=== PATIENT | female | born 1975 | race Caucasian/White ===

== ENCOUNTER 2022-05-30 15:45 | Outpatient (RCR) | payer OTHER, SELFPAY ==
[2022-05-15 09:01] VITALS: BMI 44.2
== END 2022-05-30 23:59 ==
LOC: CR 15:45
DX: Z95.5 Presence of coronary angioplasty implant and graft (principal)
CPT/HCPCS: 93798

== ENCOUNTER 2022-06-29 15:45 | Outpatient (RCR) | payer OTHER, SELFPAY ==
[2022-05-15 09:01] VITALS: BMI 44.2
--- NOTE | 2022-06-13 09:10 | PCM.CR.ITP ---
Diagnosis Exercise - 30-day Assessment - Visit Date of Eval: 06/13/22 Session #:: 8 - Physician Prescribed Exercise Modalities: Treadmill, Rower, NuStep Frequency: 3x/week for 12 weeks [36 sessions] Intensity: 60-80% of age predicted maximum heart rate reserve Current METSs:: 4.5 Target Heart Rate:: 113-147 Current RPE:: 12-14 Maximum Excercise HR:: 118 Resting Blood Pressure: 140/80 Maximum Exercise Blood Pressure: 140/80 EKG Type: NSR to ST with rare PVC - Outcomes & Goals Goals:: Verbalizes understanding of THR, RPE & goal METS by session 6, Documents in home exercise log/reports 30 min aerobic 5 day/wk by DC, Demonstrates accurate pulse taking by DC, Other additional outcome/goals: see below - Intervention & Plan Exercise Program Goals: Instruct on personal THR & RPE, Instruct on MET level & personal MET goal, Show patient to take own pulse /validate performance until accurate, Instruct on home exercise, Other additional plan/int - 30-day Reassessments 30 day Reassessments:: Progressing - THR explained - Physical Activity Home Exercise Physical Activity - Home Exercise: Safe Exercise, Warm-up, Self-monitoring, Cool-Down, Home Exercise > 30 min Daily, Sitting Time <3 hours/daily - Outcomes & Goals Outcomes/Goals: Demonstrates correct Warm-up/exercise Cool-Down (S3) if = 2.5 METs, Verbalizes symptoms of exercise intolerance by Session 3 (S3), Demonstrate safe equipment use (S3) & follows exercise prescrition (6), Other: See below - Intervention & Plan Plan/Intervention: Instruct warm-up & cool-down if exercising at > 2 METs, Instruct on symptoms of exercise intolerance & actions to take, Instruct & monitor on saf, Assess intial functional capacity & safety risk, Other See below - 30-day Reassessments 30 day Reassessments:: Progressing - warm up encouraged Nutrition - Initial Assessment Nutrition - 30-Day Assessment - Program Goals Nutrition Program Goals: LDL <100 optimal. 100 - 129 Near optimal. 130 - 159 Borderline High. 160 - 189 High. Total Cholesterol <200 desirable. 200 - 239 Borderline High. >/= 240 High. HDL < 40 Low >/=60 High. Triglycerides <150 desirable. <199 optimal. VlDL 5 - 40. HgbA1C <7%. BMI <25 Patient has diagnosis of Hyperlipidemia (ICD E78)?: Yes - Visit Date of Assessment:: 06/13/22 Session #:: 8 - Cholesterol/Lipids (Other Core Measures) Determine presence & major risk factors that modify LDL goal: Hypertension or hypertensive medication, Low HDL cholesterol <40 mg/dL*, Family history of premature CHD in Male < 55 years: female <65 yearsFa, Age men > 45 years; women >/= 55 years Outcomes/Goals: Pt IDs own risk factors & lifestyle modifications by Session 10, Verbalizes symptoms of angina & response by session 3., Pt independently manages, Other Additional Outcomes/Goals: Intervention/Plan: Advocate for lipid panel cholesterol medication if applicable, Instruct on personal lipid levels & lipid goals/NCEP guidelines, Instruct on cholesterol, Other additional plan/int Referral to dietitian:: Yes - medical nutrition therapy 30-day Reassessments:: Progressing - risk factors explained - Diabetes (Other Core Measures) Diabetes Type: Diagnosis Type II ICD-10 E11 Fasting blood glucose:: 198 Insulin dependent injection/pump?: Yes Non-Insulin Dependent?: Yes Do you monitor your blood sugar at home?: Yes Referral to Diabetic Clinic:: Yes Outcomes/Goals:: Able to state symptoms of, Able to state, Able to state, Other additional Intervention/Plan:: Instruct on, Refer to, Instruct on, Other 30-day Reassessments:: Progressing - referral to dietitian - Weight Mgt (Other Care) Height: 5 ft 4 in Weight:: 115.212 kg BMI: 43.6 Diagnosis Overweight/Obesity BMI> 30% ICD-10 E66: Yes Diagnosis High BMI/Morbid Obesity BMI> 35% ICD-10 Z68: Yes Outcomes/Goals: Pt sets, maintains & shows weight loss goal & trend during rehab, Other additional outcomes/goals Intervention/Plan: Instruct on ideal BMI & set weight loss goal w/patient, Assist pt to ID & incorporate diet changes for weight loss by S9, Refer to Structured Weight Loss program as appropriate, Encourage goal of using 250-300dcal per session for weight loss, Other additional plan/interventions 30 day Reassessments:: Progressing - referral to dietitian - Healthy Eating Habits Will attend diet classes:: Yes Outcomes/Goals:: Consume diet rich in vegs,fruits,whole grain/high fiber,fish,lean meat, Limit sat/trans fats,cholesterol & added salts & sugars, Other additional outcome/goals: Intervention/Plan:: Assess current eating habits, Other Additional plan/interventions 30-day Reassessments:: Progressing - referral to dietitian - Education Gave educational materials for:: Signs & symptoms of hypoglycemia, Relate diabetes to coronary artery disease, Healthy eating Nutrition - 60-Day Assessment Nutrition - 90-Day Assessment Nutrition - Final Assessment Core - Initial Assessment Core - 30-Day Assessment - Visit Date of Eval: 06/13/22 Session #:: 8 - Medication Compliance Preventative Medication(s):: Aspirin, Clopidogrel/P2Y12 inhibit, Statin/lipid, Beta tu H/O mental health issues: depression, anxiety, or addiction?: No Doesn?t believe in the benefits of treatment?: No Believes medications are unnecessary or harmful?: No Has a concern about medication side effects?: No Expresses concern over the cost of medications?: No Outcomes/Goals: Verbalizes medications,desired effect & common side effects @ DC, Pt self-reports following medication regimen, Keeps card in wallet w/medications listed by DC, Other additional outcome/goals: Interventions/plans: Instruct on medication effects & side effects, Review medication list w/patient every two weeks, Instruct importance of taking meds as ordered & assist problem solving, Other additional 30-day Reassessments:: Progressing - encouraged to take meds - Tobacco Use Tobacco Use: Non-smoker Do you use smokeless tobacco?: No 30-day Reassessments:: Met - nonsmoker - Hypertension Hypertension Diagnosis:: Hypertension ICD-10 I10 Resting Blood Pressure:: 140/80 [place] [employer] Hypertension Guidelines: [place] [employer] Hypertension Guidelines. Normal BP Less than 120/80. Elevated BP 120/80. Hypertension Stage 1: BP 130-139/80-89. Hypertesnion Stage 2: BP 140 or higher/90 or higher. Hypertension Crisis: BP higher than 180/120 Peak Exercise Blood Pressure:: 140/80 Outcomes/Goals: Able to verbalize/achieve optimal blood pressure <130/80, Incorporates diet changes & exercise for blood pressure control by DC, Other additional outcomes/goals Interventions/plan: Instruct on optimal blood pressure, hypertension & medications, Instruct on effects of sodium, alcohol, stress, exercise &hypertension, Other additional plan/interventions 30 day Reassessments:: Progressing - encouraged tot terri meds - Tobacco Cessation Referral Smoking Cessation Referral:: No Individual Education/Counseling:: No Education Schedule Given:: Yes Core - 60-Day Assessment Core - 90 Day Assessment Core - Final Assessment Psychosocial - Initial Assess Psychosocial - 30-Day Assess - VIsit Date of Eval: 06/13/22 Session #:: 8 History of previous Mental disease:: No - 30-day Reassessments: 30 day Reassessments:: Met Psychosocial - 60-Day Assess Psychosocial - 90-Day Assess Psychosocial - Final Assessmen Patient Health Questionnaire 30-Day Re-eval Assessment 1. Little interest or pleasure in doing things: Not at all 2. Feeling down, depressed, or hopeless: Not at all 3. Trouble falling or staying asleep, or sleeping too much: Several days 4. Feeling tired or having little energy: Several days 5. Poor appetite or overeating: Several days 6. Feeling bad about yourself -- or that you are a failure or have let yourself or your family down: Not at all 7. Trouble concentrating on things, such as reading the newspaper or watching television: Not at all 8. Moving or speaking so slowly that other people could have noticed. Or the opposite - being so fidgety or restless that you have been moving around a lot more than usual: Not at all 9. Thoughts that you would be better off , or of hurting yourself in some way: Not at all How difficult have these problems made it for you to do your work, take care of things at home, or get along with other people?: Not difficult at all Total Score: 3 Self-Efficacy 30-Day Re-eval Assessment We would like to know how confident you are in doing certain activities. Please select your confidence level for:: Select your confidence level for the following using the scale 1-10 where 1 is not at all confident and 10 is totally confident. Your score is the average of all 6 responses. Fatigue: How confident are you that you can keep the fatigue caused by your disease from interfering with the things you want to do? Select Number: 7 Physical Discomfort or Pain: How confident are you that you can keep the physical discomfort or pain of your disease from interfering with the things you want to do? Select Number: 7 Emotional Distress: How confident are you that you can keep the emotional distress caused by your disease from interfering with the things you want to do? Select Number: 9 Other Symptoms or Health Problems: How confident are you that you can keep other symptoms or health problems from interfering with the things you want to do? Select Number: 7 Different Tasks and Activities: How confident are you that you can do the different tasks and activities needed to manage your health condition so as to reduce your need to see a doctor? Select Number: 7 Medication: How confident are you that you can do things other than just taking medication to reduce how much your illness affects your everyday life? Select Number: 8 Total Score:: 7 Nutrition Survey
[2022-06-13 09:21] VITALS: BP 140/80; BMI 43.6
== END 2022-06-30 23:59 ==
LOC: CR 15:45
DX: Z95.5 Presence of coronary angioplasty implant and graft (principal)
CPT/HCPCS: 93798

== ENCOUNTER 2022-07-30 15:45 | Outpatient (RCR) | payer OTHER, SELFPAY ==
[2022-06-13 09:21] VITALS: BMI 43.6
[2022-07-01 00:33] VITALS: BP 140/80
== END 2022-07-31 23:59 ==
LOC: CR 15:45
PROVIDERS: PCP Family Medicine
DX: Z95.5 Presence of coronary angioplasty implant and graft (principal)
CPT/HCPCS: 93798

== ENCOUNTER 2022-08-27 15:45 | Outpatient (RCR) | payer OTHER, SELFPAY ==
[2022-06-13 09:21] VITALS: BMI 43.6
[2022-08-01 00:34] VITALS: BP 140/80
== END 2022-08-28 23:59 ==
LOC: CR 15:45
PROVIDERS: PCP Family Medicine
DX: Z95.5 Presence of coronary angioplasty implant and graft (principal)
CPT/HCPCS: 93798

== ENCOUNTER 2022-08-29 10:43 | Outpatient (RCR) | payer OTHER, SELFPAY ==
[2022-06-13 09:21] VITALS: BMI 43.6
[2022-08-29 00:23] VITALS: BP 140/80
== END 2022-09-28 23:59 ==
LOC: CR 10:43
PROVIDERS: PCP Family Medicine
DX: Z95.5 Presence of coronary angioplasty implant and graft (principal)
CPT/HCPCS: 93798

== ENCOUNTER → 2023-01-11 | Outpatient (CLI) | payer OTHER, SELFPAY ==
[2022-06-13 09:21] VITALS: BMI 43.6
[2023-01-16 12:09] LABS: HPV APTIMA, High Risk Negative (Negative)
== END | disposition home or self-care (01) ==
LOC: LABSPEC 10:36
PROVIDERS: PCP Family Medicine; Referring Provider Advanced Practice Midwife; Visit Provider Advanced Practice Midwife
DX: Z12.4 Encounter for screening for malignant neoplasm of cervix (principal)
CPT/HCPCS: 87624; 88175; G0145

== ENCOUNTER → 2023-03-05 | Outpatient (CLI) | payer OTHER, SELFPAY ==
[2022-06-13 09:21] VITALS: BMI 43.6
--- NOTE | 2023-03-05 08:21 | BI_ITS ---
MAMMOGRAPHY - BILATERAL SCREENING REASON FOR EXAM: Female, 47 years old. Routine annual screening examination. PERTINENT HISTORY: Mother with breast cancer. Aunt with breast cancer. History of prior left breast biopsy. TECHNIQUE: Digital bilateral breast dominique (3D mammographic acquisition) in the CC and MLO projections. 2-D mediolateral oblique (MLO) and craniocaudad (CC) views of both breasts were obtained. CAD: Full Field Digital Mammography with Computer Added Detection was performed. COMPARISON: Comparison is made with prior outside mammogram dated March 02, 2022. FINDINGS: Breast Composition: The breasts are heterogeneously dense, which may obscure small masses. There are no dominant masses or suspicious calcifications. A tissue clip marker is seen in the upper central portion of the left breast. No other significant abnormalities are identified. There has been no significant change since the prior study. BI/SCRN MAMM (CAD)W/DOMINIQUE BILAT IMPRESSION: Stable bilateral screening mammogram. Yearly follow-up mammogram recommended. (A) ASSESSMENT CATEGORY: BIRADS Category 2: Benign. A letter regarding these results will be sent to the patient by the facility within 30 days. Approximately 10% of breast cancers are not detected by mammography. A normal mammogram should not delay biopsy of a clinically suspicious abnormality. [id number] Electronically Signed: Wilder Stewart MD at 14:16 EDT ,
== END | disposition home or self-care (01) ==
PROVIDERS: PCP Family Medicine; Referring Provider Advanced Practice Midwife; Visit Provider Advanced Practice Midwife
DX: Z12.31 Encounter for screening mammogram for malignant neoplasm of breast (principal)
CPT/HCPCS: 77063; 77067

== ENCOUNTER → 2023-06-17 | Outpatient (CLI) | payer OTHER, SELFPAY ==
[2022-06-13 09:21] VITALS: BMI 43.6
--- NOTE | 2023-06-17 08:15 | CDU_ITS ---
Reason For Study: Dizziness Rt. Velocities/BP Lt. Velocities/BP Prox CCA 99/17 cm/sec. Prox CCA 99/25 cm/sec. Mid CCA 118/29 cm/sec. Mid CCA 113/28 cm/sec. Dist CCA 111/27 cm/sec. Dist CCA 111/34 cm/sec. Prox ICA 98/30 cm/sec. Prox ICA 114/36 cm/sec. Mid ICA 107/29 cm/sec. Mid ICA 98/38 cm/sec. Dist ICA 116/45 cm/sec. Dist ICA 87/31 cm/sec. Rt. ICA/CCA = 1.0. Lt. ICA/CCA = 1.0. Prox ECA 108/7 cm/sec. Prox ECA 98/22 cm/sec. Rt. Vert. 48/19 cm/sec. Lt. Vert. 50/13 cm/sec. Right Extracranial There is intimal thickening but no significant atherosclerotic plaque noted in the right common carotid artery. There is intimal thickening but no significant atherosclerotic plaque noted in the right internal carotid artery. There is no significant atherosclerotic plaque noted in the right external carotid artery. Antegrade flow is noted in the right vertebral artery. There is heterogeneous, irregular atherosclerotic plaque noted in the right bulb. Left Extracranial There is intimal thickening but no significant atherosclerotic plaque noted in the left common carotid artery. There is heterogeneous, smooth atherosclerotic plaque noted in the left internal carotid artery. There is no significant atherosclerotic plaque noted in the left external carotid artery. Antegrade flow is noted in the left vertebral artery. There is heterogeneous, irregular atherosclerotic plaque noted in the left bulb. Procedure Carotid Duplex [id number]. This is a Carotid Duplex examination using B-mode, color flow and specral Doppler. Exam performed in department. VL/Carotid Duplex Ultrasound Interpretation Summary Normal right extracranial internal carotid. Mild (<50%) stenosis left extracranial internal carotid. Patent and antegrade vertebrals bilaterally Ordering Physician: Pedro Luis Malhotra Referring Physician: Rhett Brito Performed By: Hazel Malhotra, THALIA, RVT
== END | disposition home or self-care (01) ==
LOC: CVS 08:15
PROVIDERS: PCP Family Medicine; Referring Provider Nurse Practitioner Family; Visit Provider Nurse Practitioner Family
DX: R42 Dizziness and giddiness (principal); I65.22 Occlusion and stenosis of left carotid artery; E78.2 Mixed hyperlipidemia; I10 Essential (primary) hypertension; Z95.5 Presence of coronary angioplasty implant and graft
CPT/HCPCS: 93880

== ENCOUNTER 2023-08-05 08:18 | Day surgery (SDC) | payer OTHER, SELFPAY ==
[2022-06-13 09:21] VITALS: BMI 43.6
[2023-08-05 08:42] VITALS: BP 116/69; PULSE 84; RESP 16; TEMP 36.8; O2SAT 100; BMI 38.9
--- OUTSIDE RECORDS SUMMARY | 2023-08-05 08:55 | XMS RPT_ITS | CCD ---
Author Name Unknown Address [address] [place] [address] Organization [facility] Care Team Providers Care Director Facilities Maintenance Name Role Phone Rhett Brito Unavailable Unavailable RHETT BRITO Unavailable Unavailable RHETT BRITO Unavailable Unavailable RHETT BRITO Unavailable Unavailable BIRHETT GUIDRY Unavailable Unavailable Compa, Suzi F Unavailable Unavailable Compa, Suzi F Unavailable Unavailable Compa, Suzi F Unavailable Unavailable Compa, Suzi F Unavailable Unavailable Compa, Suzi F Unavailable Unavailable Compa, Suzi F Unavailable Unavailable Compa, Suzi F Unavailable Unavailable Compa, Suzi F Unavailable Unavailable Rhett Brito Unavailable Unavailable Rhett Brito Primary Care Provider UnavailRHETT Fernandes Attending Unavailable RHETT BRITO Referring Unavailable RHETT BRITO Attending Unavailable REHTT BRITO Referring Unavailable Rhett Brito Primary Care Provider [phone] Rhett Brito Primary Care Provider Rhett Birto Primary Care Provider Rhett Brito MD Primary Care Provider [phone] RHETT BRITO Primary Care Unavailable COMPA, SUZI F. S. Attending Unavailabl e COMPA, SUZI F. S. Attending Unavailabl e COMPA, SUZI F. S. Referring UnavailRHETT Fernandes Primary Care Unavailable Rhett Brito MD Primary Care Provider LIVIA MONSON Attending Unavailable RHETT BRITO Primary Care Unavailable Rhett Brito MD Primary Care Provider Rhett Brito MD Primary Care Provider Rhett Brito MD Primary Care Provider SELF, SELF Referring Unavailable RHETT BRITO Attending Unavailable RHETT BRITO Primary Care Unavailable SELF, SELF Referring Unavailable RHETT BRITO Attending Unavailable RHETT BRITO Primary Care Unavailable RHETT BRITO Attending Unavailable JOHNNA, RHETT Joyce Primary Care Unavailable SELF, SELF Referring Unavailable JOHNNA, RHETT Joyce Attending Unavailable BICHAO, RHETT Joyce Primary Care Unavailable SELF, SELF Referring Unavailable RHETT BRITO Attending Unavailable BICHAO, RHETT Joyce Referring Unavailable BICHAO, RHETT Joyce Primary Care Unavailable BICHAO, RHETT Joyce Attending Unavailable BICHAO, RHETT Joyce Primary Care Unavailable SELF, SELF Referring Unavailable SELF, SELF Referring Unavailable BICHAO, RHETT Joyce Primary Care Unavailable CATHLEEN VALDES Attending Unavailable JOHNNA, RHETT Joyce Primary Care Unavailable RHETT BRITO Attending Unavailable JOHNNA, REHTT Joyce Referring Unavailable JOHNNA, RHETT Joyce Primary Care Unavailable JOHNNA, RHETT Joyce Primary Care Unavailable SELF, SELF Referring Unavailable JOHNNA, RHETT Joyce Primary Care Unavailable JOHNNA, RHETT Joyce Attending Unavailable Allergies Allergy Classification Reported Allergen(s) Allergy Type Date of Onset Reaction(s) Facility Opioid Agonists (5 sources) [facility] Drug Allergy 9 Nausea and Vomiting [facility] (11 sources) OTHER; Translations: [OTHER] Propensity to adverse reactions 6 Other (See Comments) [employer] Work Phone: (20 sources) traMADol Drug Allergy 9 Nausea and Vomiting [facility] Medications Current Medications Medication Drug Class(es) Dates Sig (Normalized) Sig (Original) acetaminophen 325 mg / oxyCODONE hydrochloride 5 mg oral tablet (11 sources) Opioid Agonist Start: 04-30-2019 End: 06-16-2019 take 1-2 tablets by mouth every four to six hours as needed for pain oxyCODONE-acetami nophen 5-325 MG Tab per tablet Indications: S/P carpal tunnel release , S/P cubital tunnel release 1-2 tabs PO every 4-6 hrs as needed for pain 40 tablet 0 06/11/2019 Active Completed/Discontinued Medications Medication Drug Class(es) Dates Sig (Normalized) Sig (Original) acetaminophen 325 mg oral tablet (5 sources) Start: 04-27-2022 End: 04-28-2022 take 325-650 mg by mouth every six hours as needed acetaminophen (TYLENOL) tablet 325-650 mg Problems Active Problems Problem Classification Problem Date Documented Date Episodic/Chronic Cardiac dysrhythmias (3 sources) Bradycardia; Translations: [Bradycardia] Onset: 09-24-2020 09-24-2020 Chronic Cardiac dysrhythmias (20 sources) Bradycardia; Translations: [Bradycardia, unspecified] Onset: 09-24-2020 09-24-2020 Episodic Contraceptive and procreative management (20 sources) Intrauterine contraceptive device in situ; Translations: [Contraceptive, surveillance, intrauterine device] Onset: 04-17-2017 08-16-2017 Coronary atherosclerosis and other heart disease (20 sources) Coronary atherosclerosis; Translations: [Atherosclerotic heart disease of jackson coronary artery without angina pectoris] Onset: 03-08-2021 Chronic Diabetes mellitus with complications (15 sources) Type 2 diabetes mellitus; Translations: [Type 2 diabetes mellitus with diabetic neuropathy, unspecified] Onset: 02-16-2021 02-16-2021 Chronic Diabetes mellitus without complication (20 sources) Diabetes mellitus; Translations: [Type 2 diabetes mellitus without complication] Onset: 04-30-2018 04-30-2018 Chronic Disorders of lipid metabolism (20 sources) Hypercholesterolemia; Translations: [Pure hypercholesterolemia, unspecified] Onset: 02-16-2021 02-16-2021 Chronic Esophageal disorders (2 sources) Gastroesophageal reflux disease without esophagitis; Translations: [Gastro-esophageal reflux disease without esophagitis] Chronic Essential hypertension (20 sources) Essential hypertension; Translations: [Essential (primary) hypertension] Onset: 10-17-2021 Chronic Fluid and electrolyte disorders (1 source) Mild dehydration; Translations: [Dehydration, mild] Episodic Headache; including migraine (20 sources) Chronic tension-type headache, intractable; Translations: [Intractable chronic tension headache] Onset: 05-20-2017 05-20-2017 Chronic Headache; including migraine (10 sources) Cervicogenic headache; Translations: [Cervicogenic headache] Episodic Headache; including migraine (20 sources) Headache; including migraine; Translations: [Intractable chronic tension headache] Onset: 05-20-2017 05-20-2017 Immunizations and screening for infectious disease (1 source) Needs influenza immunization; Translations: [Encounter for immunization] 04-18-2023 Episodic Nonspecific chest pain (4 sources) Chest pain; Translations: [Chest pain, unspecified] Episodic Other and unspecified benign neoplasm (1 source) Dermatofibroma; Translations: [Dermatofibroma] Episodic Other connective tissue disease (1 source) Calcaneal spur; Translations: [Calcaneal spur, unspecified laterality] Episodic Other connective tissue disease (2 sources) Plantar fasciitis; Translations: [Plantar fasciitis] Episodic Other connective tissue disease (1 source) Pain in limb; Translations: [Pain in unspecified limb] Episodic Other connective tissue disease (5 sources) Inflammation of rotator cuff tendon; Translations: [Other shoulder lesions, unspecified shoulder] Episodic Other endocrine disorders (20 sources) Hyperprolactinemia; Translations: [Hyperprolactinemia] Onset: 04-17-2017 04-17-2017 Chronic Other endocrine disorders (1 source) Increased androgen level; Translations: [Androgen excess] 04-18-2023 Chronic Other female genital disorders (20 sources) Dysfunctional uterine bleeding; Translations: [Irregular periods] Onset: 04-17-2017 04-17-2017 Chronic Other female genital disorders (20 sources) Abnormal uterine bleeding; Translations: [Other specified abnormal uterine and vaginal bleeding] Onset: 04-17-2017 08-16-2017 Chronic Other injuries and conditions due to external causes (1 source) Compression injury of nerve; Translations: [Other injury of unspecified body region, initial encounter] Episodic Other nervous system disorders (3 sources) Carpal tunnel syndrome; Translations: [Carpal tunnel syndrome, unspecified laterality] Chronic Other nervous system disorders (3 sources) Cubital tunnel syndrome; Translations: [Cubital tunnel syndrome, bilateral] Chronic Other nervous system disorders (2 sources) Bilateral carpal tunnel syndrome; Translations: [Carpal tunnel syndrome, bilateral upper limbs] Chronic Other nervous system disorders (5 sources) Bilateral carpal tunnel syndrome; Translations: [Bilateral carpal tunnel syndrome] Other nervous system disorders (1 source) Carpal tunnel syndrome of left wrist; Translations: [Carpal tunnel syndrome, left] Other nutritional; endocrine; and metabolic disorders (20 sources) Morbid obesity; Translations: [Morbid (severe) obesity due to excess calories] Onset: 07-22-2018 07-22-2018 Chronic Other nutritional; endocrine; and metabolic disorders (7 sources) Other obesity due to excess calories; Translations: [Childhood obesity] Onset: 02-20-2023 02-20-2023 Chronic Other nutritional; endocrine; and metabolic disorders (12 sources) Body mass index 40+ - severely obese; Translations: [Morbid (severe) obesity due to excess calories] Onset: 07-22-2018 02-17-2021 Chronic Other skin disorders (1 source) Alopecia; Translations: [Nonscarring hair loss, unspecified] Episodic Other skin disorders (1 source) Loss of hair; Translations: [Nonscarring hair loss, unspecified] 04-18-2023 Episodic Other upper respiratory disease (6 sources) Allergic rhinitis; Translations: [Allergic rhinitis, unspecified] Chronic Other upper respiratory disease (1 source) Bronchospasm; Translations: [Bronchospasm] Episodic Residual codes; unclassified (5 sources) History of decompression of ulnar nerve; Translations: [S/P cubital tunnel release] Episodic Residual codes; unclassified (4 sources) History of decompression of median nerve; Translations: [S/P carpal tunnel release] Episodic Septicemia (except in labor) (3 sources) Sepsis without acute organ dysfunction; Translations: [Sepsis without acute organ dysfunction] Onset: 09-22-2020 09-22-2020 Spondylosis; intervertebral disc disorders; other back problems (10 sources) Neck pain; Translations: [Cervicalgia] Episodic Unclassified (20 sources) Patient encounter status; Translations: [Visit for insertion of intrauterine device] Onset: 04-17-2017 04-17-2017 Unclassified (20 sources) Tendonitis, Achilles, right; Translations: [Tendonitis, Achilles, right] Onset: 05-07-2018 05-07-2018 Unclassified (1 source) Cancer cervix screening status; Translations: [Cervical cancer screening] Unclassified (1 source) Abnormal findings on diagnostic imaging of other specified body structures; Translations: [Abnormal chest CT] Varicose veins of lower extremity (20 sources) Venous varices; Translations: [Asymptomatic varicose veins of unspecified lower extremity] Onset: 09-06-2015 09-06-2015 Episodic Viral infection (1 source) Disease caused by 2019-nCoV; Translations: [COVID-19] Episodic Past or Other Problems Problem Classification Problem Date Documented Da te Episodic/Chronic Abdominal pain (20 sources) Pain in female pelvis; Translations: [Pelvic and perineal pain] Onset: 7 04-17-2017 Episodic Contraceptive and procreative management (20 sources) Contraception ; Translations: [IUD contraception] Onset: 7 04-17-2017 Episodic Coronary atherosclerosis and other heart disease (3 sources) History of cardiac catheterization; Translations: [Presence of coronary angioplasty implant and graft] Onset: 1 Episodic Other connective tissue disease (20 sources) Achilles tendinitis, right leg; Translations: [Right achilles tendonitis] Onset: 8 05-07-2018 Episodic Other connective tissue disease (1 source) Pain in left arm; Translations: [Pain in left arm] Episodic Other lower respiratory disease (15 sources) Dyspnea on exertion; Translations: [Dyspnea, unspecified] Onset: 1 02-16-2021 Episodic Other screening for suspected conditions (not mental disorders or infectious disease) (20 sources) Mammography abnormal; Translations: [Patient encounter status] Onset: 1 Episodic Otitis media and related conditions (3 sources) Acute otitis media; Translations: [Otitis media, unspecified, unspecified ear] Onset: 3 02-20-2023 Episodic Phlebitis; thrombophlebitis and thromboembolism (20 sources) Phlebitis of superficial veins of lower extremity; Translations: [Phlebitis and thrombophlebitis of superficial vessels of unspecified lower extremity] Onset: 6 09-06-2015 Episodic Pneumonia (except that caused by tuberculosis or sexually transmitted disease) (20 sources) Bronchopneumonia; Translations: [Infective pneumonia] Onset: 1 09-21-2020 Episodic Residual codes; unclassified (15 sources) Family history of coronary arteriosclerosis; Translations: [Family history of ischemic heart disease and other diseases of the circulatory system] Onset: 1 02-16-2021 Episodic Septicemia (except in labor) (20 sources) Sepsis without acute organ dysfunction; Translations: [Sepsis, unspecified organism] Onset: 1 09-22-2020 Episodic Results Test Name Value Interpretation Reference Range Facil ity Vital Signs Date Time Vital Sign Value Performing Clinician Christine quintanilla 04-18-2023 08:21-0400 Body height 162.6 cm Rhett Brito MD Work Phone: [facility] 04-18-2023 08:21-0400 Body mass index (BMI) [Ratio] 42.5 kg/m2 Rhett Brito MD Work Phone: [facility] 04-18-2023 08:21-0400 Body weight 112.31 kg Rhett Brito MD Work Phone: [facility] 04-18-2023 08:21-0400 Diastolic blood pressure 71 mm[Hg] Rhett Brito MD Work Phone: [facility] 04-18-2023 08:21-0400 Heart rate 78 /min Rhett Brito MD Work Phone: [facility] 04-18-2023 08:21-0400 SaO2% (BldA) [Mass fraction] 100 % Rhett Brito MD Work Phone: [facility] 04-18-2023 08:21-0400 Systolic blood pressure 110 mm[Hg] Rhett Brito MD Work Phone: [facility] 10-17-2022 13:57-0400 Body height 162.6 cm Rhett Brito MD Work Phone: [facility] 10-17-2022 13:57-0400 Body mass index (BMI) [Ratio] 44.53 kg/m2 Rhett Brito MD Work Phone: [facility] 10-17-2022 13:57-0400 Body temperature 98.01 [degF] Rhett Brito MD Work Phone: [facility] 10-17-2022 13:57-0400 Body weight 117.66 kg Rhett Brito MD Work Phone: [facility] 10-17-2022 13:57-0400 Diastolic blood pressure 74 mm[Hg] Rhett Brito MD Work Phone: [facility] 10-17-2022 13:57-0400 Heart rate 68 /min Rhett Brito MD Work Phone: [facility] 10-17-2022 13:57-0400 Respiratory rate 18 /min Rhett Brito MD Work Phone: [facility] 10-17-2022 13:57-0400 SaO2% (BldA) [Mass fraction] 99 % Rhett Brito MD Work Phone: [facility] 10-17-2022 13:57-0400 Systolic blood pressure 122 mm[Hg] Rhett Brito MD Work Phone: [facility] 04-28-2022 08:25-0400 Body temperature 97.9 [degF] Madhu Kramer MD Work Phone: [facility] 04-28-2022 08:25-0400 Diastolic blood pressure 75 mm[Hg] Madhu Kramer MD Work Phone: [facility] 04-28-2022 08:25-0400 Heart rate 81 /min Madhu Kramer MD Work Phone: [facility] 04-28-2022 08:25-0400 SaO2% (BldA) [Mass fraction] 97 % Madhu Kramer MD Work Phone: [facility] 04-28-2022 08:25-0400 Systolic blood pressure 126 mm[Hg] Madhu Kramer MD Work Phone: [facility] 04-28-2022 08:18-0400 Respiratory rate 16 /min Madhu Kramer MD Work Phone: [facility] 04-28-2022 04:00-0400 Body mass index (BMI) [Ratio] 46.17 kg/m2 Madhu Kramer MD Work Phone: [facility] 04-28-2022 04:00-0400 Body weight 122 kg Madhu Kramer MD Work Phone: [facility] 04-17-2022 13:18-0400 Body mass index (BMI) [Ratio] 44.46 kg/m2 Rhett Brito MD Work Phone: [facility] 04-17-2022 13:18-0400 Body weight 117.48 kg Rhett Brito MD Work Phone: [facility] 04-17-2022 13:18-0400 Diastolic blood pressure 84 mm[Hg] Rhett Brito MD Work Phone: [facility] 04-17-2022 13:18-0400 Heart rate 71 /min Rhett Brito MD Work Phone: [facility] 04-17-2022 13:18-0400 Respiratory rate 16 /min Rhett Brito MD Work Phone: [facility] 04-17-2022 13:18-0400 SaO2% (BldA) [Mass fraction] 97 % Rhett Brito MD Work Phone: [facility] 04-17-2022 13:18-0400 Systolic blood pressure 138 mm[Hg] Rhett Brito MD Work Phone: [facility] 11-20-2021 08:31-0400 Body height 162.6 cm Roxie Lazo MD Work Phone: [facility] 11-20-2021 08:31-0400 Body mass index (BMI) [Ratio] 43.94 kg/m2 Roxie Lazo MD Work Phone: [facility] 11-20-2021 08:31-0400 Body weight 116.12 kg Roxie Lazo MD Work Phone: [facility] 11-20-2021 08:31-0400 Diastolic blood pressure 82 mm[Hg] Roxie Lazo MD Work Phone: [facility] 11-20-2021 08:31-0400 Heart rate 68 /min Roxie Lazo MD Work Phone: [facility] 11-20-2021 08:31-0400 Systolic blood pressure 122 mm[Hg] Roxie Lazo MD Work Phone: [facility] 10-26-2021 08:19-0400 Body mass index (BMI) [Ratio] 43.74 kg/m2 Rhett Brito MD Work Phone: [facility] 10-26-2021 08:19-0400 Body weight 115.58 kg Rhett Brito MD Work Phone: [facility] 10-26-2021 08:19-0400 Diastolic blood pressure 81 mm[Hg] Rhett Brito MD Work Phone: [facility] 10-26-2021 08:19-0400 Heart rate 70 /min Rhett Brito MD Work Phone: 7(866)024-436312 [place] [address] 10-26-2021 08:19-0400 Respiratory rate 16 /min Rhett Brito MD Work Phone: 8(213)676-617012 [place] [address] 10-26-2021 08:19-0400 Systolic blood pressure 139 mm[Hg] Rhett Brito MD Work Phone: 6(152)964-837119 [place] [address] 02-23-2021 11:15-0400 Body mass index (BMI) [Ratio] 44.73 kg/m2 Rhett Brito MD Work Phone: 9(559)391-953319 [place] [address] 02-23-2021 11:15-0400 Body weight 118.21 kg Rhett Brito MD Work Phone: 7(631)483-956219 [place] [address] 02-23-2021 11:15-0400 Diastolic blood pressure 81 mm[Hg] Rhett Brito MD Work Phone: 5(298)896-598419 [place] [address] 02-23-2021 11:15-0400 Heart rate 84 /min Rhett Brito MD Work Phone: 6(449)754-542519 [place] [address] 02-23-2021 11:15-0400 Respiratory rate 16 /min Rhett Brito MD Work Phone: 0(913)689-781012 [place] [address] 02-23-2021 11:15-0400 SaO2% (BldA) [Mass fraction] 98 % Rhett Brito MD Work Phone: 8(496)777-086512 [place] [address] 02-23-2021 11:15-0400 Systolic blood pressure 132 mm[Hg] Rhett Brito MD Work Phone: 9(879)494-230712 [place] [address] 02-18-2021 11:20-0400 Body temperature 98.01 [degF] Madhu Kramer MD Work Phone: [employer] [facility] 02-18-2021 11:20-0400 Diastolic blood pressure 94 mm[Hg] Madhu Kramer MD Work Phone: [employer] [facility] 02-18-2021 11:20-0400 Heart rate 86 /min Madhu Kramer MD Work Phone: [employer] [facility] 02-18-2021 11:20-0400 Respiratory rate 16 /min Madhu Kramer MD Work Phone: [employer] [facility] 02-18-2021 11:20-0400 SaO2% (BldA) [Mass fraction] 98 % Madhu Kramer MD Work Phone: [employer] 02-18-2021 11:20-0400 Systolic blood pressure 154 mm[Hg] Madhu Kramer MD Work Phone: [employer] [facility] 02-17-2021 10:25-0400 Body height 162.6 cm Madhu Kramer MD Work Phone: [employer] [facility] 02-17-2021 10:25-0400 Body mass index (BMI) [Ratio] 46.28 kg/m2 Madhu Kramer MD Work Phone: [employer] [facility] 02-17-2021 10:25-0400 Body weight 122.3 kg Madhu Kramer MD Work Phone: [employer] [facility] 02-14-2021 08:48-0400 Body mass index (BMI) [Ratio] 45.32 kg/m2 [facility] 02-14-2021 08:48-0400 Body weight 119.75 kg Rhett Brito MD Work Phone: [employer] [facility] 02-14-2021 08:48-0400 Diastolic blood pressure 78 mm[Hg] Rhett Brito MD Work Phone: [facility] 02-14-2021 08:48-0400 Heart rate 66 /min Rhett Brito MD Work Phone: [facility] 02-14-2021 08:48-0400 SaO2% (BldA) [Mass fraction] 96 % Rhett Brito MD Work Phone: [facility] 02-14-2021 08:48-0400 Systolic blood pressure 139 mm[Hg] Rhett Brito MD Work Phone: [facility] 12-05-2020 18:53-0400 Body height 162.6 cm Dario Fischer [employer]IL [employer]ER Work Phone: [facility] 12-05-2020 18:53-0400 Body mass index (BMI) [Ratio] 44.05 kg/m2 Dario Fischer [employer]IL DIST[employer] EXAM[employer]ER Work Phone: [facility] 12-05-2020 18:53-0400 Body temperature 98.91 [degF] Dario Fischer [employer]IL DIST[employer]ION [employer]ME EXAMINER Work Phone: [facility] 12-05-2020 18:53-0400 Body weight 116.39 kg Dario Fischer MAIL DIST[employer]ME EXAMINER Work Phone: [facility] 12-05-2020 18:53-0400 Diastolic blood pressure 99 mm[Hg] Dario Fischer MAIL DIST[employer]BUTION [employer]HEME EXAMINER Work Phone: [facility] 12-05-2020 18:53-0400 Heart rate 84 /min Dario Fischer MAIL DIST[employer]ION [employer]ME EXAMINER Work Phone: [facility] 12-05-2020 18:53-0400 Respiratory rate 16 /min Dario Fischer [employer]IL [employer] EXAM[employer]ER Work Phone: [facility] 12-05-2020 18:53-0400 SaO2% (BldA) [Mass fraction] 98 % Dario Fischer [employer]IL DIST[employer]ME EXAMINER Work Phone: [facility] 12-05-2020 18:53-0400 Systolic blood pressure 153 mm[Hg] Dario Amado [employer]IL DIST[employer]ME EXAMINER Work Phone: [facility] 10-28-2020 08:25-0400 Body mass index (BMI) [Ratio] 44.23 kg/m2 Hazel Brown APRN-MAIL DISTRI[employer]ION [employer]ME EXAMINER Work Phone: [facility] 10-28-2020 08:25-0400 Body weight 116.94 kg Hazel TELLES Work Phone: [facility] 10-28-2020 08:25-0400 Diastolic blood pressure 86 mm[Hg] Hazel TELLES Work Phone: [facility] 10-28-2020 08:25-0400 Heart rate 88 /min Hazel TELLES Work Phone: [facility] 10-28-2020 08:25-0400 Respiratory rate 16 /min Hazel TELLES Work Phone: [facility] 10-28-2020 08:25-0400 SaO2% (BldA) [Mass fraction] 98 % Hazel TELLES Work Phone: [facility] 10-28-2020 08:25-0400 Systolic blood pressure 132 mm[Hg] Hazel TELLES Work Phone: [facility] 09-30-2020 11:21-0400 BMI (Body Mass Index) 42.27 kg/m2 [facility] 09-30-2020 11:21-0400 Body weight 111.77 kg [facility] 09-30-2020 11:21-0400 BP Diastolic 81 mm[Hg] [facility] 09-30-2020 11:21-0400 BP Systolic 120 mm[Hg] [facility] 09-30-2020 11:21-0400 Pulse (Heart Rate) 95 /min [facility] 09-30-2020 11:21-0400 Pulse Oximetry 93 % [facility] 09-30-2020 11:21-0400 Respiratory Rate 16 /min [facility] 09-25-2020 12:09-0400 Body Temperature 97.9 [degF] [facility] 09-25-2020 12:09-0400 BP Diastolic 84 mm[Hg] [facility] 09-25-2020 12:09-0400 BP Systolic 166 mm[Hg] [facility] 09-25-2020 12:09-0400 Pulse (Heart Rate) 76 /min [facility] 09-25-2020 12:09-0400 Pulse Oximetry 94 % [facility] 09-25-2020 12:09-0400 Respiratory Rate 14 /min [facility] 09-25-2020 04:45-0400 BMI (Body Mass Index) 43.61 kg/m2 [facility] 09-25-2020 04:45-0400 Body weight 115.3 kg [facility] 09-22-2020 05:03-0400 Height 162.6 cm [facility] 09-17-2020 22:09-0400 Body Temperature 100.2 [degF] [facility] 09-17-2020 22:09-0400 BP Diastolic 69 mm[Hg] [facility] 09-17-2020 22:09-0400 BP Systolic 137 mm[Hg] [facility] 09-17-2020 22:09-0400 Pulse (Heart Rate) 112 /min [facility] 09-17-2020 22:09-0400 Pulse Oximetry 97 % [facility] 09-17-2020 22:09-0400 Respiratory Rate 16 /min [facility] 09-17-2020 20:53-0400 BMI (Body Mass Index) 41.2 kg/m2 [facility] [facility]2020 20:53-0400 Body weight 108.86 kg [facility] 09-17-2020 20:53-0400 Height 162.6 cm [facility] 07-06-2020 08:13-0500 BMI (Body Mass Index) 45.53 kg/m2 [facility] 07-06-2020 08:13-0500 Body weight 116.57 kg [facility] 07-06-2020 08:13-0500 BP Diastolic 83 mm[Hg] [facility] 07-06-2020 08:13-0500 BP Systolic 142 mm[Hg] [facility] 07-06-2020 08:13-0500 Pulse (Heart Rate) 68 /min [facility] 07-06-2020 08:13-0500 Pulse Oximetry 91 % [facility] 07-06-2020 08:13-0500 Respiratory Rate 16 /min [facility] 04-21-2020 08:07-0400 BMI (Body Mass Index) 43.05 kg/m2 [facility] 04-21-2020 08:07-0400 Body weight 110.22 kg [facility] 04-21-2020 08:07-0400 BP Diastolic 87 mm[Hg] [facility] 04-21-2020 08:07-0400 BP Systolic 144 mm[Hg] [facility] 04-21-2020 08:07-0400 Height 160 cm [facility] 04-21-2020 08:07-0400 Pulse (Heart Rate) 70 /min [facility] 04-21-2020 08:07-0400 Respiratory Rate 18 /min [facility] 12-14-2019 14:47-0400 BMI (Body Mass Index) 42.51 kg/m2 [facility] 12-14-2019 14:47-0400 Body weight 108.86 kg [facility] 12-14-2019 14:47-0400 BP Diastolic 84 mm[Hg] [facility] 12-14-2019 14:47-0400 BP Systolic 131 mm[Hg] [facility] 12-14-2019 14:47-0400 Height 160 cm [facility] 12-14-2019 14:47-0400 Pulse (Heart Rate) 69 /min [facility] 08-26-2019 07:59-0500 BMI (Body Mass Index) 41.71 kg/m2 [facility] 08-26-2019 07:59-0500 Body weight 110.22 kg [facility] 08-26-2019 07:59-0500 BP Diastolic 84 mm[Hg] [facility] 08-26-2019 07:59-0500 BP Systolic 138 mm[Hg] [facility] 08-26-2019 07:59-0500 Height 162.6 cm [facility] 08-26-2019 07:59-0500 Pulse (Heart Rate) 88 /min [facility] 08-26-2019 07:59-0500 Respiratory Rate 16 /min [facility] 07-27-2019 14:54-0500 BMI (Body Mass Index) 41.6 kg/m2 [facility] 07-27-2019 14:54-0500 Body Temperature 97.7 [degF] [facility] 07-27-2019 14:54-0500 Body weight 109.94 kg [facility] 07-27-2019 14:54-0500 Height 162.6 cm [facility] 06-29-2019 10:42-0500 BMI (Body Mass Index) 40.34 kg/m2 [facility] 06-29-2019 10:42-0500 Body Temperature 97.7 [degF] [facility] 06-29-2019 10:42-0500 Body weight 106.59 kg [facility] 06-29-2019 10:42-0500 Height 162.6 cm [facility] 06-11-2019 10:10-0500 BP Diastolic 75 mm[Hg] [facility] 06-11-2019 10:10-0500 BP Systolic 123 mm[Hg] [facility] 06-11-2019 10:10-0500 Pulse (Heart Rate) 75 /min [facility] 06-11-2019 10:10-0500 Pulse Oximetry 98 % [facility] 06-11-2019 10:10-0500 Respiratory Rate 17 /min [facility] 06-11-2019 09:25-0500 Body Temperature 98.2 [degF] [facility] 06-11-2019 06:40-0500 BMI (Body Mass Index) 40.34 kg/m2 [facility] 06-11-2019 06:40-0500 Body weight 106.[address] [facility] 06-11-2019 06:40-[address] [facility] 05-13-2019 13:49-0500 BMI (Body Mass Index) 39.48 kg/m2 [facility] 05-13-2019 13:49-0500 Body Temperature 98.01 [degF] Sukh [facility] 05-13-2019 13:49-0500 Body weight 104.33 kg Sukh [facility] 05-13-2019 13:49-[address] [facility] 05-04-2019 08:26-0500 BP Diastolic 93 mm[Hg] [facility] 05-04-2019 08:26-0500 BP Systolic 160 mm[Hg] [facility] 05-04-2019 08:26-0500 Pulse (Heart Rate) 61 /min [facility] 04-30-2019 10:35-0400 BP Diastolic 73 mm[Hg] [facility] 04-30-2019 10:35-0400 BP Systolic 135 mm[Hg] [facility] 04-30-2019 10:35-0400 Pulse (Heart Rate) 72 /min [facility] 04-30-2019 10:35-0400 Pulse Oximetry 98 % [facility] 04-30-2019 10:35-0400 Respiratory Rate 16 /min [facility] 04-30-2019 09:28-0400 Body Temperature 97.9 [degF] [facility] 04-30-2019 06:32-0400 BMI (Body Mass Index) 39.48 kg/m2 [facility] 04-30-2019 06:32-0400 Body weight 104.[address] [facility] 04-30-2019 06:32-[address] [facility] 04-17-2019 14:25-0400 BMI (Body Mass Index) 39.48 kg/m2 [facility] 04-17-2019 14:25-0400 Body Temperature 97.5 [degF] [facility] 04-17-2019 14:25-0400 Body weight 104.33 kg [facility] 04-17-2019 14:25-0400 BP Diastolic 75 mm[Hg] [facility] 04-17-2019 14:25-0400 BP Systolic 137 mm[Hg] [facility] 04-17-2019 14:25-0400 Height 162.6 cm [facility] 04-17-2019 14:25-0400 Pulse (Heart Rate) 72 /min [facility] Encounters Encounter Date Encounter Type Care Provider Facility Start: 10-18-2023 ambulatory RHETT BRITO [facility] Start: 04-18-2023 ambulatory SELF SELF [facility] Start: 04-18-2023 End: 04-18-2023 Office outpatient visit 40 minutes Rhett Brito MD Work Phone: [facility] Procedures Date Procedure Procedure Detail Performing Clinician Start: 11-29-2022 Arthrocentesis aspir&/inj major jt/bursa w/o us Rhett Brito MD Work Phone: Start: 11-02-2022 Arthrocentesis aspir&/inj major jt/bursa w/o us Rhett Brito MD Work Phone: Start: 05-22-2022 Cv strs tst xers&/or rx cont ecg trcg only Madhu Kramer MD Work Phone: Start: 04-28-2022 Gluc bld gluc mntr dev cleared fda spec home use Madhu Kramer MD Work Phone: Start: 04-28-2022 Basic metabolic panel calcium total Madhu Kramer MD Work Phone: Start: 04-28-2022 Lipid panel Madhu Kramer MD Work Phone: Start: 04-27-2022 Gluc bld gluc mntr dev cleared fda spec home use Madhu Kramer MD Work Phone: Start: 04-27-2022 Gluc bld gluc mntr dev cleared fda spec home use Madhu Kramer MD Work Phone: Start: 04-27-2022 Cultyp nuc acid amp prb cult/isolate ea orgnism Madhu Kramer MD Work Phone: Start: 04-27-2022 Ecg routine ecg w/least 12 lds trcg only w/o i&r Madhu Kramer MD Work Phone: Start: 04-27-2022 Cardiac catheterization Madhu Kramer MD Work Phone: Start: 04-27-2022 L hrt cath w/njx l ventriculography img s&i Madhu Kramer MD Work Phone: Start: 04-27-2022 Prq trluml coronary stent w/angio one art/brnch Madhu Kramer MD Work Phone: Start: 04-27-2022 Us vasc access sits vsl patency ndl entry Madhu Kramer MD Work Phone: Start: 04-27-2022 Basic metabolic panel calcium total Madhu Kramer MD Work Phone: Start: 04-27-2022 Ecg routine ecg w/least 12 lds trcg only w/o i&r Madhu Kramer MD Work Phone: Start: 04-23-2022 Myocardial spect multiple studies Rhett Brito MD Work Phone: Start: 03-02-2022 Screening mammography bi 2-view breast inc cad Roxie Lazo MD Work Phone: Start: 02-18-2021 Complete blood count with white cell differential, automated Xavier Villa [employer]AM[employer]ER Work Phone: Start: 02-18-2021 Comprehensive metabolic panel Xavier Villa [employer]ME EXAMINER Work Phone: Start: 02-18-2021 Lipid panel Madhu Kramer MD Work Phone: Start: 02-17-2021 History of placement of stent in anterior descending branch of left coronary artery Status post insertion of drug-eluting stent into left anterior descending (LAD) artery Rhett Brito MD Work Phone: Start: 02-17-2021 Ecg routine ecg w/least 12 lds trcg only w/o i&r Madhu Kramer MD Work Phone: Start: 02-17-2021 Cardiac catheterization Nikko plunkett DO Work Phone: Start: 02-17-2021 L hrt cath w/njx l ventriculography img s&i Nikko Sweeney DO Work Phone: Start: 02-17-2021 Prq trluml coronary stent w/angio one art/brnch Nikko Sweeney DO Work Phone: Start: 02-17-2021 Us vasc access sits vsl patency ndl entry Nikko Sweeney DO Work Phone: Start: 02-17-2021 Ecg routine ecg w/least 12 lds trcg only w/o i&r Madhu Kramer MD Work Phone: Start: 02-17-2021 Basic metabolic panel calcium total Madhu Kramer MD Work Phone: Start: 02-16-2021 Myocardial spect multiple studies Rhett Brito MD Work Phone: Start: 01-04-2021 Screening mammography bi 2-view breast inc cad Suzi Chatman MD Work Phone: Start: 10-28-2020 Ct thorax w/o contrast material Abigail Anguiano CNP Work Phone: Start: 09-25-2020 Gluc bld gluc mntr dev cleared fda spec home use Madhu Gray Work Phone: Start: 09-25-2020 Drug screen quantitative vancomycin Madhu Gray Work Phone: Start: 09-25-2020 Gluc bld gluc mntr dev cleared fda spec home use Madhu Gray Work Phone: Start: 09-25-2020 Assay of magnesium Pricilla K Sgambellone Work Phone: Start: 03-28-2021 Complete blood count with white cell differential, automated Pricilla K Sgambellone Work Phone: Start: 09-25-2020 Renal function panel Pricilla K Sgambellone Work Phone: Start: 09-24-2020 Assay of troponin quantitative Abigail Julian Silvio Work Phone: Start: 09-24-2020 Gluc bld gluc mntr dev cleared fda spec home use Madhu Gray Work Phone: Start: 09-24-2020 Gluc bld gluc mntr dev cleared fda spec home use Madhu Gray Work Phone: Start: 09-24-2020 Assay of troponin quantitative Abigail Julian Silvio Work Phone: Start: 09-24-2020 Gluc bld gluc mntr dev cleared fda spec home use Madhu Gray Work Phone: Start: 09-24-2020 Drug screen quantitative vancomycin Abigail Julian Silvio Work Phone: Start: 09-24-2020 Gluc bld gluc mntr dev cleared fda spec home use Madhu Gray Work Phone: Start: 09-24-2020 Assay of magnesium Pricilla K Sgambellone Work Phone: Start: 09-24-2020 Complete blood count with white cell differential, automated Pricilla K Sgambellone Work Phone: Start: 09-24-2020 Renal function panel Pricilla K Sgambellone Work Phone: Start: 09-24-2020 Rheumatoid factor quantitative Madhu Gray Work Phone: Start: 09-24-2020 Sedimentation rate rbc automated Madhu Gray Work Phone: Start: 09-23-2020 Gluc bld gluc mntr dev cleared fda spec home use Madhu Gray Work Phone: Start: 09-23-2020 Gluc bld gluc mntr dev cleared fda spec home use Madhu Gray Work Phone: Start: 09-23-2020 Drug screen quantitative vancomycin Madhu Gray Work Phone: Start: 09-23-2020 End: 09-23-2020 Gluc bld gluc mntr dev cleared fda spec home use Madhu Turner Fanijavier Work Phone: Start: 09-23-2020 Assay of magnesium Pricilla K Sgambellone Work Phone: Start: 09-23-2020 Complete blood count with white cell differential, automated Pricilla K Sgambellone Work Phone: Start: 09-23-2020 Natriuretic peptide Abigail Anguiano Work Phone: Start: 09-23-2020 Prothrombin time Abigail Anguiano Work Phone: Start: 09-23-2020 Renal function panel Pricilla K Sgambellone Work Phone: Start: 09-22-2020 Gluc bld gluc mntr dev cleared fda spec home use Madhu Turner Fanilonamagalis Work Phone: Start: 09-22-2020 Gluc bld gluc mntr dev cleared fda spec home use Madhu Turner Fanilonamagalis Work Phone: Start: 09-22-2020 Drug screen quantitative vancomycin Pricilla K Sgambellone Work Phone: Start: 09-22-2020 Gluc bld gluc mntr dev cleared fda spec home use Madhu Gray Work Phone: Start: 09-22-2020 CT of chest Abigail Anguiano Work Phone: Start: 09-22-2020 Gluc bld gluc mntr dev cleared fda spec home use Madhu Gray Work Phone: Start: 09-22-2020 Gluc bld gluc mntr dev cleared fda spec home use Madhu Turner Fanijavier Work Phone: Start: 09-22-2020 Assay of magnesium Pricilla K Sgambellone Work Phone: Start: 09-22-2020 Complete blood count with white cell differential, automated Pricilla Hugo Sgambellone Work Phone: Start: 09-22-2020 Prothrombin time Pricilla Hugo Sgambellone Work Phone: Start: 09-22-2020 Renal function panel Pricilla Hugo Sgambellone Work Phone: Start: 09-22-2020 Plain chest X-ray Pricilla Hugo Sgambellone Work Phone: Start: 09-22-2020 Assay of lactate Pricilla Hugo Sgambellone Work Phone: Start: 09-21-2020 Iaad ia mult step method nos each organism Pricilla Hugo Sgambellone Work Phone: Start: 09-21-2020 Legionella pneumophila 1 Ag [Presence] in Urine by Immunoassay Pricilla Hugo Cosbymbellone Work Phone: Start: 09-21-2020 Assay of thyroid stimulating hormone tsh Pricilla Hugo Sgambellone Work Phone: Start: 09-21-2020 Assay of lactate Román Catracho [place] Work Phone: Start: 09-21-2020 Cultyp nuc acid amp prb cult/isolate ea orgbert Swansonmagalis Work Phone: Start: 09-21-2020 Hemoglobin glycosylated a1c Pricilla Hugo Cosbymb ellone Work Phone: Start: 09-21-2020 Rheumatoid factor quantitative Pricilla K Sgambellone Work Phone: Start: 09-21-2020 Sedimentation rate rbc automated Pricilla K Sgambellone Work Phone: Start: 09-21-2020 NOVEL CORONAVIRUS LAB 1 - NASOPHARYNGEAL Román June Work Phone: Start: 09-21-2020 Plain chest X-ray Román Monteiroton Work Phone: Start: 09-21-2020 Assay of lactate Román June Work Phone: Start: 09-21-2020 Assay of troponin quantitative Román June Work Phone: Start: 09-21-2020 Complete blood count with white cell differential, automated Román June Work Phone: Start: 09-21-2020 End: 09-21-2020 Culture bacterial blood aerobic w/id isolates Román June Work Phone: Start: 09-21-2020 Electrolyte panel Román June Work Phone: Start: 09-21-2020 Hepatic function panel Román June Work Phone: Start: 09-21-2020 Rheumatoid factor quantitative Román June Work Phone: Start: 09-21-2020 Sedimentation rate rbc automated Román June Work Phone: Start: 09-21-2020 Standard ECG Román June Work Phone: Start: 09-17-2020 Diagnostic radiography of chest, combined PA and lateral Audra Tony Work Phone: Start: 09-17-2020 End: 09-17-2020 Culture bacterial blood aerobic w/id isolates Audra Tony Work Phone: Start: 09-17-2020 Quantitative PCR analysis Audra bynum Work Phone: Start: 09-17-2020 Complete blood count with white cell differential, automated Audra Wenceslao Tony Work Phone: Start: 09-17-2020 Creatinine blood Audra Wenceslao Tony Work Phone: Start: 04-30-2019 Standard ECG Sukhkendra Pradhan Work Phone: Start: 04-30-2019 Choriogonadotropin ( test) [Presence] in Urine Sukh Iesha JohnsLorne Work Phone: Start: 03-05-2019 EMG AND NERVE CONDUCTION (SCANNED) Demarco Lopez Work Phone: Start: 03-05-2019 Electromyography Demarco Lopez Work Phone: Start: 03-05-2019 Motor nerve conduction studies Demarco Lopez Work Phone: Start: 03-05-2019 Needle emg ea extremity w/paraspinl area limited Demarco Lopez Work Phone: Start: 01-13-2019 MG Breast Views Rhett Brito Work Phone: Start: 01-13-2019 MG Breast - right diagnostic External Tr anscribed Start: 01-13-2019 Mammography Suzi Chatman Start: 01-02-2019 MG Breast - bilateral screening Suzi Chatman Work Phone: Start: 01-02-2019 MG Breast Views Historical Provider Start: 01-02-2019 OUTSIDE RADIOLOGY Historical Provider Start: 01-02-2019 Mammography Rhett Brito Start: 10-30-2018 Microscopic observation [Identifier] in Cervix by Cyto stain Suzi Chatman Start: 10-17-2018 Lipid 1996 panel - Serum or Plasma Beatriz Church Start: 08-13-2018 Intra-articular injection Rhett Brito Work Phone: Start: 07-12-2018 End: 07-12-2018 X-ray of right foot Rhett Brito Work Phone: Start: 04-12-2018 Lipid 1996 panel - Serum or Plasma Rhett Brito Start: 12-19-2017 Mammography Suzi Compa Plan of Treatment Date Care Activity Detail Author Start: 04-06-2024 Lipid panel LIPIDS [facility] Start: 04-06-2024 Potassium [Moles/volume] in Serum or Plasma POTASSIUM [facility] Start: 03-02-2024 Screening for malign ant neoplasm of breast MAMMOGRAM SCREENING DISCUSSION [facility] Start: 10-31-2023 Screening for malign ant neoplasm of cervix Pap Smear [facility] Start: 10-18-2023 End: 04-18-2024 Basic metabolic 2000 panel - Serum or Plasma BASIC METABOLIC PANEL Lab Routine Type 2 diabetes mellitus without complication, without long-term current use of insulin Expected: 10/18/2023 (Approximate), Expires: 04/18/2024 [facility] Immunizations Immunization Date Immunization Notes Care Provider Yulissa wang 04-18-2023 influenza, injectabl e, quadrivalent, preservative free Rhett Brito MD Work Phone: [facility] 06-21-2021 COVID-19 vaccine, mR STEWART, Modernedinson, booster 0.25 ML Rhett Brito MD Work Phone: [facility] 05-18-2021 influenza, injectabl e, quadrivalent, preservative free Rhett Brito MD Work Phone: [facility] 05-18-2021 influenza virus vaccine, unspecified formulation Roxie Lazo MD Work Phone: [facility] 12-09-2020 COVID-19 vaccine, NA, Moderna 0.5 ML Rhett Brito MD Work Phone: [facility] 11-13-2020 COVID-19 vaccine, NA, Moderna 0.5 ML Rhett Brito MD Work Phone: [facility] 04-21-2020 influenza, injectabl e, quadrivalent, preservative free Rhett Brito [facility] 04-21-2020 influenza virus vaccine, unspecified formulation Suzi Chatman MD Work Phone: [facility] 03-19-2017 influenza virus vaccine, whole virus Rhett Brito [facility] 03-19-2017 influenza virus vaccine, unspecified formulation Rhett Brito [facility] Work Phone: Payers Date Payer Category Payer Unknown [facility] [id number] 2019-Present [id number] 2019 Unknown [id number] 2019 [facility] x[facility]x 2019-Present xxxxxxxxxx [id number] 2019 Unknown [employer] PPO ACCESS/TPA xxxxxxxxxxxx 2019-Present xxxxxxxxxxxx [id number] 2019 Unknown [employer] NETWORK ACCESS [id number] 2019-Present [id number] .[id number] 2019 Unknown [id number] .[id number] 2019 Unknown [id number] 2019 Unknown [id number] .[id number] 2018 Unknown xxxxxxxxx [id number] .[id number] 1976 Unknown [id number] [id number] 1976 Unknown [id number] [id number] 1976 Unknown [id number] [id number] 1976 Unknown [id number] 2.16.840.1.226268.3.579.2.983 1976 Unknown [id number] 2.16.840.1.594077.3.579.2.983 1976 Unknown [id number] 2.16.840.1.810662.3.579.2.983 1976 Unknown [id number] 2.16.840.1.319094.3.579.2.983 1976 Unknown [id number] 2.16.840.1.993574.3.579.2.983 1976 Unknown [id number] [id number] 1976 Unknown [id number] 2.16.840.1.538607.3.579.2.983 1976 Unknown [id number] [id number] 1976 Unknown [id number] [id number] 1976 Unknown [id number] 1976 Unknown [id number] Social History Date Type Detail Facility Start: 09-20-2015 End: 04-23-2022 Tobacco smoking status [facility] Never smoker [facility] Start: 1975 Sex Assigned At Not on file [employer] Work Phone: Start: 10-23-2017 Alcohol Comment rarely [facility] Start: 01-26-2019 End: 04-18-2023 Alcohol intake Yes [facility] [employer] Start: 05-04-2019 End: 04-18-2023 Alcohol intake Current drinker of alcohol (finding) [facility] Start: 12-14-2019 End: 04-23-2022 Tobacco use and exposure Never used [facility] Start: 04-16-2022 End: 04-26-2022 Exposure to SARS-CoV-2 (event) Not sure [facility] [employer] Start: 10-23-2017 Alcohol Comment Rarely [facility] Start: 04-26-2022 Alcohol Comment Rarely (1x/year) [facility] Start: 02-20-2023 End: 04-18-2023 History of Social function [facility] Gender identity Identifies as fe male gender (finding) [facility] Medical Equipment Procedure Code Equipment Code Equipment Origin al Text Equipment Identifier Dates [employer] [place] Start: 06-18-2017 [employer] [place] Start: 06-18-2017 [employer] [place] Start: 06-18-2017 daily [id number] Start: 10-23-2017 daily [id number] Start: 10-23-2017 [employer] [place] Start: 06-18-2017 [employer] [place] Start: 06-18-2017 [employer] [place] Start: 06-18-2017 [employer] [place] Start: 06-18-2017 [employer] [place] Start: 06-18-2017 [facility] [place] Start: 06-18-2017 [facility] [place] Start: 06-18-2017 [facility] [place] Start: 06-18-2017 [facility] [place] Start: 06-18-2017 [facility] [place] Start: 06-18-2017 [facility] [place] Start: 06-18-2017 [employer] [place] Start: 06-18-2017 [facility] [place] Start: 06-18-2017 [facility] [place] Start: 06-18-2017 [facility] [place] Start: 06-18-2017 [facility] [place] Start: 06-18-2017 [facility] [place] Start: 06-18-2017 [facility] [place] Start: 06-18-2017 [facility] [place] Start: 06-18-2017 [facility] [place] Start: 06-18-2017 [facility] [place] Start: 06-18-2017 [facility] [place] Start: 06-18-2017 [facility] [place] Start: 06-18-2017 [facility] [place] Start: 06-18-2017 [facility] [place] Start: 06-18-2017 [facility] [place] Start: 06-18-2017 [facility] [place] Start: 06-18-2017 [facility] [place] Start: 06-18-2017 [facility] [place] Start: 06-18-2017 [facility] [place] Start: 06-18-2017 [facility] [place] Start: 06-18-2017 [facility] [place] Start: 06-18-2017 [facility] [place] Start: 06-18-2017 [facility] [place] Start: 06-18-2017 [facility] [place] Start: 06-18-2017 [facility] [place] Start: 06-18-2017 [facility] [place] Start: 06-18-2017 [facility] [place] Start: 06-18-2017 [facility] [place] Start: 06-18-2017 [facility] [place] Start: 06-18-2017 [facility] [place] Start: 06-18-2017 [facility] [place] Start: 06-18-2017 [facility] [place] Start: 06-18-2017 [facility] [place] Start: 06-18-2017 [facility] [place] Start: 06-18-2017 [facility] [place] Start: 06-18-2017 [facility] [place] Start: 06-18-2017 [facility] [place] Start: 06-18-2017 [facility] [place] Start: 06-18-2017 [facility] [place] Start: 06-18-2017 [facility] [place] Start: 06-18-2017 [facility] [place] Start: 06-18-2017 [facility] [place] Start: 06-18-2017 [facility] [place] Start: 06-18-2017 [facility] [place] Start: 06-18-2017 [facility] [place] Start: 06-18-2017 [facility] [place] Start: 06-18-2017 [facility] [place] [id number] Start: 06-18-2017 [facility] [place] [id number] Start: 06-18-2017 [facility] [place] [id number] Start: 06-18-2017 [facility] [place] Start: 06-18-2017 [facility] [place] Start: 06-18-2017 [facility] [place] Start: 06-18-2017 [facility] [place] Start: 06-18-2017 [facility] [place] Start: 06-18-2017 [facility] [place] Start: 06-18-2017 [facility] [place] Start: 06-18-2017 [facility] [place] Start: 06-18-2017 [facility] [place] Start: 06-18-2017 [facility] [place] Start: 06-18-2017 [facility] [place] Start: 06-18-2017 [facility] [place] Start: 06-18-2017 Lj Stent 3.0 X 30 - [id number] ()[id number] FDA Start: 02-17-2021 Angio-Seal 6f Vi p - [id number] FDA Start: 02-17-2021 Use to inj Victo za subcutaneous daily [id number] Start: 02-22-2021 Use to inj Victo za subcutaneous daily [id number] Start: 04-27-2021 End: 10-26-2021 Angio-Seal 6f Vi p - [id number] FDA Start: 04-27-2022 Clinical Notes 10-28-2020 to 04-18-2023 Lisette Taylor - 04/18/2023 8:00 AM Fran Brito MD - 04/18/2023 8:00 AM Leoncio Watson - 02/20/2023 11:30 AM Fran Brito MD - 02/20/2023 11:30 AM Myriam Colindres - 11/29/2022 8:20 AM EDT Note Date & Type Note Facility 04-18-2023 History of Presen t illness Narrative CHOLESTEROL- Pt presents in office for cholesterol evaluation. Compliance with medications is good. Side effects: No myalgias noted. Lab Results Component Value Date CHOLESTEROL 138 04/06/2023 CHOLESTEROL 109 10/13/2022 CHOLESTEROL 86 (L) 04/28/2022 TRIG 113 04/06/2023 TRIG 80 10/13/2022 TRIG 103 04/28/2022 HDL 36 04/06/2023 HDL 40 10/13/2022 HDL 30 (L) 04/28/2022 LDLCALC 79 04/06/2023 LDLCALC 53 10/13/2022 LDLCALC 35 04/28/2022 CAD F/U Sharon Bass is a 48 y.o. female who presents in follow up for high coronary artery disease. she is feeling well. There are no complaints relative to her heart disease. Patient is compliant with medications. she denies any side effects from medications. she denies chest pain, SOB, SANDHU, palpitations, orthopnea, PND, edema, headache, focal neurologic complaints, claudication. GERD- Sharon presents to the office today for follow-up of GERD. Pt denies dysphagia. Pt current medication is omeprazole with good effectiveness. Pt would like to discuss. She feels the mounjaro is causing more GERD TYPE 2 DM - Pt present to the office for evaluation of type 2 diabetes. Pt is overall doing well, with glucoses for the most part averaging 100's-120's. Pt checks blood sugars few times a week and PRN. No wide fluctuations in glucoses. Tolerating meds well. Denies change in vision, neuropathy, urinary frequency or frequent infections. Pt states they do not check their feet for sores and/or ulcers. Pt is not currently seeing podiatry. Pt last diabetic eye exam end of 2021. Lab Results Component Value Date HGBA1C 5.9 04/06/2023 BP Readings from Last 3 Encounters: 10/17/22 122/74 05/21/22 130/90 05/02/22 124/82 Wt Readings from Last 3 Encounters: 10/17/22 117.7 kg (259 lb 6.4 oz) 09/03/22 114.8 kg (253 lb) 11/21/22 114.3 kg (252 lb) HYPERTENSION- She presents for follow-up of hypertension. Pt specifically denies chest pain, palpitations, peripheral edema and shortness of breath. Current medication regimen is as listed in this record. Blood pressure readings: Pt states they take BP when remembers, averaging 120s/80s HEADACHE/MIGRAINE F/U Sharon Bass is a 48 y.o. she who presents in follow up for migraine headaches. Medication is working well. No side effects. Nochange in character of headaches. she denies worst headache of my life, loss of consciousness, seizure, focal neurologic complaint, aphasia. No hatband or daily headache. No stabbing eye pain. No eye injection, tearing, or redness. SHOULDER PAIN- Sharon Bass presents with a complaint of RIGHT shoulder pain. Pain is significantly worse with overhead activity and/or with laying on the affected side. Arm weakness. Denies neck pain. Injury: possible injury from repetative exercises in cardiac rehab in 2020 Repetitive activities or new activities: no PT preformed- yes - PT, When October 2021, How Long 1 mo Other treatment tried and effectiveness- Tylenol-ineffective, cannot take NSAIDS d/t stents Appointment on 04/06/2023 Component Date Value Ref Range Status FERRITIN 04/06/2023 75 6.24 - 137 NG/ML Final Comment: PREMENOPAUSAL FEMALES 6.9-282.5 POSTMENOPAUSAL FEMALES 14.0-233.1 TSH, Reflex FT4 04/06/2023 2.040 0.465 - 4.680 uIU/ML Final HEMOGLOBIN A1C 04/06/2023 5.9 0 - 6 % Final Comment: NORMAL <5.7% PREDIABETES 5.7-6.4% DIABETES 6.5% OR HIGHER Estimated Average Glucose 04/06/2023 123 mg/dL Final CHOLESTEROL 04/06/2023 138 107 - 217 MG/DL Final TRIGLYCERIDE 04/06/2023 113 0 - 150 MG/DL Final HDL CHOLESTEROL 04/06/2023 36 33 - 75 MG/DL Final LDL CHOLESTEROL, CALCULATED 04/06/2023 79 <100 MG/DL Final VLDL Cholesterol, Calculated 04/06/2023 23 5 - 25 MG/DL Final TCHOL/HDL RATIO, MANUAL ENTER 04/06/2023 3.83 RATIO Final Comment: RISK TOTAL/HDL RATIO MEN WOMEN 1/2 AVERAGE 3.43 3.27 AVERAGE 4.97 4.44 2X AVERAGE 9.55 7.05 3X AVERAGE 23.99 11.04 Albumin 04/06/2023 4.3 3.5 - 5.0 G/DL Final BILIRUBIN, TOTAL 04/06/2023 0.5 0.2 - 1.3 MG/DL Final ALKALINE PHOSPHATASE 04/06/2023 62 38 - 126 IU/L Final AST 04/06/2023 26 14 - 36 IU/L Final BILIRUBIN, DIRECT 04/06/2023 0.2 0.0 - 0.4 MG/DL Final PROTEIN, TOTAL 04/06/2023 7.3 6.3 - 8.2 GM/DL Final ALT 04/06/2023 26 <35 IU/L Final Glucose 04/06/2023 129 (H) 70 - 100 MG/DL Final Comment: NORMAL <100 mg/dL PREDIABETES 101-126 mg/dL DIABETES 126 mg/dL or higher BUN 04/06/2023 13 7 - 20 MG/DL Final CREATININE SERUM 04/06/2023 0.63 (L) 0.70 - 1.20 MG/DL Final SODIUM 04/06/2023 139 137 - 145 MMOL/L Final POTASSIUM 04/06/2023 3.9 3.5 - 5.1 MMOL/L Final CHLORIDE 04/06/2023 105 98 - 107 MMOL/L Final Please note: Triglyceride levels of 600mg/dL or higher may positively bias chloride results by approximately 2.1 mmol CARBON DIOXIDE (CO2) 04/06/2023 21 (L) 22 - 30 MMOL/L Final ANION GAP 04/06/2023 13 MMOL/L Final CALCIUM 04/06/2023 9.2 8.4 - 10.2 MG/DL Final ESTIMATED GFR, NON AMER 04/06/2023 108 ml/min/1.73sq.m Final ESTIMATED GFR, 04/06/2023 130 ml/min/1.73sq.m Final GFR COMMENT 04/06/2023 Average GFR for 40-49 years old = 99. Final Comment: Chronic Kidney disease, GFR = <60. Kidney failure, GFR = <15. The GFR estimate is not adjusted for extreme body surface area or acute process, nor has it been validated for women or ethnic groups other than and . CHOLESTEROL- Pt presents in office for cholesterol evaluation. Compliance with medications is good. Side effects: No myalgias noted. Lab Results Component Value Date CHOLESTEROL 138 04/06/2023 CHOLESTEROL 109 10/13/2022 CHOLESTEROL 86 (L) 04/28/2022 TRIG 113 04/06/2023 TRIG 80 10/13/2022 TRIG 103 04/28/2022 HDL 36 04/06/2023 HDL 40 10/13/2022 HDL 30 (L) 04/28/2022 LDLCALC 79 04/06/2023 LDLCALC 53 10/13/2022 LDLCALC 35 04/28/2022 Allergies controlled. CAD F/U Sharon Bass is a 48 y.o. female who presents in follow up for high coronary artery disease. she is feeling well. There are no complaints relative to her heart disease. Patient is compliant with medications. she denies any side effects from medications. she denies chest pain, SOB, SANDHU, palpitations, orthopnea, PND, edema, headache, focal neurologic complaints, claudication. GERD- Sharon presents to the office today for follow-up of GERD. Pt denies dysphagia. Pt current medication is omeprazole with good effectiveness. Pt would like to discuss. She feels the mounjaro is causing more GERD TYPE 2 DM - Pt present to the office for evaluation of type 2 diabetes. Pt is overall doing well, with glucoses for the most part averaging 100's-120's. Pt checks blood sugars few times a week and PRN. No wide fluctuations in glucoses. Tolerating meds well. Denies change in vision, neuropathy, urinary frequency or frequent infections. Pt states they do not check their feet for sores and/or ulcers. Pt is not currently seeing podiatry. Pt last diabetic eye exam end of 2021. Lab Results Component Value Date HGBA1C 5.9 04/06/2023 BP Readings from Last 3 Encounters: 04/18/23 110/71 10/17/22 122/74 05/21/22 130/90 Wt Readings from Last 3 Encounters: 04/18/23 112.3 kg (247 lb 9.6 oz) 10/17/22 117.7 kg (259 lb 6.4 oz) 09/03/22 114.8 kg (253 lb) HYPERTENSION- She presents for follow-up of hypertension. Pt specifically denies chest pain, palpitations, peripheral edema and shortness of breath. Current medication regimen is as listed in this record. Blood pressure readings: Pt states they take BP when remembers, averaging 120s/80s HEADACHE/MIGRAINE F/U Sharon Bass is a 48 y.o. she who presents in follow up for migraine headaches. Medication is working well. No side effects. Nochange in character of headaches. she denies worst headache of my life, loss of consciousness, seizure, focal neurologic complaint, aphasia. No hatband or daily headache. No stabbing eye pain. No eye injection, tearing, or redness. SHOULDER PAIN- Sahron Bass presents with a complaint of RIGHT shoulder pain. Pain is significantly worse with overhead activity and/or with laying on the affected side. Arm weakness. Denies neck pain. Injury: possible injury from repetative exercises in cardiac rehab in 2020 Repetitive activities or new activities: no PT preformed- yes - PT, When October 2021, How Long 1 mo Other treatment tried and effectiveness- Tylenol-ineffective, cannot take NSAIDS d/t stents Appointment on 04/06/2023 Component Date Value Ref Range Status FERRITIN 04/06/2023 75 6.24 - 137 NG/ML Final Comment: PREMENOPAUSAL FEMALES 6.9-282.5 POSTMENOPAUSAL FEMALES 14.0-233.1 TSH, Reflex FT4 04/06/2023 2.040 0.465 - 4.680 uIU/ML Final HEMOGLOBIN A1C 04/06/2023 5.9 0 - 6 % Final Comment: NORMAL <5.7% PREDIABETES 5.7-6.4% DIABETES 6.5% OR HIGHER Estimated Average Glucose 04/06/2023 123 mg/dL Final CHOLESTEROL 04/06/2023 138 107 - 217 MG/DL Final TRIGLYCERIDE 04/06/2023 113 0 - 150 MG/DL Final HDL CHOLESTEROL 04/06/2023 36 33 - 75 MG/DL Final LDL CHOLESTEROL, CALCULATED 04/06/2023 79 <100 MG/DL Final VLDL Cholesterol, Calculated 04/06/2023 23 5 - 25 MG/DL Final TCHOL/HDL RATIO, MANUAL ENTER 04/06/2023 3.83 RATIO Final Comment: RISK TOTAL/HDL RATIO MEN WOMEN 1/2 AVERAGE 3.43 3.27 AVERAGE 4.97 4.44 2X AVERAGE 9.55 7.05 3X AVERAGE 23.99 11.04 Albumin 04/06/2023 4.3 3.5 - 5.0 G/DL Final BILIRUBIN, TOTAL 04/06/2023 0.5 0.2 - 1.3 MG/DL Final ALKALINE PHOSPHATASE 04/06/2023 62 38 - 126 IU/L Final AST 04/06/2023 26 14 - 36 IU/L Final BILIRUBIN, DIRECT 04/06/2023 0.2 0.0 - 0.4 MG/DL Final PROTEIN, TOTAL 04/06/2023 7.3 6.3 - 8.2 GM/DL Final ALT 04/06/2023 26 <35 IU/L Final Glucose 04/06/2023 129 (H) 70 - 100 MG/DL Final Comment: NORMAL <100 mg/dL PREDIABETES 101-126 mg/dL DIABETES 126 mg/dL or higher BUN 04/06/2023 13 7 - 20 MG/DL Final CREATININE SERUM 04/06/2023 0.63 (L) 0.70 - 1.20 MG/DL Final SODIUM 04/06/2023 139 137 - 145 MMOL/L Final POTASSIUM 04/06/2023 3.9 3.5 - 5.1 MMOL/L Final CHLORIDE 04/06/2023 105 98 - 107 MMOL/L Final Please note: Triglyceride levels of 600mg/dL or higher may positively bias chloride results by approximately 2.1 mmol CARBON DIOXIDE (CO2) 04/06/2023 21 (L) 22 - 30 MMOL/L Final ANION GAP 04/06/2023 13 MMOL/L Final CALCIUM 04/06/2023 9.2 8.4 - 10.2 MG/DL Final ESTIMATED GFR, NON AMER 04/06/2023 108 ml/min/1.73sq.m Final ESTIMATED GFR, 04/06/2023 130 ml/min/1.73sq.m Final GFR COMMENT 04/06/2023 Average GFR for 40-49 years old = 99. Final Comment: Chronic Kidney disease, GFR = <60. Kidney failure, GFR = <15. The GFR estimate is not adjusted for extreme body surface area or acute process, nor has it been validated for women or ethnic groups other than and . General: No fever, chills, weight loss. HEENT: No sinus pain, ear pain, sore throat. Neck: No LAD. Lungs: No cough, sputum, pleuritic pain, hemoptysis, SOB. CV: No chest pain, palpitation, orthopnea, PND, edema. GI: No abd pain, nausea, vomiting, diarrhea, constipation, melena, hematochezia. : No dysuria, frequency, hematuria. Skin: No rash or lesion. Neuro: No mental status changes, headache, focal neurologic complaints. Objective: Blood pressure 110/71, pulse 78, height 1.626 m (5' 4 ), weight 112.3 kg (247 lb 9.6 oz), SpO2 100 %, not currently . Results for orders placed or performed in visit on 04/06/23 FERRITIN Result Value Ref Range FERRITIN 75 6.24 - 137 NG/ML TSH W/FT4 REFLEX Result Value Ref Range TSH, Reflex FT4 2.040 0.465 - 4.680 uIU/ML HEMOGLOBIN A1C Result Value Ref Range HEMOGLOBIN A1C 5.9 0 - 6 % Estimated Average Glucose 123 mg/dL LIPID PANEL W CALCULATED LDL Result Value Ref Range CHOLESTEROL 138 107 - 217 MG/DL TRIGLYCERIDE 113 0 - 150 MG/DL HDL CHOLESTEROL 36 33 - 75 MG/DL LDL CHOLESTEROL, CALCULATED 79 <100 MG/DL VLDL Cholesterol, Calculated 23 5 - 25 MG/DL TCHOL/HDL RATIO, MANUAL ENTER 3.83 RATIO HEPATIC FUNCTION PANEL Result Value Ref Range Albumin 4.3 3.5 - 5.0 G/DL BILIRUBIN, TOTAL 0.5 0.2 - 1.3 MG/DL ALKALINE PHOSPHATASE 62 38 - 126 IU/L AST 26 14 - 36 IU/L BILIRUBIN, DIRECT 0.2 0.0 - 0.4 MG/DL PROTEIN, TOTAL 7.3 6.3 - 8.2 GM/DL ALT 26 <35 IU/L BASIC METABOLIC PANEL Result Value Ref Range Glucose 129 (H) 70 - 100 MG/DL BUN 13 7 - 20 MG/DL CREATININE SERUM 0.63 (L) 0.70 - 1.20 MG/DL SODIUM 139 137 - 145 MMOL/L POTASSIUM 3.9 3.5 - 5.1 MMOL/L CHLORIDE 105 98 - 107 MMOL/L CARBON DIOXIDE (CO2) 21 (L) 22 - 30 MMOL/L ANION GAP 13 MMOL/L CALCIUM 9.2 8.4 - 10.2 MG/DL ESTIMATED GFR, NON AMER 108 ml/min/1.73sq.m ESTIMATED GFR, 130 ml/min/1.73sq.m GFR COMMENT Average GFR for 40-49 years old = 99. HEENT: NC/AT, PERRLA, EOMI, fundi benign, external ears normal, OP normal. Neck: No LAD/thyromegaly. No JVD/bruit. Lungs: Clear to auscultation bilaterally. No wheezes, rales, ronchi. Heart: RRR. No S3/S4. Abdomen: Soft, NT/ND, normal bowel sounds, no HSM, no bruits. Extremities: No clubbing, cyanosis, edema. Normal pulses. Neurologic: CN II-XII intact. Strength/DTR's/sensation symmetric. Cerebellar function normal. Skin: No rash or suspicious lesions. Musculoskeletal: No edema, redness, warmth, deformities. Psychiatric: Alert and oriented. Affect and mood normal. Assessment and Plan: 1. Bradycardia - Atorvastatin 20 MG tablet; Take 1 tablet by mouth at bedtime. Dispense: 90 tablet; Refill: 1 - Metoprolol succinate (Toprol XL) 100 MG tablet XL; Take 1 tablet by mouth at bedtime. HS Dispense: 90 tablet; Refill: 1 2. 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 - Atorvastatin 20 MG tablet; Take 1 tablet by mouth at bedtime. Dispense: 90 tablet; Refill: 1 - Metoprolol succinate (Toprol XL) 100 MG tablet XL; Take 1 tablet by mouth at bedtime. HS Dispense: 90 tablet; Refill: 1 - Clopidogrel 75 MG tablet; Take 1 tablet by mouth daily. Dispense: 90 tablet; Refill: 1 - Lisinopril 10 MG tablet; Take 1 tablet by mouth daily. Dispense: 90 tablet; Refill: 1 - HEPATIC FUNCTION PANEL; Future - LIPID PANEL W CALCULATED LDL; Future 3. Allergic rhinitis, unspecified seasonality, unspecified trigger - Montelukast 10 MG tablet; Take 1 tablet by mouth daily. Dispense: 90 tablet; Refill: 1 4. Chronic tension-type headache, intractable - Cyclobenzaprine 10 MG tablet; Take 1 tablet by mouth 2 times daily. Dispense: 180 tablet; Refill: 1 - Gabapentin (Neurontin) 300 MG capsule; Take 1 cap PO each morning and 2 caps PO QHS Dispense: 270 capsule; Refill: 1 5. Cervicogenic headache - Cyclobenzaprine 10 MG tablet; Take 1 tablet by mouth 2 times daily. Dispense: 180 tablet; Refill: 1 - Gabapentin (Neurontin) 300 MG capsule; Take 1 cap PO each morning and 2 caps PO QHS Dispense: 270 capsule; Refill: 1 6. Cervicalgia - Cyclobenzaprine 10 MG tablet; Take 1 tablet by mouth 2 times daily. Dispense: 180 tablet; Refill: 1 - Gabapentin (Neurontin) 300 MG capsule; Take 1 cap PO each morning and 2 caps PO QHS Dispense: 270 capsule; Refill: 1 7. Gastroesophageal reflux disease without esophagitis - omeprazole [address] capsule; Take 1 capsule by mouth daily. Dispense: 90 capsule; Refill: 1 8. Type 2 diabetes mellitus without complication, without long-term current use of insulin - gliMEPIride 4 MG tablet; Take 0.5 tablets by mouth 2 times daily. Dispense: 180 tablet; Refill: 1 - BASIC METABOLIC PANEL; Future - HEMOGLOBIN A1C; Future 9. Flu vaccine need - FLU VACCINE SINGLE DOSE QUADRIVALENT 10. Hair loss Suspect testosterone excess. Tara. - Spironolactone (Aldactone) 25 MG tablet; Take 1 tablet by mouth daily. Dispense: 30 tablet; Refill: 0 - TSH W/FT4 REFLEX; Future - T4; Future - T3 FREE; Future - Spironolactone (Aldactone) 25 MG tablet; Take 1 tablet by mouth daily. Dispense: 90 tablet; Refill: 1 11. Coronary artery disease involving jackson coronary artery of jackson heart without angina pectoris 12. Essential hypertension, benign Amb BP's. 13. Hypercholesterolemia Diet: - Decrease saturated fats (red meat and solid shortening) - Increase unsaturated fat (olive/canola oil, fish, nuts) - Decreased starch and sugar - Increase fiber - Increase garlic - Can take additional Niacin (500-1000 mg, cautioned about flushing) 14. Androgen excess See above hair loss. Rhett Brito MD 04/18/2023 documented in this encounter [facility] 02-20-2023 History of Presen t illness Narrative EAR PROBLEM- Sharon Bass is a 47 y.o. female who comes in with ear problem to left ear (s).This started approximately 1 day. Symptoms are described as pain from jaw line to ear. Ear Drainage: no Nasal Congestion: no Fever: no Cough: no Sore Throat: no Headache: yes Sinus Pain: no Other- none EAR PROBLEM- Sharon Bass is a 47 y.o. female who comes in with ear problem to left ear (s).This started approximately 1 day. Symptoms are described as pain from jaw line to ear. Ear Drainage: no Nasal Congestion: no Fever: no Cough: no Sore Throat: no Headache: yes Sinus Pain: no Other- none No drainage. Hearing normally. Also needs RF next dose Mounjaro. No lows. General: No fever, chills, weight loss. HEENT: No sinus pain, ear pain, sore throat. Neck: No LAD. Lungs: No cough, sputum, pleuritic pain, hemoptysis, SOB. CV: No chest pain, palpitation, orthopnea, PND, edema. GI: No abd pain, nausea, vomiting, diarrhea, constipation, melena, hematochezia. : No dysuria, frequency, hematuria. Skin: No rash or lesion. Neuro: No mental status changes, headache, focal neurologic complaints. Objective: not currently . Results for orders placed or performed in visit on 10/13/22 HEMOGLOBIN A1C Result Value Ref Range HEMOGLOBIN A1C 7.7 (H) <6 % Estimated Average Glucose 174 mg/dL LIPID PANEL W CALCULATED LDL Result Value Ref Range CHOLESTEROL 109 100 - 199 MG/DL TRIGLYCERIDE 80 <150 MG/DL HDL CHOLESTEROL 40 40 - 60 MG/DL LDL CHOLESTEROL, CALCULATED 53 0 - 100 MG/DL VLDL Cholesterol, Calculated 16 5.0 - 25.0 MG/DL TCHOL/HDL RATIO, MANUAL ENTER 2.73 RATIO HEPATIC FUNCTION PANEL Result Value Ref Range Albumin 4.3 3.5 - 5.0 G/DL BILIRUBIN, TOTAL 0.6 0.2 - 1.2 MG/DL ALKALINE PHOSPHATASE 76 38 - 126 IU/L AST 24 15 - 41 IU/L BILIRUBIN, DIRECT 0.1 0.0 - 0.2 MG/DL PROTEIN, TOTAL 7.5 6.3 - 8.2 GM/DL ALT 29 14 - 54 IU/L BASIC METABOLIC PANEL Result Value Ref Range Glucose 176 (H) 70 - 100 MG/DL BUN 18 7 - 20 MG/DL CREATININE SERUM 0.81 0.52 - 1.04 MG/DL SODIUM 137 136 - 145 MMOL/L POTASSIUM 4.2 3.5 - 5.1 MMOL/L CHLORIDE 105 98 - 107 MMOL/L CARBON DIOXIDE (CO2) 25 22 - 30 MMOL/L ANION GAP 7 (L) 8 - 16 MMOL/L CALCIUM 9.5 8.4 - 10.2 MG/DL ESTIMATED GFR, NON AMER 81 ml/min/1.73sq.m ESTIMATED GFR, 98 ml/min/1.73sq.m GFR COMMENT Average GFR for 40-49 years old = 99. HEENT: NC/AT, PERRLA, EOMI, fundi benign, external ears normal, OP normal. Cloudy fluid behind left ear. Neck: No LAD/thyromegaly. No JVD/bruit. Lungs: Clear to auscultation bilaterally. No wheezes, rales, ronchi. Heart: RRR. No S3/S4. Abdomen: Soft, NT/ND, normal bowel sounds, no HSM, no bruits. Extremities: No clubbing, cyanosis, edema. Normal pulses. Neurologic: CN II-XII intact. Strength/DTR's/sensation symmetric. Cerebellar function normal. Skin: No rash or suspicious lesions. Musculoskeletal: No edema, redness, warmth, deformities. Psychiatric: Alert and oriented. Affect and mood normal. Assessment and Plan: 1. Acute otitis media, unspecified otitis media type Can take OTC cold medication as needed. Can use acetaminophen or an NSAID for pain or fever. Drink plenty of fluids. Keep your environment humidified. Elevate your head while sleeping. Follow up for persistent or recurrent fever, worsening symptoms, or symptoms 10-14 days. - Cefdinir (OMNICEF) 300 MG capsule; Take 1 capsule by mouth every 12 hours for 10 days. Dispense: 20 capsule; Refill: 0 2. Type 2 diabetes mellitus without complication, without long-term current use of insulin Call readings after two weeks. - Tirzepatide (Mounjaro) 15 MG/0.5ML Solution Pen-injector; Inject 15 mg under the skin once a week. Dispense: 2 mL; Refill: 5 3. Obesity due to excess calories without serious comorbidity, unspecified classification - Tirzepatide (Mounjaro) 15 MG/0.5ML Solution Pen-injector; Inject 15 mg under the skin once a week. Dispense: 2 mL; Refill: 5 Rhett Brito MD 02/20/2023 documented in this encounter [facility] 11-29-2022 History of Presen t illness Narrative SHOULDER INJECTION- Sharon Preston Shelia presents for right shoulder injection. Denies recent fever or change in condition. Associated Order(s): LARGE JOINT/BURSA INJECTION AND/OR ASPIRATION: R glenohumeral Post-Procedure Diagnose(s): Rotator cuff tendinitis, unspecified laterality SHOULDER INJECTION- Sharon Bass presents for right shoulder injection. Denies recent fever or change in condition. 50% better. General: No fever, chills, weight loss. HEENT: No sinus pain, ear pain, sore throat. Neck: No LAD. Lungs: No cough, sputum, pleuritic pain, hemoptysis, SOB. CV: No chest pain, palpitation, orthopnea, PND, edema. GI: No abd pain, nausea, vomiting, diarrhea, constipation, melena, hematochezia. : No dysuria, frequency, hematuria. Skin: No rash or lesion. Neuro: No mental status changes, headache, focal neurologic complaints. Objective: not currently . Results for orders placed or performed in visit on 10/13/22 HEMOGLOBIN A1C Result Value Ref Range HEMOGLOBIN A1C 7.7 (H) <6 % Estimated Average Glucose 174 mg/dL LIPID PANEL W CALCULATED LDL Result Value Ref Range CHOLESTEROL 109 100 - 199 MG/DL TRIGLYCERIDE 80 <150 MG/DL HDL CHOLESTEROL 40 40 - 60 MG/DL LDL CHOLESTEROL, CALCULATED 53 0 - 100 MG/DL VLDL Cholesterol, Calculated 16 5.0 - 25.0 MG/DL TCHOL/HDL RATIO, MANUAL ENTER 2.73 RATIO HEPATIC FUNCTION PANEL Result Value Ref Range Albumin 4.3 3.5 - 5.0 G/DL BILIRUBIN, TOTAL 0.6 0.2 - 1.2 MG/DL ALKALINE PHOSPHATASE 76 38 - 126 IU/L AST 24 15 - 41 IU/L BILIRUBIN, DIRECT 0.1 0.0 - 0.2 MG/DL PROTEIN, TOTAL 7.5 6.3 - 8.2 GM/DL ALT 29 14 - 54 IU/L BASIC METABOLIC PANEL Result Value Ref Range Glucose 176 (H) 70 - 100 MG/DL BUN 18 7 - 20 MG/DL CREATININE SERUM 0.81 0.52 - 1.04 MG/DL SODIUM 137 136 - 145 MMOL/L POTASSIUM 4.2 3.5 - 5.1 MMOL/L CHLORIDE 105 98 - 107 MMOL/L CARBON DIOXIDE (CO2) 25 22 - 30 MMOL/L ANION GAP 7 (L) 8 - 16 MMOL/L CALCIUM 9.5 8.4 - 10.2 MG/DL ESTIMATED GFR, NON AMER 81 ml/min/1.73sq.m ESTIMATED GFR, 98 ml/min/1.73sq.m GFR COMMENT Average GFR for 40-49 years old = 99. HEENT: NC/AT, PERRLA, EOMI, fundi benign, external ears normal, OP normal. Neck: No LAD/thyromegaly. No JVD/bruit. Lungs: Clear to auscultation bilaterally. No wheezes, rales, ronchi. Heart: RRR. No S3/S4. Abdomen: Soft, NT/ND, normal bowel sounds, no HSM, no bruits. Extremities: No clubbing, cyanosis, edema. Normal pulses. Neurologic: CN II-XII intact. Strength/DTR's/sensation symmetric. Cerebellar function normal. Skin: No rash or suspicious lesions. Musculoskeletal: No edema, redness, warmth, deformities. Psychiatric: Alert and oriented. Affect and mood normal. Assessment and Plan: 1. Rotator cuff tendinitis, unspecified laterality LARGE JOINT/BURSA INJECTION AND/OR ASPIRATION: R glenohumeral Date/Time: 11/29/2022 8:20 AM Performed by: Rhett Brito MD Authorized by: Rhett Brito MD Supporting Documentation Indications: pain Procedure Details: Location: shoulder - R glenohumeral Needle size: 27 G Approach: posterior Medication Verification: I have personally verified and performed the final check of the medication(s) used in this procedure prior to administration. The following items were included during the verification process for medication(s) administered: drug name, strength, volume, expiration, physical integrity and appearance of the medication(s). Medications administered: 80 mg methylPREDNISolone acetate 80 MG/ML; 1 mL bupivacaine (PF) 0.5 %; 1 mL lidocaine 10 mg/mL Patient tolerance: patient tolerated the procedure well with no immediate complications Consent: Consent was obtained prior to the procedure after discussion of the risks, benefits and alternatives, and expected outcomes were discussed with the patient. The possibilities of reaction to medication, bleeding, infection, the need for additional procedures, failure to diagnosis a condition, and creating a complication requiring operation were discussed with the patient. The patient concurred with the proposed plan, giving consent. Preparation: Patient was prepped in the usual sterile fashion. The patient was prepped with Betadine and alcohol. Rhett Brito MD 11/29/2022 documented in this encounter [facility] 11-02-2022 History of Presen t illness Narrative Associated Order(s): LARGE JOINT/BURSA INJECTION AND/OR ASPIRATION: R glenohumeral Post-Procedure Diagnose(s): Rotator cuff tendinitis, unspecified laterality SHOULDER INJECTION- Sharon M Shelia presents for right shoulder injection. Denies recent fever or change in condition. General: No fever, chills, weight loss. HEENT: No sinus pain, ear pain, sore throat. Neck: No LAD. Lungs: No cough, sputum, pleuritic pain, hemoptysis, SOB. CV: No chest pain, palpitation, orthopnea, PND, edema. GI: No abd pain, nausea, vomiting, diarrhea, constipation, melena, hematochezia. : No dysuria, frequency, hematuria. Skin: No rash or lesion. Neuro: No mental status changes, headache, focal neurologic complaints. Objective: not currently . Affected shoulder reveals decreased ROM with flexion and internal rotation. Normal cuff strength with resisted, thumbs down abduction. Crossover test no pain. Apprehension negative. Neck normal ROM all modalities. No midline tenderness. Paraspinal muscles non-tender. Strength/DTR's/sensation symmetric bilaterally. HEENT: NC/AT external ears, canals, and TM's normal. OP mucous membranes moist, no erythema and edema, no exudate or petechiae. No LAD. Lungs: clear bilaterally without wheeze or crackles. CV: RRR. No S3/S4. Abdomen: soft, NT/ND normal BS, no HSM. Back: no CVA tenderness. Skin: no rash or lesion. Assessment and Plan: 1. Rotator cuff tendinitis, unspecified laterality LARGE JOINT/BURSA INJECTION AND/OR ASPIRATION: R glenohumeral Date/Time: 11/02/2022 8:20 AM Performed by: Rhett Brito MD Authorized by: Rhett Brito MD Supporting Documentation Indications: pain Procedure Details: Location: shoulder - R glenohumeral Needle size: 27 G Approach: posterior Medication Verification: I have personally verified and performed the final check of the medication(s) used in this procedure prior to administration. The following items were included during the verification process for medication(s) administered: drug name, strength, volume, expiration, physical integrity and appearance of the medication(s). Medications administered: 80 mg methylPREDNISolone acetate 80 MG/ML; 1 mL bupivacaine (PF) 0.5 %; 1 mL lidocaine 10 mg/mL Patient tolerance: patient tolerated the procedure well with no immediate complications Consent: Consent was obtained prior to the procedure after discussion of the risks, benefits and alternatives, and expected outcomes were discussed with the patient. The possibilities of reaction to medication, bleeding, infection, the need for additional procedures, failure to diagnosis a condition, and creating a complication requiring operation were discussed with the patient. The patient concurred with the proposed plan, giving consent. Preparation: Patient was prepped in the usual sterile fashion. The patient was prepped with Betadine and alcohol. Rhett Brito MD 11/02/2022 documented in this encounter [facility] 10-17-2022 History of Presen t illness Narrative CHOLESTEROL- Pt presents in office for cholesterol evaluation. Compliance with medications is good. Side effects: No myalgias noted. Lab Results Component Value Date CHOLESTEROL 109 10/13/2022 CHOLESTEROL 86 (L) 04/28/2022 CHOLESTEROL 149 04/14/2022 TRIG 80 10/13/2022 TRIG 103 04/28/2022 TRIG 117 04/14/2022 HDL 40 10/13/2022 HDL 30 (L) 04/28/2022 HDL 38 (L) 04/14/2022 LDLCALC 53 10/13/2022 LDLCALC 35 04/28/2022 LDLCALC 88 04/14/2022 CAD F/U Sharon Bass is a 47 y.o. female who presents in follow up for high coronary artery disease. she is feeling well. There are no complaints relative to her heart disease. Patient is compliant with medications. she denies any side effects from medications. she denies chest pain, SOB, SANDHU, palpitations, orthopnea, PND, edema, headache, focal neurologic complaints, claudication. GERD- Sharon presents to the office today for follow-up of GERD. Pt denies dysphagia. Pt current medication is omeprazole with good effectiveness. Patient currently taking 2 of the 20 mg tabs of omeprazole OTC, pt states this would be cheaper with script through insurance-pt would like [facility] to send RX TYPE 2 DM - Pt present to the office for evaluation of type 2 diabetes. Pt is overall doing well, with glucoses for the most part averaging 150-180 Pt checks blood sugars a couple times weekly. No wide fluctuations in glucoses. Tolerating meds well. Denies change in vision, neuropathy, urinary frequency or frequent infections. Pt states they do check their feet for sores and/or ulcers. Pt is not currently seeing podiatry. Pt last diabetic eye exam 08/2021 Patient has been at 5mg dose of Mounjaro for 2 weeks, sugars are averaging between 150-180 HYPERTENSION- She presents for follow-up of hypertension. Pt specifically denies chest pain, palpitations, peripheral edema and shortness of breath. Current medication regimen is as listed in this record. Blood pressure readings: Pt states they take BP occasionally, averaging 120s/80s Patient no longer seeing Dr. Kramer, would like Dr. Brito to refill BP/cardiac meds to get her through until she sees new physical ther in November (Dr. Doll) HEADACHE/MIGRAINE F/U Sharon Bass is a 47 y.o. she who presents in follow up for migraine headaches. Medication is working well. No side effects. Nochange in character of headaches. she denies worst headache of my life, loss of consciousness, seizure, focal neurologic complaint, aphasia. No hatband or daily headache. No stabbing eye pain. No eye injection, tearing, or redness. SHOULDER PAIN- Sharon Bass presents with a complaint of RIGHT shoulder pain. Pain is significantly worse with overhead activity and/or with laying on the affected side. Arm weakness. Denies neck pain. Injury: possible injury from repetative exercises in cardiac rehab in 2020 Repetitive activities or new activities: no PT preformed- yes - PT, When October 2021, How Long 1 mo Other treatment tried and effectiveness- Tylenol-ineffective, cannot take NSAIDS d/t stents Appointment on 10/13/2022 Component Date Value Ref Range Status HEMOGLOBIN A1C 10/13/2022 7.7 (H) <6 % Final Comment: NORMAL <5.7% PREDIABETES 5.7-6.4% DIABETES 6.5% OR HIGHER Estimated Average Glucose 10/13/2022 174 mg/dL Final CHOLESTEROL 10/13/2022 109 100 - 199 MG/DL Final TRIGLYCERIDE 10/13/2022 80 <150 MG/DL Final HDL CHOLESTEROL 10/13/2022 40 40 - 60 MG/DL Final LDL CHOLESTEROL, CALCULATED 10/13/2022 53 0 - 100 MG/DL Final VLDL Cholesterol, Calculated 10/13/2022 16 5.0 - 25.0 MG/DL Final TCHOL/HDL RATIO, MANUAL ENTER 10/13/2022 2.73 RATIO Final Comment: RISK TOTAL/HDL RATIO MEN WOMEN 1/2 AVERAGE 3.43 3.27 AVERAGE 4.97 4.44 2X AVERAGE 9.55 7.05 3X AVERAGE 23.99 11.04 Albumin 10/13/2022 4.3 3.5 - 5.0 G/DL Final BILIRUBIN, TOTAL 10/13/2022 0.6 0.2 - 1.2 MG/DL Final ALKALINE PHOSPHATASE 10/13/2022 76 38 - 126 IU/L Final AST 10/13/2022 24 15 - 41 IU/L Final BILIRUBIN, DIRECT 10/13/2022 0.1 0.0 - 0.2 MG/DL Final PROTEIN, TOTAL 10/13/2022 7.5 6.3 - 8.2 GM/DL Final ALT 10/13/2022 29 14 - 54 IU/L Final Glucose 10/13/2022 176 (H) 70 - 100 MG/DL Final Comment: NORMAL <100 mg/dL PREDIABETES 101-126 mg/dL DIABETES 126 mg/dL or higher BUN 10/13/2022 18 7 - 20 MG/DL Final CREATININE SERUM 10/13/2022 0.81 0.52 - 1.04 MG/DL Final SODIUM 10/13/2022 137 136 - 145 MMOL/L Final POTASSIUM 10/13/2022 4.2 3.5 - 5.1 MMOL/L Final CHLORIDE 10/13/2022 105 98 - 107 MMOL/L Final CARBON DIOXIDE (CO2) 10/13/2022 25 22 - 30 MMOL/L Final ANION GAP 10/13/2022 7 (L) 8 - 16 MMOL/L Final CALCIUM 10/13/2022 9.5 8.4 - 10.2 MG/DL Final ESTIMATED GFR, NON AMER 10/13/2022 81 ml/min/1.73sq.m Final ESTIMATED GFR, 10/13/2022 98 ml/min/1.73sq.m Final GFR COMMENT 10/13/2022 Average GFR for 40-49 years old = 99. Final Comment: Chronic Kidney disease, GFR = <60. Kidney failure, GFR = <15. The GFR estimate is not adjusted for extreme body surface area or acute process, nor has it been validated for women or ethnic groups other than and . CHOLESTEROL- Pt presents in office for cholesterol evaluation. Compliance with medications is good. Side effects: No myalgias noted. Lab Results Component Value Date CHOLESTEROL 109 10/13/2022 CHOLESTEROL 86 (L) 04/28/2022 CHOLESTEROL 149 04/14/2022 TRIG 80 10/13/2022 TRIG 103 04/28/2022 TRIG 117 04/14/2022 HDL 40 10/13/2022 HDL 30 (L) 04/28/2022 HDL 38 (L) 04/14/2022 LDLCALC 53 10/13/2022 LDLCALC 35 04/28/2022 LDLCALC 88 04/14/2022 CAD F/U Sharon Bass is a 47 y.o. female who presents in follow up for high coronary artery disease. she is feeling well. There are no complaints relative to her heart disease. Patient is compliant with medications. she denies any side effects from medications. she denies chest pain, SOB, SANDHU, palpitations, orthopnea, PND, edema, headache, focal neurologic complaints, claudication. GERD- Sharon presents to the office today for follow-up of GERD. Pt denies dysphagia. Pt current medication is omeprazole with good effectiveness. Patient currently taking 2 of the 20 mg tabs of omeprazole OTC, pt states this would be cheaper with script through insurance-pt would like [facility] to send RX TYPE 2 DM - Pt present to the office for evaluation of type 2 diabetes. Pt is overall doing well, with glucoses for the most part averaging 150-180 Pt checks blood sugars a couple times weekly. No wide fluctuations in glucoses. Tolerating meds well. Denies change in vision, neuropathy, urinary frequency or frequent infections. Pt states they do check their feet for sores and/or ulcers. Pt is not currently seeing podiatry. Pt last diabetic eye exam 08/2021 Patient has been at 5mg dose of Mounjaro for 2 weeks, sugars are averaging between 150-180 HYPERTENSION- She presents for follow-up of hypertension. Pt specifically denies chest pain, palpitations, peripheral edema and shortness of breath. Current medication regimen is as listed in this record. Blood pressure readings: Pt states they take BP occasionally, averaging 120s/80s Patient no longer seeing Dr. Kramer, would like Dr. Brito to refill BP/cardiac meds to get her through until she sees new physical ther in November (Dr. Doll) HEADACHE/MIGRAINE F/U Sharon Bass is a 47 y.o. she who presents in follow up for migraine headaches. Medication is working well. No side effects. Nochange in character of headaches. she denies worst headache of my life, loss of consciousness, seizure, focal neurologic complaint, aphasia. No hatband or daily headache. No stabbing eye pain. No eye injection, tearing, or redness. SHOULDER PAIN- Sharon Bass presents with a complaint of RIGHT shoulder pain. Pain is significantly worse with overhead activity and/or with laying on the affected side. Arm weakness. Denies neck pain. Injury: possible injury from repetative exercises in cardiac rehab in 2020 Repetitive activities or new activities: no PT preformed- yes - PT, When October 2021, How Long 1 mo Other treatment tried and effectiveness- Tylenol-ineffective, cannot take NSAIDS d/t stents Allergies well controlled. Appointment on 10/13/2022 Component Date Value Ref Range Status HEMOGLOBIN A1C 10/13/2022 7.7 (H) <6 % Final Comment: NORMAL <5.7% PREDIABETES 5.7-6.4% DIABETES 6.5% OR HIGHER Estimated Average Glucose 10/13/2022 174 mg/dL Final CHOLESTEROL 10/13/2022 109 100 - 199 MG/DL Final TRIGLYCERIDE 10/13/2022 80 <150 MG/DL Final HDL CHOLESTEROL 10/13/2022 40 40 - 60 MG/DL Final LDL CHOLESTEROL, CALCULATED 10/13/2022 53 0 - 100 MG/DL Final VLDL Cholesterol, Calculated 10/13/2022 16 5.0 - 25.0 MG/DL Final TCHOL/HDL RATIO, MANUAL ENTER 10/13/2022 2.73 RATIO Final Comment: RISK TOTAL/HDL RATIO MEN WOMEN 1/2 AVERAGE 3.43 3.27 AVERAGE 4.97 4.44 2X AVERAGE 9.55 7.05 3X AVERAGE 23.99 11.04 Albumin 10/13/2022 4.3 3.5 - 5.0 G/DL Final BILIRUBIN, TOTAL 10/13/2022 0.6 0.2 - 1.2 MG/DL Final ALKALINE PHOSPHATASE 10/13/2022 76 38 - 126 IU/L Final AST 10/13/2022 24 15 - 41 IU/L Final BILIRUBIN, DIRECT 10/13/2022 0.1 0.0 - 0.2 MG/DL Final PROTEIN, TOTAL 10/13/2022 7.5 6.3 - 8.2 GM/DL Final ALT 10/13/2022 29 14 - 54 IU/L Final Glucose 10/13/2022 176 (H) 70 - 100 MG/DL Final Comment: NORMAL <100 mg/dL PREDIABETES 101-126 mg/dL DIABETES 126 mg/dL or higher BUN 10/13/2022 18 7 - 20 MG/DL Final CREATININE SERUM 10/13/2022 0.81 0.52 - 1.04 MG/DL Final SODIUM 10/13/2022 137 136 - 145 MMOL/L Final POTASSIUM 10/13/2022 4.2 3.5 - 5.1 MMOL/L Final CHLORIDE 10/13/2022 105 98 - 107 MMOL/L Final CARBON DIOXIDE (CO2) 10/13/2022 25 22 - 30 MMOL/L Final ANION GAP 10/13/2022 7 (L) 8 - 16 MMOL/L Final CALCIUM 10/13/2022 9.5 8.4 - 10.2 MG/DL Final ESTIMATED GFR, NON AMER 10/13/2022 81 ml/min/1.73sq.m Final ESTIMATED GFR, 10/13/2022 98 ml/min/1.73sq.m Final GFR COMMENT 10/13/2022 Average GFR for 40-49 years old = 99. Final Comment: Chronic Kidney disease, GFR = <60. Kidney failure, GFR = <15. The GFR estimate is not adjusted for extreme body surface area or acute process, nor has it been validated for women or ethnic groups other than and . General: No fever, chills, weight loss. HEENT: No sinus pain, ear pain, sore throat. Neck: No LAD. Lungs: No cough, sputum, pleuritic pain, hemoptysis, SOB. CV: No chest pain, palpitation, orthopnea, PND, edema. GI: No abd pain, nausea, vomiting, diarrhea, constipation, melena, hematochezia. : No dysuria, frequency, hematuria. Skin: No rash or lesion. Neuro: No mental status changes, headache, focal neurologic complaints. Objective: Blood pressure 122/74, pulse 68, temperature 98 F (36.7 C), temperature source Oral, resp. rate 18, height 1.626 m (5' 4 ), weight 117.7 kg (259 lb 6.4 oz), SpO2 99 %, not currently . Results for orders placed or performed in visit on 10/13/22 HEMOGLOBIN A1C Result Value Ref Range HEMOGLOBIN A1C 7.7 (H) <6 % Estimated Average Glucose 174 mg/dL LIPID PANEL W CALCULATED LDL Result Value Ref Range CHOLESTEROL 109 100 - 199 MG/DL TRIGLYCERIDE 80 <150 MG/DL HDL CHOLESTEROL 40 40 - 60 MG/DL LDL CHOLESTEROL, CALCULATED 53 0 - 100 MG/DL VLDL Cholesterol, Calculated 16 5.0 - 25.0 MG/DL TCHOL/HDL RATIO, MANUAL ENTER 2.73 RATIO HEPATIC FUNCTION PANEL Result Value Ref Range Albumin 4.3 3.5 - 5.0 G/DL BILIRUBIN, TOTAL 0.6 0.2 - 1.2 MG/DL ALKALINE PHOSPHATASE 76 38 - 126 IU/L AST 24 15 - 41 IU/L BILIRUBIN, DIRECT 0.1 0.0 - 0.2 MG/DL PROTEIN, TOTAL 7.5 6.3 - 8.2 GM/DL ALT 29 14 - 54 IU/L BASIC METABOLIC PANEL Result Value Ref Range Glucose 176 (H) 70 - 100 MG/DL BUN 18 7 - 20 MG/DL CREATININE SERUM 0.81 0.52 - 1.04 MG/DL SODIUM 137 136 - 145 MMOL/L POTASSIUM 4.2 3.5 - 5.1 MMOL/L CHLORIDE 105 98 - 107 MMOL/L CARBON DIOXIDE (CO2) 25 22 - 30 MMOL/L ANION GAP 7 (L) 8 - 16 MMOL/L CALCIUM 9.5 8.4 - 10.2 MG/DL ESTIMATED GFR, NON AMER 81 ml/min/1.73sq.m ESTIMATED GFR, 98 ml/min/1.73sq.m GFR COMMENT Average GFR for 40-49 years old = 99. HEENT: NC/AT, PERRLA, EOMI, fundi benign, external ears normal, OP normal. Neck: No LAD/thyromegaly. No JVD/bruit. Lungs: Clear to auscultation bilaterally. No wheezes, rales, ronchi. Heart: RRR. No S3/S4. Abdomen: Soft, NT/ND, normal bowel sounds, no HSM, no bruits. Extremities: No clubbing, cyanosis, edema. Normal pulses. Neurologic: CN II-XII intact. Strength/DTR's/sensation symmetric. Cerebellar function normal. Skin: No rash or suspicious lesions. Musculoskeletal: No edema, redness, warmth, deformities. Psychiatric: Alert and oriented. Affect and mood normal. Assessment and Plan: 1. Bradycardia - Atorvastatin 20 MG tablet; Take 1 tablet by mouth at bedtime. Dispense: 90 tablet; Refill: 1 - Metoprolol succinate (Toprol XL) 100 MG tablet XL; Take 1 tablet by mouth at bedtime. HS Dispense: 90 tablet; Refill: 0 2. 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 - Atorvastatin 20 MG tablet; Take 1 tablet by mouth at bedtime. Dispense: 90 tablet; Refill: 1 - Metoprolol succinate (Toprol XL) 100 MG tablet XL; Take 1 tablet by mouth at bedtime. HS Dispense: 90 tablet; Refill: 0 - Lisinopril 10 MG tablet; Take 1 tablet by mouth daily. Dispense: 90 tablet; Refill: 1 - Clopidogrel 75 MG tablet; Take 1 tablet by mouth daily. Dispense: 90 tablet; Refill: 1 - HEPATIC FUNCTION PANEL; Future - LIPID PANEL W CALCULATED LDL; Future 3. Abnormal stress test - Atorvastatin 20 MG tablet; Take 1 tablet by mouth at bedtime. Dispense: 90 tablet; Refill: 1 - Metoprolol succinate (Toprol XL) 100 MG tablet XL; Take 1 tablet by mouth at bedtime. HS Dispense: 90 tablet; Refill: 0 4. Allergic rhinitis, unspecified seasonality, unspecified trigger - Montelukast 10 MG tablet; Take 1 tablet by mouth daily. Dispense: 90 tablet; Refill: 1 5. Chronic tension-type headache, intractable - Cyclobenzaprine 10 MG tablet; Take 1 tablet by mouth 2 times daily. Dispense: 180 tablet; Refill: 1 - Gabapentin (Neurontin) 300 MG capsule; Take 1 cap PO each morning and 2 caps PO QHS Dispense: 270 capsule; Refill: 1 6. Cervicogenic headache - Cyclobenzaprine 10 MG tablet; Take 1 tablet by mouth 2 times daily. Dispense: 180 tablet; Refill: 1 - Gabapentin (Neurontin) 300 MG capsule; Take 1 cap PO each morning and 2 caps PO QHS Dispense: 270 capsule; Refill: 1 7. Cervicalgia - Cyclobenzaprine 10 MG tablet; Take 1 tablet by mouth 2 times daily. Dispense: 180 tablet; Refill: 1 - Gabapentin (Neurontin) 300 MG capsule; Take 1 cap PO each morning and 2 caps PO QHS Dispense: 270 capsule; Refill: 1 8. Type 2 diabetes mellitus without complication, without long-term current use of insulin - gliMEPIride 4 MG tablet; Take 1 tablet by mouth 2 times daily. Dispense: 180 tablet; Refill: 1 - pioglitazone (Actos) 45 MG tablet; Take 1 tablet by mouth daily. Dispense: 90 tablet; Refill: 1 - BASIC METABOLIC PANEL; Future - HEMOGLOBIN A1C; Future 9. Rotator cuff tendinitis, unspecified laterality Inject. 10. Coronary artery disease involving jackson coronary artery of jackson heart without angina pectoris 11. Gastroesophageal reflux disease without esophagitis - omeprazole [address] capsule; Take 1 capsule by mouth daily. Dispense: 90 capsule; Refill: 1 12. Hypercholesterolemia 13. Essential hypertension, benign Rhett Brito MD 10/17/2022 documented in this encounter [facility] 04-28-2022 Note Formatting of this n ote might be different from the original. Problem: Patient Care Overview Goal: Plan of Care Review Outcome: Adequate for Discharge Goal: Individualization & Mutuality Outcome: Adequate for Discharge Goal: Discharge Needs Assessment Outcome: Adequate for Discharge Goal: Interdisciplinary Rounds/Family Conf Outcome: Adequate for Discharge Problem: Skin Integrity Impairment, Risk/Actual (Adult) Goal: Identify Related Risk Factors and Signs and Symptoms Description: Related risk factors and signs and symptoms are identified upon initiation of Human Response Clinical Practice Guideline (CPG) Outcome: Adequate for Discharge Goal: Skin Integrity/Wound Healing Description: Patient will demonstrate the desired outcomes by discharge/transition of care. Outcome: Adequate for Discharge [facility] 04-28-2022 Miscellaneous Notes Problem: Patient Care Overview Goal: Plan of Care Review Outcome: Adequate for Discharge Goal: Individualization & Mutuality Outcome: Adequate for Discharge Goal: Discharge Needs Assessment Outcome: Adequate for Discharge Goal: Interdisciplinary Rounds/Family Conf Outcome: Adequate for Discharge Problem: Skin Integrity Impairment, Risk/Actual (Adult) Goal: Identify Related Risk Factors and Signs and Symptoms Description: Related risk factors and signs and symptoms are identified upon initiation of Human Response Clinical Practice Guideline (CPG) Outcome: Adequate for Discharge Goal: Skin Integrity/Wound Healing Description: Patient will demonstrate the desired outcomes by discharge/transition of care. Outcome: Adequate for Discharge Went over AVS with pt and answered all questions. Pt states understanding. IV removed without problems. R groin and R wrist site dressings still intact with no drainage or abnormalities. Pt states she has got all her belongings and ambulates off unit with her . No change in pt condition since the last nursing assessment unless noted in the flowsheets. Patient denies needs. Call light and bedside table within reach. No change in patient condition since the last nursing assessment, unless noted in the attached flowsheet. Patient appears asleep at this time and appears to be comfortable with no apparent needs. Call light and bedside table within reach of patient. Patient was transported from Cardiac Mine Engineering Supervisor back to Med Surg Room #8714 by this RN and MONISHA Alcocer. Patient was attached to [facility], room air, 99%. Patient's VSS and was stable overall. Insertion sites with TR band and AngioSeal closer device, obtained Hemostasis at 1408 hrs and was free of Active Bleeding, Hematoma or Ecchymosis. Transparent Dressings and 2x2 gauze were CD&I. Patient had no c/o chest pain, or SOB. Pt did c/o back pain from lying in bed. Pt was transported in Med Surg Bed. Complete report was given to MONISHA jason, after pateint was reconnected to Publicity Expert Patient remains on room air at 98%. Patient's wrist and groin dressings and access sites were assessed by both MONISHA Alcocer and underwriting analyst, Casie, together and confirmed this site was intact and free of Active Bleeding, Hematoma, and/or Ecchymosis. Patient stable, A&Ox4. Informed Med/Surg Staff of Procedure Findings, Interventions, and Post Procedure Care. Advised Staff to Refer to Physician's Orders or Contact Physician, for further orders needed for patient care. Patient's continued care taken over by Chon Jaosn Surg, RN. Pt to room 3754. Report received from Obed BEARDEN. Vitals obtained. Pt awake and oriented. Dressings are dry and intact. Tele applied. Family at bedside. Sat pt up in bed. Will monitor for 30 minutes before getting up. Bed in low position, belongings in reach. Denies any further needs Cardiology in room for EKG Stent Card and AngioSeal card given to per MONISHA Alcocer Dr Kramer in room speaking with patient and family. Dr Kramer in with patient and family Sister, Joanie, at bedside. Spouse remains at bedside. Patient ready for procedure, labs pending. Spouse at bedside. Patient denies needs at this time. Patient arrived to Cath/Vascular Lab to [place] #3, with - ([place]). Escorted by MONISHA Kumari. Patient was ambulatory and has no complaints of pain, chest pain, or SOB. Will assess and monitor this patient very closely. Pre Cath phone call complete. 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 Patient is scheduled for a LHC with Dr Kramer in [place] Arrive: 9 am (8AM if getting labs in morning) Doc: 10 am Patient states she did receive instructions from the office on procedure. Patient denies needs or questions at this time. Spoke with Soledad from [facility]. Scheduled patient for a LHC with Dr. Kramer for this 04/26/22 at 1000 with patient arrival at 0900. documented in this encounter [facility] 04-28-2022 Note Formatting of this n ote might be different from the original. Went over AVS with pt and answered all questions. Pt states understanding. IV removed without problems. R groin and R wrist site dressings still intact with no drainage or abnormalities. Pt states she has got all her belongings and ambulates off unit with her . [facility] 04-28-2022 Hospital course Narrative Images from the original note were not included. Discharge Summary Name: Sharon Bella Age: 47 y.o. Birthday: 1975 Admit Date: 04/27/2022 10:45 AM Discharge Date: 04/28/2022 Discharge Time: 1200 Discharge Unit: MS Admission Information Admitting Physician: Madhu Kramer MD Discharge Information Discharge Physician: Madhu Kramer Problem List Active Hospital Problems Diagnosis Coronary artery disease Resolved Hospital Problems No resolved problems to display. Brief Summary of Hospital Course for Discharge Summary: Pt admitted after elective PCI to mid LAD for focal severe in stent restenosis treated with 2nd stent: Xience Skypoint 3.0x12mm. Brief Summary of Consults for Discharge Summary: none Brief Summary of Procedures and Imaging for Discharge Summary: see above Summary of last selected lab results and date obtained: Lab Results Component Value Date WBC 7.8 04/28/2022 HGB 12.9 04/28/2022 HCT 37.5 04/28/2022 PLATELET 242 04/28/2022 MCV 88.4 04/28/2022 Lab Results Component Value Date SODIUM 134 (L) 04/28/2022 POTASSIUM 3.8 04/28/2022 CHLORIDE 102 04/28/2022 CO2 24 04/28/2022 BUN 12 04/28/2022 CREATSERUM 0.53 04/28/2022 GLUCOSE 198 (H) 04/28/2022 Lab Results Component Value Date ALT 35 04/14/2022 AST 27 04/14/2022 GGT 10 01/10/2004 ALKPHOS 81 04/14/2022 BILITOTAL 0.8 04/14/2022 BILIDIRECT 0.2 04/14/2022 Brief Summary of Labs for Discharge Summary: Discharge Orders AMB REFERRAL TO CARDIAC REHAB Current Outpatient Meds: Medication List for when you go home CHANGE how you take these medications aspirin 81 MG CHEW chewable tablet Chew 2 tablets daily every morning. What changed: How often you have reported taking this medication has changed * clopidogrel 75 MG TABS Take 1 tablet by mouth daily. Commonly known as: PLAVIX What changed: You were already taking a medication with the same name, and this prescription was added. Make sure you understand how and when to take each. * metoprolol succinate 100 MG tablet XL Take 1 tablet by mouth at bedtime. Commonly known as: TOPROL-XL What changed: You were already taking a medication with the same name, and this prescription was added. Make sure you understand how and when to take each. * metoprolol succinate 50 MG tablet XL Take 1 tablet by mouth daily. Commonly known as: TOPROL-XL What changed: You were already taking a medication with the same name, and this prescription was added. Make sure you understand how and when to take each. * The same medication is listed twice. Please discuss with your provider. CONTINUE taking these medications atorvastatin 20 MG TABS Take 1 tablet by mouth at bedtime. Commonly known as: LIPITOR For diagnoses: 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, Bradycardia, Abnormal stress test cyclobenzaprine 10 MG TABS Take 1 tablet by mouth 2 times daily. Commonly known as: FLEXERIL For diagnoses: Chronic tension-type headache, intractable, Cervicogenic headache, Cervicalgia gabapentin 300 MG CAPS Take 1 cap PO each morning and 2 caps PO QHS Commonly known as: Neurontin For diagnoses: Chronic tension-type headache, intractable, Cervicogenic headache, Cervicalgia gliMEPIride 4 MG TABS Take 1 tablet by mouth 2 times daily. Commonly known as: AMARYL For diagnoses: Type 2 diabetes mellitus without complication, without long-term current use of insulin GLUCOSE MONITOR LANCETS PRESCRIPTION daily For diagnoses: Type 2 diabetes mellitus without complication, without long-term current use of insulin GLUCOSE MONITOR PRESCRIPTION daily For diagnoses: Type 2 diabetes mellitus without complication, without long-term current use of insulin GLUCOSE TEST STRIPS PRESCRIPTION daily For diagnoses: Type 2 diabetes mellitus without complication, without long-term current use of insulin lisinopril 10 MG TABS Take 1 tablet by mouth daily. Commonly known as: PRINIVIL For diagnoses: 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 Magnesium 500 MG TABS Take 500 mg by mouth at bedtime. Mirena (52 MG) 20 MCG/DAY 1 Device by Intrauterine route Once. use as directed Generic drug: Levonorgestrel montelukast 10 MG TABS Take 1 tablet by mouth daily. Commonly known as: SINGULAIR For diagnoses: Allergic rhinitis, unspecified seasonality, unspecified trigger omeprazole [address] capsule Take 20 mg by mouth at bedtime. Commonly known as: PRILOSEC Ozempic (0.25 or 0.5 MG/DOSE) 2 MG/1.5ML SOPN Inject 0.5 mg under the skin once a week. For diagnoses: Type 2 diabetes mellitus without complication, without long-term current use of insulin Generic drug: Semaglutide(0.25 or 0.5MG/DOS) pioglitazone 45 MG TABS Take 1 tablet by mouth daily. Commonly known as: Actos For diagnoses: Type 2 diabetes mellitus without complication, without long-term current use of insulin PROBIOTIC-10 PO Take by mouth daily every morning. Vit E-Vit C-Beta Carotene [phone] TABS Take 250 mg by mouth daily. Vitamin D-3 25 MCG (1000 UT) CAPS Take 5,000 Units by mouth daily. ZYRTEC PO Take 1 tablet by mouth at bedtime. Follow-up: No follow-up provider specified. Upcoming Appointments (up to five)-Some appointments for Medical Center outpatient clinics or diagnostic testing locations are not displayed below Provider Department Dept Phone 05/02/2022 2:15 PM Madhu Kramer [facility] Cardiology [phone] 10/17/2022 1:[address] [facility] Medicine [phone] documented in this encounter [facility] 04-28-2022 Note Formatting of this n ote might be different from the original. No change in pt condition since the last nursing assessment unless noted in the flowsheets. Patient denies needs. Call light and bedside table within reach. [facility] 04-28-2022 Note Formatting of this n ote might be different from the original. No change in patient condition since the last nursing assessment, unless noted in the attached flowsheet. Patient appears asleep at this time and appears to be comfortable with no apparent needs. Call light and bedside table within reach of patient. T [facility] 04-27-2022 Note Formatting of this n ote might be different from the original. Patient was transported from Cardiac Mine Engineering Supervisor back to Med Surg Room #0034 by this RN and MONISHA Alcocer. Patient was attached to [employer], room air, 99%. Patient's VSS and was stable overall. Insertion sites with TR band and AngioSeal closer device, obtained Hemostasis at 1408 hrs and was free of Active Bleeding, Hematoma or Ecchymosis. Transparent Dressings and 2x2 gauze were CD&I. Patient had no c/o chest pain, or SOB. Pt did c/o back pain from lying in bed. Pt was transported in Med Surg Bed. Complete report was given to MONISHA jason, after pateint was reconnected to Publicity Expert Patient remains on room air at 98%. Patient's wrist and groin dressings and access sites were assessed by both MONISHA Alcocer and underwriting analyst, Casie, together and confirmed this site was intact and free of Active Bleeding, Hematoma, and/or Ecchymosis. Patient stable, A&Ox4. Informed Med/Surg Staff of Procedure Findings, Interventions, and Post Procedure Care. Advised Staff to Refer to Physician's Orders or Contact Physician, for further orders needed for patient care. Patient's continued care taken over by Chon Jason RN. [facility] [employer] 04-27-2022 Note Formatting of this n ote might be different from the original. Pt to room 3754. Report received from Magda and Carlyn BEARDEN. Vitals obtained. Pt awake and oriented. Dressings are dry and intact. Tele applied. Family at bedside. Sat pt up in bed. Will monitor for 30 minutes before getting up. Bed in low position, belongings in reach. Denies any further needs [facility] [employer] 04-27-2022 Note Appropriate Use Crit eria scoring is not applicable for this procedure. False negative pharm nuclear stress test with persistent typical low level angina. 2. Focal severe 80-85% stenosis in the distal segment of previously place KARIME from Sep 2020. This lesion was reduced to 0% with PTCA and repeat KARIME Xience Skypoint 3.0 x12 mm post-dilated with 3.25mm NC balloon 3. Otherwise minimal non-obstructive CAD and NL LVEF 4. 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 PLAN Observation admit with DC in AM Cont DAPT half-way Continue regular exercise. Coronary Findings Diagnostic Dominance: Right Left Main: The vessel is moderate in size and is angiographically normal. Left Anterior Descending: Mid LAD lesion is 85% stenosed. The lesion is type B1 and focal. The lesion was previously treated using a drug-eluting stent. Previous treatment took place 1-2 years ago. No thrombosis in the previous stent. The lesion has in-stent. Thestenosis was measured by a visual reading. The strut appears well apposed. Left Circumflex: The vessel is moderate in size. The vessel exhibits minimal luminal irregularities. Consists of one moderate size OM. The ongoing circumflex is very small. Right Coronary Artery: The vessel exhibits minimal luminal irregularities. Moderate size dominant vessel that yields small PDA and PLB Intervention Mid LAD lesion: PCI: Lesion length: 6 mm. The pre-interventional distal flow is normal (JOSE M 3). - A 6FR JL 3.5 GUIDE CATHETER 100CM interventional guide catheter was used to successfully engage the vessel. was used to cross the lesion Angioplasty - 6FRJL 3.5 GUIDE CATHETER 100CM. Stent placement drug-eluting. Post-Stent Angioplasty - EUPHORA NC BALLOON 3.25 X 15. - The post-interventional distal flow is normal (JOSE M 3). - The intervention was successful. No complicationsoccurred at this lesion. There is a 0% residual stenosis post intervention. Left Ventricle The left ventricular size is normal. The left ventricular systolic function is normal. LV systolic pressure is normal. LV end diastolic pressure is elevated/hypertensive. The ejection fraction is 55-60%. There are no wall motion abnormalities in the left ventricle. LVEDP =20 Study Details Progressive angina PCI Risk Factors PCI Status: Urgent Heart Failure: No Cardiovascular instability: Persistent ischemic symptoms [facility] 04-27-2022 Hospital Discharg e instructions Magda Morgan RN - 04/27/2022 3:19 PM EDT The following attachments cannot be sent through Care Everywhere.CARE AFTER CARDIAC CATHETERIZATION: WRIST INSTRUCTIONS ([facility] ONLY)LEFT HEART CATHETERIZATION - GROIN ACCESS INSTRUCTIONS ([facility] ONLY)documented in this encounter [facility] 04-27-2022 Note Formatting of this n ote might be different from the original. Cardiology in room for EKG [facility] 04-27-2022 Note Formatting of this n ote might be different from the original. Stent Card and AngioSeal card given to per MONISHA Alcocer [facility] 04-27-2022 Note Formatting of this n ote might be different from the original. Dr Kramer in room speaking with patient and family. [facility] 04-27-2022 History and physical note I have seen, examined and reviewed all pertinent data and clinical information. I reviewed the H&P done on 04/23/22 and there are no additional changes. Risks/benefits have been discussed and reviewed. Appropriate consents have been signed and patient voiced understanding of risks/benefits and all details of the procedure. Madhu Kramer MD [facility] 04-27-2022 History and physical note I have seen, examined and reviewed all pertinent data and clinical information. I reviewed the H&P done on 04/23/22 and there are no additional changes. Risks/benefits have been discussed and reviewed. Appropriate consents have been signed and patient voiced understanding of risks/benefits and all details of the procedure. Madhu Kramer MD documented in this encounter [facility] 04-27-2022 Note Formatting of this n ote might be different from the original. Dr Kramer in with patient and family [facility] 04-27-2022 Note Formatting of this n ote might be different from the original. Sister, Joanie, at bedside. Spouse remains at bedside. [facility] 04-27-2022 Note Formatting of this n ote might be different from the original. Patient ready for procedure, labs pending. Spouse at bedside. Patient denies needs at this time. T [facility] 04-27-2022 Note Formatting of this n ote might be different from the original. Patient arrived to Cath/Vascular Lab to [place] #3, with - ([place]). Escorted by MONISHA Kumari. Patient was ambulatory and has no complaints of pain, chest pain, or SOB. Will assess and monitor this patient very closely. T [facility] 04-26-2022 Note Formatting of this n ote might be different from the original. Pre Cath phone call complete. 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 Patient is scheduled for a LHC with Dr Kramer in [place] Arrive: 9 am (8AM if getting labs in morning) Doc: 10 am Patient states she did receive instructions from the office on procedure. Patient denies needs or questions at this time. T [facility] 04-24-2022 Note Formatting of this n ote might be different from the original. Spoke with Soledad from [facility] [employer]. Scheduled patient for a LHC with Dr. Kramer for this 04/26/22 at 1000 with patient arrival at 0900. [facility] 04-17-2022 History of Presen t illness Narrative CHOLESTEROL- Pt presents in office for cholesterol evaluation. Compliance with medications is good. Side effects: No myalgias noted. Lab Results Component Value Date CHOLESTEROL 149 04/14/2022 CHOLESTEROL 123 10/07/2021 CHOLESTEROL 67 (L) 04/15/2021 TRIG 117 04/14/2022 TRIG 75 10/07/2021 TRIG 104 04/15/2021 HDL 38 (L) 04/14/2022 HDL 37 (L) 10/07/2021 HDL 33 (L) 04/15/2021 LDLCALC 88 04/14/2022 LDLCALC 71 10/07/2021 LDLCALC 13 04/15/2021 CAD F/U Sharon Bella is a 47 y.o. female who presents in follow up for high coronary artery disease. she is feeling well. There are no complaints relative to her heart disease. Patient is compliant with medications. she denies any side effects from medications. she denies chest pain, SOB, SANDHU, palpitations, orthopnea, PND, edema, headache, focal neurologic complaints, claudication. TYPE 2 DM - Pt present to the office for evaluation of type 2 diabetes. Pt is overall doing well, with glucoses for the most part averaging 100-200's Pt checks blood sugars a couple times weekly. No wide fluctuations in glucoses. Tolerating meds well. Denies change in vision, neuropathy, urinary frequency or frequent infections. Pt states they do check their feet for sores and/or ulcers. Pt is not currently seeing podiatry. Pt last diabetic eye exam 08/2021 HYPERTENSION- She presents for follow-up of hypertension. Pt specifically denies chest pain, palpitations, peripheral edema and shortness of breath. Current medication regimen is as listed in this record. Pt c/o one episode of left arm pain Blood pressure readings: Pt states they take BP never. HEADACHE/MIGRAINE F/U Sharon Bella is a 47 y.o. she who presents in follow up for migraine headaches. Medication is working well. No side effects. Nochange in character of headaches. she denies worst headache of my life, loss of consciousness, seizure, focal neurologic complaint, aphasia. No hatband or daily headache. No stabbing eye pain. No eye injection, tearing, or redness. SHOULDER PAIN- Sharon Bella presents with a complaint of b/l shoulder pain. Pain is worse with overhead activity and/or with laying on the affected side. Denies weakness. Denies neck pain. Injury: N/a Repetitive activities or new activities: yes, cardio rehab PT preformed- yes , When October 2021, How Long 5 sessions Other treatment tried and effectiveness- n/a Appointment on 04/14/2022 Component Date Value Ref Range Status HEMOGLOBIN A1C 04/14/2022 9.3 (H) <6 % Final Comment: NORMAL <5.7% PREDIABETES 5.7-6.4% DIABETES 6.5% OR HIGHER Estimated Average Glucose 04/14/2022 220 mg/dL Final CHOLESTEROL 04/14/2022 149 100 - 199 MG/DL Final TRIGLYCERIDE 04/14/2022 117 <150 MG/DL Final HDL CHOLESTEROL 04/14/2022 38 (L) 40 - 60 MG/DL Final LDL CHOLESTEROL, CALCULATED 04/14/2022 88 0 - 100 MG/DL Final VLDL Cholesterol, Calculated 04/14/2022 23 5.0 - 25.0 MG/DL Final TCHOL/HDL RATIO, MANUAL ENTER 04/14/2022 3.92 RATIO Final Comment: RISK TOTAL/HDL RATIO MEN WOMEN 1/2 AVERAGE 3.43 3.27 AVERAGE 4.97 4.44 2X AVERAGE 9.55 7.05 3X AVERAGE 23.99 11.04 Albumin 04/14/2022 4.6 3.5 - 5.0 G/DL Final BILIRUBIN, TOTAL 04/14/2022 0.8 0.2 - 1.2 MG/DL Final ALKALINE PHOSPHATASE 04/14/2022 81 38 - 126 IU/L Final AST 04/14/2022 27 15 - 41 IU/L Final BILIRUBIN, DIRECT 04/14/2022 0.2 0.0 - 0.2 MG/DL Final PROTEIN, TOTAL 04/14/2022 7.8 6.3 - 8.2 GM/DL Final ALT 04/14/2022 35 14 - 54 IU/L Final GLUCOSE 04/14/2022 212 (H) 70 - 100 MG/DL Final Comment: NORMAL <100 mg/dL PREDIABETES 101-126 mg/dL DIABETES 126 mg/dL or higher BUN 04/14/2022 14 7 - 20 MG/DL Final CREATININE SERUM 04/14/2022 0.65 0.52 - 1.04 MG/DL Final SODIUM 04/14/2022 132 (L) 136 - 145 MMOL/L Final POTASSIUM 04/14/2022 4.2 3.5 - 5.1 MMOL/L Final CHLORIDE 04/14/2022 99 98 - 107 MMOL/L Final CARBON DIOXIDE (CO2) 04/14/2022 22 22 - 30 MMOL/L Final ANION GAP 04/14/2022 11 8 - 16 MMOL/L Final CALCIUM 04/14/2022 9.8 8.4 - 10.2 MG/DL Final ESTIMATED GFR, NON AMER 04/14/2022 104 ml/min/1.73sq.m Final ESTIMATED GFR, 04/14/2022 126 ml/min/1.73sq.m Final GFR COMMENT 04/14/2022 Average GFR for 40-49 years old = 99. Final Comment: Chronic Kidney disease, GFR = <60. Kidney failure, GFR = <15. The GFR estimate is not adjusted for extreme body surface area or acute process, nor has it been validated for women or ethnic groups other than and . CHOLESTEROL- Pt presents in office for cholesterol evaluation. Compliance with medications is good. Side effects: No myalgias noted. Lab Results Component Value Date CHOLESTEROL 149 04/14/2022 CHOLESTEROL 123 10/07/2021 CHOLESTEROL 67 (L) 04/15/2021 TRIG 117 04/14/2022 TRIG 75 10/07/2021 TRIG 104 04/15/2021 HDL 38 (L) 04/14/2022 HDL 37 (L) 10/07/2021 HDL 33 (L) 04/15/2021 LDLCALC 88 04/14/2022 LDLCALC 71 10/07/2021 LDLCALC 13 04/15/2021 CAD F/U Sharon Bella is a 47 y.o. female who presents in follow up for coronary artery disease. she is feeling well. Patient is compliant with medications. she denies any side effects from medications. she denies SOB, SANDHU, palpitations, orthopnea, PND, edema, headache, focal neurologic complaints, claudication. Pain in left arm with an exercise similar to previous episode prior to angioplasty. None since, but has not exerted herself either. TYPE 2 DM - Pt present to the office for evaluation of type 2 diabetes. Pt is overall doing well, with glucoses for the most part averaging 100-200's Pt checks blood sugars a couple times weekly. No wide fluctuations in glucoses. Tolerating meds well. Denies change in vision, neuropathy, urinary frequency or frequent infections. Pt states they do check their feet for sores and/or ulcers. Pt is not currently seeing podiatry. Pt last diabetic eye exam 08/2021. No lows. HYPERTENSION- She presents for follow-up of hypertension. Pt specifically denies palpitations, peripheral edema and shortness of breath. Current medication regimen is as listed in this record. Pt c/o one episode of left arm pain - see above. Blood pressure readings: Pt states they take BP never. HEADACHE/MIGRAINE F/U Sharon Bella is a 47 y.o. she who presents in follow up for migraine headaches. Medication is working well. No side effects. Nochange in character of headaches. she denies worst headache of my life, loss of consciousness, seizure, focal neurologic complaint, aphasia. No hatband or daily headache. No stabbing eye pain. No eye injection, tearing, or redness. SHOULDER PAIN- Sharon Bella presents with a complaint of b/l shoulder pain. Pain is worse with overhead activity and/or with laying on the affected side. Denies weakness. Denies neck pain. Injury: N/a Repetitive activities or new activities: yes, cardio rehab PT preformed- yes , When October 2021, How Long 5 sessions Other treatment tried and effectiveness- n/a Allergies controlled. Appointment on 04/14/2022 Component Date Value Ref Range Status HEMOGLOBIN A1C 04/14/2022 9.3 (H) <6 % Final Comment: NORMAL <5.7% PREDIABETES 5.7-6.4% DIABETES 6.5% OR HIGHER Estimated Average Glucose 04/14/2022 220 mg/dL Final CHOLESTEROL 04/14/2022 149 100 - 199 MG/DL Final TRIGLYCERIDE 04/14/2022 117 <150 MG/DL Final HDL CHOLESTEROL 04/14/2022 38 (L) 40 - 60 MG/DL Final LDL CHOLESTEROL, CALCULATED 04/14/2022 88 0 - 100 MG/DL Final VLDL Cholesterol, Calculated 04/14/2022 23 5.0 - 25.0 MG/DL Final TCHOL/HDL RATIO, MANUAL ENTER 04/14/2022 3.92 RATIO Final Comment: RISK TOTAL/HDL RATIO MEN WOMEN 1/2 AVERAGE 3.43 3.27 AVERAGE 4.97 4.44 2X AVERAGE 9.55 7.05 3X AVERAGE 23.99 11.04 Albumin 04/14/2022 4.6 3.5 - 5.0 G/DL Final BILIRUBIN, TOTAL 04/14/2022 0.8 0.2 - 1.2 MG/DL Final ALKALINE PHOSPHATASE 04/14/2022 81 38 - 126 IU/L Final AST 04/14/2022 27 15 - 41 IU/L Final BILIRUBIN, DIRECT 04/14/2022 0.2 0.0 - 0.2 MG/DL Final PROTEIN, TOTAL 04/14/2022 7.8 6.3 - 8.2 GM/DL Final ALT 04/14/2022 35 14 - 54 IU/L Final GLUCOSE 04/14/2022 212 (H) 70 - 100 MG/DL Final Comment: NORMAL <100 mg/dL PREDIABETES 101-126 mg/dL DIABETES 126 mg/dL or higher BUN 04/14/2022 14 7 - 20 MG/DL Final CREATININE SERUM 04/14/2022 0.65 0.52 - 1.04 MG/DL Final SODIUM 04/14/2022 132 (L) 136 - 145 MMOL/L Final POTASSIUM 04/14/2022 4.2 3.5 - 5.1 MMOL/L Final CHLORIDE 04/14/2022 99 98 - 107 MMOL/L Final CARBON DIOXIDE (CO2) 04/14/2022 22 22 - 30 MMOL/L Final ANION GAP 04/14/2022 11 8 - 16 MMOL/L Final CALCIUM 04/14/2022 9.8 8.4 - 10.2 MG/DL Final ESTIMATED GFR, NON AMER 04/14/2022 104 ml/min/1.73sq.m Final ESTIMATED GFR, 04/14/2022 126 ml/min/1.73sq.m Final GFR COMMENT 04/14/2022 Average GFR for 40-49 years old = 99. Final Comment: Chronic Kidney disease, GFR = <60. Kidney failure, GFR = <15. The GFR estimate is not adjusted for extreme body surface area or acute process, nor has it been validated for women or ethnic groups other than and . General: No fever, chills, weight loss. HEENT: No sinus pain, ear pain, sore throat. Neck: No LAD. Lungs: No cough, sputum, pleuritic pain, hemoptysis, SOB. CV: No chest pain, palpitation, orthopnea, PND, edema. GI: No abd pain, nausea, vomiting, diarrhea, constipation, melena, hematochezia. : No dysuria, frequency, hematuria. Skin: No rash or lesion. Neuro: No mental status changes, headache, focal neurologic complaints. Objective: Blood pressure 138/84, pulse 71, resp. rate 16, weight 117.5 kg (259 lb), SpO2 97 %, not currently . Results for orders placed or performed in visit on 04/14/22 HEMOGLOBIN A1C Result Value Ref Range HEMOGLOBIN A1C 9.3 (H) <6 % Estimated Average Glucose 220 mg/dL LIPID PANEL W CALCULATED LDL Result Value Ref Range CHOLESTEROL 149 100 - 199 MG/DL TRIGLYCERIDE 117 <150 MG/DL HDL CHOLESTEROL 38 (L) 40 - 60 MG/DL LDL CHOLESTEROL, CALCULATED 88 0 - 100 MG/DL VLDL Cholesterol, Calculated 23 5.0 - 25.0 MG/DL TCHOL/HDL RATIO, MANUAL ENTER 3.92 RATIO HEPATIC FUNCTION PANEL Result Value Ref Range Albumin 4.6 3.5 - 5.0 G/DL BILIRUBIN, TOTAL 0.8 0.2 - 1.2 MG/DL ALKALINE PHOSPHATASE 81 38 - 126 IU/L AST 27 15 - 41 IU/L BILIRUBIN, DIRECT 0.2 0.0 - 0.2 MG/DL PROTEIN, TOTAL 7.8 6.3 - 8.2 GM/DL ALT 35 14 - 54 IU/L BASIC METABOLIC PANEL Result Value Ref Range GLUCOSE 212 (H) 70 - 100 MG/DL BUN 14 7 - 20 MG/DL CREATININE SERUM 0.65 0.52 - 1.04 MG/DL SODIUM 132 (L) 136 - 145 MMOL/L POTASSIUM 4.2 3.5 - 5.1 MMOL/L CHLORIDE 99 98 - 107 MMOL/L CARBON DIOXIDE (CO2) 22 22 - 30 MMOL/L ANION GAP 11 8 - 16 MMOL/L CALCIUM 9.8 8.4 - 10.2 MG/DL ESTIMATED GFR, NON AMER 104 ml/min/1.73sq.m ESTIMATED GFR, 126 ml/min/1.73sq.m GFR COMMENT Average GFR for 40-49 years old = 99. HEENT: NC/AT, PERRLA, EOMI, fundi benign, external ears normal, OP normal. Neck: No LAD/thyromegaly. No JVD/bruit. Lungs: Clear to auscultation bilaterally. No wheezes, rales, ronchi. Heart: RRR. No S3/S4. Abdomen: Soft, NT/ND, normal bowel sounds, no HSM, no bruits. Extremities: No clubbing, cyanosis, edema. Normal pulses. Neurologic: CN II-XII intact. Strength/DTR's/sensation symmetric. Cerebellar function normal. Skin: No rash or suspicious lesions. Musculoskeletal: No edema, redness, warmth, deformities. Psychiatric: Alert and oriented. Affect and mood normal. Assessment and Plan: 1. Allergic rhinitis, unspecified seasonality, unspecified trigger - montelukast 10 MG tablet; Take 1 tablet by mouth daily. Dispense: 90 tablet; Refill: 1 2. Chronic tension-type headache, intractable - cyclobenzaprine 10 MG tablet; Take 1 tablet by mouth 2 times daily. Dispense: 180 tablet; Refill: 1 - gabapentin (Neurontin) 300 MG capsule; Take 1 cap PO each morning and 2 caps PO QHS Dispense: 270 capsule; Refill: 1 3. Cervicogenic headache - cyclobenzaprine 10 MG tablet; Take 1 tablet by mouth 2 times daily. Dispense: 180 tablet; Refill: 1 - gabapentin (Neurontin) 300 MG capsule; Take 1 cap PO each morning and 2 caps PO QHS Dispense: 270 capsule; Refill: 1 4. Cervicalgia - cyclobenzaprine 10 MG tablet; Take 1 tablet by mouth 2 times daily. Dispense: 180 tablet; Refill: 1 - gabapentin (Neurontin) 300 MG capsule; Take 1 cap PO each morning and 2 caps PO QHS Dispense: 270 capsule; Refill: 1 5. Type 2 diabetes mellitus without complication, without long-term current use of insulin Call readings in a month and will titrate up if still high. Discussed lowering carbohydrate intake, mixing glycemic indices, and increasing activity. - gliMEPIride 4 MG tablet; Take 1 tablet by mouth 2 times daily. Dispense: 180 tablet; Refill: 1 - pioglitazone (Actos) 45 MG tablet; Take 1 tablet by mouth daily. Dispense: 90 tablet; Refill: 1 - Semaglutide,0.25 or 0.5MG/DOS, (Ozempic, 0.25 or 0.5 MG/DOSE,) 2 MG/1.5ML Solution Pen-injector; Inject 0.5 mg under the skin once a week. Dispense: 6 mL; Refill: 0 - BASIC METABOLIC PANEL; Future - HEMOGLOBIN A1C; Future 6. Coronary artery disease involving jackson coronary artery of jackson heart without angina pectoris Stress test with exertional symptoms. - HEPATIC FUNCTION PANEL; Future - LIPID PANEL W CALCULATED LDL; Future 7. Mixed hyperlipidemia Diet: - Decrease saturated fats (red meat and solid shortening) - Increase unsaturated fat (olive/canola oil, fish, nuts) - Decreased starch and sugar - Increase fiber - Increase garlic - Can take additional Niacin (500-1000 mg, cautioned about flushing) - HEPATIC FUNCTION PANEL; Future - LIPID PANEL W CALCULATED LDL; Future 8. Chest pain, unspecified type - NUC MYOCARD PERF STRESS MIBI EXERCISE; Future 9. Rotator cuff tendinitis, unspecified laterality Will evaluate after the first of the year at patient request. Maintain ROM passively. Rhett Brito MD 04/17/2022 documented in this encounter [facility] 03-02-2022 Note PROCEDURE: MAMMO SCR EENING WITH DOMINIQUE BILATERAL 03/02/2022 10:08 AM EDT CLINICAL HISTORY: screening mammogram COMPARISON: 01/04/2021, 01/04/2020, 01/02/2019 TECHNIQUE: Routine MLO and CC views of the bilateral breasts were obtained. CAD was utilized. Tomography was performed. FINDINGS: Breast density: Heterogeneously dense. There are no suspicious masses, architectural distortion, or suspicious microcalcifications. Biopsy marker is again noted in the superior left breast. RADIOLOGY 11-20-2021 History of Presen t illness Narrative HPI Sharon Bella is a 46 y.o. female who presents today for had concerns including Annual Exam (Patient her for annual without pap. Last pap 11/17/20. Patient has IUD that was placed 12/12/20.) Does not do self breast exams No urinary symptoms nor pelvic pain reported at this time. No other concerns reported. LMP: Patient's last menstrual period was 10/21/2021 (exact date). No results found for: PAPSMEAR OB HISTORY: OB History Para Term AB Living 1 1 0 1 1 SAB IAB Ectopic Molar Multiple Live Births 1 # Outcome Date GA Lbr Raz/2nd Weight Sex Delivery Anes PTL Lv 1 2003 29w0d M Vag-Spont TOM HISTORY/ALLERGIES Allergies Allergen Reactions Tramadol Nausea and Vomiting Past Medical History: Diagnosis Date Atherosclerotic heart disease jackson coronary artery w/angina pectoris 03/08/2021 Cardiac angina Diabetes mellitus Essential hypertension, benign Exercise tolerance finding METS > 4 stairs daily GERD (gastroesophageal reflux disease) History of corticosteroid therapy < 2yrs Hyperlipidemia Migraine Pain Rt elbow, headaches, cervical spine issues Varicose vein of leg Past Surgical History: Procedure Laterality Date CORONARY STENT PLACEMENT N/A 02/17/2021 Laterality: N/A; Surgeon: Madhu Kramer MD; Location: [facility] CORONARY ANGIOPLASTY N/A 02/17/2021 Laterality: N/A; Surgeon: Madhu Kramer MD; Location: [facility] DECOMPRESSION TRANSPOSITION MEDIAN NERVE Left 06/11/2019 Laterality: Left; Surgeon: Sukh Pradhan MD; Location: [facility] DECOMPRESSION TRANSPOSITION ULNAR NERVE ELBOW Left 06/11/2019 Laterality: Left; Surgeon: Sukh Pradhan MD; Location: [facility] DECOMPRESSION TRANSPOSITION MEDIAN NERVE Right 04/30/2019 Laterality: Right; Surgeon: Sukh Pradhan MD; Location: [facility] DECOMPRESSION TRANSPOSITION ULNAR NERVE ELBOW Right 04/30/2019 Laterality: Right; Surgeon: Sukh Pradhan MD; Location: [facility] RELEASE TENDON ELBOW OPEN W/ TENDON REPAIR OR REATTACHMENT Right 06/18/2017 Laterality: Right; Surgeon: Sukh Pradhan MD; Location: [facility] ELBOW SURGERY Left 11/01/2016 Lt lateral epicondyle debrideent & repair Dr Sukh Pradhan @ [facility] Bilateral 2002 lasik TONSILLECTOMY 1985 Social History Tobacco Use Smoking status: Never Smoker Smokeless tobacco: Never Used Vaping Use Vaping Use: Never used Substance Use Topics Alcohol use: Yes Comment: Rarely Drug use: No Family History Problem Relation Age of Onset Other - Specify Mother Headaches Diabetes Mother Breast Cancer Mother Arthritis - Rheumatoid Mother Allergy - Severe Mother Hypertension Mother Prostate Cancer Father Arthritis - Rheumatoid Father Myocardial Infarction Father Colon Cancer Father Lung Cancer Father Heart Disease - Other Father Hypertension Father Thyroid Disease Father Current Outpatient Medications: atorvastatin 20 MG tablet, Take 1 tablet by mouth at bedtime., Disp: 30 tablet, Rfl: 11 celecoxib 200 MG capsule, Take 1 capsule by mouth 2 times daily., Disp: 60 capsule, Rfl: 0 Cetirizine HCl (ZYRTEC PO), Take 1 tablet by mouth at bedtime. , Disp: , Rfl: Cholecalciferol (Vitamin D-3) 25 MCG (1000 UT) capsule, Take 5,000 Units by mouth daily. , Disp: , Rfl: clopidogrel 75 MG tablet, Take 1 tablet by mouth daily., Disp: 30 tablet, Rfl: 11 cyclobenzaprine 10 MG tablet, Take 1 tablet by mouth 2 times daily., Disp: 180 tablet, Rfl: 1 gabapentin (Neurontin) 300 MG capsule, Take 1 cap PO each morning and 2 caps PO QHS, Disp: 270 capsule, Rfl: 1 gliMEPIride 4 MG tablet, Take 1 tablet by mouth 2 times daily., Disp: 180 tablet, Rfl: 1 GLUCOSE MONITOR LANCETS PRESCRIPTION, daily, Disp: 100 Each, Rfl: 3 GLUCOSE MONITOR PRESCRIPTION, daily, Disp: 1 Device, Rfl: 0 GLUCOSE TEST STRIPS PRESCRIPTION, daily, Disp: 100 strip, Rfl: 3 Levonorgestrel (Mirena, 52 MG,) 20 MCG/DAY, 1 Device by Intrauterine route Once. use as directed, Disp: , Rfl: lisinopril 20 MG tablet, Take 0.5 tablets by mouth daily. With dinner, Disp: 90 tablet, Rfl: 3 Magnesium 500 MG Tab, Take 500 mg by mouth at bedtime. , Disp: , Rfl: metoprolol succinate (Toprol XL) 100 MG tablet XL, Take 1 tablet by mouth at bedtime. HS, Disp: 30 tablet, Rfl: 11 montelukast 10 MG tablet, Take 1 tablet by mouth daily., Disp: 90 tablet, Rfl: 1 Multiple Vitamin (VIT E-VIT C-BETA CAROTENE) [phone] Tab, Take 250 mg by mouth daily., Disp: , Rfl: omeprazole [address], Take 20 mg by mouth at bedtime., Disp: , Rfl: pioglitazone (Actos) 45 MG tablet, Take 1 tablet by mouth daily., Disp: 90 tablet, Rfl: 1 Probiotic Product (PROBIOTIC-10 PO), Take by mouth daily every morning. , Disp: , Rfl: aspirin 81 MG Chew Tab chewable tablet, Chew 2 tablets daily., Disp: 60 tablet, Rfl: 0 ROS Review of Systems Constitutional: Negative. HENT: Negative. Eyes: Negative. Respiratory: Negative. Cardiovascular: Negative. Gastrointestinal: Negative. Genitourinary: Negative. Musculoskeletal: Negative. Skin: Negative. Neurological: Negative. Psychiatric/Behavioral: Negative. All other systems reviewed and are negative. EXAM BP 122/82 Pulse 68 Ht 5' 4 (1.626 m) Wt 256 lb (116.1 kg) BMI 43.94 kg/m Smoking Status Never Smoker Physical Exam Vitals and nursing note reviewed. Exam conducted with a recorder gravity prospecting present. Constitutional: General: She is not in acute distress. Appearance: Normal appearance. She is obese. She is not ill-appearing. HENT: Head: Normocephalic and atraumatic. Cardiovascular: Rate and Rhythm: Normal rate and regular rhythm. Heart sounds: Normal heart sounds. Pulmonary: Effort: Pulmonary effort is normal. Breath sounds: Normal breath sounds. Chest: Chest wall: No mass. Breasts: Breasts are symmetrical. Right: Normal. No axillary adenopathy. Left: Normal. No axillary adenopathy. Abdominal: General: There is no distension. Palpations: Abdomen is soft. There is no mass. Tenderness: There is no abdominal tenderness. Genitourinary: General: Normal vulva. Exam position: Lithotomy position. Labia: Right: No rash, tenderness, lesion or injury. Left: No rash, tenderness, lesion or injury. Vagina: Normal. No vaginal discharge. Cervix: Normal. Uterus: Normal. Comments: IUD noted to be in place No other abnormalities noted Musculoskeletal: General: Normal range of motion. Cervical back: Normal range of motion. Lymphadenopathy: Upper Body: Right upper body: No axillary adenopathy. Left upper body: No axillary adenopathy. Skin: General: Skin is warm and dry. Neurological: General: No focal deficit present. Mental Status: She is alert and oriented to person, place, and time. Psychiatric: Mood and Affect: Mood normal. Behavior: Behavior normal. Diagnosis/Plan: Sharon was seen today for annual exam. 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 Encounter for screening mammogram for breast cancer - MAMMO SCREENING WITH DOMINIQUE BILATERAL; Future CBE done today Did teaching on self breast awareness Encouraged monthly self breast exams and annual mammograms starting at age 40 Cervical cancer screening Comments: 11/17/2020: Last pap smear was NIL with HRHPV Next pap smear will be due 11/18/2023 Encounter for routine checking of intrauterine contraceptive device (IUD) I shared my exam findings with patient IUD (intrauterine device) in place Comments: IUD inserted in 12/12/2020 Answered all of patient's questions and she verbalized understanding Shared decision making; patient in agreement Roxie Lazo MD 11/20/2021 documented in this encounter [facility] 10-26-2021 History of Presen t illness Narrative CHOLESTEROL- Pt presents in office for cholesterol evaluation. Compliance with medications is good. Side effects: No myalgias noted. Lab Results Component Value Date CHOLESTEROL 123 10/07/2021 CHOLESTEROL 67 (L) 04/15/2021 CHOLESTEROL 208 (H) 02/18/2021 TRIG 75 10/07/2021 TRIG 104 04/15/2021 TRIG 293 (H) 02/18/2021 HDL 37 (L) 10/07/2021 HDL 33 (L) 04/15/2021 HDL 30 (L) 02/18/2021 LDLCALC 71 10/07/2021 LDLCALC 13 04/15/2021 LDLCALC 119 (H) 02/18/2021 CAD F/U Sharon Bella is a 46 y.o. female who presents in follow up for high coronary artery disease. she is feeling well. There are no complaints relative to her heart disease. Patient is compliant with medications. she denies any side effects from medications. she denies chest pain, SOB, SANDHU, palpitations, orthopnea, PND, edema, headache, focal neurologic complaints, claudication. TYPE 2 DM - Pt present to the office for evaluation of type 2 diabetes. Pt is overall doing well, with glucoses for the most part averaging 180-200's. Pt checks blood sugars a couple times weekly. No wide fluctuations in glucoses. Tolerating meds well. Denies change in vision, neuropathy, urinary frequency or frequent infections. Pt states they do check their feet for sores and/or ulcers. Pt is not currently seeing podiatry. Pt last diabetic eye exam 08/2021 HYPERTENSION- She presents for follow-up of hypertension. Pt specifically denies chest pain, palpitations, peripheral edema and shortness of breath. Current medication regimen is as listed in this record. Blood pressure readings: Pt states they take BP never. HEADACHE/MIGRAINE F/U Sharon Bella is a 46 y.o. she who presents in follow up for migraine headaches. Medication is working well. No side effects. Nochange in character of headaches. she denies worst headache of my life, loss of consciousness, seizure, focal neurologic complaint, aphasia. No hatband or daily headache. No stabbing eye pain. No eye injection, tearing, or redness. Appointment on 10/07/2021 Component Date Value Ref Range Status HEMOGLOBIN A1C 10/07/2021 9.4 (A) <6 % Final Comment: NORMAL <5.7% PREDIABETES 5.7-6.4% DIABETES 6.5% OR HIGHER Estimated Average Glucose 10/07/2021 223 mg/dL Final CHOLESTEROL 10/07/2021 123 100 - 199 MG/DL Final TRIGLYCERIDE 10/07/2021 75 <150 MG/DL Final HDL CHOLESTEROL 10/07/2021 37 (A) 40 - 60 MG/DL Final LDL CHOLESTEROL, CALCULATED 10/07/2021 71 0 - 100 MG/DL Final VLDL 10/07/2021 15 5.0 - 25.0 MG/DL Final TCHOL/HDL RATIO, MANUAL ENTER 10/07/2021 3.32 RATIO Final Comment: RISK TOTAL/HDL RATIO MEN WOMEN 1/2 AVERAGE 3.43 3.27 AVERAGE 4.97 4.44 2X AVERAGE 9.55 7.05 3X AVERAGE 23.99 11.04 ALBUMIN 10/07/2021 4.5 3.5 - 5.0 G/DL Final BILIRUBIN, TOTAL 10/07/2021 0.9 0.2 - 1.2 MG/DL Final ALKALINE PHOSPHATASE 10/07/2021 70 38 - 126 IU/L Final AST 10/07/2021 19 15 - 41 IU/L Final BILIRUBIN, DIRECT 10/07/2021 0.1 0.0 - 0.2 MG/DL Final PROTEIN, TOTAL 10/07/2021 7.4 6.3 - 8.2 GM/DL Final ALT 10/07/2021 24 14 - 54 IU/L Final GLUCOSE 10/07/2021 199 (A) 70 - 100 MG/DL Final Comment: NORMAL <100 mg/dL PREDIABETES 101-126 mg/dL DIABETES 126 mg/dL or higher BUN 10/07/2021 18 7 - 20 MG/DL Final CREATININE SERUM 10/07/2021 0.64 0.52 - 1.04 MG/DL Final SODIUM 10/07/2021 135 (A) 136 - 145 MMOL/L Final POTASSIUM 10/07/2021 4.3 3.5 - 5.1 MMOL/L Final CHLORIDE 10/07/2021 101 98 - 107 MMOL/L Final CARBON DIOXIDE (CO2) 10/07/2021 24 22 - 30 MMOL/L Final ANION GAP 10/07/2021 10 8 - 16 MMOL/L Final CALCIUM 10/07/2021 9.5 8.4 - 10.2 MG/DL Final ESTIMATED GFR, NON AMER 10/07/2021 107 ml/min/1.73sq.m Final ESTIMATED GFR, 10/07/2021 129 ml/min/1.73sq.m Final GFR COMMENT 10/07/2021 Average GFR for 40-49 years old = 99. Final Comment: Chronic Kidney disease, GFR = <60. Kidney failure, GFR = <15. The GFR estimate is not adjusted for extreme body surface area or acute process, nor has it been validated for women or ethnic groups other than and . CHOLESTEROL- Pt presents in office for cholesterol evaluation. Compliance with medications is good. Side effects: No myalgias noted. Lab Results Component Value Date CHOLESTEROL 123 10/07/2021 CHOLESTEROL 67 (L) 04/15/2021 CHOLESTEROL 208 (H) 02/18/2021 TRIG 75 10/07/2021 TRIG 104 04/15/2021 TRIG 293 (H) 02/18/2021 HDL 37 (L) 10/07/2021 HDL 33 (L) 04/15/2021 HDL 30 (L) 02/18/2021 LDLCALC 71 10/07/2021 LDLCALC 13 04/15/2021 LDLCALC 119 (H) 02/18/2021 CAD F/U Sharon Bella is a 46 y.o. female who presents in follow up for high coronary artery disease. she is feeling well. There are no complaints relative to her heart disease. Patient is compliant with medications. she denies any side effects from medications. she denies chest pain, SOB, SANDHU, palpitations, orthopnea, PND, edema, headache, focal neurologic complaints, claudication. TYPE 2 DM - Pt present to the office for evaluation of type 2 diabetes. Pt is overall doing well, with glucoses for the most part averaging 180-200's. Pt checks blood sugars a couple times weekly. No wide fluctuations in glucoses. Tolerating meds well. Denies change in vision, neuropathy, urinary frequency or frequent infections. Pt states they do check their feet for sores and/or ulcers. Pt is not currently seeing podiatry. Pt last diabetic eye exam 08/2021 HYPERTENSION- She presents for follow-up of hypertension. Pt specifically denies chest pain, palpitations, peripheral edema and shortness of breath. Current medication regimen is as listed in this record. Blood pressure readings: Pt states they take BP never. HEADACHE/MIGRAINE F/U Sharon Bella is a 46 y.o. she who presents in follow up for migraine headaches. Medication is working well. No side effects. Nochange in character of headaches. she denies worst headache of my life, loss of consciousness, seizure, focal neurologic complaint, aphasia. No hatband or daily headache. No stabbing eye pain. No eye injection, tearing, or redness. Appointment on 10/07/2021 Component Date Value Ref Range Status HEMOGLOBIN A1C 10/07/2021 9.4 (A) <6 % Final Comment: NORMAL <5.7% PREDIABETES 5.7-6.4% DIABETES 6.5% OR HIGHER Estimated Average Glucose 10/07/2021 223 mg/dL Final CHOLESTEROL 10/07/2021 123 100 - 199 MG/DL Final TRIGLYCERIDE 10/07/2021 75 <150 MG/DL Final HDL CHOLESTEROL 10/07/2021 37 (A) 40 - 60 MG/DL Final LDL CHOLESTEROL, CALCULATED 10/07/2021 71 0 - 100 MG/DL Final VLDL 10/07/2021 15 5.0 - 25.0 MG/DL Final TCHOL/HDL RATIO, MANUAL ENTER 10/07/2021 3.32 RATIO Final Comment: RISK TOTAL/HDL RATIO MEN WOMEN 1/2 AVERAGE 3.43 3.27 AVERAGE 4.97 4.44 2X AVERAGE 9.55 7.05 3X AVERAGE 23.99 11.04 ALBUMIN 10/07/2021 4.5 3.5 - 5.0 G/DL Final BILIRUBIN, TOTAL 10/07/2021 0.9 0.2 - 1.2 MG/DL Final ALKALINE PHOSPHATASE 10/07/2021 70 38 - 126 IU/L Final AST 10/07/2021 19 15 - 41 IU/L Final BILIRUBIN, DIRECT 10/07/2021 0.1 0.0 - 0.2 MG/DL Final PROTEIN, TOTAL 10/07/2021 7.4 6.3 - 8.2 GM/DL Final ALT 10/07/2021 24 14 - 54 IU/L Final GLUCOSE 10/07/2021 199 (A) 70 - 100 MG/DL Final Comment: NORMAL <100 mg/dL PREDIABETES 101-126 mg/dL DIABETES 126 mg/dL or higher BUN 10/07/2021 18 7 - 20 MG/DL Final CREATININE SERUM 10/07/2021 0.64 0.52 - 1.04 MG/DL Final SODIUM 10/07/2021 135 (A) 136 - 145 MMOL/L Final POTASSIUM 10/07/2021 4.3 3.5 - 5.1 MMOL/L Final CHLORIDE 10/07/2021 101 98 - 107 MMOL/L Final CARBON DIOXIDE (CO2) 10/07/2021 24 22 - 30 MMOL/L Final ANION GAP 10/07/2021 10 8 - 16 MMOL/L Final CALCIUM 10/07/2021 9.5 8.4 - 10.2 MG/DL Final ESTIMATED GFR, NON AMER 10/07/2021 107 ml/min/1.73sq.m Final ESTIMATED GFR, 10/07/2021 129 ml/min/1.73sq.m Final GFR COMMENT 10/07/2021 Average GFR for 40-49 years old = 99. Final Comment: Chronic Kidney disease, GFR = <60. Kidney failure, GFR = <15. The GFR estimate is not adjusted for extreme body surface area or acute process, nor has it been validated for women or ethnic groups other than and . Subjective: Sharon Bella presents with a complaint of shoulder pain. Pain is worse with overhead activity and when laying on the affected side. No dysesthesias. No weakness. No neck pain. No trouble with bowel or bladder control. Injury: no Repetitive activities or new activities: yes she denies fever, chills, cold symptoms, headache, sore throat, cough, sputum, chest pain, palpitations, nausea, vomiting, diarrhea, dysuria, frequency, hematuria. Objective: Blood pressure 139/81, pulse 70, resp. rate 16, weight 115.6 kg (254 lb 12.8 oz), not currently . Results for orders placed or performed in visit on 10/07/21 HEMOGLOBIN A1C Result Value Ref Range HEMOGLOBIN A1C 9.4 (H) <6 % Estimated Average Glucose 223 mg/dL LIPID PANEL W CALCULATED LDL Result Value Ref Range CHOLESTEROL 123 100 - 199 MG/DL TRIGLYCERIDE 75 <150 MG/DL HDL CHOLESTEROL 37 (L) 40 - 60 MG/DL LDL CHOLESTEROL, CALCULATED 71 0 - 100 MG/DL VLDL 15 5.0 - 25.0 MG/DL TCHOL/HDL RATIO, MANUAL ENTER 3.32 RATIO HEPATIC FUNCTION PANEL Result Value Ref Range ALBUMIN 4.5 3.5 - 5.0 G/DL BILIRUBIN, TOTAL 0.9 0.2 - 1.2 MG/DL ALKALINE PHOSPHATASE 70 38 - 126 IU/L AST 19 15 - 41 IU/L BILIRUBIN, DIRECT 0.1 0.0 - 0.2 MG/DL PROTEIN, TOTAL 7.4 6.3 - 8.2 GM/DL ALT 24 14 - 54 IU/L BASIC METABOLIC PANEL Result Value Ref Range GLUCOSE 199 (H) 70 - 100 MG/DL BUN 18 7 - 20 MG/DL CREATININE SERUM 0.64 0.52 - 1.04 MG/DL SODIUM 135 (L) 136 - 145 MMOL/L POTASSIUM 4.3 3.5 - 5.1 MMOL/L CHLORIDE 101 98 - 107 MMOL/L CARBON DIOXIDE (CO2) 24 22 - 30 MMOL/L ANION GAP 10 8 - 16 MMOL/L CALCIUM 9.5 8.4 - 10.2 MG/DL ESTIMATED GFR, NON AMER 107 ml/min/1.73sq.m ESTIMATED GFR, 129 ml/min/1.73sq.m GFR COMMENT Average GFR for 40-49 years old = 99. HEENT: NC/AT, PERRLA, EOMI, fundi benign, external ears normal, OP normal. Neck: No LAD/thyromegaly. No JVD/bruit. Lungs: Clear to auscultation bilaterally. No wheezes, rales, ronchi. Heart: RRR. No S3/S4. Abdomen: Soft, NT/ND, normal bowel sounds, no HSM, no bruits. Extremities: No clubbing, cyanosis, edema. Normal pulses. Neurologic: CN II-XII intact. Strength/DTR's/sensation symmetric. Cerebellar function normal. Skin: No rash or suspicious lesions. Musculoskeletal: No edema, redness, warmth, deformities. Pain with flexion. Normal cuff strength. Psychiatric: Alert and oriented. Affect and mood normal. Assessment and Plan: 1. Allergic rhinitis, unspecified seasonality, unspecified trigger - montelukast 10 MG tablet; Take 1 tablet by mouth daily. Dispense: 90 tablet; Refill: 1 2. Chronic tension-type headache, intractable - cyclobenzaprine 10 MG tablet; Take 1 tablet by mouth 2 times daily. Dispense: 180 tablet; Refill: 1 - gabapentin (Neurontin) 300 MG capsule; Take 1 cap PO each morning and 2 caps PO QHS Dispense: 270 capsule; Refill: 1 3. Cervicogenic headache - cyclobenzaprine 10 MG tablet; Take 1 tablet by mouth 2 times daily. Dispense: 180 tablet; Refill: 1 - gabapentin (Neurontin) 300 MG capsule; Take 1 cap PO each morning and 2 caps PO QHS Dispense: 270 capsule; Refill: 1 4. Cervicalgia - cyclobenzaprine 10 MG tablet; Take 1 tablet by mouth 2 times daily. Dispense: 180 tablet; Refill: 1 - gabapentin (Neurontin) 300 MG capsule; Take 1 cap PO each morning and 2 caps PO QHS Dispense: 270 capsule; Refill: 1 5. Bilateral carpal tunnel syndrome - cyclobenzaprine 10 MG tablet; Take 1 tablet by mouth 2 times daily. Dispense: 180 tablet; Refill: 1 - gabapentin (Neurontin) 300 MG capsule; Take 1 cap PO each morning and 2 caps PO QHS Dispense: 270 capsule; Refill: 1 6. Type 2 diabetes mellitus without complication, without long-term current use of insulin Discussed lowering carbohydrate intake, mixing glycemic indices, and increasing activity. If not better then add Rx. Wygovy not covered. - gliMEPIride 4 MG tablet; Take 1 tablet by mouth 2 times daily. Dispense: 180 tablet; Refill: 1 - BASIC METABOLIC PANEL; Future - HEMOGLOBIN A1C; Future 7. Mixed hyperlipidemia - HEPATIC FUNCTION PANEL; Future - LIPID PANEL W CALCULATED LDL; Future 8. Coronary artery disease involving jackson coronary artery of jackson heart without angina pectoris - HEPATIC FUNCTION PANEL; Future - LIPID PANEL W CALCULATED LDL; Future 9. Rotator cuff tendinitis, unspecified laterality Ice. If not better then inject. - celecoxib 200 MG capsule; Take 1 capsule by mouth 2 times daily. Dispense: 60 capsule; Refill: 0 - AMB REFERRAL TO PHYSICAL THERAPY Rhett Brito MD 10/26/2021 documented in this encounter [facility] 02-23-2021 History of Presen t illness Narrative Date of Admission: 02/17/2021 Date of Discharge: 02/18/2021 Hospital: [facility] Primary DX: Status post insertion of drug-eluting stent into left anterior descending (LAD) artery How have you been feeling since you got home: Much better Do you have new medications? yes Are you taking all your medications? yes How are you: Eating:good Sleeping: good Getting Around: good Going to the Bathroom: good Other: Do you have visiting nurse/home health? no Did you have surgery? stent If so, How is your wound: normal no signs of infection If you have Congestive Heart Failure are you weighing yourself? no Weight: n/a Any other issues or concerns? none Pt to f/u with Dr Kramer 03/07/2021. Increasing activity and no recurrent symptoms. Minimal bruising at cath site. No side effects with new Rx. Cardiac rehab scheduled after cardiac follow up. No fever, chills, cough, sputum, SANDHU, orthopnea, PND, nausea, vtg. Bowels normal. No urinary symptoms. Baseline venous stasis edema. General: No fever, chills, weight loss. HEENT: No sinus pain, ear pain, sore throat. Neck: No LAD. Lungs: No cough, sputum, pleuritic pain, hemoptysis, SOB. CV: No chest pain, palpitation, orthopnea, PND, edema. GI: No abd pain, nausea, vomiting, diarrhea, constipation, melena, hematochezia. : No dysuria, frequency, hematuria. Skin: No rash or lesion. Neuro: No mental status changes, headache, focal neurologic complaints. Objective: Blood pressure 132/81, pulse 84, resp. rate 16, weight 118.2 kg (260 lb 9.6 oz), SpO2 98 %, not currently . Results for orders placed or performed during the hospital encounter of 02/17/21 CBC, EDIF, PLATELET Result Value Ref Range WBC (WHITE BLOOD COUNT) 6.1 3.6 - 11.0 10*3/uL RBC 4.54 4.0 - 5.4 10*6/uL HEMOGLOBIN (HGB) 13.3 12.0 - 16.0 G/DL HEMATOCRIT (HCT) 39.3 36.0 - 48.0 % MEAN CELL VOLUME 86.5 80.0 - 100.0 FL Mean Cell HGB 29.3 26.0 - 35.0 PG MEAN CELL HGB CONCENTRATION 33.9 27.0 - 37.0 G/DL RBC DISTRIBUTION 14.6 (H) 11.5 - 14.5 % PLATELET COUNT 264 130 - 400 10*3/uL MEAN PLATELET VOLUME 8.2 7.4 - 11.0 FL DIFFERENTIAL TYPE AUTO DIFF % NEUTROPHILS 63.4 37.0 - 75.0 % LYMPHOCYTE 27.6 20.0 - 55.0 % MONOCYTE % 6.5 0.0 - 10.0 % EOSINOPHIL % 1.8 0.0 - 11.0 % BASOPHIL % 0.7 0.0 - 2.0 % Absolute Neutrophil Count 3.9 1 - 6 10*3/uL LYMPHOCYTES, ABSOLUTE 1.70 1.2 - 3.4 10*3/uL MONOCYTES, ABSOLUTE 0.4 0.0 - 0.7 10*3/uL ABSOLUTE EOSINOPHIL COUNT 0.10 0 - 0 10*3/uL ABSOLUTE BASOPHIL COUNT 0.0 0 - 0 10*3/uL BASIC METABOLIC PANEL Result Value Ref Range GLUCOSE 213 (H) 70 - 100 MG/DL BUN 16 7.0 - 20.0 MG/DL CREATININE SERUM 0.60 0.5 - 1.0 MG/DL SODIUM 134 (L) 136 - 145 MMOL/L POTASSIUM 4.4 3.5 - 5.1 MMOL/L CHLORIDE 100 98 - 107 MMOL/L CARBON DIOXIDE (CO2) 27 22 - 30 MMOL/L ANION GAP 7 (L) 8 - 16 MMOL/L CALCIUM 9.6 8.4 - 10.2 MG/DL ESTIMATED GFR, NON AMER >60 ml/min/1.73sq.m ESTIMATED GFR, >60 ml/min/1.73sq.m GFR COMMENT Average GFR for 40-49 years old = 99. LIPID PANEL W CALCULATED LDL Result Value Ref Range CHOLESTEROL 208 (H) 100 - 199 MG/DL TRIGLYCERIDE 293 (H) <150 MG/DL HDL CHOLESTEROL 30 (L) 40 - 60 MG/DL LDL CHOLESTEROL, CALCULATED 119 (H) 0 - 100 MG/DL VLDL 59 (H) 5.0 - 25.0 MG/DL TCHOL/HDL RATIO, MANUAL ENTER 6.93 RATIO COMPREHENSIVE METABOLIC PANEL Result Value Ref Range GLUCOSE 146 (H) 70 - 100 MG/DL BUN 13 7.0 - 20.0 MG/DL CREATININE SERUM 0.54 0.5 - 1.0 MG/DL SODIUM 135 (L) 136 - 145 MMOL/L POTASSIUM 4.0 3.5 - 5.1 MMOL/L CHLORIDE 106 98 - 107 MMOL/L CALCIUM 8.8 8.4 - 10.2 MG/DL PROTEIN, TOTAL 6.2 (L) 6.3 - 8.2 GM/DL ALBUMIN 3.4 (L) 3.5 - 5.0 G/dl BILIRUBIN, TOTAL 0.4 0.2 - 1.2 MG/DL AST 25 15 - 41 IU/L ALKALINE PHOSPHATASE 58 38 - 126 IU/L CARBON DIOXIDE (CO2) 26 22 - 30 MMOL/L A/G Ratio 1.2 (L) 1.3 - 2.2 RATIO ALT 27 14 - 54 IU/L ESTIMATED GFR, NON AMER >60 ml/min/1.73sq.m ESTIMATED GFR, >60 ml/min/1.73sq.m GFR COMMENT Average GFR for 40-49 years old = 99. CBC, EDIF, PLATELET Result Value Ref Range WBC (WHITE BLOOD COUNT) 5.2 3.6 - 11.0 10*3/uL RBC 4.11 4.0 - 5.4 10*6/uL HEMOGLOBIN (HGB) 12.2 12.0 - 16.0 G/DL HEMATOCRIT (HCT) 35.6 (L) 36.0 - 48.0 % MEAN CELL VOLUME 86.8 80.0 - 100.0 FL Mean Cell HGB 29.7 26.0 - 35.0 PG MEAN CELL HGB CONCENTRATION 34.3 27.0 - 37.0 G/DL RBC DISTRIBUTION 14.7 (H) 11.5 - 14.5 % PLATELET COUNT 228 130 - 400 10*3/uL MEAN PLATELET VOLUME 8.7 7.4 - 11.0 FL DIFFERENTIAL TYPE AUTO DIFF % NEUTROPHILS 62.9 37.0 - 75.0 % LYMPHOCYTE 27.0 20.0 - 55.0 % MONOCYTE % 7.2 0.0 - 10.0 % EOSINOPHIL % 2.2 0.0 - 11.0 % BASOPHIL % 0.7 0.0 - 2.0 % Absolute Neutrophil Count 3.3 1 - 6 10*3/uL LYMPHOCYTES, ABSOLUTE 1.40 1.2 - 3.4 10*3/uL MONOCYTES, ABSOLUTE 0.4 0.0 - 0.7 10*3/uL ABSOLUTE EOSINOPHIL COUNT 0.10 0 - 0 10*3/uL ABSOLUTE BASOPHIL COUNT 0.0 0 - 0 10*3/uL MAGNESIUM Result Value Ref Range MAGNESIUM 1.8 1.6 - 2.3 MG/DL HEMOGLOBIN A1C Result Value Ref Range HEMOGLOBIN A1C 10.3 (H) <6 % Estimated Average Glucose 249 mg/dL TSH W/FT4 REFLEX Result Value Ref Range TSH, Reflex FT4 2.363 0.45 - 5.33 uIU/ML INVASIVE CARDIOVASCULAR PROCEDURE Result Value Ref Range BSA 2.22 m2 HEENT: NC/AT, PERRLA, EOMI, fundi benign, external ears normal, OP normal. Neck: No LAD/thyromegaly. No JVD/bruit. Lungs: Clear to auscultation bilaterally. No wheezes, rales, ronchi. Heart: RRR. No S3/S4. Abdomen: Soft, NT/ND, normal bowel sounds, no HSM, no bruits. Extremities: No clubbing, cyanosis. Trace edema. Normal pulses. Neurologic: CN II-XII intact. Strength/DTR's/sensation symmetric. Cerebellar function normal. Skin: No rash or suspicious lesions. Musculoskeletal: No edema, redness, warmth, deformities. Psychiatric: Alert and oriented. Affect and mood normal. Assessment and Plan: 1. Coronary artery disease involving jackson coronary artery of jackson heart without angina pectoris - BASIC METABOLIC PANEL; Future - HEPATIC FUNCTION PANEL; Future - LIPID PANEL W CALCULATED LDL; Future 2. Type 2 diabetes mellitus without complication, without long-term current use of insulin - BASIC METABOLIC PANEL; Future - HEPATIC FUNCTION PANEL; Future - LIPID PANEL W CALCULATED LDL; Future 3. Mixed hyperlipidemia - BASIC METABOLIC PANEL; Future - HEPATIC FUNCTION PANEL; Future - LIPID PANEL W CALCULATED LDL; Future Discussed all meds and rationale behind. Labs in 5-6 weeks. Rhett Brito MD 02/23/2021 Date of Admission: 02/17/2021 Date of Discharge: 02/18/2021 Hospital: Primary DX: Status post insertion of drug-eluting stent into left anterior descending (LAD) artery How have you been feeling since you got home: Much better Do you have new medications? yes Are you taking all your medications? yes How are you: Eating:good Sleeping: good Getting Around: good Going to the Bathroom: good Other: Do you have visiting nurse/home health? no Did you have surgery? stent If so, How is your wound: normal no signs of infection If you have Congestive Heart Failure are you weighing yourself? no Weight: n/a Any other issues or concerns? none Pt to f/u with Dr Kramer 03/07/2021. documented in this encounter [facility] 02-18-2021 Miscellaneous Notes Discharge instructions explained to patient and , pt denies questions, verbalizes understanding. Vitals obtained, stable. Pt wheeled off floor in wheelchair by writer technical publications at this time. Assessment completed. No changes from previous assessments. Pt safety maintained. Will continue to monitor. Problem: Patient Care Overview Goal: Plan of Care Review Outcome: Ongoing Goal: Individualization & Mutuality Outcome: Ongoing Goal: Discharge Needs Assessment Outcome: Ongoing Goal: Interdisciplinary Rounds/Family Conf Outcome: Ongoing Problem: Skin Integrity Impairment, Risk/Actual (Adult) Goal: Identify Related Risk Factors and Signs and Symptoms Description: Related risk factors and signs and symptoms are identified upon initiation of Human Response Clinical Practice Guideline (CPG) Outcome: Ongoing Goal: Skin Integrity/Wound Healing Description: Patient will demonstrate the desired outcomes by discharge/transition of care. Outcome: Ongoing Problem: Cardiac: ACS (Acute Coronary Syndrome) (Adult) Goal: Signs and Symptoms of Listed Potential Problems Will be Absent, Minimized or Managed (Cardiac: ACS) Description: Signs and symptoms of listed potential problems will be absent, minimized or managed by discharge/transition of care (reference Cardiac: ACS (Acute Coronary Syndrome) (Adult) CPG). Outcome: Ongoing Problem: Pain, Acute (Adult) Goal: Identify Related Risk Factors and Signs and Symptoms Description: Related risk factors and signs and symptoms are identified upon initiation of Human Response Clinical Practice Guideline (CPG) Outcome: Ongoing Goal: Acceptable Pain Control/Comfort Level Description: Patient will demonstrate the desired outcomes by discharge/transition of care. Outcome: Ongoing Problem: Infection, Risk/Actual (Adult) Goal: Identify Related Risk Factors and Signs and Symptoms Description: Related risk factors and signs and symptoms are identified upon initiation of Human Response Clinical Practice Guideline (CPG) Outcome: Ongoing Goal: Infection Prevention/Resolution Description: Patient will demonstrate the desired outcomes by discharge/transition of care. Outcome: Ongoing Assessment completed. Pt complains of pain in jaw up to ear from dental work recently done. Ambulated to BR without difficulty. Denies other needs at this time. Pt safety maintained. Will continue to monitor. Assessment completed. Pt resting in bed. Snack provided. Pt denies other needs at this time. Pt safety maintained. Will continue to monitor. Pt did well sitting at side of bed, denies dizziness or other symptoms. Walked to restroom with steady gait. ummary: Cardiac Rehab Consult Cardiac Rehab consult completed. Spoke with pt and spouse about cardiac rehab referral. Questions answered and paperwork provided. Will follow up with pt after discharge. Patient was transported from Cardiac Mine Engineering Supervisor to ICU Room #85 by this RN and Carlee Gibson RN. Patient was attached to [employer] and was on room air. Patient's VSS and was stable overall. R groin Insertion site with angioseal closure device, obtained Hemostasis at 1249 hrs and was free of Active Bleeding, Hematoma or Ecchymosis. Transparent Dressing and 2x2 gauze was CD&I. Patient had no c/o chest pain, or SOB. Pt was transported in ICU Bed. Complete report was given to MONISHA Bashir and MONISHA Mckinney, after patient was reconnected to ICU Monitor. Patient remains on room air at 95%. Patient's R groin dressing and access site were assessed by both this RN and CONSTRUCTION EQUIPMENT OVERHAULER, Krysten, together and confirmed this site was intact and free of Active Bleeding, Hematoma, and/or Ecchymosis. This RN also assessed and confirmed R groin site was intact and free of Active Bleeding, Hematoma, and/or Ecchymosis with CONSTRUCTION EQUIPMENT OVERHAULERFaye. This RN assessed, with both MONISHA Bashir and MONISHA Mckinney, the attempted R radial access location, and confirmed no complications with this site. Confirmed pt is not having numbness or tingling in R hand and capillary refill was <3 seconds. Patient stable, A&Ox4, and pleasent. Vitals after arriving to ICU room 85 are (97.5 oral temp., heart rate 63, BP 131/76, respiratory rate 16, and SpO2 95% on room air). Patient is complaining of a headache 7/10 and lower middle back pain at 5/10, ICU staff is aware. Pt states she is not having pain at the R groin access site unless the area is touched. Dr. Kramer at bedside upon my exit, sat patients head of bed up to 20-30 degrees ICU staff aware of this and post-op orders. Informed ICU Staff of Procedure Findings, Interventions, and Post Procedure Care. Advised Staff to Refer to Physician's Orders or Contact Physician, for further orders needed for patient care. Patient's continued care taken over by DANNI Mckinney RN. Patient walked in with registration and boyfriend by her side without obvious difficulty. She is alert and oriented without complaint. documented in this encounter [facility] 02-18-2021 History of Presen t illness Narrative Chief Complaint S/p LAD PCI Assessment & Plan 1. LAD PCI: CP, s/p MPI - +-eval Dr. Kramer-s/p PCI LAD. Doing well overnight, R radial pulse 2+, R groin C/D/I. -DC Asa, plavix Procedures Left Heart Catheterization LEFT VENTRICULOGRAPHY Coronary Angiogram BALLOON ANGIOPLASTY-CORONARY ULTRASOUND GUIDED ACCESS STENT-CORONARY Indications Abnormal nuclear stress test [R94.39 (ICD-10-CM)] Conclusion 1. Lifestyle limiting angina and high risk nuclear stress test 2. Severe mid LAD 95% stenosis reduced to 0% with [place]ach KARIME 3.0x30 mm post-dilated to 3.5 proximal half of stent. 3. Low normal LVEF with mild anterior hypokinesis. Plan 1. ASA 162 mg x 30 days then 81 mg indef 2. Plavix 75 mg daily minimum of one year 3. Statin with goal LDL <70. 4. Home in AM HPI Sharon Bella is a 45 y.o. female seen by [facility] today for s/p PCI.. No events, asxm, cath site look good, labs reviewed. Patient Active Problem List Diagnosis Varicose veins Chronic tension-type headache, intractable Contraceptive surveillance Contraceptive, surveillance, intrauterine device Dysfunctional uterine bleeding Hyperprolactinemia Pelvic pain in female Phlebitis of leg, superficial Visit for insertion of intrauterine device Type 2 diabetes mellitus, without long-term current use of insulin Tendonitis, Achilles, right body mass index of 40.0-49.9 Pneumonia Sepsis without acute organ dysfunction Bradycardia Abnormal nuclear stress test Dyspnea on exertion Poorly controlled type 2 diabetes mellitus with neuropathy Family history of coronary artery disease Hypercholesterolemia Abnormal stress test Status post insertion of drug-eluting stent into left anterior descending (LAD) artery Past Medical History: Diagnosis Date Cardiac angina Diabetes mellitus Essential hypertension, benign Exercise tolerance finding METS > 4 stairs daily GERD (gastroesophageal reflux disease) History of corticosteroid therapy < 2yrs Hyperlipidemia Migraine Pain Rt elbow, headaches, cervical spine issues Varicose vein of leg Past Surgical History: Procedure Laterality Date DECOMPRESSION TRANSPOSITION MEDIAN NERVE Left 06/11/2019 Laterality: Left; Surgeon: Sukh Pradhan MD; Location: [facility] DECOMPRESSION TRANSPOSITION ULNAR NERVE ELBOW Left 06/11/2019 Laterality: Left; Surgeon: Sukh Pradhan MD; Location: [facility] DECOMPRESSION TRANSPOSITION MEDIAN NERVE Right 04/30/2019 Laterality: Right; Surgeon: Sukh Pradhan MD; Location: [facility] DECOMPRESSION TRANSPOSITION ULNAR NERVE ELBOW Right 04/30/2019 Laterality: Right; Surgeon: Sukh Pradhan MD; Location: [facility] RELEASE TENDON ELBOW OPEN W/ TENDON REPAIR OR REATTACHMENT Right 06/18/2017 Laterality: Right; Surgeon: Sukh Pradhan MD; Location: [facility] ELBOW SURGERY Left 11/01/2016 Lt lateral epicondyle debrideent & repair Dr Sukh Pradhan @ [facility] Bilateral 2002 lasik TONSILLECTOMY 1986 Medications Prior to Admission Medication Sig Dispense Refill Last Dose atenolol (Tenormin) 50 MG tablet Take 1 tablet by mouth 2 times daily. 180 tablet 0 02/17/2021 Cetirizine HCl (ZYRTEC PO) Take 1 tablet by mouth at bedtime. 02/16/2021 Cholecalciferol (Vitamin D-3) 25 MCG (1000 UT) capsule Take 1,000 Units by mouth daily. 02/16/2021 cyclobenzaprine 10 MG tablet Take 1 tablet by mouth 2 times daily. 60 tablet 0 02/16/2021 gabapentin (Neurontin) 300 MG capsule Take 1 cap PO each morning and 2 caps PO QHS 90 capsule 0 02/17/2021 gliMEPIride 4 MG tablet Take 1 tablet by mouth 2 times daily. 180 tablet 1 02/16/2021 GLUCOSE MONITOR LANCETS PRESCRIPTION daily 100 Each 3 02/16/2021 GLUCOSE MONITOR PRESCRIPTION daily 1 Device 0 02/16/2021 GLUCOSE TEST STRIPS PRESCRIPTION daily 100 strip 3 02/16/2021 Magnesium 500 MG Tab Take 500 mg by mouth at bedtime. 02/16/2021 Multiple Vitamin (VIT E-VIT C-BETA CAROTENE) [phone] Tab Take 250 mg by mouth daily. 02/16/[address] Take 20 mg by mouth at bedtime. 02/16/2021 Probiotic Product (PROBIOTIC-10 PO) Take by mouth daily every morning. 02/16/2021 rosuvastatin 10 MG tablet Take 1 tablet by mouth daily. 30 tablet 11 02/17/2021 amLODIPine 2.5 MG tablet Take 1 tablet by mouth daily. 30 tablet 11 Unknown aspirin 325 MG tablet Take 1 tablet by mouth daily. Unknown Liraglutide (Victoza) 18 MG/3ML Solution Pen-injector injection Inject 1.8 mg under the skin daily. 15 mL 1 meloxicam 15 MG tablet Take 1 tablet by mouth daily. (Patient not taking: Reported on 02/16/2021) 30 tablet 0 montelukast 10 MG tablet Take 1 tablet by mouth daily. 90 tablet 1 pioglitazone (Actos) 45 MG tablet Take 1 tablet by mouth daily. (Patient not taking: Reported on 02/16/2021) 90 tablet 1 Current Facility-Administered Medications Medication Dose Route Frequency Provider Last Rate Last Admin acetaminophen (TYLENOL) tablet 500-1,000 mg 500-1,000 mg Oral Q6H PRN Xavier Villa APRN-MAIL DISTRIBUTION SCHEME EXAMINER 1,000 mg at 02/18/21 0854 aspirin chewable tablet 162 mg 162 mg Oral Daily Madhu Kramer MD 162 mg at 02/18/21 0855 atorvastatin (LIPITOR) tablet 40 mg 40 mg Oral QHS Madhu Kramer MD 40 mg at 02/17/212102 carveDILOL (COREG) tablet 6.25 mg 6.25 mg Oral Q12H Madhu Kramer MD 6.25 mg at 02/18/21 0855 clopidogrel (PLAVIX) tablet 75 mg 75 mg Oral Daily Madhu Kramer MD 75 mg at 02/18/21 0855 cyclobenzaprine (FLEXERIL) tablet 10 mg 10 mg Oral TID PRN Xavier Villa APRN-YUMIKO 10 mg at 02/17/212106 enOXAParin (LOVENOX) injection 40 mg 40 mg Subcutaneous Daily Xavier Villa APRN-MAIL DISTRIBUTION SCHEME EXAMINER 40 mg at 02/18/21 08 gabapentin (NEURONTIN) capsule 600 mg 600 mg Oral QHS Xavier Villa APRN-MAIL DISTRIBUTION SCHEME EXAMINER 600 mg at 02/17/212102 gliMEPIride (AMARYL) tablet 4 mg 4 mg Oral BID Xavier Villa APRN-MAIL DISTRIBUTION SCHEME EXAMINER 4 mg at 02/18/21 0854 hydroCODone-acetaminophen (NORCO) 5-325 MG per tablet 1 tablet 1 tablet Oral Q6H PRN Xavier Villa APRN-MAIL DISTRIBUTION SCHEME EXAMINER 1 tablet at 02/17/21 1554 ipratropium-albuterol (DUONEB) 0.5-2.5 (3) MG/3ML nebulizer solution 3 mL 3 mL Nebulization Q4H PRN Xavier Villa APRN-YUMIKO labetalol (NORMODYNE) injection 20 mg 20 mg Intravenous Q4H PRN Xavier Villa APRN-YUMIKO lactulose (CHRONULAC) oral solution 20 g 20 g Oral Q4H PRN ELFEGO Starks lisinopril (PRINIVIL) tablet 10 mg 10 mg Oral Daily Madhu Kramer MD 10 mg at 02/18/21 0855 magnesium sulfate 2 g/50 mL in sterile water premix IVPB 2 g 50 mL (total volume) 2 g Intravenous Daily Xavier Villa APRN-MAIL DISTRIBUTION SCHEME EXAMINER 2 g at 02/18/21 0854 montelukast (SINGULAIR) tablet 10 mg 10 mg Oral Daily Xavier Villa APRN-MAIL DISTRIBUTION SCHEME EXAMINER 10 mg at 02/18/21 0855 ondansetron 4mg/2ml (ZOFRAN) injection 4 mg 4 mg Intravenous Q4H PRN ELFEGO Starks pantoprazole (PROTONIX) tablet DR 40 mg 40 mg Oral Daily Xavier Villa APRN-MAIL DISTRIBUTION SCHEME EXAMINER 40 mg at 02/18/21 0854 pioglitazone (ACTOS) tablet 45 mg 45 mg Oral Daily Xavier Villa APRN-MAIL DISTRIBUTION SCHEME EXAMINER 45 mg at 02/17/21 1734 potassium chloride (K-DUR) tablet ER 40 mEq 40 mEq Oral Daily ELFEGO Starks Or potassium chloride 40 mEq in 0.9% sodium chloride 500 ml IVPB 40 mEq Intravenous Daily ELFEGO Starks potassium phosphates 30 mmol in sodium chloride 0.9%, with overfill 535 mL (total volume) IVPB 30 mmol Intravenous PRN ELFEGO Starks Scheduled medications aspirin 162 mg Oral Daily atorvastatin 40 mg Oral QHS carveDILOL 6.25 mg Oral Q12H clopidogrel 75 mg Oral Daily enoxaparin 40 mg Subcutaneous Daily gabapentin 600 mg Oral QHS gliMEPIride 4 mg Oral BID lisinopril 10 mg Oral Daily magnesium sulfate IVPB 2 g Intravenous Daily montelukast 10 mg Oral Daily pantoprazole 40 mg Oral Daily pioglitazone 45 mg Oral Daily potassium chloride 40 mEq Oral Daily Or potassium chloride 40 mEq Intravenous Daily Continuous Infusions PRN Medications acetaminophen, cyclobenzaprine, hydroCODone-acetaminophen, ipratropium-albuterol, labetalol, lactulose, ondansetron 4mg/2ml, potassium phosphate IVPB Allergies Allergen Reactions Tramadol Nausea and Vomiting Social History Socioeconomic History Marital status: Single Spouse name: Not on file Number of children: Not on file Years of education: Not on file Highest education level: Not on file Occupational History Not on file Tobacco Use Smoking status: Never Smoker Smokeless tobacco: Never Used Vaping Use Vaping Use: Never used Substance and Sexual Activity Alcohol use: Yes Comment: Rarely Drug use: No Sexual activity: Yes Partners: Male control/protection: I.U.D. Comment: IUD Other Topics Concern Occupational Exposure No Hobby Hazards No Service Not Asked Blood Transfusions Not Asked Caffeine Concern Not Asked Sleep Concern Not Asked Stress Concern Not Asked Weight Concern Not Asked Special Diet Not Asked Back Care Not Asked Exercise Not Asked Bike Helmet Not Asked Seat Belt Not Asked Domestic Violence No Social History Narrative Not on file Social Determinants of Health Financial Resource Strain: Difficulty of Paying Living Expenses: Food Insecurity: Worried About Running Out of Food in the Last Year: Ran Out of Food in the Last Year: Transportation Needs: Lack of Transportation (Medical): Lack of Transportation (Non-Medical): Physical Activity: Days of Exercise per Week: Minutes of Exercise per Session: Stress: Feeling of Stress : Social Connections: Frequency of Communication with Friends and Family: Frequency of Social Gatherings with Friends and Family: Attends Christian Services: Active Member of Clubs or Organizations: Attends Club or Organization Meetings: Marital Status: Intimate Partner Violence: Fear of Current or Ex-Partner: Emotionally Abused: Physically Abused: Sexually Abused: Family History Problem Relation Age of Onset Other - Specify Mother Headaches Diabetes Mother Breast Cancer Mother Arthritis - Rheumatoid Mother Allergy - Severe Mother Hypertension Mother Prostate Cancer Father Arthritis - Rheumatoid Father Myocardial Infarction Father Colon Cancer Father Lung Cancer Father Heart Disease - Other Father Hypertension Father Thyroid Disease Father Review of System Constitutional: Negative malaise/fatigue, significant weight loss Hematologic: Negative for anemia, hypercoagulable states, transfusion dependency Endocrine: Negative polyuria, thyroid goiter, flushing Skin: Negative rash, lesions, ulcerations HEENT: Negative diplopia, visual file defect, vertigo Cardiovascular: see HPI and negative for chest wall trauma Respiratory: see HPI, negative for chest wall deformity, hemopysis, prior tracheotomy Gastrointestinal: Negative for abdominal pain, GI bleed, bowel obstruction Genitourinary: Negative for nephrolithiasis , dysuria, hematuria Neurological: Negative for marquis syncope, frequent falls, new CVA symptoms, Psychiatric: Negative anxiety, depression, psychiatric disorder Musculoskeletal: Negative for joint pain, joint deformity, swelling Blood pressure 139/85, pulse 76, temperature 97.2 F (36.2 C), temperature source Temporal, resp. rate 16, height 1.626 m (5' 4 ), weight 122.3 kg (269 lb 10 oz), SpO2 98 %, not currently . Body mass index is 46.28 kg/m . Physical Exam General appearance - alert, well developed, well nourished,45 y.o.female with appropriate affect HEENT PERRLA, EOMI, no xanthelasma or icterus Neck - , No JVD or bruits. Carotid upstrokes brisk. No adenopathy or thyromegaly. Lungs - clear to auscultation, no wheezes, rales or rhonchi Heart - regular rate and regular rhythm, normal S1 and S2 , no significant murmurs, click rub or lift , Abdomen - soft, nontender, no organomegaly Extremities -no edema, clubbing or cyanosis. pulses 2+ bilaterally Neurologic cranial nerves II through XII intact Skin - normal coloration and turgor, no laxity Psych- appropriate mood, Musculoskeletal - no joint deformity, tendon xanthoma Lab Results: Lab Results Component Value Date SODIUM 135 (L) 02/18/2021 SODIUM 134 (L) 02/17/2021 SODIUM 135 (L) 10/28/2020 POTASSIUM 4.0 02/18/2021 POTASSIUM 4.4 02/17/2021 POTASSIUM 4.2 10/28/2020 MAGNESIUM 1.8 02/18/2021 MAGNESIUM 2.3 09/25/2020 MAGNESIUM 2.2 09/24/2020 CALCIUM 8.8 02/18/2021 CALCIUM 9.6 02/17/2021 CALCIUM 9.2 10/28/2020 CHLORIDE 106 02/18/2021 CHLORIDE 100 02/17/2021 CHLORIDE 100 10/28/2020 TP 6.2 (L) 02/18/2021 TP 7.0 10/28/2020 TP 7.5 09/21/2020 BUN 13 02/18/2021 BUN 16 02/17/2021 BUN 17 10/28/2020 CREATSERUM 0.54 02/18/2021 CREATSERUM 0.60 02/17/2021 CREATSERUM 0.70 10/28/2020 ALBUMIN 3.4 (L) 02/18/2021 ALBUMIN 3.7 10/28/2020 ALBUMIN 2.9 (L) 09/25/2020 BILITOTAL 0.4 02/18/2021 BILITOTAL 0.7 10/28/2020 BILITOTAL 0.4 09/21/2020 AST 25 02/18/2021 AST 26 10/28/2020 AST 56 (H) 09/21/2020 ALKPHOS 58 02/18/2021 ALKPHOS 67 10/28/2020 ALKPHOS 86 09/21/2020 CO2 26 02/18/2021 CO2 27 02/17/2021 CO2 24 10/28/2020 AGRATIO 1.2 (L) 02/18/2021 ALT 27 02/18/2021 ALT 32 10/28/2020 ALT 85 (H) 09/21/2020 GFR >60 02/18/2021 GFR >60 02/17/2021 GFR >60 10/28/2020 GFRAA >60 02/18/2021 GFRAA >60 02/17/2021 GFRAA >60 10/28/2020 GFRCOMMENT Average GFR for 40-49 years old = 99. 02/18/2021 GFRCOMMENT Average GFR for 40-49 years old = 99. 02/17/2021 GFRCOMMENT Average GFR for 40-49 years old = 99. 10/28/2020 GLUCOSE 146 (H) 02/18/2021 GLUCOSE 213 (H) 02/17/2021 GLUCOSE 193 (H) 10/28/2020 TROPHIGHSENS 3 09/24/2020 TROPHIGHSENS 4 09/24/2020 TROPHIGHSENS 8 09/21/2020 Lab Results Component Value Date CHOLESTEROL 208 (H) 02/18/2021 CHOLESTEROL 218 (H) 10/28/2020 TRIG 293 (H) 02/18/2021 TRIG 93 10/28/2020 HDL 30 (L) 02/18/2021 HDL 45 10/28/2020 LDLCALC 119 (H) 02/18/2021 LDLCALC 154 (H) 10/28/2020 TCHHDLMANENT 6.93 02/18/2021 TCHHDLMANENT 4.84 10/28/2020 Lab Results Component Value Date PT 16.9 (H) 09/23/2020 PT 16.7 (H) 09/22/2020 INR 1.40 (H) 09/23/2020 INR 1.37 (H) 09/22/2020 PTT Quantity not sufficient 01/09/2004 PTT 24 01/07/2004 WBC 5.2 02/18/2021 WBC 6.1 02/17/2021 RBC 4.11 02/18/2021 RBC 4.54 02/17/2021 HGB 12.2 02/18/2021 HGB 13.3 02/17/2021 HCT 35.6 (L) 02/18/2021 HCT 39.3 02/17/2021 MCV 86.8 02/18/2021 MCV 86.5 02/17/2021 MEANCELHGB 29.7 02/18/2021 MEANCELHGB 29.3 02/17/2021 MEANCELHGCON 34.3 02/18/2021 MEANCELHGCON 33.9 02/17/2021 RBCDISTRIBU 14.7 (H) 02/18/2021 RBCDISTRIBU 14.6 (H) 02/17/2021 PLATELET 228 02/18/2021 PLATELET 264 02/17/2021 MPV 8.7 02/18/2021 MPV 8.2 02/17/2021 NEUTROPHILS 62.9 02/18/2021 NEUTROPHILS 63.4 02/17/2021 LYMPHOCYTES 27.0 02/18/2021 LYMPHOCYTES 27.6 02/17/2021 MONOCYTE 7.2 02/18/2021 MONOCYTE 6.5 02/17/2021 EOSINOPHILS 2.2 02/18/2021 EOSINOPHILS 0.10 02/18/2021 BASOPHILS 0.7 02/18/2021 BASOPHILS 0.0 02/18/2021 RBCCOMMENTS NORMAL 09/25/2020 RBCCOMMENTS NORMAL 09/24/2020 DIFFTYPE AUTO DIFF 02/18/2021 DIFFTYPE AUTO DIFF 02/17/2021 PLTCMT ADEQUATE 09/25/2020 PLTCMT ADEQUATE 09/24/2020 HGBA1C 10.3 (H) 02/18/2021 HGBA1C 10.0 (H) 10/28/2020 ESTAVGGLUCOS 249 02/18/2021 ESTAVGGLUCOS 240 10/28/2020 ICD-10-CM 1. Status post insertion of drug-eluting stent into left anterior descending (LAD) artery Z95.5 2. Abnormal nuclear stress test R94.39 3. Abnormal nuclear stress test R94.39 4. Type 2 diabetes mellitus without complication, without long-term current use of insulin E11.9 The electronic medical record including active problem list, labs, provider notes, past medical history as well as the patient's medications, allergies, pertinent social and family history were reviewed and updated where appropriate with the patient. Vital signs were reviewed and noted as well as physical exam performed and documented as above. All pertinent questions and answers related to the chief complaint and cardiovascular problem list were addressed. Dario Banegas MD 02/18/2021 10:45 AM documented in this encounter [facility] 02-17-2021 Consult note Associated Order(s): IP CONSULT TO GENERAL MEDICINE Consult 02/17/2021 10:03 AM Chief Complaint: Reason for Consult: dm 2, htn, sp LHC with stenting. History of Present Illness: Patient is a 45 y.o. female presents to the hospital for evaluation of failed outpt stress test. Patient presented for cardiac cath. Patient was found to have an LAD of 95% stenosis. She received one drug-eluting stent. Medications adjusted per cardiology. Patient is also diabetic, uncontrolled. Patient has hypertension, hyperlipidemia. Medications reviewed. She'll be monitored overnight. The patient denies headaches, blurred vision, lightheadedness, fever, chills, chest pain, shortness of breath, abdominal pain, back pain, nausea, vomiting, diarrhea/constipation, dysuria, unusual arthralgias, myalgias, skin rashes or lesions. Objective: Patient Active Problem List Diagnosis Date Noted Abnormal stress test 02/17/2021 Status post insertion of drug-eluting stent into left anterior descending (LAD) artery 02/17/2021 Abnormal nuclear stress test 02/16/2021 Added automatically from request for surgery [id number] Dyspnea on exertion 02/16/2021 Poorly controlled type 2 diabetes mellitus with neuropathy 02/16/2021 Family history of coronary artery disease 02/16/2021 Hypercholesterolemia 02/16/2021 Bradycardia 09/24/2020 Sepsis without acute organ dysfunction 09/22/2020 Pneumonia 09/21/2020 body mass index of 40.0-49.9 07/22/2018 Tendonitis, Achilles, right 05/07/2018 Type 2 diabetes mellitus, without long-term current use of insulin 04/30/2018 Chronic tension-type headache, intractable 05/20/2017 Contraceptive surveillance 04/17/2017 Contraceptive, surveillance, intrauterine device 04/17/2017 Dysfunctional uterine bleeding 04/17/2017 Hyperprolactinemia 04/17/2017 Pelvic pain in female 04/17/2017 Visit for insertion of intrauterine device 04/17/2017 Varicose veins Phlebitis of leg, superficial 09/06/2015 Past Medical History: Diagnosis Date Cardiac angina Diabetes mellitus Essential hypertension, benign Exercise tolerance finding METS > 4 stairs daily GERD (gastroesophageal reflux disease) History of corticosteroid therapy < 2yrs Hyperlipidemia Migraine Pain Rt elbow, headaches, cervical spine issues Varicose vein of leg Past Surgical History: Procedure Laterality Date DECOMPRESSION TRANSPOSITION MEDIAN NERVE Left 06/11/2019 Laterality: Left; Surgeon: Sukh Pradhan MD; Location: [facility] DECOMPRESSION TRANSPOSITION ULNAR NERVE ELBOW Left 06/11/2019 Laterality: Left; Surgeon: Sukh Pradhan MD; Location: [facility] DECOMPRESSION TRANSPOSITION MEDIAN NERVE Right 04/30/2019 Laterality: Right; Surgeon: Sukh Pradhan MD; Location: [facility] DECOMPRESSION TRANSPOSITION ULNAR NERVE ELBOW Right 04/30/2019 Laterality: Right; Surgeon: Sukh Pradhan MD; Location: [facility] RELEASE TENDON ELBOW OPEN W/ TENDON REPAIR OR REATTACHMENT Right 06/18/2017 Laterality: Right; Surgeon: Sukh Pradhan MD; Location: [facility] ELBOW SURGERY Left 11/01/2016 Lt lateral epicondyle debrideent & repair Dr Sukh Pradhan @ [facility]ERY Bilateral 2002 lasik TONSILLECTOMY 1985 Social History Tobacco Use Smoking status: Never Smoker Smokeless tobacco: Never Used Substance Use Topics Alcohol use: Yes Comment: Rarely Family History Problem Relation Age of Onset Other - Specify Mother Headaches Diabetes Mother Breast Cancer Mother Arthritis - Rheumatoid Mother Allergy - Severe Mother Hypertension Mother Prostate Cancer Father Arthritis - Rheumatoid Father Myocardial Infarction Father Colon Cancer Father Lung Cancer Father Heart Disease - Other Father Hypertension Father Thyroid Disease Father Medications Prior to Admission Medication Sig Dispense Refill Last Dose atenolol (Tenormin) 50 MG tablet Take 1 tablet by mouth 2 times daily. 180 tablet 0 02/17/2021 Cetirizine HCl (ZYRTEC PO) Take 1 tablet by mouth at bedtime. 02/16/2021 Cholecalciferol (Vitamin D-3) 25 MCG (1000 UT) capsule Take 1,000 Units by mouth daily. 02/16/2021 cyclobenzaprine 10 MG tablet Take 1 tablet by mouth 2 times daily. 60 tablet 0 02/16/2021 gabapentin (Neurontin) 300 MG capsule Take 1 cap PO each morning and 2 caps PO QHS 90 capsule 0 02/17/2021 gliMEPIride 4 MG tablet Take 1 tablet by mouth 2 times daily. 180 tablet 1 02/16/2021 GLUCOSE MONITOR LANCETS PRESCRIPTION daily 100 Each 3 02/16/2021 GLUCOSE MONITOR PRESCRIPTION daily 1 Device 0 02/16/2021 GLUCOSE TEST STRIPS PRESCRIPTION daily 100 strip 3 02/16/2021 Magnesium 500 MG Tab Take 500 mg by mouth at bedtime. 02/16/2021 Multiple Vitamin (VIT E-VIT C-BETA CAROTENE) [phone] Tab Take 250 mg by mouth daily. 02/16/[address] omep[address] Take 20 mg by mouth at bedtime. 02/16/2021 Probiotic Product (PROBIOTIC-10 PO) Take by mouth daily every morning. 02/16/2021 rosuvastatin 10 MG tablet Take 1 tablet by mouth daily. 30 tablet 11 02/17/2021 amLODIPine 2.5 MG tablet Take 1 tablet by mouth daily. 30 tablet 11 Unknown aspirin 325 MG tablet Take 1 tablet by mouth daily. Unknown Liraglutide (Victoza) 18 MG/3ML Solution Pen-injector injection Inject 1.8 mg under the skin daily. 15 mL 1 meloxicam 15 MG tablet Take 1 tablet by mouth daily. (Patient not taking: Reported on 02/16/2021) 30 tablet 0 montelukast 10 MG tablet Take 1 tablet by mouth daily. 90 tablet 1 pioglitazone (Actos) 45 MG tablet Take 1 tablet by mouth daily. (Patient not taking: Reported on 02/16/2021) 90 tablet 1 Allergies Allergen Reactions Tramadol Nausea and Vomiting Review of Systems: Ten systems reviewed and found to be negative unless otherwise stated in the history and present illness. PHYSICAL EXAM: Patient Vitals for the past 8 hrs: BP Temp Temp src Pulse Resp SpO2 Height Weight 02/17/21 1500 149/62 72 14 99 % 02/17/21 1445 161/85 72 13 100 % 02/17/21 1430 152/90 65 20 97 % 02/17/21 1415 (!) 146/97 64 15 96 % 02/17/21 1400 142/89 68 23 96 % 02/17/21 1345 135/80 67 21 95 % 02/17/21 1315 131/76 63 20 97 % 02/17/21 1025 (!) 169/95 97.6 F (36.4 C) Temporal 76 20 97 % 1.626 m (5' 4 ) 122.3 kg (269 lb 10 oz) General: Patient resting comfortably. Awake. No acute distress. HEENT: Normalcephalic, atraumatic. Pupils equal, round, reactive, to light and accomodation B/L. Bilateral nares patent without obvious drainage. Oral mucosa moist, pink, intact without ulcers or lesions. Neck: No JVD, no thyromegaly, no anterior or posterior lymphadenopathy. Cardiovascular: Regular rate and rhythm, without murmurs, rubs, or gallops. Respiratory: Bilateral Upper and Lower Lobes anterior and posteriorly without wheezes, rales, or rhonchi Abdomen: Soft, rounded, non-tender. Bowel sounds present x4 quadrants. No rebound. No organomegaly or masses noted upon deep palpation. Extremities: No edema, clubbing or cyanosis, pulses palpable 2+ distally. Skin: Warm, Dry, Intact. No obvious rashes or lesions noted. Neuro: Patient awake, alert, orientedx3. Cranial nerves 2-12 grossly intact upon seated examination. No focal deficit noted. Diagnostics: CBC Lab Results Component Value Date/Time WBC 6.1 02/17/2021 10:23 AM WBC 7.8 09/25/2020 04:36 AM WBC 9.0 09/24/2020 04:07 AM HGB 13.3 02/17/2021 10:23 AM HGB 10.4 (L) 09/25/2020 04:36 AM HGB 10.5 (L) 09/24/2020 04:07 AM HCT 39.3 02/17/2021 10:23 AM HCT 31.4 (L) 09/25/2020 04:36 AM HCT 31.5 (L) 09/24/2020 04:07 AM PLATELET 264 02/17/2021 10:23 AM PLATELET 265 09/25/2020 04:36 AM PLATELET 252 09/24/2020 04:07 AM Chemistry Lab Results Component Value Date/Time GLUCOSE 213 (H) 02/17/2021 10:23 AM GLUCOSE 193 (H) 10/28/2020 08:08 AM GLUCOSE 355 (H) 09/25/2020 12:14 PM GLUCOSE 318 (H) 09/25/2020 07:17 AM GLUCOSE 370 (H) 09/25/2020 04:36 AM GLUCOSE 390 (H) 09/24/2020 08:46 PM BUN 16 02/17/2021 10:23 AM BUN 17 10/28/2020 08:08 AM BUN 23 (H) 09/25/2020 04:36 AM CREATSERUM 0.60 02/17/2021 10:23 AM CREATSERUM 0.70 10/28/2020 08:08 AM CREATSERUM 0.54 09/25/2020 04:36 AM SODIUM 134 (L) 02/17/2021 10:23 AM SODIUM 135 (L) 10/28/2020 08:08 AM SODIUM 133 (L) 09/25/2020 04:36 AM POTASSIUM 4.4 02/17/2021 10:23 AM POTASSIUM 4.2 10/28/2020 08:08 AM POTASSIUM 4.1 09/25/2020 04:36 AM CHLORIDE 100 02/17/2021 10:23 AM CHLORIDE 100 10/28/2020 08:08 AM CHLORIDE 99 09/25/2020 04:36 AM CO2 27 02/17/2021 10:23 AM CO2 24 10/28/2020 08:08 AM CO2 25 09/25/2020 04:36 AM ALBUMIN 3.7 10/28/2020 08:08 AM ALBUMIN 2.9 (L) 09/25/2020 04:36 AM ALBUMIN 2.9 (L) 09/24/2020 04:07 AM CALCIUM 9.6 02/17/2021 10:23 AM CALCIUM 9.2 10/28/2020 08:08 AM CALCIUM 8.8 09/25/2020 04:36 AM PHOSPHORUS 3.3 09/25/2020 04:36 AM PHOSPHORUS 2.9 09/24/2020 04:07 AM PHOSPHORUS 3.3 09/23/2020 05:31 AM PHOSPHORUS 3.8 01/08/2004 10:35 PM MAGNESIUM 2.3 09/25/2020 04:36 AM MAGNESIUM 2.2 09/24/2020 04:07 AM MAGNESIUM 2.1 09/23/2020 05:31 AM COAG Lab Results Component Value Date/Time PT 16.9 (H) 09/23/2020 05:31 AM PT 16.7 (H) 09/22/2020 05:29 AM PT Quantity not sufficient 01/09/2004 11:51 AM INR 1.40 (H) 09/23/2020 05:31 AM INR 1.37 (H) 09/22/2020 05:29 AM INR Quantity not sufficient 01/09/2004 11:51 AM PTT Quantity not sufficient 01/09/2004 11:51 AM PTT 24 01/07/2004 09:40 PM PTT Specimen not received in laboratory. 01/07/2004 08:00 PM ABG Lab Results Component Value Date/Time HCO3 24.0 01/09/2004 08:08 PM HCO3 26.0 01/09/2004 08:08 PM PCO2 38.0 01/09/2004 08:08 PM PCO2 48.0 01/09/2004 08:08 PM PO2 27.00 01/09/2004 08:08 PM PO2 23.00 01/09/2004 08:08 PM Other notable labs: Impression and Plan: Principal Problem: Type 2 diabetes mellitus, without long-term current use of insulin: Ha1c. Sliding scale insulin with accu-checks AC&HS, Resume home medications at discharge, Diabetic diet Status post insertion of drug-eluting stent into left anterior descending (LAD) artery: per dr kramer. D/w cardiology. Continue dapt. Coreg, noe, statin. Active Problems: body mass index of 40.0-49.9: Diet and lifestyle modification recommended. Pt stated was tested for CATHIE. And negative. Abnormal nuclear stress test: fu cardiology Hypercholesterolemia: check lipids. Statin Code Status Full Code Devante Villa CNP completing consultation in collaboration with attending. Please note Portions of this note utilized [employer] dictation software, please excuse any typographical or grammatical errors Associated attestation - Madhu Gray DO - 02/17/2021 5:39 PM EDT Patient seen and examined independently. Meds, labs, and radiographs reviewed. Lungs diminished and heart tones regular on exam. Cardio input reviewed - LAD stenting. Consulted for uncontrolled DM and HTN. Meds adjusted. I agree with assessments and plan of care. Total 45 min of patient care time.documented in this encounter [facility] 02-17-2021 History and physical note I have seen, examined and reviewed all pertinent data and clinical information. I reviewed the H&P done on 02/16/21 and there are no additional changes. Risks/benefits have been discussed and reviewed. Appropriate consents have been signed and patient voiced understanding of risks/benefits and all details of the procedure. Madhu Kramer MD documented in this encounter [facility] 02-17-2021 Hospital Discharg e instructions Hazel Souza RN - 02/17/2021 8:52 AM EDT Nerissa Casas RN - 02/18/2021 10:13 AM EDT Resume pre-hospital activity as tolerated. Monitor right wrist for signs/symptoms of bleeding or infection which include bruising, swelling, and redness. Nerissa Casas RN - 02/18/2021 10:13 AM EDT Resume pre-hospital diet as tolerated. The following attachments cannot be sent through Care Everywhere.Cardiac Cath Care after - Leg Site ([facility]) ([place])Cardiac Cath Care After - Wrist Site ([facility]) ([place])documented in this encounter [facility] 02-14-2021 History of Presen t illness Narrative ARM PAIN- Onset- November 29 Location - left Edema: no Associated sx - numbness and tingling Recent injury - No Discoloration of skin (blue or red) - No Treatments tried and response - Nothing has been effective. Additional comments - Pt has svp weakness when pain is present. Pain is left arm and occ into chest. Worse with exertion and associated with SOB. Also positional. Pain into entire arm. See previous visits and treatment. No formal PT. Has gotten nausea on 1-2 occasions and diaphoretic once. Subjective: Sharon Bella is a 45 y.o. female who presents in follow up for type 2 diabetes. she is feeling well with no complaints relative to her diabetes. Blood sugars have been running high. Patient has been compliant with medications. she denies medication side effects. she denies chest pain, SOB, SANDHU, palpitations, orthopnea, PND, edema, headache, focal neurologic complaints, claudication, dysesthesias, polyuria, polydipsia. Normal urine output. No vision changes. Last eye exam UTD. General: No fever, chills, weight loss. HEENT: No sinus pain, ear pain, sore throat. Neck: No LAD. Lungs: No cough, sputum, pleuritic pain, hemoptysis. CV: No palpitation, orthopnea, PND. Intermittent edema. GI: No abd pain, vomiting, diarrhea, constipation, melena, hematochezia. : No dysuria, frequency, hematuria. Skin: No rash or lesion. Neuro: No mental status changes, headache, focal neurologic complaints. Objective: Blood pressure 139/78, pulse 66, weight 119.7 kg (264 lb), SpO2 96 %, not currently . Results for orders placed or performed in visit on 10/28/20 HEMOGLOBIN A1C Result Value Ref Range HEMOGLOBIN A1C 10.0 (H) <6 % Estimated Average Glucose 240 mg/dL LIPID PANEL W CALCULATED LDL Result Value Ref Range CHOLESTEROL 218 (H) 100 - 199 MG/DL TRIGLYCERIDE 93 <150 MG/DL HDL CHOLESTEROL 45 40 - 60 MG/DL LDL CHOLESTEROL, CALCULATED 154 (H) 0 - 100 MG/DL VLDL 19 5.0 - 25.0 MG/DL TCHOL/HDL RATIO, MANUAL ENTER 4.84 RATIO HEPATIC FUNCTION PANEL Result Value Ref Range ALBUMIN 3.7 2.9 - 5.3 G/DL BILIRUBIN, TOTAL 0.7 0.2 - 1.2 MG/DL ALKALINE PHOSPHATASE 67 38 - 126 IU/L AST 26 15 - 41 IU/L BILIRUBIN, DIRECT 0.1 0.0 - 0.2 MG/DL PROTEIN, TOTAL 7.0 6.3 - 8.2 GM/DL ALT 32 14 - 54 IU/L BASIC METABOLIC PANEL Result Value Ref Range GLUCOSE 193 (H) 70 - 100 MG/DL BUN 17 7.0 - 20.0 MG/DL CREATININE SERUM 0.70 0.5 - 1.0 MG/DL SODIUM 135 (L) 136 - 145 MMOL/L POTASSIUM 4.2 3.5 - 5.1 MMOL/L CHLORIDE 100 98 - 107 MMOL/L CARBON DIOXIDE (CO2) 24 22 - 30 MMOL/L ANION GAP 11 8 - 16 MMOL/L CALCIUM 9.2 8.4 - 10.2 MG/DL ESTIMATED GFR, NON AMER >60 ml/min/1.73sq.m ESTIMATED GFR, >60 ml/min/1.73sq.m GFR COMMENT Average GFR for 40-49 years old = 99. TSH W/FT4 REFLEX Result Value Ref Range TSH, Reflex FT4 2.183 0.45 - 5.33 uIU/ML HEENT: NC/AT, PERRLA, EOMI, fundi benign, external ears normal, OP normal. Neck: No LAD/thyromegaly. No JVD/bruit. Lungs: Clear to auscultation bilaterally. No wheezes, rales, ronchi. Heart: RRR. No S3/S4. Abdomen: Soft, NT/ND, normal bowel sounds, no HSM, no bruits. Extremities: No clubbing, cyanosis, edema. Normal pulses. Neurologic: CN II-XII intact. Strength/DTR's/sensation symmetric. Cerebellar function normal. Skin: No rash or suspicious lesions. Musculoskeletal: No edema, redness, warmth, deformities. Psychiatric: Alert and oriented. Affect and mood normal. Assessment and Plan: 1. Chest pain, unspecified type Still suspect cervical radiculopathy and will likely need PT, but need to r/o CAD with other symptoms and risks. - NUC MYOCARD PERF STRESS MIBI EXERCISE; Future 2. Pain of left upper extremity See above. Also will arrange for US to eval subclavian artery. 3. Type 2 diabetes mellitus without complication, without long-term current use of insulin Titrate up to dose. Also Victoza to help with weight loss. - Liraglutide (Victoza) 18 MG/3ML Solution Pen-injector injection; Inject 1.8 mg under the skin daily. Dispense: 15 mL; Refill: 1 Rhett Brito MD 02/15/2021 ARM PAIN- Onset- November 29 Location - left Edema: no Associated sx - numbness and tingling Recent injury - No Discoloration of skin (blue or red) - No Treatments tried and response - Nothing has been effective. Additional comments - Pt has svp weakness when pain is present. documented in this encounter [facility] 12-26-2020 History of Presen t illness Narrative Sharon Bella is a 45 y.o. female who presents with Chief Complaint Patient presents with Arm Pain . Nurse's note ARM PAIN- Onset- 11/29/2020 Location - left arm Edema: no Associated sx - numbness and tingling from shoulder to fingers and then turns into burning pain Recent injury - No Discoloration of skin (blue or red) - No Treatments tried and response - Stretching, Compression of nerve dx 12/05/2020 at walk in and given naproxen, arm pain worse and went back to walk in 12/12/2020 and given methylPREDNIsolone 4 MG pack. Helped at the end of pack then reflared at dance class Additional comments - This occurred after she did detailed power washing to her house. Physician note Paresthesias - numbness/tingling/burning pain from left top of shoulder down to fingertips (middle and ring finger). Going on intermittently for past 1 month. Initially triggered by powerwashing house. Seen at walk in clinic twice. Tried naproxen (no improvement) and 7 day medrol dose pack. States that did help, had few days without any flare ups then went to exercise dance class and symptoms returned with pain so bad it caused nausea but did not throw up. States has never had anything quite like this before. Does report past history of carpal and cubital tunnel syndrome but had surgeries in past for that. PT initially asking for imaging/testing to see what is going on, she is concerned problem is coming from her neck. States has started doing neck stretches at home which has helped somewhat. No other concerns. Outpatient Encounter Medications as of 12/26/2020 Medication Sig Dispense Refill atenolol (Tenormin) 50 MG tablet Take 1 tablet by mouth 2 times daily. 180 tablet 0 Cetirizine HCl (ZYRTEC PO) Take 1 tablet by mouth at bedtime. cyclobenzaprine 10 MG tablet Take 1 tablet by mouth 2 times daily. 60 tablet 5 gabapentin (Neurontin) 300 MG capsule Take 1 cap PO each morning and 2 caps PO QHS 270 capsule 0 gliMEPIride 4 MG tablet Take 1 tablet by mouth 2 times daily. 180 tablet 1 GLUCOSE MONITOR LANCETS PRESCRIPTION daily 100 Each 3 GLUCOSE MONITOR PRESCRIPTION daily 1 Device 0 GLUCOSE TEST STRIPS PRESCRIPTION daily 100 strip 3 Magnesium 500 MG Tab Take 500 mg by mouth at bedtime. meloxicam 15 MG tablet Take 1 tablet by mouth daily. 30 tablet 0 methylPREDNIsolone 4 MG Tab Therapy Pack tablet Take 1 tablet by mouth daily. follow package directions 1 Each 0 montelukast 10 MG tablet Take 1 tablet by mouth daily. 90 tablet 1 Multiple Vitamin (VIT E-VIT C-BETA CAROTENE) [phone] Tab Take 250 mg by mouth daily. omeprazole [address] Take 20 mg by mouth at bedtime. pioglitazone (Actos) 45 MG tablet Take 1 tablet by mouth daily. 90 tablet 1 Probiotic Product (PROBIOTIC-10 PO) Take by mouth daily every morning. [DISCONTINUED] naproxen (Naprosyn) 500 MG tablet Take 1 tablet by mouth 2 times daily with meals for 14 days. 28 tablet 0 No facility-administered encounter medications on file as of 12/26/2020. Allergies Allergen Reactions Tramadol Nausea and Vomiting Past Medical History: Diagnosis Date Diabetes mellitus Essential hypertension, benign Exercise tolerance finding METS > 4 stairs daily GERD (gastroesophageal reflux disease) History of corticosteroid therapy < 2yrs Migraine Pain Rt elbow, headaches, cervical spine issues Varicose vein of leg Past Surgical History: Procedure Laterality Date DECOMPRESSION TRANSPOSITION MEDIAN NERVE Left 06/11/2019 Laterality: Left; Surgeon: Sukh Pradhan MD; Location: [facility] DECOMPRESSION TRANSPOSITION ULNAR NERVE ELBOW Left 06/11/2019 Laterality: Left; Surgeon: Sukh Pradhan MD; Location: [facility] DECOMPRESSION TRANSPOSITION MEDIAN NERVE Right 04/30/2019 Laterality: Right; Surgeon: Sukh Pradhan MD; Location: [facility] DECOMPRESSION TRANSPOSITION ULNAR NERVE ELBOW Right 04/30/2019 Laterality: Right; Surgeon: Sukh Pradhan MD; Location: [facility] OR RELEASE TENDON ELBOW OPEN W/ TENDON REPAIR OR REATTACHMENT Right 06/18/2017 Laterality: Right; Surgeon: Sukh Pradhan MD; Location: [facility] ELBOW SURGERY Left 11/01/2016 Lt lateral epicondyle debrideent & repair Dr Sukh Pradhan @ [facility] Bilateral 2002 lasik TONSILLECTOMY 1985 Social History Socioeconomic History Marital status: Single Spouse name: Not on file Number of children: Not on file Years of education: Not on file Highest education level: Not on file Occupational History Not on file Tobacco Use Smoking status: Never Smoker Smokeless tobacco: Never Used Vaping Use Vaping Use: Never used Substance and Sexual Activity Alcohol use: Yes Comment: Rarely Drug use: No Sexual activity: Yes Partners: Male control/protection: I.U.D. Comment: IUD Other Topics Concern Occupational Exposure No Hobby Hazards No Service Not Asked Blood Transfusions Not Asked Caffeine Concern Not Asked Sleep Concern Not Asked Stress Concern Not Asked Weight Concern Not Asked Special Diet Not Asked Back Care Not Asked Exercise Not Asked Bike Helmet Not Asked Seat Belt Not Asked Domestic Violence No Social History Narrative Not on file Social Determinants of Health Financial Resource Strain: Difficulty of Paying Living Expenses: Food Insecurity: Worried About Running Out of Food in the Last Year: Ran Out of Food in the Last Year: Transportation Needs: Lack of Transportation (Medical): Lack of Transportation (Non-Medical): Physical Activity: Days of Exercise per Week: Minutes of Exercise per Session: Stress: Feeling of Stress : Social Connections: Frequency of Communication with Friends and Family: Frequency of Social Gatherings with Friends and Family: Attends Christian Services: Active Member of Clubs or Organizations: Attends Club or Organization Meetings: Marital Status: Intimate Partner Violence: Fear of Current or Ex-Partner: Emotionally Abused: Physically Abused: Sexually Abused: Family History Problem Relation Age of Onset Other - Specify Mother Headaches Diabetes Mother Breast Cancer Mother Arthritis - Rheumatoid Mother Allergy - Severe Mother Hypertension Mother Prostate Cancer Father Arthritis - Rheumatoid Father Myocardial Infarction Father Colon Cancer Father Lung Cancer Father Heart Disease - Other Father Hypertension Father Thyroid Disease Father Review of Systems Constitutional: Negative for chills and fever. HENT: Negative for congestion. Respiratory: Negative for cough. Cardiovascular: Negative for chest pain. Gastrointestinal: Negative for abdominal pain. Musculoskeletal: Negative for joint swelling and neck pain. Skin: Negative for rash and wound. Neurological: Positive for numbness. Negative for tremors, weakness, light-headedness and headaches. Psychiatric/Behavioral: Negative for suicidal ideas. There were no vitals filed for this visit. There is no height or weight on file to calculate BMI. Physical Exam Vitals and nursing note reviewed. Constitutional: Appearance: Normal appearance. HENT: Head: Normocephalic and atraumatic. Right Ear: External ear normal. Left Ear: External ear normal. Cardiovascular: Rate and Rhythm: Normal rate. Pulmonary: Effort: Pulmonary effort is normal. No respiratory distress. Musculoskeletal: Left shoulder: No tenderness or bony tenderness. Normal range of motion. Normal strength. Left elbow: Normal range of motion. No tenderness. Left wrist: No tenderness. Normal range of motion. Left hand: Normal strength. Normal capillary refill. Normal pulse. Cervical back: No spasms, tenderness or bony tenderness. No pain with movement. Normal range of motion. Comments: Spurling's negative Tinel's and phalens negative at wrist and tinel's negative at elbow Skin: Capillary Refill: Capillary refill takes less than 2 seconds. Neurological: Mental Status: She is alert and oriented to person, place, and time. Psychiatric: Mood and Affect: Mood normal. Behavior: Behavior normal. Assessment and Plan Sharon was seen today for arm pain. Diagnoses and all orders for this visit: Paresthesia and pain of left extremity Symptoms x 1 month. Discussed given location possible cervical radiculopathy. Discussed physical therapy and patient declined, prefers to do home exercise regimen for now. Discussed and given history of diabetes do not want to do additional steroid taper this soon. Will try Mobic. EMG/NCS ordered to try to see which level symptoms originating. - Cancel: AMB REFERRAL TO NEUROLOGY - meloxicam 15 MG tablet; Take 1 tablet by mouth daily. - EMG & NERVE CONDUCTION Juani Hoffman MD 12/26/2020 ARM PAIN- Onset- 11/29/2020 Location - left arm Edema: no Associated sx - numbness and tingling from shoulder to fingers and then turns into burning pain Recent injury - No Discoloration of skin (blue or red) - No Treatments tried and response - Stretching, Compression of nerve dx 12/05/2020 at walk in and given naproxen, arm pain worse and went back to walk in 12/12/2020 and given methylPREDNIsolone 4 MG pack. Helped at the end of pack then reflared at dance class Additional comments - This occurred after she did detailed power washing to her house. documented in this encounter [facility] 12-05-2020 History of Presen t illness Narrative HPI Sharon Bella female 1975 presents to the [facility] with Chief Complaint Patient presents with Arm Pain left arm hurts/numb Patient presents with complaints of left arm burning, numbness, and tingling that comes and goes since Saturday of last week. Patient states on Saturday and Saturday she was working on her porch holding sustained in the left hand and was frequently in awkward positions working for an extended period of time. Since that time she has had some positional left arm discomfort that also comes at rest occasionally. She states positional changes and rubbing the arm will improve her symptoms. She has been taking some [id number] Tylenol without relief of her symptoms. History Allergies Allergen Reactions Tramadol Nausea and Vomiting Current Outpatient Medications Medication Sig atenolol (Tenormin) 50 MG tablet Take 1 tablet by mouth 2 times daily. Cetirizine HCl (ZYRTEC PO) Take 1 tablet by mouth at bedtime. cyclobenzaprine 10 MG tablet Take 1 tablet by mouth 2 times daily. gabapentin (Neurontin) 300 MG capsule Take 1 cap PO each morning and 2 caps PO QHS gliMEPIride 4 MG tablet Take 1 tablet by mouth 2 times daily. GLUCOSE MONITOR LANCETS PRESCRIPTION daily GLUCOSE MONITOR PRESCRIPTION daily GLUCOSE TEST STRIPS PRESCRIPTION daily Magnesium 500 MG Tab Take 500 mg by mouth at bedtime. montelukast 10 MG tablet Take 1 tablet by mouth daily. Multiple Vitamin (VIT E-VIT C-BETA CAROTENE) [phone] Tab Take 250 mg by mouth daily. naproxen (Naprosyn) 500 MG tablet Take 1 tablet by mouth 2 times daily with meals for 14 days. omeprazole [address] Take 20 mg by mouth at bedtime. pioglitazone (Actos) 45 MG tablet Take 1 tablet by mouth daily. Probiotic Product (PROBIOTIC-10 PO) Take by mouth daily every morning. Family History Problem Relation Age of Onset Other - Specify Mother Headaches Diabetes Mother Breast Cancer Mother Arthritis - Rheumatoid Mother Allergy - Severe Mother Hypertension Mother Prostate Cancer Father Arthritis - Rheumatoid Father Myocardial Infarction Father Colon Cancer Father Lung Cancer Father Heart Disease - Other Father Hypertension Father Thyroid Disease Father Past Medical History: Diagnosis Date Diabetes mellitus Essential hypertension, benign Exercise tolerance finding METS > 4 stairs daily GERD (gastroesophageal reflux disease) History of corticosteroid therapy < 2yrs Migraine Pain Rt elbow, headaches, cervical spine issues Varicose vein of leg Past Surgical History: Procedure Laterality Date DECOMPRESSION TRANSPOSITION MEDIAN NERVE Left 06/11/2019 Laterality: Left; Surgeon: Sukh Pradhan MD; Location: [facility] DECOMPRESSION TRANSPOSITION ULNAR NERVE ELBOW Left 06/11/2019 Laterality: Left; Surgeon: Sukh Pradhan MD; Location: [facility] DECOMPRESSION TRANSPOSITION MEDIAN NERVE Right 04/30/2019 Laterality: Right; Surgeon: Sukh Pradhan MD; Location: [facility] DECOMPRESSION TRANSPOSITION ULNAR NERVE ELBOW Right 04/30/2019 Laterality: Right; Surgeon: Sukh Pradhan MD; Location: [facility] RELEASE TENDON ELBOW OPEN W/ TENDON REPAIR OR REATTACHMENT Right 06/18/2017 Laterality: Right; Surgeon: Sukh Pradhan MD; Location: [facility] ELBOW SURGERY Left 11/01/2016 Lt lateral epicondyle debrideent & repair Dr Sukh Pradhan @ [facility]GERY Bilateral 2002 lasik TONSILLECTOMY 1985 Social History Socioeconomic History Marital status: Single Spouse name: Not on file Number of children: Not on file Years of education: Not on file Highest education level: Not on file Occupational History Not on file Tobacco Use Smoking status: Never Smoker Smokeless tobacco: Never Used Vaping Use Vaping Use: Never used Substance and Sexual Activity Alcohol use: Yes Comment: Rarely Drug use: No Sexual activity: Yes Partners: Male control/protection: I.U.D. Comment: IUD Other Topics Concern Occupational Exposure No Hobby Hazards No Service Not Asked Blood Transfusions Not Asked Caffeine Concern Not Asked Sleep Concern Not Asked Stress Concern Not Asked Weight Concern Not Asked Special Diet Not Asked Back Care Not Asked Exercise Not Asked Bike Helmet Not Asked Seat Belt Not Asked Domestic Violence No Social History Narrative Not on file Social Determinants of Health Financial Resource Strain: Difficulty of Paying Living Expenses: Food Insecurity: Worried About Running Out of Food in the Last Year: Ran Out of Food in the Last Year: Transportation Needs: Lack of Transportation (Medical): Lack of Transportation (Non-Medical): Physical Activity: Days of Exercise per Week: Minutes of Exercise per Session: Stress: Feeling of Stress : Social Connections: Frequency of Communication with Friends and Family: Frequency of Social Gatherings with Friends and Family: Attends Christian Services: Active Member of Clubs or Organizations: Attends Club or Organization Meetings: Marital Status: Intimate Partner Violence: Fear of Current or Ex-Partner: Emotionally Abused: Physically Abused: Sexually Abused: ROS Review of Systems Constitutional: Negative. HENT: Negative. Eyes: Negative. Negative for discharge. Respiratory: Negative. Negative for apnea. Cardiovascular: Negative. Negative for chest pain. Gastrointestinal: Negative. Negative for abdominal distention. Musculoskeletal: Negative. Negative for gait problem. Left arm burning occasionally but not currently Skin: Negative. Negative for color change. Neurological: Negative. Negative for facial asymmetry. Psychiatric/Behavioral: Negative. Negative for agitation. All other systems reviewed and are negative. PHYSICAL EXAM Visit Vitals BP (!) 153/99 (BP Location: Right arm, BP Position: Sitting) Pulse 84 Temp 98.9 F (37.2 C) (Temporal) Resp 16 Ht 1.626 m (5' 4 ) Wt 116.4 kg (256 lb 9.6 oz) LMP 12/02/2020 SpO2 98% No BMI 44.05 kg/m Physical Exam Vitals and nursing note reviewed. Constitutional: Appearance: Normal appearance. She is not ill-appearing. HENT: Head: Normocephalic. Right Ear: External ear normal. Left Ear: External ear normal. Nose: Nose normal. Mouth/Throat: Mouth: Mucous membranes are moist. Eyes: Pupils: Pupils are equal, round, and reactive to light. Cardiovascular: Rate and Rhythm: Normal rate. Pulmonary: Effort: Pulmonary effort is normal. Abdominal: General: There is no distension. Musculoskeletal: General: No swelling, tenderness, deformity or signs of injury. Normal range of motion. Cervical back: Normal range of motion. Skin: General: Skin is warm and dry. Capillary Refill: Capillary refill takes less than 2 seconds. Neurological: General: No focal deficit present. Mental Status: She is alert. Psychiatric: Behavior: Behavior normal. RESULTS No results found for this or any previous visit (from the past 1 hour(s)). ASSESSMENT/PLAN 1. Compression of nerve Orders Placed This Encounter naproxen (Naprosyn) 500 MG tablet Medical Decision Making Course: Worsening Problem: Left arm pain Data reviewed/analyzed: None Risk: Low Problems addressed: Based on patient's history is suspect nerve entrapment due to overuse of the left arm and hand. She is scheduled for a coronavirus vaccine so I will avoid steroids at this time and she will be discharged home with Naprosyn. Patient refuses a sling stating that been able to move the arm freely does improve her symptoms. She was encouraged to perform range of motion exercises and to massage the area. Patient agrees with plan of care, questions were encouraged and answered. Patient was provided educational discharge instructions. If symptoms worsen patient was advised to follow up in our office, primary care provider or the Emergency Dept. Benefits, Risks, Contraindications, and Complications of recommended treatments were explained. The patient understands and agrees to proceed with plan. Dario Fischer CNP 12/05/2020 documented in this encounter [facility] 12-05-2020 Instructions Dario Fischer CNP - 12/05/2020 6:20 PM EDT Learning About Pinched Nerves What is it? A pinched nerve (nerve entrapment) is a problem that happens when a nerve is squeezed in a tight space in the body. Nerves can get pinched between bones, tendons, or muscles. Usually this happens because of an injury or overuse. Pinched nerves can be painful. What causes it? The cause depends on what nerve is affected. Muscles, bones, tendons, or scar tissue can squeeze nerves. So can swelling, tight shoes or equipment, or an injury. Pinched nerves are also more likely to happen with overuse, staying in one position too long, or having conditions like arthritis. What are the symptoms? The symptoms of a pinched nerve may include pain, tingling or numbness, or weakness. They may be felt in the area of the body served by the nerve. The symptoms can get worse when you move in certain ways. How is it diagnosed? Your doctor will do a physical exam. Depending on where you have symptoms, the exam will include watching how you move, checking your reflexes to see how your nerves are working, and checking for muscle weakness. Your doctor may order tests, such as: Nerve tests. These tests show how well and how fast the nerves send electrical signals to your muscles. X-rays. Imaging tests, such as an MRI or a CT scan. These tests can show what's putting pressure on a nerve. How is it treated? Treatment for a pinched nerve can include rest, stretching, and anti-inflammatory medicines. It can also include steroid shots and sometimes surgery. Other treatment may include wearing a brace, orthotics, or other types of support for the area. How can you care for yourself at home? Follow your doctor's advice for rest, level of activity, how to protect the area, and stretching. Be safe with medicines. Read and follow all instructions on the label. ? If the doctor gave you a prescription medicine for pain, take it as prescribed. ? If you are not taking a prescription pain medicine, ask your doctor if you can take an [id number] medicine. Try ice or heat to help reduce pain. Put ice, a cold pack, a heating pad set on low, or a warm cloth on the sore area for 10 to 20 minutes at a time. Put a thin cloth between the ice pack or heating pad and your skin. Don't spend too long in one position. Take short breaks to move around and change positions. Current as of: May 16, 2020 Content Version: 12.9 [employer] Care instructions adapted under license by your healthcare professional. If you have questions about a medical condition or this instruction, always ask your healthcare professional. [employer] disclaims any warranty or liability for your use of this information. documented in this encounter [facility] 10-28-2020 History of Presen t illness Narrative Patient: Sharon Belal Patient : 1975 Patient Age: 45 y.o. Today's Date: 10/28/2020 Provider: Hazel Brown APRN-YUMIKO History of Present Illness: Patient here today for evaluation of Chief Complaint Patient presents with Hypertension Diabetes Headache TYPE 2 DM - Pt present to the office for evaluation of type 2 diabetes. Pt is overall doing well, with glucoses for the most part averaging upper 100s. Pt checks blood sugars 1x or prn a day and PRN. No wide fluctuations in glucoses. Tolerating meds well. Denies change in vision, neuropathy, urinary frequency or frequent infections. Pt states they do check their feet for sores and/or ulcers. Pt is not currently seeing podiatry. Pt last diabetic eye exam n/a. Lab Results Component Value Date HGBA1C 9.1 (H) 09/21/2020 - Just had lab work done today prior to coming in. BP Readings from Last 3 Encounters: 09/30/20 120/81 09/25/20 166/84 09/17/20 137/69 Wt Readings from Last 3 Encounters: 09/30/20 111.8 kg (246 lb 6.4 oz) 09/25/20 115.3 kg (254 lb 3.1 oz) 09/17/20 108.9 kg (240 lb) HYPERTENSION- She presents for follow-up of hypertension. Pt specifically denies chest pain, dizziness and palpitations. Current medication regimen is as listed in this record. States that she was switched from Atenolol Pt needs rf on chronic MAHAJAN medication. - GABAPENTIN and Flexeril fo this She also wants a work physical to be done today and does have a form to fill out here and take with her. This is for her insurance. Recently had pneumonia and is due to have a RE- CT of chest today. She is feeling much better She states that she also has hair loss for the past two weeks and doesn't know what is causing this - Denied any thyroid problems in the past. History: Allergies Allergen Reactions Tramadol Nausea and Vomiting Past Medical History: Diagnosis Date Diabetes mellitus Essential hypertension, benign Exercise tolerance finding METS > 4 stairs daily GERD (gastroesophageal reflux disease) History of corticosteroid therapy < 2yrs Migraine Pain Rt elbow, headaches, cervical spine issues Varicose vein of leg Past Surgical History: Procedure Laterality Date DECOMPRESSION TRANSPOSITION MEDIAN NERVE Left 06/11/2019 Laterality: Left; Surgeon: Sukh Pradhan MD; Location: [facility] DECOMPRESSION TRANSPOSITION ULNAR NERVE ELBOW Left 06/11/2019 Laterality: Left; Surgeon: Sukh Pradhan MD; Location: [facility] DECOMPRESSION TRANSPOSITION MEDIAN NERVE Right 04/30/2019 Laterality: Right; Surgeon: Sukh Pradhan MD; Location: [facility] DECOMPRESSION TRANSPOSITION ULNAR NERVE ELBOW Right 04/30/2019 Laterality: Right; Surgeon: Sukh Pradhan MD; Location: [facility] OR RELEASE TENDON ELBOW OPEN W/ TENDON REPAIR OR REATTACHMENT Right 06/18/2017 Laterality: Right; Surgeon: Sukh Pradhan MD; Location: [facility] ELBOW SURGERY Left 11/01/2016 Lt lateral epicondyle debrideent & repair Dr Sukh Pradhan @ [facility]ERY Bilateral 2002 lasik TONSILLECTOMY 1985 Social History Tobacco Use Smoking status: Never Smoker Smokeless tobacco: Never Used Substance Use Topics Alcohol use: Yes Comment: Rarely Drug use: No Family History Problem Relation Age of Onset Other - Specify Mother Headaches Diabetes Mother Breast Cancer Mother Arthritis - Rheumatoid Mother Allergy - Severe Mother Hypertension Mother Prostate Cancer Father Arthritis - Rheumatoid Father Myocardial Infarction Father Colon Cancer Father Lung Cancer Father Heart Disease - Other Father Hypertension Father Thyroid Disease Father Review of Systems: Review of Systems Constitutional: Negative for chills, diaphoresis, fatigue and fever. HENT: SEE HPI Cardiovascular: Negative for chest pain, palpitations and leg swelling. Musculoskeletal: SEE HPI Physical Exam: Vitals: 10/28/20 0825 BP: 132/86 Pulse: 88 Resp: 16 SpO2: 98% Weight: 116.9 kg (257 lb 12.8 oz) Physical Exam Vitals and nursing note reviewed. HENT: Head: Normocephalic. Nose: Nose normal. Mouth/Throat: Mouth: Mucous membranes are moist. Cardiovascular: Rate and Rhythm: Normal rate and regular rhythm. Pulses: Normal pulses. Heart sounds: Normal heart sounds. Pulmonary: Effort: Pulmonary effort is normal. Breath sounds: Normal breath sounds. Musculoskeletal: General: Normal range of motion. Cervical back: Normal range of motion and neck supple. Skin: General: Skin is warm. Capillary Refill: Capillary refill takes less than 2 seconds. Neurological: General: No focal deficit present. Mental Status: She is alert. Psychiatric: Mood and Affect: Mood normal. Thought Content: Thought content normal. Current Medications: Current Outpatient Medications: Cetirizine HCl (ZYRTEC PO), Take 1 tablet by mouth at bedtime. , Disp: , Rfl: cyclobenzaprine 10 MG tablet, Take 1 tablet by mouth 2 times daily., Disp: 60 tablet, Rfl: 5 GLUCOSE MONITOR LANCETS PRESCRIPTION, daily, Disp: 100 Each, Rfl: 3 GLUCOSE MONITOR PRESCRIPTION, daily, Disp: 1 Device, Rfl: 0 GLUCOSE TEST STRIPS PRESCRIPTION, daily, Disp: 100 strip, Rfl: 3 Magnesium 500 MG Tab, Take 500 mg by mouth at bedtime. , Disp: , Rfl: Multiple Vitamin (VIT E-VIT C-BETA CAROTENE) [phone] Tab, Take 250 mg by mouth daily., Disp: , Rfl: omeprazole [address], Take 20 mg by mouth at bedtime. , Disp: , Rfl: Probiotic Product (PROBIOTIC-10 PO), Take by mouth daily every morning. , Disp: , Rfl: gabapentin (Neurontin) 300 MG capsule, Take 1 cap PO each morning and 2 caps PO QHS, Disp: 270 capsule, Rfl: 0 gliMEPIride 4 MG tablet, Take 1 tablet by mouth 2 times daily., Disp: 180 tablet, Rfl: 1 lisinopril 5 MG tablet, Take 1 tablet by mouth daily., Disp: 30 tablet, Rfl: 0 montelukast 10 MG tablet, Take 1 tablet by mouth daily., Disp: 90 tablet, Rfl: 1 pioglitazone (Actos) 45 MG tablet, Take 1 tablet by mouth daily., Disp: 90 tablet, Rfl: 1 Health Maintenance List: Health Maintenance Topic Date Due DIABETIC EYE EXAM Never done DIABETIC FOOT EXAM Never done URINE MICROALBUMIN TEST Never done HEPATITIS C VIRUS SCREENING Never done HIV SCREENING DISCUSSION Never done COVID-19 VACCINE (1) Never done TETANUS Never done TDAP (ADULT) Never done CERVICAL CANCER SCREENING DISCUSSION Never done MAMMOGRAM SCREENING DISCUSSION 01/14/2020 HBA1C TEST 04/29/2021 LIPIDS 10/28/2021 INFLUENZA VACCINE Completed Assessment & Plan: ICD-10-CM 1. Essential hypertension I10 2. COVID-19 U07.1 3. Chronic tension-type headache, intractable G44.221 gabapentin (Neurontin) 300 MG capsule cyclobenzaprine 10 MG tablet 4. Cervicogenic headache R51.9 gabapentin (Neurontin) 300 MG capsule cyclobenzaprine 10 MG tablet 5. Cervicalgia M54.2 gabapentin (Neurontin) 300 MG capsule cyclobenzaprine 10 MG tablet 6. Bilateral carpal tunnel syndrome G56.03 gabapentin (Neurontin) 300 MG capsule cyclobenzaprine 10 MG tablet 7. Type 2 diabetes mellitus without complication, without long-term current use of insulin E11.9 gliMEPIride 4 MG tablet 8. Allergic rhinitis, unspecified seasonality, unspecified trigger J30.9 montelukast 10 MG tablet 9. Alopecia L65.9 TSH W/FT4 REFLEX Patient is going for CT of chest to re-eval her ED follow up. Epic notes reviewed. Feeling better from pneumonia Physical form for work was filled out today. Added TSH to lab work for hair loss. OARRS was checked. Risks of meds were discussed. She was switched in the hospital from Atenolol to Lisinopril. BP is stable. Monitor her FSBS - She is going to lab after this visit. Work physical form was filed out on this exam and will be given back. No follow-ups on file. Patient was advised to call with any questions or concerns. If symptoms worsen patient was advised to follow up in our office or the Emergency Dept. Benefits, risks, contraindications, and complications of recommended treatments were explained the patient understands and agrees to proceed with plan. TYPE 2 DM - Pt present to the office for evaluation of type 2 diabetes. Pt is overall doing well, with glucoses for the most part averaging upper 100s. Pt checks blood sugars 1x or prn a day and PRN. No wide fluctuations in glucoses. Tolerating meds well. Denies change in vision, neuropathy, urinary frequency or frequent infections. Pt states they do check their feet for sores and/or ulcers. Pt is not currently seeing podiatry. Pt last diabetic eye exam n/a. Lab Results Component Value Date HGBA1C 9.1 (H) 09/21/2020 BP Readings from Last 3 Encounters: 09/30/20 120/81 09/25/20 166/84 09/17/20 137/69 Wt Readings from Last 3 Encounters: 09/30/20 111.8 kg (246 lb 6.4 oz) 09/25/20 115.3 kg (254 lb 3.1 oz) 09/17/20 108.9 kg (240 lb) HYPERTENSION- She presents for follow-up of hypertension. Pt specifically denies chest pain, dizziness and palpitations. Current medication regimen is as listed in this record. Pt needs rf on chronic MAHAJAN medication. documented in this encounter [facility] documented in this encounter [facility]* Diagnosis Pneumonia of left lower lobe due to infectious organism documented in this encounter [facility]* Diagnosis Compression of nerve- Primary Injury to nerves, unspecified site [facility] Diagnosis Paresthesia and pain of left extremity- Primary Pain in limb [facility] Screening mammogram for high-risk patient documented in this encounter [facility]* Diagnosis Chest pain, unspecified type- Primary Pain of left upper extremity Type 2 diabetes mellitus without complication, without long-term current use of insulin documented in this encounter [facility]* Diagnosis Chest pain, unspecified type documented in this encounter [facility]* Diagnosis Status post insertion of drug-eluting stent into left anterior descending (LAD) artery- Primary Abnormal nuclear stress test Other nonspecific abnormal cardiovascular system function study Type 2 diabetes mellitus without complication, without long-term current use of insulin Abnormal stress test Other nonspecific abnormal cardiovascular system function study Type 2 diabetes mellitus, without long-term current use of insulin Hypercholesterolemia Pure hypercholesterolemia body mass index of 40.0-49.9 Abnormal nuclear stress test Other nonspecific abnormal cardiovascular system function study documented in this encounter [facility]* Diagnosis Coronary artery disease involving jackson coronary artery of jackson heart without angina pectoris- Primary Type 2 diabetes mellitus without complication, without long-term current use of insulin Mixed hyperlipidemia documented in this encounter [facility]* Diagnosis Mixed hyperlipidemia- Primary Allergic rhinitis, unspecified seasonality, unspecified trigger Chronic tension-type headache, intractable Chronic tension type headache Cervicogenic headache Headache Cervicalgia Bilateral carpal tunnel syndrome Carpal tunnel syndrome Type 2 diabetes mellitus without complication, without long-term current use of insulin Coronary artery disease involving jackson coronary artery of jackson heart without angina pectoris Rotator cuff tendinitis, unspecified laterality documented in this [facility] [facility] Diagnosis Well woman exam with routine gynecological exam- Primary Routine gynecological examination Encounter for screening mammogram for breast cancer Cervical cancer screening Screening for malignant neoplasm of the cervix Encounter for routine checking of intrauterine contraceptive device (IUD) IUD (intrauterine device) in place Presence of intrauterine contraceptive device documented in this encounter [facility]* Diagnosis Encounter for screening mammogram for breast cancer documented in this encounter [facility]* Diagnosis Coronary artery disease involving jackson coronary artery of jackson heart without angina pectoris- Primary Allergic rhinitis, unspecified seasonality, unspecified trigger Chronic tension-type headache, intractable Chronic tension type headache Cervicogenic headache Headache Cervicalgia Type 2 diabetes mellitus without complication, without long-term current use of insulin Mixed hyperlipidemia Chest pain, unspecified type Rotator cuff tendinitis, unspecified laterality documented in this encounter [facility]* Diagnosis Chest pain, unspecified type documented in this encounter [facility]* Diagnosis Abnormal stress test Other nonspecific abnormal cardiovascular system function study Pre-operative cardiovascular examination Coronary artery disease Coronary atherosclerosis of unspecified type of vessel, jackson or graft Abnormal stress test Other nonspecific abnormal cardiovascular system function study documented in this encounter [facility]* Diagnosis Rotator cuff tendinitis, unspecified laterality- Primary Bradycardia Other specified cardiac dysrhythmias 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 Abnormal stress test Other nonspecific abnormal cardiovascular system function study Allergic rhinitis, unspecified seasonality, unspecified trigger Chronic tension-type headache, intractable Chronic tension type headache Cervicogenic headache Headache Cervicalgia Type 2 diabetes mellitus without complication, without long-term current use of insulin Coronary artery disease involving jackson coronary artery of jackson heart without angina pectoris Gastroesophageal reflux disease without esophagitis Esophageal reflux Hypercholesterolemia Pure hypercholesterolemia Essential hypertension, benign documented in this encounter [facility]* Diagnosis Rotator cuff tendinitis, unspecified laterality- Primary documented in this encounter [facility]* Diagnosis Acute otitis media, unspecified otitis media type- Primary Type 2 diabetes mellitus without complication, without long-term current use of insulin Obesity due to excess calories without serious comorbidity, unspecified classification [facility] Flu vaccine need- Primary Need for prophylactic vaccination and inoculation against influenza Bradycardia Other specified cardiac dysrhythmias 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 Allergic rhinitis, unspecified seasonality, unspecified trigger Chronic tension-type headache, intractable Chronic tension type headache Cervicogenic headache Headache Cervicalgia Gastroesophageal reflux disease without esophagitis Esophageal reflux Type 2 diabetes mellitus without complication, without long-term current use of insulin Hair loss Alopecia, unspecified Coronary artery disease involving jackson coronary artery of jackson heart without angina pectoris Essential hypertension, benign Hypercholesterolemia Pure hypercholesterolemia Androgen excess Other ovarian hyperfunction [facility] Consultation (Urgent) - New Request Specialty Diagnoses / Procedures Referred By Contac t Referred To Contact Cardiovascular Medicine Diagnoses Status post insertion of drug-eluting stent into left anterior descending (LAD) artery Xavier Villa APRN-YUMIKO [address] [place] [address] Madhu Kramer MD [address] [place] [id number] Referral ID Status Reason Start Date Expiration Date V isits Requested Visits Authorized [id number] New Request 02/18/2021 03/15/2022 1 1 Scheduling Instructions . * Consultation (Urgent) - New Request Specialty Diagnoses / Procedures Referred By Contac t Referred To Contact Family Medicine Diagnoses Type 2 diabetes mellitus without complication, without long-term current use of insulin Status post insertion of drug-eluting stent into left anterior descending (LAD) artery Xavier Villa APRN-YUMIKO [address] [place] [address] Rhett Brito MD [address] [place] [phone] Referral ID Status Reason Start Date Expiration Date V isits Requested Visits Authorized [id number] New Request 02/18/2021 03/15/2022 1 1 * Radiology (Emergency) - New Request Specialty Diagnoses / Procedures Referred By Contac t Referred To Contact Procedures ECG Madhu Kramer MD [address] [place] [phone] Referral ID Status Reason Start Date Expiration Date V isits Requested Visits Authorized [id number] New Request 02/17/2021 03/14/2022 1 1 * Consultation (Routine) - New Request Specialty Diagnoses / Procedures Referred By Contac t Referred To Contact Cardiovascular Medicine Diagnoses Abnormal nuclear stress test Madhu Kramer MD [address] [place] [phone] Referral ID Status Reason Start Date Expiration Date V isits Requested Visits Authorized [id number] New Request 02/18/2021 03/15/2022 1 1 Scheduling Instructions . * (Routine) Specialty Diagnoses / Procedures Referred By Contac t Referred To Contact Madhu Kramer MD [address] [place] [phone] Referral ID Status Reason Start Date Expiration Date Visits Re quested Visits Authorized * Radiology (Emergency) - New Request Specialty Diagnoses / Procedures Referred By Contac t Referred To Contact Procedures ECG Madhu Kramer MD [address] [place] [phone] Referral ID Status Reason Start Date Expiration Date V isits Requested Visits Authorized [id number] New Request 02/17/2021 03/14/2022 1 1 [facility] for visit Narrative* Auth/Cert Specialty Diagnoses / Procedures Referred By Contac t Referred To Contact Diagnoses Abnormal nuclear stress test Abnormal nuclear stress test [R94.39] Procedures LEFT HEART CATHETERIZATION CORONARY ANGIOGRAM Madhu Kramer MD [address] [place] [address] Referral ID Status Reason Start Date Expiration Date Visits Re quested Visits Authorized [id number] 02/16/2021 1 1 [facility]* Auth/Cert Specialty Diagnoses / Procedures Referred By Contac t Referred To Contact Diagnoses Abnormal stress test Abnormal stress test [R94.39] Procedures TN L HRT CATH W/NJX L VENTRICULOGRAPHY IMG S&I TN CATH PLACEMENT & NJX CORONARY ART ANGIO IMG S&I TN US GUIDE, VASCULAR ACCESS LEFT HEART CATHETERIZATION CORONARY ANGIOGRAM ULTRASOUND GUIDED ACCESS Madhu Kramer MD [address] [place] [address] Referral ID Status Reason Start Date Expiration Date Visits Re quested Visits Authorized [id number] 04/23/2022 1 1 [facility] Summary Purpose Family History No Family History Records FoundNo Family History Records FoundNo Family History Records FoundNo Family History Records FoundNo Family History Records FoundNo Family History Records FoundNo Family History Records FoundNo Family History Records FoundNo Family History Records FoundNo Family History Records Found Advance Directives No Advanced Directives Records FoundDocuments on File Type Date Recorded 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 Bushwalking 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 Expl anation Advance Directives and Livin g Will 01/04/2020 9:47 AM Documents on File Type Date Recorded 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 Bushwalking Guide Expl anation Advance Directives and Livin g Will 01/04/2020 9:47 AM Documents on File Type Date Recorded Patient Bushwalking Guide Expl anation Advance Directives and Livin g Will 01/02/2019 12:11 PM Documents on File Type Date Recorded Patient Bushwalking Guide Expl anation Advance Directives and Livin g Will 01/13/2019 9:02 AM Latest Code Status on File Code Status Date Activated Date Inactivated Comments Full Code 09/21/2020 8:27 PM Latest Code Status on File Code Status Date Activated Date Inactivated Comments Full Code 09/21/2020 8:27 PM Latest Code Status on File Code Status Date Activated Date Inactivated Comments Full Code 09/21/2020 8:27 PM Latest Code Status on File Code Status Date Activated Date Inactivated Comments Full Code 09/21/2020 8:27 PM Assessments Diagnosis Chronic tension-type headach e, intractable Chronic tension type headache Cervicogenic headache Headache Cervicalgia Diagnosis Tendonitis, Achilles, right - Primary Achilles bursitis or tendinitis Diagnosis Achilles tendinitis of right lower extremity Achilles bursitis or tendinitis Diagnosis Chronic tension-type headache, intractable Chronic tension type headache Cervicogenic headache Headache Cervicalgia Diagnosis Plantar fasciitis- Primary Plantar fascial fibromatosis Calcaneal spur, unspecified laterality Diagnosis Plantar fasciitis- Primary Plantar fascial fibromatosis Diagnosis Dermatofibroma- Primary Benign neoplasm of skin, site unspecified Essential hypertension Unspecified essential hypertension Type 2 diabetes mellitus without complication, without long-term current use of insulin Diagnosis Irregular menses- Primary Irregular menstrual cycle Type 2 diabetes mellitus without complication, without long-term current use of insulin Obesity due to excess calories without serious comorbidity, unspecified classification Diagnosis Essential hypertension- Primary Unspecified essential hypertension Type 2 diabetes mellitus without complication, without long-term current use of insulin Obesity due to excess calories without serious comorbidity, unspecified classification Diagnosis Carpal tunnel syndrome, unspecified laterality- Primary Diagnosis Bilateral carpal tunnel syndrome- Primary Carpal tunnel syndrome Carpal tunnel syndrome, unspecified laterality Cubital tunnel syndrome, bilateral Diagnosis Essential hypertension Unspecified essential hypertension Diagnosis Carpal tunnel syndrome, bilateral- Primary Carpal tunnel syndrome Cubital tunnel syndrome, bilateral Diagnosis S/P cubital tunnel release- Primary Other postprocedural status Pre-op testing Preoperative examination, unspecified Diagnosis Type 2 diabetes mellitus without complication, without long-term current use of insulin- Primary Essential hypertension Unspecified essential hypertension Obesity due to excess calories without serious comorbidity, unspecified classification Diagnosis S/P carpal tunnel release- Primary Other postprocedural status S/P cubital tunnel release Other postprocedural status Carpal tunnel syndrome, left Carpal tunnel syndrome Cubital tunnel syndrome on left Lesion of ulnar nerve Diagnosis S/P carpal tunnel release- Primary Other postprocedural status S/P cubital tunnel release Other postprocedural status Diagnosis S/P carpal tunnel release- Primary Other postprocedural status S/P cubital tunnel release Other postprocedural status Diagnosis Chronic tension-type headache, intractable Chronic tension type headache Cervicogenic headache Headache Bilateral carpal tunnel syndrome Carpal tunnel syndrome Cervicalgia Diagnosis Routine medical exam Routine general medical examination at a health care facility Cervical cancer screening Screening for malignant neoplasm of the cervix Breast cancer screening Breast screening, unspecified Colon cancer screening Special screening for malignant neoplasms, colon Diagnosis Visit for screening mammogram Diagnosis Essential hypertension Unspecified essential hypertension Bilateral carpal tunnel syndrome Carpal tunnel syndrome Chronic tension-type headache, intractable Chronic tension type headache Cervicogenic headache Headache Cervicalgia Type 2 diabetes mellitus without complication, without long-term current use of insulin Allergic rhinitis, unspecified seasonality, unspecified trigger Diagnosis Bronchopneumonia- Primary Bronchopneumonia, organism unspecified Obesity due to excess calories without serious comorbidity, unspecified classification Diagnosis Essential hypertension Unspecified essential hypertension Diagnosis Abnormal mammogram Abnormal mammogram, unspecified Diagnosis S/P cubital tunnel release- Primary Other postprocedural status S/P carpal tunnel release Other postprocedural status Diagnosis Pneumonia of right lower lobe due to infectious organism- Primary Bronchospasm Acute bronchospasm Dehydration, mild Dehydration Diagnosis Pneumonia- Primary Pneumonia, organism unspecified Pneumonia of left lower lobe due to infectious organism body mass index of 40.0-49.9 Diabetes (A1C > or equal to 6.5%) Sepsis without acute organ dysfunction Bradycardia Other specified cardiac dysrhythmias Diagnosis Pre-op testing- Primary Preoperative examination, unspecified Diagnosis Bronchopneumonia- Primary Bronchopneumonia, organism unspecified Abnormal chest CT Nonspecific (abnormal) findings on radiological and other examination of other intrathoracic organs Type 2 diabetes mellitus without complication, without long-term current use of insulin Essential hypertension Unspecified essential hypertension Diagnosis Bilateral carpal tunnel syndrome- Primary Carpal tunnel syndrome Chronic tension-type headache, intractable Chronic tension type headache Cervicogenic headache Headache Cervicalgia Diagnosis Carpal tunnel syndrome, unspecified laterality- Primary History of Present Illness * Leonidas Corcoran, PT - 06/04/2018 4:59 PM EST Formatting of this note may be different from the original. Daily Treatment Note Sharon Bella 1975 Physician: Rhett Brito MD 06/04/2018 Diagnosis: ICD-10-CM 1. Tendonitis, Achilles, right M76.61 Chief Complaint Patient presents with PT Treatment Difficulty Walking Muscle Weakness Ankle Pain Total Visits Attended: 2 Visit(s)/6 Subjective: Patient notes that ankle has been better, states that she has been off of it secondary to LBP and LE pain. Pain noted 0/10 upon entering. 5/10 at worst. Notes that stretches generally make her worse Objective / Comparable Sign: Good PF AROM without increased pain. Pain only present at insertion ofachilles insertion near distal calcaneous. (-) swelling or edema present. Manual Therapy/PROM a. In. b. Dorsiflexion c. Ev. d. Plantar Flexion A-D. 10 x 2 each T-band PRE (4 way) PF / IV GTB 10 x 2 Seated Calf Stretch: a. calf b. rocker stretch held Seated Soleus Stretch Calf/Toes raises 10 x 2 Mini- Squats Side Stepping Lunges: a. fwd b. lat Short Foot Exercise: a. sit b. stand SLS: a. static b. Airex Neuromuscular Re-Ed (NM) Weight Shifts Balance & Reach Step-Ups : a. fwd b. lat Step Off Balance and Reach a. fwd b. med c. post Roller calf 30 x 3 MWM/Mulligan Tape Assessment/Response: Patient maybe having more of a tendinopathy causing pain. Good tolerance to exercise to strengthen achilles tendon Plan for Next Visit: Progress tendon strengthening program, patient will call back per request Leonidas Corcoran, PT / 5:36 PM Leonidas Corcoran, PT Time in: 1700 Time out: 1735 Total Visit Time: 35 Min Total Treatment Time: 30 minutes Timed Code Treatment Minutes: 30 minutes Overall PT Visit Number: 2 Visit(s) in this encounter* Demarco Lopez MD - 07/22/2018 4:00 PM EST Formatting of this note may be different from the original. CC: Headaches History of Present Illness Ms. Bella is seen in follow-up for headaches. She was last seen in October 2017 when she was asked to consider a slight increase in Flexeril to 5 mg each morning and 10 mg each bedtime. She also takes Neurontin at 300 mg each morning and 600 mg at bedtime. She cannot tolerate higher doses due to dizziness. Patient reports that the Flexeril increase to 15 mg per day from 10 mg per day was helpful. She still has annoying headaches in the back of the head. She does not get the really bad headaches on the current regimen. She has no side effects. Previous Medication Trials 1. Lamictal 2. Zanaflex 3. Zonegran 4. Topamax 5. Lyrica 6. Gabapentin 7. Atenolol 8. Flexeril OARRS--Tylenol #3; Gabapentin Labs/Studies No new pertinent results Past Medical, Surgical, Social, Family History Updates 1. Medical--none 2. Surgical--none 3. Social--none 4. Family--none Current Outpatient Medications Medication Sig Last Dose Start Date End Date Authorizing Provider atenolol 50 MG Tab tablet 50 mg, Oral, 2 TIMES DAILY 04/30/18 Rhett Brito MD cyclobenzaprine 5 MG Tab tablet Take 1 tab PO each morning and 2 tabs PO QHS 05/28/18 07/28/18 Demarco Lopez MD gabapentin (NEURONTIN) 300 MG Cap capsule Take 1 cap PO each morning and 2 caps PO QHS 05/28/18 07/28/18 Demarco Lopez MD gliMEPIride 2 MG Tab 2 mg, Oral, 2 TIMES DAILY 06/25/18 Rhett Brito MD GLUCOSE MONITOR LANCETS PRESCRIPTION daily Taking 10/23/17 Rhett Brito MD GLUCOSE MONITOR PRESCRIPTION daily Taking 10/23/17 Rhett Brito MD GLUCOSE TEST STRIPS PRESCRIPTION daily Taking 10/23/17 Rhett Brito MD Magnesium 500 MG Tab 500 mg, Oral, DAILY AT BEDTIME Taking Historical Provider meloxicam 15 MG Tab tablet 15 mg, Oral, DAILY 04/30/18 05/30/18 Rhett Brito MD Multiple Vitamin (VIT E-VIT C-BETA CAROTENE) [phone] Tab 250 mg, Oral, DAILY Taking HistoricalProvider omeprazole [address] 20 mg, Oral, DAILY AT BEDTIME Taking Historical Provider Probiotic Product (PROBIOTIC-10 PO) Oral, DAILY AT BEDTIME Taking Historical Provider No Known Allergies Review of Systems Constitutional: Negative for chills, fatigue, fever and unexpected weight change. HENT: Negative for congestion, hearing loss, rhinorrhea, tinnitus, trouble swallowing and voice change. Eyes: Negative for photophobia and visual disturbance. Respiratory: Negative for cough, choking and shortness of breath. Cardiovascular: Negative for chest pain, palpitations and leg swelling. Gastrointestinal: Negative for abdominal pain, blood in stool, constipation, diarrhea, nausea and vomiting. Endocrine: Negative for cold intolerance and heat intolerance. Genitourinary: Negative for difficulty urinating, frequency and urgency. Musculoskeletal: Positive for neck pain. Negative for arthralgias, back pain, gait problem, myalgias and neck stiffness. Skin: Negative for color change, rash and wound. Allergic/Immunologic: Negative for food allergies and immunocompromised state. Neurological: Positive for headaches. Negative for dizziness, tremors, seizures, syncope, facial asymmetry, speech difficulty, weakness, light-headedness and numbness. Hematological: Negative for adenopathy. Does not bruise/bleed easily. Psychiatric/Behavioral: Negative for agitation, behavioral problems, confusion, decreased concentration, dysphoric mood, hallucinations, self-injury, sleep disturbance and suicidal ideas. The patientis not nervous/anxious and is not hyperactive. Vitals: Blood pressure (!) 136/92, pulse 60, resp. rate 16, height 1.638 m (5' 4.5 ), weight 107 kg(236 lb), not currently . Physical Exam Constitutional: She is oriented to person, place, and time. Vital signs are normal. HENT: Head: Normocephalic and atraumatic. Right Ear: Hearing and external ear normal. Left Ear: Hearing and external ear normal. Mouth/Throat: Oropharynx is clear and moist and mucous membranes are normal. Eyes: Conjunctivae, EOM and lids are normal. Neck: Normal range of motion. Cardiovascular: Normal rate and regular rhythm. Pulmonary/Chest: Effort normal. Abdominal: Soft. Normal appearance. There is no tenderness. Neurological: She is alert and oriented to person, place, and time. She has normal strength. Skin: Skin is warm, dry and intact. Neurologic Exam Mental Status Oriented to person, place, and time. Cranial Nerves CN III, IV, Extraocular motions are normal. Motor Exam Strength Strength 5/5 throughout. Assessment and Plan 1. Cervicogenic Headache A. Patient will increase the Flexeril by 5 mg per day. Thus, the new dosing is Flexeril 10 mg BID. Side effects were again discussed. We also discuss the future option of Baclofen. B. The Gabapentin remains the same and was refilled. C. Follow up in 6 months. Please note this visit consumed 20-25 minutes, of which half or more was dedicated to [id number] counseling of the problems/issues and coordination of all care. in this encounter* Rhett Brito MD - 08/05/2018 8:10 AM EST Formatting of this note may be different from the original. EXAM TYPE: XR FOOT RIGHT 3 VIEWS EXAM DATE AND TIME: 07/12/2018 2:26 PM EST INDICATION: 43-year-old female with pain. COMPARISON: None. TECHNIQUE: AP, lateral, and oblique views of the right foot. FINDINGS: No acute fracture. Joint alignment is anatomic. Joint spaces are preserved. Soft tissues are within normal limits. Moderate sized posterior and plantar calcaneal spur is seen. Impression IMPRESSION: No acute fracture or traumatic malalignment. Calcaneal spurs. Subjective: For follow up foot pain. Has iced, stretched, and worn the night splint. General: No fever, chills, weight loss. HEENT: No sinus pain, ear pain, sore throat. Neck: No LAD. Lungs: No cough, sputum, pleuritic pain, hemoptysis, SOB. CV: No chest pain, palpitation, orthopnea, PND, edema. GI: No abd pain, nausea, vomiting, diarrhea, constipation, melena, hematochezia. : No dysuria, frequency, hematuria. Skin: No rash or lesion. Neuro: No mental status changes, headache, focal neurologic complaints. Objective: not currently . Results for orders placed or performed in visit on 04/12/18 HEMOGLOBIN A1C Result Value Ref Range HEMOGLOBIN A1C 8.0 (H) <6 % Estimated Average Glucose 183 mg/dL BASIC METABOLIC PANEL Result Value Ref Range GLUCOSE 194 (H) 70 - 100 MG/DL BUN 16 7 - 20 MG/DL CREATININE SERUM 0.6 0.52 - 1.04 MG/DL SODIUM 137 136 - 145 MMOL/L POTASSIUM 4.3 3.5 - 5.1 MMOL/L CHLORIDE 104 98 - 107 MMOL/L CARBON DIOXIDE (CO2) 26 22 - 30 MMOL/L ANION GAP 7 (L) 8 - 16 MMOL/L CALCIUM 9.1 8.4 - 10.2 MG/DL ESTIMATED GFR, NON AMER >60 ml/min/1.73sq.m ESTIMATED GFR, >60 ml/min/1.73sq.m GFR COMMENT Average GFR for 40-49 years old = 99. LIPID PANEL W CALCULATED LDL Result Value Ref Range CHOLESTEROL 167 100 - 199 MG/DL TRIGLYCERIDE 87 <150 MG/DL HDL CHOLESTEROL 44 40 - 60 MG/DL LDL CHOLESTEROL, CALCULATED 106 (H) 0 - 100 MG/DL VLDL 17 5.0 - 25.0 MG/DL TCHOL/HDL RATIO, MANUAL ENTER 3.80 RATIO HEENT: NC/AT, PERRLA, EOMI, fundi benign, external ears normal, OP normal. Neck: No LAD/thyromegaly. No JVD/bruit. Lungs: Clear to auscultation bilaterally. No wheezes, rales, ronchi. Heart: RRR. No S3/S4. Abdomen: Soft, NT/ND, normal bowel sounds, no HSM, no bruits. Extremities: No clubbing, cyanosis, edema. Normal pulses. Neurologic: CN II-XII intact. Strength/DTR's/sensation symmetric. Cerebellar function normal. Skin: No rash or suspicious lesions. Musculoskeletal: No edema, redness, warmth, deformities. Tender at insertion of plantar fascia. Psychiatric: Alert and oriented. Affect and mood normal. Assessment and Plan: 1. Plantar fasciitis Discussed surgical referral versus injection. Opts for the later. 2. Calcaneal spur, unspecified laterality Rhett Brito MD 08/05/2018 * Paulette Blanchard MA - 08/05/2018 8:10 AM EST Formatting of this note may be different from the original. EXAM TYPE: XR FOOT RIGHT 3 VIEWS EXAM DATE AND TIME: 07/12/2018 2:26 PM EST INDICATION: 43-year-old female with pain. COMPARISON: None. TECHNIQUE: AP, lateral, and oblique views of the right foot. FINDINGS: No acute fracture. Joint alignment is anatomic. Joint spaces are preserved. Soft tissues are within normal limits. Moderate sized posterior and plantar calcaneal spur is seen. Impression IMPRESSION: No acute fracture or traumatic malalignment. Calcaneal spurs. in this encounter* Rhett Brito MD - 08/13/2018 3:00 PM EST Associated Order(s): MEDIUM JOINT INJECTION: R subtalar Post-Procedure Diagnose(s): Plantar fasciitis HEEL INJECTION- Sharon Preston Bella presents for Rt heel injection. Denies recent fever or change in condition. MEDIUM JOINT INJECTION: R subtalar Date/Time: 08/14/2018 7:56 AM Procedure Details Location: ankle - R subtalar Needle size: 27 G Approach: dorsal Medication Verification: I have personally verified and performed the final check of the medication(s) used in this procedure prior to administration. The following items were included during the verification process for medication(s) administered: drug name, strength, volume, expiration, physical integrity and appearance of the medication(s). Medications administered: 40 mg methylPREDNISolone acetate 40 MG/ML; 1 mL lidocaine 10 mg/mL; 0.2 mL bupivacaine (PF) 0.5 % Patient tolerance: patient tolerated the procedure well with no immediate complications Consent: Consent was obtained prior to the procedure after discussion of the risks, benefits and alternatives, and expected outcomes were discussed with the patient. The possibilities of reaction to medication, bleeding, infection, the need for additional procedures, failure to diagnosis a condition, and creating a complication requiring operation were discussed with the patient. The patient concurred with the proposed plan, giving consent. Preparation: Patient was prepped in the usual sterile fashion with alcohol and Betadine. * Krystal Ventura LPN - 08/13/2018 3:00 PM EST HEEL INJECTION- Sharon Bella presents for Rt heel injection. Denies recent fever or change in condition. documented in this encounter* Rhett Brito MD - 10/23/2018 8:10 AM EDT TYPE 2 DM - Pt present to the office for evaluation of type 2 diabetes. Pt is overall doing well, with glucosesfor the most part averaging 160-200. Pt checks blood sugars a couple times weekly. No wide fluctuations in glucoses. Tolerating meds well. Denies change in vision, neuropathy, urinary frequency or frequent infections. Pt states they do check their feet for sores and/or ulcers. Pt is not currently seeing podiatry. Pt last diabetic eye exam 2016. Lab Results Component Value Date HGBA1C 7.8 (H) 10/17/2018 BP Readings from Last 3 Encounters: 10/23/18 158/90 07/22/18 (!) 136/92 11/15/17 122/88 Wt Readings from Last 3 Encounters: 10/23/18 106 kg (233 lb 9.6 oz) 07/22/18 107 kg (236 lb) 04/30/18 101.4 kg (223 lb 9.6 oz) HYPERTENSION- She presents for follow-up of hypertension. Pt specifically denies chest pain, palpitations, peripheral edema and shortness of breath. Current medication regimen is as listed in this record. Blood pressure readings: Pt states they take BP never. Three skin lesions she would like looked at. General: No fever, chills, weight loss. HEENT: No sinus pain, ear pain, sore throat. Neck: No LAD. Lungs: No cough, sputum, pleuritic pain, hemoptysis, SOB. CV: No chest pain, palpitation, orthopnea, PND, edema. GI: No abd pain, nausea, vomiting, diarrhea, constipation, melena, hematochezia. : No dysuria, frequency, hematuria. Skin: No rash. Neuro: No mental status changes, headache, focal neurologic complaints. Objective: Blood pressure 158/90, pulse 78, temperature 98 F (36.7 C), temperature source Oral, resp. rate 16,weight 106 kg (233 lb 9.6 oz), SpO2 98 %, not currently . Results for orders placed or performed in visit on 10/17/18 HEMOGLOBIN A1C Result Value Ref Range HEMOGLOBIN A1C 7.8 (H) <6 % Estimated Average Glucose 177 mg/dL LIPID PANEL W CALCULATED LDL Result Value Ref Range CHOLESTEROL 182 100 - 199 MG/DL TRIGLYCERIDE 92 <150 MG/DL HDL CHOLESTEROL 48 40 - 60 MG/DL LDL CHOLESTEROL, CALCULATED 116 (H) 0 - 100 MG/DL VLDL 18 5.0 - 25.0 MG/DL TCHOL/HDL RATIO, MANUAL ENTER 3.79 RATIO HEPATIC FUNCTION PANEL Result Value Ref Range ALBUMIN 5.3 (H) 3.5 - 5.0 G/DL BILIRUBIN, TOTAL 0.6 0.2 - 1.2 MG/DL ALKALINE PHOSPHATASE 58 38 - 126 IU/L AST 24 15 - 41 IU/L BILIRUBIN, DIRECT 0.1 0.0 - 0.2 MG/DL PROTEIN, TOTAL 8.8 (H) 6.3 - 8.2 GM/DL ALT 28 14 - 54 IU/L BASIC METABOLIC PANEL Result Value Ref Range GLUCOSE 176 (H) 70 - 100 MG/DL BUN 21 (H) 7 - 20 MG/DL CREATININE SERUM 0.7 0.52 - 1.04 MG/DL SODIUM 136 136 - 145 MMOL/L POTASSIUM 4.2 3.5 - 5.1 MMOL/L CHLORIDE 102 98 - 107 MMOL/L CARBON DIOXIDE (CO2) 21 (L) 22 - 30 MMOL/L ANION GAP 13 8 - 16 MMOL/L CALCIUM 9.3 8.4 - 10.2 MG/DL ESTIMATED GFR, NON AMER >60 ml/min/1.73sq.m ESTIMATED GFR, >60 ml/min/1.73sq.m GFR COMMENT Average GFR for 40-49 years old = 99. HEENT: NC/AT, PERRLA, EOMI, fundi benign, external ears normal, OP normal. Neck: No LAD/thyromegaly. No JVD/bruit. Lungs: Clear to auscultation bilaterally. No wheezes, rales, ronchi. Heart: RRR. No S3/S4. Abdomen: Soft, NT/ND, normal bowel sounds, no HSM, no bruits. Extremities: No clubbing, cyanosis, edema. Normal pulses. Neurologic: CN II-XII intact. Strength/DTR's/sensation symmetric. Cerebellar function normal. Skin: No rash or suspicious lesions. Three small, smooth, slightly pigmented papules. Musculoskeletal: No edema, redness, warmth, deformities. Psychiatric: Alert and oriented. Affect and mood normal. Assessment and Plan: 1. Essential hypertension - atenolol 50 MG Tab tablet; Take 1 tablet by mouth 2 times daily. Dispense: 180 tablet; Refill: 1 2. Type 2 diabetes mellitus without complication, without long-term current use of insulin - Liraglutide (VICTOZA) 18 MG/3ML Solution Pen-injector injection; Inject 1.8 mg under the skin daily. With pen needles #90 Dispense: 3 Syringe; Refill: 1 3. Dermatofibroma Reassured. Victoza to try to help with weight loss. Rhett Brito MD 10/23/2018 * Krystal Ventura LPN - 10/23/2018 8:10 AM EDT TYPE 2 DM - Pt present to the office for evaluation of type 2 diabetes. Pt is overall doing well, with glucosesfor the most part averaging 160-200. Pt checks blood sugars a couple times weekly. No wide fluctuations in glucoses. Tolerating meds well. Denies change in vision, neuropathy, urinary frequency or frequent infections. Pt states they do check their feet for sores and/or ulcers. Pt is not currently seeing podiatry. Pt last diabetic eye exam 2016. Lab Results Component Value Date HGBA1C 7.8 (H) 10/17/2018 BP Readings from Last 3 Encounters: 07/22/18 (!) 136/92 11/15/17 122/88 10/23/17 139/89 Wt Readings from Last 3 Encounters: 07/22/18 107 kg (236 lb) 04/30/18 101.4 kg (223 lb 9.6 oz) 11/15/17 102.1 kg (225 lb) HYPERTENSION- She presents for follow-up of hypertension. Pt specifically denies chest pain, palpitations, peripheral edema and shortness of breath. Current medication regimen is as listed in this record. Blood pressure readings: Pt states they take BP never. documented in this encounter* Rhett Brito MD - 11/21/2018 8:00 AM EDT Pt is here today for medication refill of Adipex. WEIGHT- Pt presents to office for evaluation of weight. Wt Readings from Last 3 Encounters: 11/21/18 107.4 kg (236 lb 12.8 oz) 10/23/18 106 kg (233 lb 9.6 oz) 07/22/18 107 kg (236 lb) Body mass index is 40.65 kg/m . Onset- 10/25/18 (GAINING/LOSSING)- gained Exercise regimen: Pt goes to [facility] 3 times a week Dietary changes: pt watches some of what she eats Additional Comments: Pt said the only thing the medication has done is help her get from breakfast to lunch without being hungry. Pt still has no energy. Pt still eats as much as she did before starting medication. Pt also said since starting the pill that she has been spotting every day, bloating and a little constipated. Was not watching diet as well as she should. Still exercising. No medication side effects. Is spotting which is abnl for her. General: No fever, chills, weight loss. HEENT: No sinus pain, ear pain, sore throat. Neck: No LAD. Lungs: No cough, sputum, pleuritic pain, hemoptysis, SOB. CV: No chest pain, palpitation, orthopnea, PND, edema. GI: No abd pain, nausea, vomiting, diarrhea, constipation, melena, hematochezia. : No dysuria, frequency, hematuria. Skin: No rash or lesion. Neuro: No mental status changes, headache, focal neurologic complaints. Objective: Blood pressure (!) 143/93, pulse 73, resp. rate 16, height 1.626 m (5' 4 ), weight 107.4 kg (236 lb12.8 oz), SpO2 96 %, not currently . Results for orders placed or performed in visit on 10/17/18 HEMOGLOBIN A1C Result Value Ref Range HEMOGLOBIN A1C 7.8 (H) <6 % Estimated Average Glucose 177 mg/dL LIPID PANEL W CALCULATED LDL Result Value Ref Range CHOLESTEROL 182 100 - 199 MG/DL TRIGLYCERIDE 92 <150 MG/DL HDL CHOLESTEROL 48 40 - 60 MG/DL LDL CHOLESTEROL, CALCULATED 116 (H) 0 - 100 MG/DL VLDL 18 5.0 - 25.0 MG/DL TCHOL/HDL RATIO, MANUAL ENTER 3.79 RATIO HEPATIC FUNCTION PANEL Result Value Ref Range ALBUMIN 5.3 (H) 3.5 - 5.0 G/DL BILIRUBIN, TOTAL 0.6 0.2 - 1.2 MG/DL ALKALINE PHOSPHATASE 58 38 - 126 IU/L AST 24 15 - 41 IU/L BILIRUBIN, DIRECT 0.1 0.0 - 0.2 MG/DL PROTEIN, TOTAL 8.8 (H) 6.3 - 8.2 GM/DL ALT 28 14 - 54 IU/L BASIC METABOLIC PANEL Result Value Ref Range GLUCOSE 176 (H) 70 - 100 MG/DL BUN 21 (H) 7 - 20 MG/DL CREATININE SERUM 0.7 0.52 - 1.04 MG/DL SODIUM 136 136 - 145 MMOL/L POTASSIUM 4.2 3.5 - 5.1 MMOL/L CHLORIDE 102 98 - 107 MMOL/L CARBON DIOXIDE (CO2) 21 (L) 22 - 30 MMOL/L ANION GAP 13 8 - 16 MMOL/L CALCIUM 9.3 8.4 - 10.2 MG/DL ESTIMATED GFR, NON AMER >60 ml/min/1.73sq.m ESTIMATED GFR, >60 ml/min/1.73sq.m GFR COMMENT Average GFR for 40-49 years old = 99. HEENT: NC/AT, PERRLA, EOMI, fundi benign, external ears normal, OP normal. Neck: No LAD/thyromegaly. No JVD/bruit. Lungs: Clear to auscultation bilaterally. No wheezes, rales, ronchi. Heart: RRR. No S3/S4. Abdomen: Soft, NT/ND, normal bowel sounds, no HSM, no bruits. Extremities: No clubbing, cyanosis, edema. Normal pulses. Neurologic: CN II-XII intact. Strength/DTR's/sensation symmetric. Cerebellar function normal. Skin: No rash or suspicious lesions. Musculoskeletal: No edema, redness, warmth, deformities. Psychiatric: Alert and oriented. Affect and mood normal. Assessment and Plan: 1. Type 2 diabetes mellitus without complication, without long-term current use of insulin Discussed lowering carbohydrate intake, mixing glycemic indices, and increasing activity. - phentermine 37.5 MG Tab; Take 1 tablet by mouth every morning before breakfast. Dispense: 30 tablet; Refill: 0 2. Irregular menses - TSH W/FT4 REFLEX; Future 3. Obesity due to excess calories without serious comorbidity, unspecified classification - phentermine 37.5 MG Tab; Take 1 tablet by mouth every morning before breakfast. Dispense: 30 tablet; Refill: 0 Rhett Brito MD 11/21/2018 * Beatriz Church MA - 11/21/2018 8:00 AM EDT Pt is here today for medication refill of Adipex. WEIGHT- Pt presents to office for evaluation of weight. Wt Readings from Last 3 Encounters: 10/23/18 106 kg (233 lb 9.6 oz) 07/22/18 107 kg (236 lb) 04/30/18 101.4 kg (223 lb 9.6 oz) There is no height or weight on file to calculate BMI. Onset- 10/25/18 (GAINING/LOSSING)- gained Exercise regimen: Pt goes to [facility] 3 times a week Dietary changes: pt watches some of what she eats Additional Comments: Pt said the only thing the medication has done is help her get from breakfast to lunch without being hungry. Pt still has no energy. Pt still eats as much as she did before starting medication. Pt also said since starting the pill that she has been spotting every day, bloating and a little constipated. documented in this encounter* Rhett Brito MD - 12/18/2018 8:00 AM EDT WEIGHT CONCERNS- Pt presents to office for evaluation of weight. Wt Readings from Last 3 Encounters: 12/18/18 104.8 kg (231 lb) 11/21/18 107.4 kg (236 lb 12.8 oz) 10/23/18 106 kg (233 lb 9.6 oz) Body mass index is 39.65 kg/m . Onset- 10/25/2018 Quality (GAINING/LOSSING)- loosing Exercise regimen: doing vaishali 3 times a week Dietary changes:[employer] program/khang use: no Additional Comments: Needs refill on meds Will be due for BW before the Mar visit. General: No fever, chills, weight loss. HEENT: No sinus pain, ear pain, sore throat. Neck: No LAD. Lungs: No cough, sputum, pleuritic pain, hemoptysis, SOB. CV: No chest pain, palpitation, orthopnea, PND, edema. GI: No abd pain, nausea, vomiting, diarrhea, constipation, melena, hematochezia. : No dysuria, frequency, hematuria. Skin: No rash or lesion. Neuro: No mental status changes, headache, focal neurologic complaints. Objective: Blood pressure 143/87, pulse 70, weight 104.8 kg (231 lb), not currently . Results for orders placed or performed in visit on 11/21/18 TSH W/FT4 REFLEX Result Value Ref Range TSH, REFLEX FT4 1.802 0.45 - 5.33 uIU/ML HEENT: NC/AT, PERRLA, EOMI, fundi benign, external ears normal, OP normal. Neck: No LAD/thyromegaly. No JVD/bruit. Lungs: Clear to auscultation bilaterally. No wheezes, rales, ronchi. Heart: RRR. No S3/S4. Abdomen: Soft, NT/ND, normal bowel sounds, no HSM, no bruits. Extremities: No clubbing, cyanosis, edema. Normal pulses. Neurologic: CN II-XII intact. Strength/DTR's/sensation symmetric. Cerebellar function normal. Skin: No rash or suspicious lesions. Musculoskeletal: No edema, redness, warmth, deformities. Psychiatric: Alert and oriented. Affect and mood normal. Assessment and Plan: 1. Type 2 diabetes mellitus without complication, without long-term current use of insulin Continue improved diet and exercise when Rx complete. - phentermine 37.5 MG Tab; Take 1 tablet by mouth every morning before breakfast. Dispense: 30 tablet; Refill: 0 - HEPATIC FUNCTION PANEL; Future - LIPID PANEL W CALCULATED LDL; Future - HEMOGLOBIN A1C; Future 2. Obesity due to excess calories without serious comorbidity, unspecified classification - phentermine 37.5 MG Tab; Take 1 tablet by mouth every morning before breakfast. Dispense: 30 tablet; Refill: 0 3. Essential hypertension - BASIC METABOLIC PANEL; Future - HEPATIC FUNCTION PANEL; Future - LIPID PANEL W CALCULATED LDL; Future Rhett Brito MD 12/18/2018 * Paulette Blanchard MA - 12/18/2018 8:00 AM EDT WEIGHT CONCERNS- Pt presents to office for evaluation of weight. Wt Readings from Last 3 Encounters: 11/21/18 107.4 kg (236 lb 12.8 oz) 10/23/18 106 kg (233 lb 9.6 oz) 07/22/18 107 kg (236 lb) There is no height or weight on file to calculate BMI. Onset- 10/25/2018 Quality (GAINING/LOSSING)- loosing Exercise regimen: doing vaishali 3 times a week Dietary changes:[employer] program/khang use: no Additional Comments: Needs refill on meds documented in this encounter* Sukh Pradhan MD - 04/14/2019 8:00 AM EDT Chief Complaint Patient presents with Hand Pain Right Hand. EMG completed 03/05/2019. The hand has been bothering her for about 17 years, states 3 months ago she was moving and her carpal tunnel flared up and has not relaxed since. States she has pain, numbness and tingling in her hand. HPI: Right hand pain. EMG completed on 03.05.19. The hand has been bothering her for about 17yrs, states3 months ago she was moving and her carpal tunnel flared up and has not relaxed since states she has pain numbness and tingling in her hand. Past Medical History: Diagnosis Date Essential hypertension, benign Exercise tolerance finding METS > 4 stairs daily GERD (gastroesophageal reflux disease) History of corticosteroid therapy < 2yrs Migraine Pain Rt elbow, headaches, cervical spine issues Varicose vein of leg Past Surgical History: Procedure Laterality Date RELEASE TENDON ELBOW OPEN W/ TENDON REPAIR OR REATTACHMENT Right 06/18/2017 Laterality: Right; Surgeon: Sukh Pradhan MD; Location: [facility] OR ELBOW SURGERY Left 11/01/2016 Lt lateral epicondyle debrideent & repair Dr Sukh Pradhan @ [facility] Bilateral 2002 lasik TONSILLECTOMY 1985 Social History Socioeconomic History Marital status: Single Spouse name: Not on file Number of children: Not on file Years of education: Not on file Highest education level: Not on file Occupational History Not on file Social Needs Financial resource strain: Not on file Food insecurity: Worry: Not on file Inability: Not on file Transportation needs: Medical: Not on file Non-medical: Not on file Tobacco Use Smoking status: Never Smoker Smokeless tobacco: Never Used Substance and Sexual Activity Alcohol use: Yes Comment: rarely Drug use: No Sexual activity: Yes control/protection: IUD Lifestyle Physical activity: Days per week: Not on file Minutes per session: Not on file Stress: Not on file Relationships Social connections: Talks on phone: Not on file Gets together: Not on file Attends caodaism service: Not on file Active member of club or organization: Not on file Attends meetings of clubs or organizations: Not on file Relationship status: Not on file Intimate partner violence: Fear of current or ex partner: Not on file Emotionally abused: Not on file Physically abused: Not on file Forced sexual activity: Not on file Other Topics Concern Not on file Social History Narrative Not on file Family History Problem Relation Age of Onset Other - Specify Mother Headaches Diabetes Mother Breast Cancer Mother Arthritis - Rheumatoid Mother Allergy - Severe Mother Hypertension Mother Prostate Cancer Father Arthritis - Rheumatoid Father Myocardial Infarction Father Colon Cancer Father Lung Cancer Father Heart Disease - Other Father Hypertension Father Thyroid Disease Father Allergies Allergen Reactions Tramadol Nausea and Vomiting ROS: Review of Systems System Neg/Pos Details Constitutional Negative Chills and fever. Respiratory Negative Chest pain and dyspnea. Cardio Negative Chest pain. Negative Nocturia. Integumentary Negative Skin lesion. MS Negative Except as noted in HPI and chief complaint. Vitals: 04/14/19 0806 Temp: 97.7 degrees F (36.5 degrees C) Weight: 109.4 kg (241 lb 2 oz) Height: 1.638 m (5' 4.5 ) Physical Exam: Exam Findings Details Constitutional Normal No acute distress. Well developed. Head/Face Comments normal cephallic/ Atraumatic, negative spurling's maneuver Head/Face Normal Facial features - Normal. Skull - Normal. Hair and scalp - Normal. Respiratory Normal Cough - Absent. Effort - Normal. Skin * Detailed inspection - Visual lesions: none. Skin Comments other than as noted otherwise below in extremity exam Skin Normal Palpation/texture - Normal. Nails - Normal. Hair - Normal. Psychiatric Normal Orientation - Oriented to time, place, person & situation. Upper extremity exam: bilateral No obvious deformity. Non tender with palpation. No atrophy. Decreased sensation in the median nerve distribution. Carpal tunnel compression: Positive Phalen's: Positive Carpal tunnel tinel's: Positive Distally neurovascularly intact. bilateral upper extremity evaluation: No obvious deformity. Cubital tunnel tinel's: Positive Cubital tunnel compression: Positive Distally neurovascular intact. Uninvolved side: No obvious deformity. Cubital tunnel negative. Distally neurovascularly intact. Assessment: 1. Carpal tunnel syndrome, bilateral 2. Cubital tunnel syndrome, bilateral Plan: At this time, upon review of the EMG, the patient does show signs of carpal and cubital tunnel on B/L hands. She shows this on exam as well. Her Right>Left. As she has failed conservative treatment we are offering her Right carpal tunnel release and cubital tunnel release, and other interventions as needed. 6wks later she will also have this performed on the Left side carpal and cubital tunnelrelease. We will clear her for surgery as she is a young and healthy individual. We will see her the day of surgery. Call with any questions or concerns in the meantime. Consent: Both Surgical and Non-surgical methods of treatment were discussed with the patient and they have elected to proceed with surgery. The risks and benefits were thoroughly explained including but not limited to: infection, bleeding, neurovascular damage, blood clots which may lead to pulmonary embolism, the need for further surgery stroke, and . It was also explained that the goal of surgery are to correct structural abnormalities that may be resulting in his pain but may not get rid of all the pain they are experiencing. The patient voiced full understanding and wish to proceed with surgery. They will be scheduled in the near future. Right carpal tunnel release and cubital tunnel release and other interventions as needed. (4wks later) Left carpal tunnel release and cubital tunnel release and other interventions as needed. KWESI Mcqueen was acting as a scribe today for this note. I have performed all essential components of the history, and physical exam. I have confirmed the diagnosis and developed a plan of care atthis visit. I have reviewed the note following the visit and have add edits as appropriate to my evaluation and plan of care. Sukh Pradhan MD * Demarco Mora, [facility] - 04/14/2019 8:00 AM EDT Chief Complaint Patient presents with Hand Pain Right Hand. EMG completed 03/05/2019. The hand has been bothering her for about 17 years, states 3 months ago she was moving and her carpal tunnel flared up and has not relaxed since. States she has pain, numbness and tingling in her hand. HPI: Right hand pain. EMG completed on 03.05.19. The hand has been bothering her for about 17yrs, states3 months ago she was moving and her carpal tunnel flared up and has not relaxed since states she has pain numbness and tingling in her hand. Past Medical History: Diagnosis Date Essential hypertension, benign Exercise tolerance finding METS > 4 stairs daily GERD (gastroesophageal reflux disease) History of corticosteroid therapy < 2yrs Migraine Pain Rt elbow, headaches, cervical spine issues Varicose vein of leg Past Surgical History: Procedure Laterality Date RELEASE TENDON ELBOW OPEN W/ TENDON REPAIR OR REATTACHMENT Right 06/18/2017 Laterality: Right; Surgeon: Sukh Pradhan MD; Location: [facility] OR ELBOW SURGERY Left 11/01/2016 Lt lateral epicondyle debrideent & repair Dr Sukh Pradhan @ [facility] Bilateral 2003 lasik TONSILLECTOMY 1986 Social History Socioeconomic History Marital status: Single Spouse name: Not on file Number of children: Not on file Years of education: Not on file Highest education level: Not on file Occupational History Not on file Social Needs Financial resource strain: Not on file Food insecurity: Worry: Not on file Inability: Not on file Transportation needs: Medical: Not on file Non-medical: Not on file Tobacco Use Smoking status: Never Smoker Smokeless tobacco: Never Used Substance and Sexual Activity Alcohol use: Yes Comment: rarely Drug use: No Sexual activity: Yes control/protection: IUD Lifestyle Physical activity: Days per week: Not on file Minutes per session: Not on file Stress: Not on file Relationships Social connections: Talks on phone: Not on file Gets together: Not on file Attends caodaism service: Not on file Active member of club or organization: Not on file Attends meetings of clubs or organizations: Not on file Relationship status: Not on file Intimate partner violence: Fear of current or ex partner: Not on file Emotionally abused: Not on file Physically abused: Not on file Forced sexual activity: Not on file Other Topics Concern Not on file Social History Narrative Not on file Family History Problem Relation Age of Onset Other - Specify Mother Headaches Diabetes Mother Breast Cancer Mother Arthritis - Rheumatoid Mother Allergy - Severe Mother Hypertension Mother Prostate Cancer Father Arthritis - Rheumatoid Father Myocardial Infarction Father Colon Cancer Father Lung Cancer Father Heart Disease - Other Father Hypertension Father Thyroid Disease Father Allergies Allergen Reactions Tramadol Nausea and Vomiting ROS: Review of Systems System Neg/Pos Details Constitutional Negative Chills and fever. Respiratory Negative Chest pain and dyspnea. Cardio Negative Chest pain. Negative Nocturia. Integumentary Negative Skin lesion. MS Negative Except as noted in HPI and chief complaint. Vitals: 04/14/19 0806 Temp: 97.7 degrees F (36.5 degrees C) Weight: 109.4 kg (241 lb 2 oz) Height: 1.638 m (5' 4.5 ) Physical Exam: Exam Findings Details Constitutional Normal No acute distress. Well developed. Head/Face Comments normal cephallic/ Atraumatic, negative spurling's maneuver Head/Face Normal Facial features - Normal. Skull - Normal. Hair and scalp - Normal. Respiratory Normal Cough - Absent. Effort - Normal. Skin * Detailed inspection - Visual lesions: none. Skin Comments other than as noted otherwise below in extremity exam Skin Normal Palpation/texture - Normal. Nails - Normal. Hair - Normal. Psychiatric Normal Orientation - Oriented to time, place, person & situation. Upper extremity exam: bilateral No obvious deformity. Non tender with palpation. No atrophy. Decreased sensation in the median nerve distribution. Carpal tunnel compression: Positive Phalen's: Positive Carpal tunnel tinel's: Positive Distally neurovascularly intact. bilateral upper extremity evaluation: No obvious deformity. Cubital tunnel tinel's: Positive Cubital tunnel compression: Positive Distally neurovascular intact. Uninvolved side: No obvious deformity. Cubital tunnel negative. Distally neurovascularly intact. Assessment: 1. Carpal tunnel syndrome, bilateral 2. Cubital tunnel syndrome, bilateral Plan: At this time, upon review of the EMG, the patient does show signs of carpal and cubital tunnel on B/L hands. She shows this on exam as well. Her Right>Left. As she has failed conservative treatment we are offering her Right carpal tunnel release and cubital tunnel release, and other interventions as needed. 6wks later she will also have this performed on the Left side carpal and cubital tunnelrelease. We will clear her for surgery as she is a young and healthy individual. We will see her the day of surgery. Call with any questions or concerns in the meantime. Consent: Both Surgical and Non-surgical methods of treatment were discussed with the patient and they have elected to proceed with surgery. The risks and benefits were thoroughly explained including but not limited to: infection, bleeding, neurovascular damage, blood clots which may lead to pulmonary embolism, the need for further surgery stroke, and . It was also explained that the goal of surgery are to correct structural abnormalities that may be resulting in his pain but may not get rid of all the pain they are experiencing. The patient voiced full understanding and wish to proceed with surgery. They will be scheduled in the near future. Right carpal tunnel release and cubital tunnel release and other interventions as needed. (4wks later) Left carpal tunnel release and cubital tunnel release and other interventions as needed. documented in this encounter* Rhett Brito MD - 05/04/2019 8:30 AM EST TYPE 2 DM - last lab 04/11/2019 Pt present to the office for evaluation of type 2 diabetes. Pt is overall doing well, with glucosesfor the most part averaging 160-200. Pt checks blood sugars a couple times weekly. No wide fluctuations in glucoses. Tolerating meds well. Denies change in vision, neuropathy, urinary frequency or frequent infections. Pt states they do check their feet for sores and/or ulcers. Pt is not currently seeing podiatry. Pt last diabetic eye exam 2017. HYPERTENSION- She presents for follow-up of hypertension. Pt specifically denies chest pain, palpitations, peripheral edema and shortness of breath. Current medication regimen is as listed in this record. Blood pressure readings: Pt states they take BP never. General: No fever, chills, weight loss. HEENT: No sinus pain, ear pain, sore throat. Neck: No LAD. Lungs: No cough, sputum, pleuritic pain, hemoptysis, SOB. CV: No chest pain, palpitation, orthopnea, PND, edema. GI: No abd pain, nausea, vomiting, diarrhea, constipation, melena, hematochezia. : No dysuria, frequency, hematuria. Skin: No rash or lesion. Neuro: No mental status changes, headache, focal neurologic complaints. Objective: Blood pressure (!) 160/93, pulse 61, last menstrual period 04/16/2019, not currently . Results for orders placed or performed during the hospital encounter of 04/30/19 HCG QUALITATIVE, URINE Result Value Ref Range HCG, QUALITATIVE, URINE NEGATIVE NEGATIVE HEENT: NC/AT, PERRLA, EOMI, fundi benign, external ears normal, OP normal. Neck: No LAD/thyromegaly. No JVD/bruit. Lungs: Clear to auscultation bilaterally. No wheezes, rales, ronchi. Heart: RRR. No S3/S4. Abdomen: Soft, NT/ND, normal bowel sounds, no HSM, no bruits. Extremities: No clubbing, cyanosis, edema. Normal pulses. Neurologic: CN II-XII intact. Strength/DTR's/sensation symmetric. Cerebellar function normal. Skin: No rash or suspicious lesions. Musculoskeletal: No edema, redness, warmth, deformities. Psychiatric: Alert and oriented. Affect and mood normal. Assessment and Plan: 1. Essential hypertension - atenolol 50 MG Tab tablet; Take 1 tablet by mouth 2 times daily. Dispense: 60 tablet; Refill: 5 - BASIC METABOLIC PANEL; Future - HEPATIC FUNCTION PANEL; Future - LIPID PANEL W CALCULATED LDL; Future 2. Type 2 diabetes mellitus without complication, without long-term current use of insulin Discussed lowering carbohydrate intake, mixing glycemic indices, and increasing activity. - gliMEPIride 2 MG Tab; Take 1.5 tablets by mouth 2 times daily. Dispense: 90 tablet; Refill: 5 - HEPATIC FUNCTION PANEL; Future - LIPID PANEL W CALCULATED LDL; Future - HEMOGLOBIN A1C; Future 3. Obesity due to excess calories without serious comorbidity, unspecified classification Discussed diet and exercise. Rhett Brito MD 05/04/2019 * Paulette Blanchard MA - 05/04/2019 8:30 AM EST TYPE 2 DM - last lab 04/11/2019 Pt present to the office for evaluation of type 2 diabetes. Pt is overall doing well, with glucosesfor the most part averaging 160-200. Pt checks blood sugars a couple times weekly. No wide fluctuations in glucoses. Tolerating meds well. Denies change in vision, neuropathy, urinary frequency or frequent infections. Pt states they do check their feet for sores and/or ulcers. Pt is not currently seeing podiatry. Pt last diabetic eye exam 2016. HYPERTENSION- She presents for follow-up of hypertension. Pt specifically denies chest pain, palpitations, peripheral edema and shortness of breath. Current medication regimen is as listed in this record. Blood pressure readings: Pt states they take BP never. Three skin lesions she would like looked at. documented in this encounter* Rhett Brito MD - 05/04/2019 8:30 AM EST TYPE 2 DM - last lab 04/11/2019 Pt present to the office for evaluation of type 2 diabetes. Pt is overall doing well, with glucosesfor the most part averaging 160-200. Pt checks blood sugars a couple times weekly. No wide fluctuations in glucoses. Tolerating meds well. Denies change in vision, neuropathy, urinary frequency or frequent infections. Pt states they do check their feet for sores and/or ulcers. Pt is not currently seeing podiatry. Pt last diabetic eye exam 2016. HYPERTENSION- She presents for follow-up of hypertension. Pt specifically denies chest pain, palpitations, peripheral edema and shortness of breath. Current medication regimen is as listed in this record. Blood pressure readings: Pt states they take BP never. General: No fever, chills, weight loss. HEENT: No sinus pain, ear pain, sore throat. Neck: No LAD. Lungs: No cough, sputum, pleuritic pain, hemoptysis, SOB. CV: No chest pain, palpitation, orthopnea, PND, edema. GI: No abd pain, nausea, vomiting, diarrhea, constipation, melena, hematochezia. : No dysuria, frequency, hematuria. Skin: No rash or lesion. Neuro: No mental status changes, headache, focal neurologic complaints. Objective: Blood pressure (!) 160/93, pulse 61, last menstrual period 04/16/2019, not currently . Results for orders placed or performed during the hospital encounter of 04/30/19 HCG QUALITATIVE, URINE Result Value Ref Range HCG, QUALITATIVE, URINE NEGATIVE NEGATIVE HEENT: NC/AT, PERRLA, EOMI, fundi benign, external ears normal, OP normal. Neck: No LAD/thyromegaly. No JVD/bruit. Lungs: Clear to auscultation bilaterally. No wheezes, rales, ronchi. Heart: RRR. No S3/S4. Abdomen: Soft, NT/ND, normal bowel sounds, no HSM, no bruits. Extremities: No clubbing, cyanosis, edema. Normal pulses. Neurologic: CN II-XII intact. Strength/DTR's/sensation symmetric. Cerebellar function normal. Skin: No rash or suspicious lesions. Musculoskeletal: No edema, redness, warmth, deformities. Psychiatric: Alert and oriented. Affect and mood normal. Assessment and Plan: 1. Essential hypertension - atenolol 50 MG Tab tablet; Take 1 tablet by mouth 2 times daily. Dispense: 60 tablet; Refill: 5 - BASIC METABOLIC PANEL; Future - HEPATIC FUNCTION PANEL; Future - LIPID PANEL W CALCULATED LDL; Future 2. Type 2 diabetes mellitus without complication, without long-term current use of insulin Discussed lowering carbohydrate intake, mixing glycemic indices, and increasing activity. - gliMEPIride 2 MG Tab; Take 1.5 tablets by mouth 2 times daily. Dispense: 90 tablet; Refill: 5 - HEPATIC FUNCTION PANEL; Future - LIPID PANEL W CALCULATED LDL; Future - HEMOGLOBIN A1C; Future 3. Obesity due to excess calories without serious comorbidity, unspecified classification Discussed diet and exercise. Rhett Brito MD 05/04/2019 * Paulette Blanchard MA - 05/04/2019 8:30 AM EST TYPE 2 DM - last lab 04/11/2019 Pt present to the office for evaluation of type 2 diabetes. Pt is overall doing well, with glucosesfor the most part averaging 160-200. Pt checks blood sugars a couple times weekly. No wide fluctuations in glucoses. Tolerating meds well. Denies change in vision, neuropathy, urinary frequency or frequent infections. Pt states they do check their feet for sores and/or ulcers. Pt is not currently seeing podiatry. Pt last diabetic eye exam 2016. HYPERTENSION- She presents for follow-up of hypertension. Pt specifically denies chest pain, palpitations, peripheral edema and shortness of breath. Current medication regimen is as listed in this record. Blood pressure readings: Pt states they take BP never. Three skin lesions she would like looked at. documented in this encounter* Sukh Pradhan MD - 05/13/2019 1:40 PM EST Chief Complaint Patient presents with Post Op Visit 13 days s/p right CTR with ulnar nerve release. States she has no numbness or tingling at this time. Splint and suture removed by nursing. HPI: Patient presents 13 days s/p Right CTR with Ulnar nerve release. States she has no numbness or tingling at this time. Splint and suture removed by nursing. PMH: Past Medical History: Diagnosis Date Diabetes mellitus Essential hypertension, benign Exercise tolerance finding METS > 4 stairs daily GERD (gastroesophageal reflux disease) History of corticosteroid therapy < 2yrs Migraine Pain Rt elbow, headaches, cervical spine issues Varicose vein of leg Past Surgical History: Procedure Laterality Date DECOMPRESSION TRANSPOSITION MEDIAN NERVE Right 04/30/2019 Laterality: Right; Surgeon: Sukh Pradhan MD; Location: [facility] OR DECOMPRESSION TRANSPOSITION ULNAR NERVE ELBOW Right 04/30/2019 Laterality: Right; Surgeon: Sukh Pradhan MD; Location: [facility] OR RELEASE TENDON ELBOW OPEN W/ TENDON REPAIR OR REATTACHMENT Right 06/18/2017 Laterality: Right; Surgeon: Sukh Pradhan MD; Location: [facility] ELBOW SURGERY Left 11/01/2016 Lt lateral epicondyle debrideent & repair Dr Sukh Pradhan @ [facility] Bilateral 2002 lasik TONSILLECTOMY 1985 Social History Socioeconomic History Marital status: Single Spouse name: Not on file Number of children: Not on file Years of education: Not on file Highest education level: Not on file Occupational History Not on file Social Needs Financial resource strain: Not on file Food insecurity: Worry: Not on file Inability: Not on file Transportation needs: Medical: Not on file Non-medical: Not on file Tobacco Use Smoking status: Never Smoker Smokeless tobacco: Never Used Substance and Sexual Activity Alcohol use: Yes Comment: rarely Drug use: No Sexual activity: Yes control/protection: I.U.D. Lifestyle Physical activity: Days per week: Not on file Minutes per session: Not on file Stress: Not on file Relationships Social connections: Talks on phone: Not on file Gets together: Not on file Attends caodaism service: Not on file Active member of club or organization: Not on file Attends meetings of clubs or organizations: Not on file Relationship status: Not on file Intimate partner violence: Fear of current or ex partner: Not on file Emotionally abused: Not on file Physically abused: Not on file Forced sexual activity: Not on file Other Topics Concern Not on file Social History Narrative Not on file Tramadol Family History Problem Relation Age of Onset Other - Specify Mother Headaches Diabetes Mother Breast Cancer Mother Arthritis - Rheumatoid Mother Allergy - Severe Mother Hypertension Mother Prostate Cancer Father Arthritis - Rheumatoid Father Myocardial Infarction Father Colon Cancer Father Lung Cancer Father Heart Disease - Other Father Hypertension Father Thyroid Disease Father ROS: Review of Systems System Neg/Pos Details Constitutional Negative Chills, fatigue, fever and night sweats. ENMT Negative Dysphagia, hearing loss, nasal congestion and vertigo. Eyes Negative Blurred vision and vision loss. Respiratory Negative Chest pain, cough, dyspnea, known TB exposure and wheezing. Cardio Negative Chest pain, cyanosis, heart murmur, irregular heartbeat/palpitations and syncope. GI Negative Abdominal pain, black tarry stools, constipation, diarrhea, heartburn, nausea and vomiting. Negative Dysuria, frequent urination, hematuria, nocturia and urinary incontinence. Endocrine Negative Weight gain and weight loss. Neuro Negative Difficulty walking, headache, paresthesia, poor coordination and seizures. Psych Negative Anxiety, depression and insomnia. Integumentary Negative Frequent skin infections, itching skin, rash and skin lesion. MS Negative Except as noted in HPI and chief complaint and muscle weakness. Doug/Lymph Negative Bruising and easy bleeding. Allergic/Immuno Negative Contact dermatitis, environmental allergies, food allergies, infections and seasonal allergies. Vitals: 05/13/19 1349 Temp: 98 degrees F (36.7 degrees C) Weight: 104.3 kg (230 lb) Height: 1.626 m (5' 4 ) Physical Exam: Exam Findings Details Constitutional * Level of distress - no acute distress. Nourishment - well nourished. Overall appearance - age appropriate. Head/Face Normal Facial features - Normal. Skull - Normal. Nasopharynx Comments Noraml cephalic, atraumatic Respiratory Normal Auscultation - Normal. Cough - Absent. Effort - Normal. Cardiovascular Normal Heart rate - Regular rate. Rhythm - Regular. Heart sounds - Normal S1, NormalS2. Extra sounds - None. Murmurs - None. Abdomen Normal Inspection - Normal. No abdominal tenderness. Abdomen * Auscultation - normal bowel sounds. Anterior palpation - no guarding. Skin * Inspection - General inspection: no rashes. Detailed inspection - Visual lesions: none. Rash- Description: none. Back/Spine Normal Lateral - No Kyphosis. Flexion - Normal. Extension - Normal. Back/Spine Comments negative kidney percussion Neurological Normal Level of consciousness - Normal. Orientation - Normal. Memory - Normal. Balance& gait - Normal. Hand dominance - Right-handed. Psychiatric Normal Orientation - Oriented to time, place, person & situation. Right Upper extremity: Well healing incision sites No drainage or signs of infection DNVI Upper extremity exam: Left No obvious deformity. Non tender with palpation. No atrophy. Decreased sensation in the median nerve distribution. Carpal tunnel compression: Positive Phalen's: Positive Carpal tunnel tinel's: Positive Distally neurovascularly intact. Left upper extremity evaluation: No obvious deformity. Cubital tunnel tinel's: Positive Cubital tunnel compression: Positive Distally neurovascular intact. Review of Images: See procedure note Assessment: ICD-10-CM 1. S/P carpal tunnel release Z98.890 2. S/P cubital tunnel release Z98.890 3. Carpal tunnel syndrome, left G56.02 4. Cubital tunnel syndrome on left G56.22 Plan: At this time, she has well healing surgical sites, no drainage or signs of infection on her Right hand and elbow. She has been advised she should use caution but she has minimal limitations from us at this time. She can use a normal bandage for comfort when using a mouse at work. We gave her a stress ball today to work on hand strength. We will see her at her next surgical intervention in a 4 weeks for Left Carpal Tunnel release and Cubital tunnel release and other interventions as needed. She is scheduled for surgery and has been cleared for surgery. We will see her the day of surgery. Call with any questions or concerns in the meantime. Consent: Both Surgical and Non-surgical methods of treatment were discussed with the patient and they have elected to proceed with surgery. The risks and benefits were thoroughly explained including but not limited to: infection, bleeding, neurovascular damage, blood clots which may lead to pulmonary embolism, the need for further surgery stroke, and . It was also explained that the goal of surgery are to correct structural abnormalities that may be resulting in his pain but may not get rid of all the pain they are experiencing. The patient voiced full understanding and wish to proceed with surgery. They will be scheduled in the near future. Left carpal tunnel release and cubital tunnel release, and other interventions as needed KWESI Mcqueen was acting as a scribe today for this note. I have performed all essential components of the history, and physical exam. I have confirmed the diagnosis and developed a plan of care atthis visit. I have reviewed the note following the visit and have add edits as appropriate to my evaluation and plan of care. Sukh Pradhan MD * Demarco Mora, [facility] - 05/13/2019 1:40 PM EST Chief Complaint Patient presents with Post Op Visit 13 days s/p right CTR with ulnar nerve release. States she has no numbness or tingling at this time. Splint and suture removed by nursing. HPI: Patient presents 13 days s/p Right CTR with Ulnar nerve release. States she has no numbness or tingling at this time. Splint and suture removed by nursing. PMH: Past Medical History: Diagnosis Date Diabetes mellitus Essential hypertension, benign Exercise tolerance finding METS > 4 stairs daily GERD (gastroesophageal reflux disease) History of corticosteroid therapy < 2yrs Migraine Pain Rt elbow, headaches, cervical spine issues Varicose vein of leg Past Surgical History: Procedure Laterality Date DECOMPRESSION TRANSPOSITION MEDIAN NERVE Right 04/30/2019 Laterality: Right; Surgeon: Sukh Pradhan MD; Location: [facility] OR DECOMPRESSION TRANSPOSITION ULNAR NERVE ELBOW Right 04/30/2019 Laterality: Right; Surgeon: Sukh Pradhan MD; Location: [facility] OR RELEASE TENDON ELBOW OPEN W/ TENDON REPAIR OR REATTACHMENT Right 06/18/2017 Laterality: Right; Surgeon: Sukh Pradhan MD; Location: [facility] ELBOW SURGERY Left 11/01/2016 Lt lateral epicondyle debrideent & repair Dr Sukh Pradhan @ [facility] Bilateral 2002 lasik TONSILLECTOMY 1985 Social History Socioeconomic History Marital status: Single Spouse name: Not on file Number of children: Not on file Years of education: Not on file Highest education level: Not on file Occupational History Not on file Social Needs Financial resource strain: Not on file Food insecurity: Worry: Not on file Inability: Not on file Transportation needs: Medical: Not on file Non-medical: Not on file Tobacco Use Smoking status: Never Smoker Smokeless tobacco: Never Used Substance and Sexual Activity Alcohol use: Yes Comment: rarely Drug use: No Sexual activity: Yes control/protection: I.U.D. Lifestyle Physical activity: Days per week: Not on file Minutes per session: Not on file Stress: Not on file Relationships Social connections: Talks on phone: Not on file Gets together: Not on file Attends caodaism service: Not on file Active member of club or organization: Not on file Attends meetings of clubs or organizations: Not on file Relationship status: Not on file Intimate partner violence: Fear of current or ex partner: Not on file Emotionally abused: Not on file Physically abused: Not on file Forced sexual activity: Not on file Other Topics Concern Not on file Social History Narrative Not on file Tramadol Family History Problem Relation Age of Onset Other - Specify Mother Headaches Diabetes Mother Breast Cancer Mother Arthritis - Rheumatoid Mother Allergy - Severe Mother Hypertension Mother Prostate Cancer Father Arthritis - Rheumatoid Father Myocardial Infarction Father Colon Cancer Father Lung Cancer Father Heart Disease - Other Father Hypertension Father Thyroid Disease Father ROS: Review of Systems System Neg/Pos Details Constitutional Negative Chills, fatigue, fever and night sweats. ENMT Negative Dysphagia, hearing loss, nasal congestion and vertigo. Eyes Negative Blurred vision and vision loss. Respiratory Negative Chest pain, cough, dyspnea, known TB exposure and wheezing. Cardio Negative Chest pain, cyanosis, heart murmur, irregular heartbeat/palpitations and syncope. GI Negative Abdominal pain, black tarry stools, constipation, diarrhea, heartburn, nausea and vomiting. Negative Dysuria, frequent urination, hematuria, nocturia and urinary incontinence. Endocrine Negative Weight gain and weight loss. Neuro Negative Difficulty walking, headache, paresthesia, poor coordination and seizures. Psych Negative Anxiety, depression and insomnia. Integumentary Negative Frequent skin infections, itching skin, rash and skin lesion. MS Negative Except as noted in HPI and chief complaint and muscle weakness. Doug/Lymph Negative Bruising and easy bleeding. Allergic/Immuno Negative Contact dermatitis, environmental allergies, food allergies, infections and seasonal allergies. Vitals: 05/13/19 1349 Temp: 98 degrees F (36.7 degrees C) Weight: 104.3 kg (230 lb) Height: 1.626 m (5' 4 ) Physical Exam: Exam Findings Details Constitutional * Level of distress - no acute distress. Nourishment - well nourished. Overall appearance - age appropriate. Head/Face Normal Facial features - Normal. Skull - Normal. Nasopharynx Comments Noraml cephalic, atraumatic Respiratory Normal Auscultation - Normal. Cough - Absent. Effort - Normal. Cardiovascular Normal Heart rate - Regular rate. Rhythm - Regular. Heart sounds - Normal S1, NormalS2. Extra sounds - None. Murmurs - None. Abdomen Normal Inspection - Normal. No abdominal tenderness. Abdomen * Auscultation - normal bowel sounds. Anterior palpation - no guarding. Skin * Inspection - General inspection: no rashes. Detailed inspection - Visual lesions: none. Rash- Description: none. Back/Spine Normal Lateral - No Kyphosis. Flexion - Normal. Extension - Normal. Back/Spine Comments negative kidney percussion Neurological Normal Level of consciousness - Normal. Orientation - Normal. Memory - Normal. Balance& gait - Normal. Hand dominance - Right-handed. Psychiatric Normal Orientation - Oriented to time, place, person & situation. Right Upper extremity: Well healing incision sites No drainage or signs of infection DNVI Upper extremity exam: Left No obvious deformity. Non tender with palpation. No atrophy. Decreased sensation in the median nerve distribution. Carpal tunnel compression: Positive Phalen's: Positive Carpal tunnel tinel's: Positive Distally neurovascularly intact. Left upper extremity evaluation: No obvious deformity. Cubital tunnel tinel's: Positive Cubital tunnel compression: Positive Distally neurovascular intact. Review of Images: See procedure note Assessment: ICD-10-CM 1. S/P carpal tunnel release Z98.890 2. S/P cubital tunnel release Z98.890 3. Carpal tunnel syndrome, left G56.02 4. Cubital tunnel syndrome on left G56.22 Plan: At this time, she has well healing surgical sites, no drainage or signs of infection on her Right hand and elbow. She has been advised she should use caution but she has minimal limitations from us at this time. She can use a normal bandage for comfort when using a mouse at work. We gave her a stress ball today to work on hand strength. We will see her at her next surgical intervention in a 4 weeks for Left Carpal Tunnel release and Cubital tunnel release and other interventions as needed. She is scheduled for surgery and has been cleared for surgery. We will see her the day of surgery. Call with any questions or concerns in the meantime. Consent: Both Surgical and Non-surgical methods of treatment were discussed with the patient and they have elected to proceed with surgery. The risks and benefits were thoroughly explained including but not limited to: infection, bleeding, neurovascular damage, blood clots which may lead to pulmonary embolism, the need for further surgery stroke, and . It was also explained that the goal of surgery are to correct structural abnormalities that may be resulting in his pain but may not get rid of all the pain they are experiencing. The patient voiced full understanding and wish to proceed with surgery. They will be scheduled in the near future. Left carpal tunnel release and cubital tunnel release, and other interventions as needed documented in this encounter* Jewels Kang, [employer]PER[employer]ENDENT[employer]BUTION [employer]HEME EXAMINER - 07/27/2019 3:00 PM EST Chief Complaint Patient presents with Post Op Visit 6 weeks s/p left CTR and unlnar nerve of left elbow. States the burning and tingling is gone but she continue to have a little muscle pain and numbness in the elbow. Post Op Visit 12 weeks s/p right CTR with ulnar nerve release. States she does have pain in the hand, states the tingling and numbness is gone, continues to have pain in the muscles and the elbow is numb at times. HPI: She presents 6 weeks status post left cubital tunnel release and carpal tunnel release. She states that she has numbness in the elbow along the incision but is slowly improving. She states that she no longer has any numbness and tingling in the hands. She states that she does have rough spots alongthe cubital tunnel incision. Denies any other issues or concerns. As for the right side, she presents 12 weeks status post right cubital tunnel release and carpal tunnel release. She denies any numbness or tingling in the hands. She states that she has pain along the muscle the thumb. She states that she has numbness along the elbow but that is slowly improving. Denies any other issues or concerns. She is happy with her progress overall. PMH: Past medical history, family history, social history, allergies and medications have been reviewed and are documented in the electronic record. ROS: Review of Systems System Neg/Pos Details Constitutional Negative Chills, fatigue, fever and night sweats. ENMT Negative Dysphagia, hearing loss, nasal congestion and vertigo. Eyes Negative Blurred vision and vision loss. Respiratory Negative Chest pain, cough, dyspnea, known TB exposure and wheezing. Cardio Negative Chest pain, cyanosis, heart murmur, irregular heartbeat/palpitations and syncope. GI Negative Abdominal pain, black tarry stools, constipation, diarrhea, heartburn, nausea and vomiting. Negative Dysuria, frequent urination, hematuria, nocturia and urinary incontinence. Endocrine Negative Weight gain and weight loss. Neuro Negative Difficulty walking, headache, paresthesia, poor coordination and seizures. Psych Negative Anxiety, depression and insomnia. Integumentary Negative Frequent skin infections, itching skin, rash and skin lesion. MS Negative Except as noted in HPI and chief complaint and muscle weakness. Doug/Lymph Negative Bruising and easy bleeding. Allergic/Immuno Negative Contact dermatitis, environmental allergies, food allergies, infections and seasonal allergies. Vitals: 07/27/19 1454 Temp: 97.7 degrees F (36.5 degrees C) Weight: 109.9 kg (242 lb 6 oz) Height: 1.626 m (5' 4 ) Physical Exam: Exam Findings Details Constitutional Normal No acute distress. Well developed. Head/Face Comments normal cephallic/ Atraumatic, negative spurling's maneuver Head/Face Normal Facial features - Normal. Skull - Normal. Hair and scalp - Normal. Respiratory Normal Cough - Absent. Effort - Normal. Skin * Detailed inspection - Visual lesions: none. Skin Comments other than as noted otherwise below in extremity exam Skin Normal Palpation/texture - Normal. Nails - Normal. Hair - Normal. Psychiatric Normal Orientation - Oriented to time, place, person & situation. Left upper extremity: Incision healing well. No erythema. No drainage. 1 mm segment of Monocryl exposed surface and removed with tweezers. No swelling noted. Decreased sensation along posterior aspect of elbow, otherwise Distally neurovascular intact. Right upper extremity: Incisions healed well. No erythema. No drainage. Decreased sensation along posterior aspect of elbow, otherwise distally neurovascularly intact. Assessment: ICD-10-CM 1. S/P carpal tunnel release Z98.890 2. S/P cubital tunnel release Z98.890 Plan: At this time, she is doing well. She is progressing as expected. We offered hand therapy to help with the pain of the thenar muscle but she declined at this time. She wishes to perform exercises and massage is on her own at home. We discussed that the decreased sensation she is experiencing along both elbows are likely secondary to the incisions and will likely continue to improve with time. She will follow-up in 6 weeks for repeat evaluation if needed. Call the office with any questions or concerns in the meantime. documented in this encounter* Demarco Lopez MD - 08/26/2019 8:00 AM EST CC: Headaches History of Present Illness Ms. Bella returns to the office for a 7-month follow-up primarily for headache management. She also is now s/p bilateral CTS release and bilateral Ulnar Nerve Transposition as of May 2019. Headaches have thought to have an etiology from the cervical spine; thus, she has been on Flexeril and Gabapentin most recently. Patient's care has been made complex due to multiple past medication failures. The patient reports that the surgeries have solved the burning pains in the hands. She is now pain-free for the first time in 15 years! The patient reports having just 1-2 bad headache days per month. She really likes the combination of low dose Gabapentin and Flexeril. She needs refills on both. Doses are confirmed in the chart below. Patient reports that she has moved an hour away. She would like to make appointments once per year. Previous Medication Trials 1. Lamictal 2. Zanaflex 3. Zonegran 4. Topamax 5. Lyrica 6. Gabapentin 7. Atenolol 8. Flexeril OARRS--Gabapentin Labs/Studies Study: EMG/NCV BUE Date: 03/05/2019 Patient Name: Sharon Bella Patient : 1975 Preliminary Impression: Moderate bilateral CTS Mild bilateral Cubital Tunnel Syndrome Past Medical, Surgical, Social, Family History Updates 1. Medical--none 2. Surgical--Bilateral Ulnar Transposition and Bilateral CTS Release (May 2019) 3. Social--patient moved an hour away to [facility] 4. Family--none Current Outpatient Medications Medication Sig Last Dose Start Date End Date Authorizing Provider atenolol 50 MG Tab tablet 50 mg, Oral, 2 TIMES DAILY Taking 05/04/19 Rhett Brito MD Cetirizine HCl (ZYRTEC PO) 1 tablet, Oral, DAILY AT BEDTIME Taking Historical Provider cyclobenzaprine 5 MG Tab tablet Take 1 tab PO each morning and 2 tabs PO each bedtime Taking 07/27/19 Demarco Lopez MD gabapentin (NEURONTIN) 300 MG Cap capsule Take 1 cap PO each morning and 2 caps PO QHS Taking 07/27/19 01/31/20 Demarco Lopez MD gliMEPIride 2 MG Tab 3 mg, Oral, 2 TIMES DAILY Taking 05/04/19 Rhett Brito MD GLUCOSE MONITOR LANCETS PRESCRIPTION daily Taking 10/23/17 Rhett Brito MD GLUCOSE MONITOR PRESCRIPTION daily Taking 10/23/17 Rhett Brito MD GLUCOSE TEST STRIPS PRESCRIPTION daily Taking 10/23/17 Rhett Brito MD Magnesium 500 MG Tab 500 mg, Oral, DAILY AT BEDTIME Taking Historical Provider Multiple Vitamin (VIT E-VIT C-BETA CAROTENE) [phone] Tab 250 mg, Oral, DAILY Taking HistoricalProvider omeprazole [address] 20 mg, Oral, DAILY AT BEDTIME Taking Historical Provider oxyCODONE-acetaminophen 5-325 MG Tab per tablet 1-2 tabs PO every 4-6 hrs as needed for pain 06/11/19 06/16/19 Jewels Kang APRN-YUMIKO predniSONE 10 MG Tab tablet Take 4 tabs PO Days #1-2, 3 tabs Days #3-4, 2 tabs Days # 5-6, 1 tab Days #7-8 Taking 01/26/19 Demarco Lopez MD Probiotic Product (PROBIOTIC-10 PO) Oral, DAILY EVERY MORNING Taking Historical Provider Pyridoxine HCl (VITAMIN B-6) 25 MG Tab Oral Taking Historical Provider Vitamin E Skin 14174 units Oil Apply externally Taking Historical Provider Allergies Allergen Reactions Tramadol Nausea and Vomiting Review of Systems Constitutional: Negative for appetite change, chills, diaphoresis, fatigue, fever and unexpected weight change. HENT: Negative for congestion, ear pain, hearing loss, nosebleeds, rhinorrhea, sinus pressure, sinus pain, sneezing, sore throat, tinnitus, trouble swallowing and voice change. Eyes: Negative for photophobia, pain and visual disturbance. Respiratory: Negative for apnea, cough, choking, chest tightness, shortness of breath, wheezing andstridor. Cardiovascular: Negative for chest pain, palpitations and leg swelling. Gastrointestinal: Negative for abdominal distention, abdominal pain, anal bleeding, blood in stool,constipation, diarrhea, nausea, rectal pain and vomiting. Endocrine: Negative for cold intolerance, heat intolerance, polydipsia, polyphagia and polyuria. Genitourinary: Negative for decreased urine volume, difficulty urinating, dysuria, flank pain, frequency, hematuria and urgency. Musculoskeletal: Positive for back pain and neck pain. Negative for arthralgias, gait problem, joint swelling, myalgias and neck stiffness. Skin: Negative for color change, pallor, rash and wound. Allergic/Immunologic: Negative for food allergies and immunocompromised state. Neurological: Positive for headaches. Negative for dizziness, tremors, seizures, syncope, facial asymmetry, speech difficulty, weakness, light-headedness and numbness. Hematological: Negative for adenopathy. Does not bruise/bleed easily. Psychiatric/Behavioral: Negative for agitation, behavioral problems, confusion, decreased concentration, dysphoric mood, hallucinations, self-injury, sleep disturbance and suicidal ideas. The patientis not nervous/anxious and is not hyperactive. Vitals: Blood pressure 138/84, pulse 88, resp. rate 16, height 1.626 m (5' 4 ), weight 110.2 kg (243 lb), not currently . Physical Exam Constitutional: General: She is not in acute distress. Appearance: Normal appearance. She is well-developed. She is not ill-appearing, toxic-appearing or diaphoretic. HENT: Head: Normocephalic and atraumatic. Right Ear: Hearing and external ear normal. Left Ear: Hearing and external ear normal. Nose: Nose normal. Mouth/Throat: Pharynx: Uvula midline. Eyes: General: Lids are normal. Conjunctiva/sclera: Conjunctivae normal. Pupils: Pupils are equal, round, and reactive to light. Neck: Musculoskeletal: Full passive range of motion without pain, normal range of motion and neck supple.Normal range of motion. No neck rigidity, spinous process tenderness or muscular tenderness. Vascular: No carotid bruit. Trachea: Trachea and phonation normal. Cardiovascular: Rate and Rhythm: Normal rate and regular rhythm. Heart sounds: Normal heart sounds, S1 normal and S2 normal. Pulmonary: Effort: Pulmonary effort is normal. No tachypnea, bradypnea, accessory muscle usage or respiratory distress. Breath sounds: Normal breath sounds. Abdominal: General: Bowel sounds are normal. Palpations: Abdomen is soft. Tenderness: There is no abdominal tenderness. Lymphadenopathy: Cervical: No cervical adenopathy. Skin: General: Skin is warm and dry. Coloration: Skin is not pale. Findings: No rash. Nails: There is no clubbing. Neurological: Mental Status: She is alert and oriented to person, place, and time. Cranial Nerves: Cranial nerves are intact. Motor: Motor function is intact. No abnormal muscle tone. Coordination: Coordination is intact. Gait: Gait normal. Psychiatric: Attention and Perception: Attention normal. Mood and Affect: Mood normal. Speech: Speech normal. Behavior: Behavior normal. Thought Content: Thought content normal. Cognition and Memory: Cognition normal. Judgment: Judgment normal. Neurologic Exam Mental Status Oriented to person, place, and time. Speech: speech is normal Cranial Nerves CN III, IV, Pupils are equal, round, and reactive to light. Assessment and Plan 1. Cervicogenic Headache A. The patient was granted refills for the next 6 months on both the Flexeril and the Gabapentin. She plans on following up with Dr. Brito for other medical issues. I suspect she can get future refills from Dr. Brito. If Dr. Brito is not comfortable writing for these medications, I can fill again to get her to a 1 year follow-up. B. Follow up in 1 year or prn. Please note this visit consumed 15-20 minutes, of which half or more was dedicated to [id number] counseling of the problems/issues and coordination of all care. documented in this encounter* Rhett Brito MD - 12/14/2019 2:40 PM EDT Subjective: Sharon Bella is a 44 y.o. female who presents for yearly physical and health maintenance. she is feeling well overall Patient Active Problem List Diagnosis Varicose veins Chronic tension-type headache, intractable Contraceptive surveillance Contraceptive, surveillance, intrauterine device Dysfunctional uterine bleeding Hyperprolactinemia Pelvic pain in female Phlebitis of leg, superficial Visit for insertion of intrauterine device Diabetes (A1C > or equal to 6.5%) Tendonitis, Achilles, right body mass index of 40.0-49.9 Past Medical History: Diagnosis Date Diabetes mellitus Essential hypertension, benign Exercise tolerance finding METS > 4 stairs daily GERD (gastroesophageal reflux disease) History of corticosteroid therapy < 2yrs Migraine Pain Rt elbow, headaches, cervical spine issues Varicose vein of leg Past Surgical History: Procedure Laterality Date DECOMPRESSION TRANSPOSITION MEDIAN NERVE Left 06/11/2019 Laterality: Left; Surgeon: Sukh Pradhan MD; Location: [facility] DECOMPRESSION TRANSPOSITION ULNAR NERVE ELBOW Left 06/11/2019 Laterality: Left; Surgeon: Sukh Pradhan MD; Location: [facility] DECOMPRESSION TRANSPOSITION MEDIAN NERVE Right 04/30/2019 Laterality: Right; Surgeon: Sukh Pradhan MD; Location: [facility] DECOMPRESSION TRANSPOSITION ULNAR NERVE ELBOW Right 04/30/2019 Laterality: Right; Surgeon: Sukh Pradhan MD; Location: [facility] OR RELEASE TENDON ELBOW OPEN W/ TENDON REPAIR OR REATTACHMENT Right 06/18/2017 Laterality: Right; Surgeon: Sukh Pradhan MD; Location: [facility] ELBOW SURGERY Left 11/01/2016 Lt lateral epicondyle debrideent & repair Dr Sukh Pradhan @ [facility] Bilateral 2002 lasik TONSILLECTOMY 1985 Social History Socioeconomic History Marital status: Single Spouse name: Not on file Number of children: Not on file Years of education: Not on file Highest education level: Not on file Occupational History Not on file Social Needs Financial resource strain: Not on file Food insecurity Worry: Not on file Inability: Not on file Transportation needs Medical: Not on file Non-medical: Not on file Tobacco Use Smoking status: Never Smoker Smokeless tobacco: Never Used Substance and Sexual Activity Alcohol use: Yes Comment: rarely Drug use: No Sexual activity: Yes control/protection: I.U.D. Comment: LMP WEEK AGO Lifestyle Physical activity Days per week: Not on file Minutes per session: Not on file Stress: Not on file Relationships Social connections Talks on phone: Not on file Gets together: Not on file Attends caodaism service: Not on file Active member of club or organization: Not on file Attends meetings of clubs or organizations: Not on file Relationship status: Not on file Intimate partner violence Fear of current or ex partner: Not on file Emotionally abused: Not on file Physically abused: Not on file Forced sexual activity: Not on file Other Topics Concern Not on file Social History Narrative Not on file Family History Problem Relation Age of Onset Other - Specify Mother Headaches Diabetes Mother Breast Cancer Mother Arthritis - Rheumatoid Mother Allergy - Severe Mother Hypertension Mother Prostate Cancer Father Arthritis - Rheumatoid Father Myocardial Infarction Father Colon Cancer Father Lung Cancer Father Heart Disease - Other Father Hypertension Father Thyroid Disease Father Patient requests that we perform a PAP test: no last pap 11/05/2019 Dr Chatman Family history of colon cancer: no , and if yes age at diagnosis: NA Family history of breast cancer: yes - mother, and if yes age at diagnosis: 50 s is getting yearly mammograms Results for orders placed or performed in visit on 11/13/19 HEMOGLOBIN A1C Result Value Ref Range HEMOGLOBIN A1C 11.7 (H) <6 % Estimated Average Glucose 289 mg/dL LIPID PANEL W CALCULATED LDL Result Value Ref Range CHOLESTEROL 169 100 - 199 MG/DL TRIGLYCERIDE 224 (H) <150 MG/DL HDL CHOLESTEROL 33 (L) 40 - 60 MG/DL LDL CHOLESTEROL, CALCULATED 91 0 - 100 MG/DL VLDL 45 (H) 5.0 - 25.0 MG/DL TCHOL/HDL RATIO, MANUAL ENTER 5.12 RATIO HEPATIC FUNCTION PANEL Result Value Ref Range ALBUMIN 4.0 3.5 - 5.0 G/DL BILIRUBIN, TOTAL 0.2 0.2 - 1.2 MG/DL ALKALINE PHOSPHATASE 76 38 - 126 IU/L AST 37 15 - 41 IU/L BILIRUBIN, DIRECT 0.0 0.0 - 0.2 MG/DL PROTEIN, TOTAL 7.1 6.3 - 8.2 GM/DL ALT 50 14 - 54 IU/L BASIC METABOLIC PANEL Result Value Ref Range GLUCOSE 350 (H) 70 - 100 MG/DL BUN 14 7 - 20 MG/DL CREATININE SERUM 0.61 0.52 - 1.04 MG/DL SODIUM 134 (L) 136 - 145 MMOL/L POTASSIUM 4.3 3.5 - 5.1 MMOL/L CHLORIDE 102 98 - 107 MMOL/L CARBON DIOXIDE (CO2) 23 22 - 30 MMOL/L ANION GAP 9 8 - 16 MMOL/L CALCIUM 8.9 8.4 - 10.2 MG/DL ESTIMATED GFR, NON AMER >60 ml/min/1.73sq.m ESTIMATED GFR, >60 ml/min/1.73sq.m GFR COMMENT Average GFR for 40-49 years old = 99. General: No fever, chills, weight loss. HEENT: No sinus pain, ear pain, sore throat. Neck: No LAD. Lungs: No cough, sputum, pleuritic pain, hemoptysis, SOB. CV: No chest pain, palpitation, orthopnea, PND, edema. GI: No abd pain, nausea, vomiting, diarrhea, constipation, melena, hematochezia. : No dysuria, frequency, hematuria. Periods have been normal without changes. Skin: No rash or lesion. Neuro: No mental status changes, headache, focal neurologic complaints. Objective: Blood pressure 131/84, pulse 69, height 1.6 m (5' 3 ), weight 108.9 kg (240 lb), not currently . Results for orders placed or performed in visit on 11/13/19 HEMOGLOBIN A1C Result Value Ref Range HEMOGLOBIN A1C 11.7 (H) <6 % Estimated Average Glucose 289 mg/dL LIPID PANEL W CALCULATED LDL Result Value Ref Range CHOLESTEROL 169 100 - 199 MG/DL TRIGLYCERIDE 224 (H) <150 MG/DL HDL CHOLESTEROL 33 (L) 40 - 60 MG/DL LDL CHOLESTEROL, CALCULATED 91 0 - 100 MG/DL VLDL 45 (H) 5.0 - 25.0 MG/DL TCHOL/HDL RATIO, MANUAL ENTER 5.12 RATIO HEPATIC FUNCTION PANEL Result Value Ref Range ALBUMIN 4.0 3.5 - 5.0 G/DL BILIRUBIN, TOTAL 0.2 0.2 - 1.2 MG/DL ALKALINE PHOSPHATASE 76 38 - 126 IU/L AST 37 15 - 41 IU/L BILIRUBIN, DIRECT 0.0 0.0 - 0.2 MG/DL PROTEIN, TOTAL 7.1 6.3 - 8.2 GM/DL ALT 50 14 - 54 IU/L BASIC METABOLIC PANEL Result Value Ref Range GLUCOSE 350 (H) 70 - 100 MG/DL BUN 14 7 - 20 MG/DL CREATININE SERUM 0.61 0.52 - 1.04 MG/DL SODIUM 134 (L) 136 - 145 MMOL/L POTASSIUM 4.3 3.5 - 5.1 MMOL/L CHLORIDE 102 98 - 107 MMOL/L CARBON DIOXIDE (CO2) 23 22 - 30 MMOL/L ANION GAP 9 8 - 16 MMOL/L CALCIUM 8.9 8.4 - 10.2 MG/DL ESTIMATED GFR, NON AMER >60 ml/min/1.73sq.m ESTIMATED GFR, >60 ml/min/1.73sq.m GFR COMMENT Average GFR for 40-49 years old = 99. HEENT: NC/AT, PERRLA, EOMI, fundi benign, external ears normal, OP normal. Neck: No LAD/thyromegaly. No JVD/bruit. Lungs: Clear to auscultation bilaterally. No wheezes, rales, ronchi. Heart: RRR. No S3/S4. Abdomen: Soft, NT/ND, normal bowel sounds, no HSM, no bruits. Extremities: No clubbing, cyanosis, edema. Normal pulses. Neurologic: CN II-XII intact. Strength/DTR's/sensation symmetric. Cerebellar function normal. Skin: No rash or suspicious lesions. Musculoskeletal: No edema, redness, warmth, deformities. Psychiatric: Alert and oriented. Affect and mood normal. Assessment and Plan: 1. Routine medical exam UTD labs and screenings. 2. Cervical cancer screening See above. 3. Breast cancer screening See above. 4. Colon cancer screening Due at 50. Rhett Brito MD 12/14/2019 * Paulette Blanchard MA - 12/14/2019 2:40 PM EDT Subjective: Sharon Bella is a 44 y.o. female who presents for yearly physical and health maintenance. she is feeling well overall Patient Active Problem List Diagnosis Varicose veins Chronic tension-type headache, intractable Contraceptive surveillance Contraceptive, surveillance, intrauterine device Dysfunctional uterine bleeding Hyperprolactinemia Pelvic pain in female Phlebitis of leg, superficial Visit for insertion of intrauterine device Diabetes (A1C > or equal to 6.5%) Tendonitis, Achilles, right body mass index of 40.0-49.9 Past Medical History: Diagnosis Date Diabetes mellitus Essential hypertension, benign Exercise tolerance finding METS > 4 stairs daily GERD (gastroesophageal reflux disease) History of corticosteroid therapy < 2yrs Migraine Pain Rt elbow, headaches, cervical spine issues Varicose vein of leg Past Surgical History: Procedure Laterality Date DECOMPRESSION TRANSPOSITION MEDIAN NERVE Left 06/11/2019 Laterality: Left; Surgeon: Sukh Pradhan MD; Location: [facility] DECOMPRESSION TRANSPOSITION ULNAR NERVE ELBOW Left 06/11/2019 Laterality: Left; Surgeon: Sukh Pradhan MD; Location: [facility] DECOMPRESSION TRANSPOSITION MEDIAN NERVE Right 04/30/2019 Laterality: Right; Surgeon: Sukh Pradhan MD; Location: [facility] DECOMPRESSION TRANSPOSITION ULNAR NERVE ELBOW Right 04/30/2019 Laterality: Right; Surgeon: Sukh Pradhan MD; Location: [facility] OR RELEASE TENDON ELBOW OPEN W/ TENDON REPAIR OR REATTACHMENT Right 06/18/2017 Laterality: Right; Surgeon: Sukh Pradhan MD; Location: [facility] ELBOW SURGERY Left 11/01/2016 Lt lateral epicondyle debrideent & repair Dr Sukh Pradhan @ [facility] Bilateral 2003 lasik TONSILLECTOMY 1986 Social History Socioeconomic History Marital status: Single Spouse name: Not on file Number of children: Not on file Years of education: Not on file Highest education level: Not on file Occupational History Not on file Social Needs Financial resource strain: Not on file Food insecurity Worry: Not on file Inability: Not on file Transportation needs Medical: Not on file Non-medical: Not on file Tobacco Use Smoking status: Never Smoker Smokeless tobacco: Never Used Substance and Sexual Activity Alcohol use: Yes Comment: rarely Drug use: No Sexual activity: Yes control/protection: I.U.D. Comment: LMP WEEK AGO Lifestyle Physical activity Days per week: Not on file Minutes per session: Not on file Stress: Not on file Relationships Social connections Talks on phone: Not on file Gets together: Not on file Attends caodaism service: Not on file Active member of club or organization: Not on file Attends meetings of clubs or organizations: Not on file Relationship status: Not on file Intimate partner violence Fear of current or ex partner: Not on file Emotionally abused: Not on file Physically abused: Not on file Forced sexual activity: Not on file Other Topics Concern Not on file Social History Narrative Not on file Family History Problem Relation Age of Onset Other - Specify Mother Headaches Diabetes Mother Breast Cancer Mother Arthritis - Rheumatoid Mother Allergy - Severe Mother Hypertension Mother Prostate Cancer Father Arthritis - Rheumatoid Father Myocardial Infarction Father Colon Cancer Father Lung Cancer Father Heart Disease - Other Father Hypertension Father Thyroid Disease Father Patient requests that we perform a PAP test: no last pap 11/05/2019 Dr Chatman Family history of colon cancer: no , and if yes age at diagnosis: NA Family history of breast cancer: yes - mother, and if yes age at diagnosis: 50 s is getting yearly mammograms Results for orders placed or performed in visit on 11/13/19 HEMOGLOBIN A1C Result Value Ref Range HEMOGLOBIN A1C 11.7 (H) <6 % Estimated Average Glucose 289 mg/dL LIPID PANEL W CALCULATED LDL Result Value Ref Range CHOLESTEROL 169 100 - 199 MG/DL TRIGLYCERIDE 224 (H) <150 MG/DL HDL CHOLESTEROL 33 (L) 40 - 60 MG/DL LDL CHOLESTEROL, CALCULATED 91 0 - 100 MG/DL VLDL 45 (H) 5.0 - 25.0 MG/DL TCHOL/HDL RATIO, MANUAL ENTER 5.12 RATIO HEPATIC FUNCTION PANEL Result Value Ref Range ALBUMIN 4.0 3.5 - 5.0 G/DL BILIRUBIN, TOTAL 0.2 0.2 - 1.2 MG/DL ALKALINE PHOSPHATASE 76 38 - 126 IU/L AST 37 15 - 41 IU/L BILIRUBIN, DIRECT 0.0 0.0 - 0.2 MG/DL PROTEIN, TOTAL 7.1 6.3 - 8.2 GM/DL ALT 50 14 - 54 IU/L BASIC METABOLIC PANEL Result Value Ref Range GLUCOSE 350 (H) 70 - 100 MG/DL BUN 14 7 - 20 MG/DL CREATININE SERUM 0.61 0.52 - 1.04 MG/DL SODIUM 134 (L) 136 - 145 MMOL/L POTASSIUM 4.3 3.5 - 5.1 MMOL/L CHLORIDE 102 98 - 107 MMOL/L CARBON DIOXIDE (CO2) 23 22 - 30 MMOL/L ANION GAP 9 8 - 16 MMOL/L CALCIUM 8.9 8.4 - 10.2 MG/DL ESTIMATED GFR, NON AMER >60 ml/min/1.73sq.m ESTIMATED GFR, >60 ml/min/1.73sq.m GFR COMMENT Average GFR for 40-49 years old = 99. General: No fever, chills, weight loss. HEENT: No sinus pain, ear pain, sore throat. Neck: No LAD. Lungs: No cough, sputum, pleuritic pain, hemoptysis, SOB. CV: No chest pain, palpitation, orthopnea, PND, edema. GI: No abd pain, nausea, vomiting, diarrhea, constipation, melena, hematochezia. : No dysuria, frequency, hematuria. Periods have been normal without changes. Skin: No rash or lesion. Neuro: No mental status changes, headache, focal neurologic complaints. documented in this encounter* Doris Horner, MONISHA - 01/05/2020 1:56 PM EDT Spoke with patient about recent screening mammogram. Radiology results and recommendations were explained to the patient and questions answered. Additional imaging with bilateral diagnostic mammogramand bilateral us were suggested. Patient stated this is the 4th year in a row I have been called back for more imaging and it has always been negative. She stated her insurance isn't covering the additional imaging and she is still paying for the one from last year . Pt is refusing additional imaging at this time. This message will be routed to ordering physician. She was given contact information for any questions or concerns. documented in this encounter* Rhett Brito MD - 04/21/2020 8:00 AM EDT Diabetes - labs pending had done this AM Sharon Bella is a 44 y.o. female who presents in follow up for type 2 diabetes. she is feeling well with no complaints relative to her diabetes. Blood sugars have been running high. Patient has been compliant with medications. she denies medication side effects. Eating poorly and less active. she denies chest pain, SOB, SANDHU, palpitations, orthopnea, PND, edema, headache, focal neurologic complaints, claudication, dysesthesias, polyuria, polydipsia. Normal urine output. No vision changes. Last eye exam UTD. Hypertension Sharon Bella is a 44 y.o. female who presents in follow up for high blood pressure. she is feeling well. There are no complaints relative to her blood pressure. Ambulatory blood pressures are normal. Patient is compliant with medications. she denies any side effects from medications. Also obesity. Allergies controlled. Tension MAHAJAN's flared. Same MAHAJAN characteristic, just more frequent. General: No fever, chills, weight loss. HEENT: No sinus pain, ear pain, sore throat. Neck: No LAD. Lungs: No cough, sputum, pleuritic pain, hemoptysis, SOB. CV: No chest pain, palpitation, orthopnea, PND, edema. GI: No abd pain, nausea, vomiting, diarrhea, constipation, melena, hematochezia. : No dysuria, frequency, hematuria. Skin: No rash or lesion. Neuro: No mental status changes, headache, focal neurologic complaints. Objective: Blood pressure 144/87, pulse 70, resp. rate 18, height 1.6 m (5' 3 ), weight 110.2 kg (243 lb), notcurrently . Results for orders placed or performed in visit on 11/13/19 HEMOGLOBIN A1C Result Value Ref Range HEMOGLOBIN A1C 11.7 (H) <6 % Estimated Average Glucose 289 mg/dL LIPID PANEL W CALCULATED LDL Result Value Ref Range CHOLESTEROL 169 100 - 199 MG/DL TRIGLYCERIDE 224 (H) <150 MG/DL HDL CHOLESTEROL 33 (L) 40 - 60 MG/DL LDL CHOLESTEROL, CALCULATED 91 0 - 100 MG/DL VLDL 45 (H) 5.0 - 25.0 MG/DL TCHOL/HDL RATIO, MANUAL ENTER 5.12 RATIO HEPATIC FUNCTION PANEL Result Value Ref Range ALBUMIN 4.0 3.5 - 5.0 G/DL BILIRUBIN, TOTAL 0.2 0.2 - 1.2 MG/DL ALKALINE PHOSPHATASE 76 38 - 126 IU/L AST 37 15 - 41 IU/L BILIRUBIN, DIRECT 0.0 0.0 - 0.2 MG/DL PROTEIN, TOTAL 7.1 6.3 - 8.2 GM/DL ALT 50 14 - 54 IU/L BASIC METABOLIC PANEL Result Value Ref Range GLUCOSE 350 (H) 70 - 100 MG/DL BUN 14 7 - 20 MG/DL CREATININE SERUM 0.61 0.52 - 1.04 MG/DL SODIUM 134 (L) 136 - 145 MMOL/L POTASSIUM 4.3 3.5 - 5.1 MMOL/L CHLORIDE 102 98 - 107 MMOL/L CARBON DIOXIDE (CO2) 23 22 - 30 MMOL/L ANION GAP 9 8 - 16 MMOL/L CALCIUM 8.9 8.4 - 10.2 MG/DL ESTIMATED GFR, NON AMER >60 ml/min/1.73sq.m ESTIMATED GFR, >60 ml/min/1.73sq.m GFR COMMENT Average GFR for 40-49 years old = 99. HEENT: NC/AT, PERRLA, EOMI, fundi benign, external ears normal, OP normal. Neck: No LAD/thyromegaly. No JVD/bruit. Lungs: Clear to auscultation bilaterally. No wheezes, rales, ronchi. Heart: RRR. No S3/S4. Abdomen: Soft, NT/ND, normal bowel sounds, no HSM, no bruits. Extremities: No clubbing, cyanosis, edema. Normal pulses. Neurologic: CN II-XII intact. Strength/DTR's/sensation symmetric. Cerebellar function normal. Skin: No rash or suspicious lesions. Musculoskeletal: No edema, redness, warmth, deformities. Psychiatric: Alert and oriented. Affect and mood normal. Assessment and Plan: 1. Essential hypertension - atenolol 50 MG tablet; Take 1 tablet by mouth 2 times daily. Dispense: 180 tablet; Refill: 1 2. Bilateral carpal tunnel syndrome - cyclobenzaprine 10 MG tablet; Take 1 tablet by mouth Daily (with dinner). Dispense: 180 tablet; Refill: 1 - gabapentin (Neurontin) 300 MG capsule; Take 1 cap PO each morning and 2 caps PO QHS Dispense: 180capsule; Refill: 1 3. Chronic tension-type headache, intractable - cyclobenzaprine 10 MG tablet; Take 1 tablet by mouth Daily (with dinner). Dispense: 180 tablet; Refill: 1 - gabapentin (Neurontin) 300 MG capsule; Take 1 cap PO each morning and 2 caps PO QHS Dispense: 180capsule; Refill: 1 4. Cervicogenic headache - cyclobenzaprine 10 MG tablet; Take 1 tablet by mouth Daily (with dinner). Dispense: 180 tablet; Refill: 1 - gabapentin (Neurontin) 300 MG capsule; Take 1 cap PO each morning and 2 caps PO QHS Dispense: 180capsule; Refill: 1 5. Cervicalgia - cyclobenzaprine 10 MG tablet; Take 1 tablet by mouth Daily (with dinner). Dispense: 180 tablet; Refill: 1 - gabapentin (Neurontin) 300 MG capsule; Take 1 cap PO each morning and 2 caps PO QHS Dispense: 180capsule; Refill: 1 6. Type 2 diabetes mellitus without complication, without long-term current use of insulin - gliMEPIride 4 MG tablet; Take 1 tablet by mouth 2 times daily. Dispense: 180 tablet; Refill: 1 - FLU VACCINE SINGLE DOSE QUADRIVALENT 7. Allergic rhinitis, unspecified seasonality, unspecified trigger - montelukast 10 MG tablet; Take 1 tablet by mouth daily. Dispense: 90 tablet; Refill: [address] Rhett Brito MD 04/21/2020 * Paulette Blanchard MA - 04/21/2020 8:00 AM EDT Diabetes - labs pending had done this AM Sharon Bella is a 44 y.o. female who presents in follow up for type 2 diabetes. she is feeling well with no complaints relative to her diabetes. Blood sugars have been running high. Patient has been compliant with medications. she denies medication side effects. Eating poorly and less active. she denies chest pain, SOB, SANDHU, palpitations, orthopnea, PND, edema, headache, focal neurologic complaints, claudication, dysesthesias, polyuria, polydipsia. Normal urine output. No vision changes. Last eye exam UTD. Hypertension Sharon Bella is a 44 y.o. female who presents in follow up for high blood pressure. she is feeling well. There are no complaints relative to her blood pressure. Ambulatory blood pressures are normal. Patient is compliant with medications. she denies any side effects from medications. Also obesity. documented in this encounter* Rhett Brito MD - 07/06/2020 8:00 AM EST WEIGHT CONCERNS- Pt presents to office for evaluation of weight. Wt Readings from Last 3 Encounters: 07/06/20 116.6 kg (257 lb) 04/21/20 110.2 kg (243 lb) 12/14/19 108.9 kg (240 lb) Body mass index is 45.53 kg/m . Onset- 4 months (GAINING/LOSING)- gaining Exercise regimen: cardio, weight training Dietary changes: decreased sugar intake, decreased caloric intake Additional Comments: restarted diet and exercise this week, would like something to help ACUTE SICK VISIT- Onset: over 1 month Nasal Congestion or Runny nose: no Fever or chills (felt fevered): no Cough: yes Sore Throat: no Ear Pain: no Headache/Sinus Pain: headache Shortness of Breath/Wheezing: SOB Nausea/Vomiting/Diarrhea: no Loss of taste or smell- no Fatigue- no Body Aches- no POSITIVE exposure to COVID 19- no Health Care Worker- no Lives in a group setting- no Other- Pt was seen via telehealth 06/23/2020 dx with bronchitis. Cough has worsened Treatments tried and their effectiveness: Levaquin and prednisone Only symptoms is persistent dry cough. Recurred as soon as she stopped the prednisone. General: No fever, chills, weight loss. HEENT: No sinus pain, ear pain, sore throat. Neck: No LAD. Lungs: No sputum, pleuritic pain, hemoptysis, SOB. CV: No chest pain, palpitation, orthopnea, PND, edema. GI: No abd pain, nausea, vomiting, diarrhea, constipation, melena, hematochezia. : No dysuria, frequency, hematuria. Skin: No rash or lesion. Neuro: No mental status changes, headache, focal neurologic complaints. Objective: Blood pressure 142/83, pulse 68, resp. rate 16, weight 116.6 kg (257 lb), SpO2 91 %, not currently . Results for orders placed or performed in visit on 04/21/20 LIPID PANEL W CALCULATED LDL Result Value Ref Range CHOLESTEROL 184 100 - 199 MG/DL TRIGLYCERIDE 244 (H) <150 MG/DL HDL CHOLESTEROL 35 (L) 40 - 60 MG/DL LDL CHOLESTEROL, CALCULATED 100 0 - 100 MG/DL VLDL 49 (H) 5.0 - 25.0 MG/DL TCHOL/HDL RATIO, MANUAL ENTER 5.26 RATIO HEPATIC FUNCTION PANEL Result Value Ref Range ALBUMIN 4.0 3.5 - 5.0 G/DL BILIRUBIN, TOTAL 0.7 0.2 - 1.2 MG/DL ALKALINE PHOSPHATASE 85 38 - 126 IU/L AST 59 (H) 15 - 41 IU/L BILIRUBIN, DIRECT 0.0 0.0 - 0.2 MG/DL PROTEIN, TOTAL 7.5 6.3 - 8.2 GM/DL ALT 68 (H) 14 - 54 IU/L HEMOGLOBIN A1C Result Value Ref Range HEMOGLOBIN A1C 11.2 (H) <6 % Estimated Average Glucose 275 mg/dL BASIC METABOLIC PANEL Result Value Ref Range GLUCOSE 273 (H) 70 - 100 MG/DL BUN 15 7 - 20 MG/DL CREATININE SERUM 0.56 0.52 - 1.04 MG/DL SODIUM 134 (L) 136 - 145 MMOL/L POTASSIUM 4.0 3.5 - 5.1 MMOL/L CHLORIDE 100 98 - 107 MMOL/L CARBON DIOXIDE (CO2) 27 22 - 30 MMOL/L ANION GAP 7 (L) 8 - 16 MMOL/L CALCIUM 8.9 8.4 - 10.2 MG/DL ESTIMATED GFR, NON AMER >60 ml/min/1.73sq.m ESTIMATED GFR, >60 ml/min/1.73sq.m GFR COMMENT Average GFR for 40-49 years old = 99. HEENT: NC/AT, PERRLA, EOMI, fundi benign, external ears normal, OP normal. Neck: No LAD/thyromegaly. No JVD/bruit. Lungs: Clear to auscultation bilaterally. No wheezes, rales, ronchi. Heart: RRR. No S3/S4. Abdomen: Soft, NT/ND, normal bowel sounds, no HSM, no bruits. Extremities: No clubbing, cyanosis, edema. Normal pulses. Neurologic: CN II-XII intact. Strength/DTR's/sensation symmetric. Cerebellar function normal. Skin: No rash or suspicious lesions. Musculoskeletal: No edema, redness, warmth, deformities. Psychiatric: Alert and oriented. Affect and mood normal. Assessment and Plan: 1. Bronchopneumonia - predniSONE 20 MG tablet; Take 1 tablet by mouth daily for 13 days. 3 daily*3 days, 2 daily*3 days, 1 daily*3 days, 1/2 daily*4 days Dispense: 20 tablet; Refill: 0 2. Obesity due to excess calories without serious comorbidity, unspecified classification Discussed Contrsandra and Renaldo, too. Will check with insurance. - phentermine 37.5 MG tablet; Take 1 tablet by mouth every morning before breakfast. Dispense: 30 tablet; Refill: 0 Start Rx after prednisone is complete. Rhett Brito MD 07/06/2020 * Liv Vinson - 07/06/2020 8:00 AM EST WEIGHT CONCERNS- Pt presents to office for evaluation of weight. Wt Readings from Last 3 Encounters: 04/21/20 110.2 kg (243 lb) 12/14/19 108.9 kg (240 lb) 08/26/19 110.2 kg (243 lb) There is no height or weight on file to calculate BMI. Onset- 4 months (GAINING/LOSING)- gaining Exercise regimen: cardio, weight training Dietary changes: decreased sugar intake, decreased caloric intake Additional Comments: restarted diet and exercise this week, would like something to help ACUTE SICK VISIT- Onset: over 1 month Nasal Congestion or Runny nose: no Fever or chills (felt fevered): no Cough: yes Sore Throat: no Ear Pain: no Headache/Sinus Pain: headache Shortness of Breath/Wheezing: SOB Nausea/Vomiting/Diarrhea: no Loss of taste or smell- no Fatigue- no Body Aches- no POSITIVE exposure to COVID 19- no Health Care Worker- no Lives in a group setting- no Other- Pt was seen via telehealth 06/23/2020 dx with bronchitis. Cough has worsened Treatments tried and their effectiveness: Levaquin and prednisone documented in this encounter* Jewels Kang APRN-MAIL DISTRIBUTION SCHEME EXAMINER - 06/29/2019 10:40 AM EST Chief Complaint Patient presents with Post Op Visit 18 days s/p left CTR and unlnar nerve of left elbow. No numbness or tingling in the hands. States she removed the splint on the 24 of June. HPI: She presents 18 days s/p left carpal tunnel release and cubital tunnel release. Denies any numbnessor tingling. Denies any fever or chills. She removed the splint on June 24. She states she put neosporin on the carpal tunnel incision. She presents 8 weeks s/p right carpal and cubital tunnel release. She states she has mild numbness along the cubital tunnel incision, but no other neurovascular symptoms. Denies any other issues or concerns. PMH: Past medical history, family history, social history, allergies and medications have been reviewed and are documented in the electronic record. ROS: Review of Systems System Neg/Pos Details Constitutional Negative Chills, fatigue, fever and night sweats. ENMT Negative Dysphagia, hearing loss, nasal congestion and vertigo. Eyes Negative Blurred vision and vision loss. Respiratory Negative Chest pain, cough, dyspnea, known TB exposure and wheezing. Cardio Negative Chest pain, cyanosis, heart murmur, irregular heartbeat/palpitations and syncope. GI Negative Abdominal pain, black tarry stools, constipation, diarrhea, heartburn, nausea and vomiting. Negative Dysuria, frequent urination, hematuria, nocturia and urinary incontinence. Endocrine Negative Weight gain and weight loss. Neuro Negative Difficulty walking, headache, paresthesia, poor coordination and seizures. Psych Negative Anxiety, depression and insomnia. Integumentary Negative Frequent skin infections, itching skin, rash and skin lesion. MS Negative Except as noted in HPI and chief complaint and muscle weakness. Doug/Lymph Negative Bruising and easy bleeding. Allergic/Immuno Negative Contact dermatitis, environmental allergies, food allergies, infections and seasonal allergies. Vitals: 06/29/19 1042 Temp: 97.7 degrees F (36.5 degrees C) Weight: 106.6 kg (235 lb) Height: 1.626 m (5' 4 ) Physical Exam: Exam Findings Details Constitutional Normal No acute distress. Well developed. Head/Face Comments normal cephallic/ Atraumatic, negative spurling's maneuver Head/Face Normal Facial features - Normal. Skull - Normal. Hair and scalp - Normal. Respiratory Normal Cough - Absent. Effort - Normal. Skin * Detailed inspection - Visual lesions: none. Skin Comments other than as noted otherwise below in extremity exam Skin Normal Palpation/texture - Normal. Nails - Normal. Hair - Normal. Psychiatric Normal Orientation - Oriented to time, place, person & situation. Left upper extremity: Carpal tunnel incision head at base but widening of incision superficially. No erythema. No drainage. Shiny appearance noted to incision. Sutures removed. Steri strips placed. Cubital incision healing well. No erythema. No drainage. Sutures removed. Distally neurovascularly intact. Right upper extremity: Incisions healed well. No erythema. No drainage. Distally neurovascularly intact. Assessment: ICD-10-CM 1. S/P cubital tunnel release Z98.890 2. S/P carpal tunnel release Z98.890 Plan: At this time, she is doing well. She is progressing as expected. We discussed no neosporin on lotion due to causing the incision to soften. We placed steri strips and recommended to continue to applysteri strips for the next 4 days. We discussed the wound is healing secondarily. Keep incision clean and dry. Follow up in 4 weeks for repeat evaluation. Call with any question or concerns in the meantime. documented in this encounter* Rica Charles RPh,PharmD - 09/25/2020 11:27 AM EDT Pharmacy to Dose - Vancomycin Note PATIENT: Sharon Bella Room/Bed: [facility] Indication:PNA Current Regimen: Vancomycin Dose/Frequency: 1750 mg IV Q8 H Desired Therapeutic Trough Concentration: 15-20 g/mL Last Doses Administered: Drug/Dose: Date: Time: 1750mg 09/25/20 0435 Last Labs: WBC (WHITE BLOOD COUNT) Date Value Ref Range Status 09/25/2020 7.8 3.6 - 11.0 10*3/uL Final BUN Date Value Ref Range Status 09/25/2020 23 (H) 7.0 - 20.0 MG/DL Final CREATININE SERUM Date Value Ref Range Status 09/25/2020 0.54 0.5 - 1.0 MG/DL Final I/O last 3 completed shifts: In: 1540 [P.O.:1540] Out: - Patient's CrCl is estimated to be 166 mL/min Levels: 20.5 g/mL drawn at 1025. Assessment and Plan: Based upon review of laboratory results, intake/output, culture results, and drug level assessment and interpretation, I have changed the Vancomycin dose and/or dosing interval to 1500 mg IV every 8 hr to start at 1200. A Pharmacist will continue to follow and order drug levels and adjust dosing asclinically appropriate. If necessary, I have modified the orders in [facility] to reflect the above plan. Please feel free to contact me with any further questions. Rica Charles RPh,PharmD, [facility] Phone: [phone] Date/Time: 09/25/2020 11:27 AM * Rica Charles RPh,PharmD - 09/25/2020 10:49 AM EDT Pharmacy - IV to PO Conversion Documentation NAME: Sharon Bella Room/Bed: [facility] Previous Medication Order: levofloxacin 750mg IV every 24 hours New Medication Order: levofloxacin 750mg PO every 24 hours The above medication was converted from intravenous to oral administration in accordance with the [facility] IV to PO Conversion Policy. Orders have been updated in [facility]. The patient was eligible for conversion based one or more of the following: Functioning gastrointestinal tract and absence of bowel abnormalities Adequate oral intake o Soft or solid diet ordered o Tolerating at least 1000ml/day of oral fluids OR 40ml/hr of enteral nutrition Tolerating other oral medication Additional requirements for antimicrobials: o IV therapy received for 48-72 hours o WBC and differential trending toward normal range or stable leukocytosis with concomitant glucocorticoid use o Afebrile (temperature < 38C or < 100.4F) for at least 24 hours o Heart rate ? 90 beats per minute o Respiratory rate ? 20 breaths per minute o Systolic blood pressure ? 90 mm Hg (without vasopressor drugs) Please contact pharmacy if there are any questions. Pharmacy will continue to follow. Signed: Rica Charles RPh,[place], [facility] Phone: [phone] Date/Time: 09/25/2020 10:49 AM * Nia Sauceda RRT - 09/24/2020 3:20 PM EDT EKG performed for bradycardia * Abigail Anguiano CNP - 09/24/2020 2:42 PM EDT [facility] LOS: 3 days SUBJECTIVE: Patient resting in bed. Denies fever, chills, chest pain or sob. Is eating and drinking well. She complains of gas pain today. She did have some diarrhea earlier. PHYSICAL EXAMINATION: Blood pressure 153/73, pulse (!) 46, temperature 97.9 F (36.6 C), temperature source Oral, resp. rate 16, height 1.626 m (5' 4.02 ), weight 116 kg (255 lb 11.2 oz), SpO2 96 %, not currently . Gen: Comfortable in bed, no signs of distress HEENT: Normocephalic, atraumatic, Moist oral mucous membranes Neck: supple, Lungs: Clear to auscultation BL, anterior and posterior, without rales, rhonchi or wheezing- diminished Heart: Regular in rate and rhythm. Without murmur, rub or gallop Abd: Soft and non-distended. Non tender BSPx 4 Skin: No obvious rashes or cyanosis. Neuro: Grossly non-focal examination. Intake and Output: Intake/Output Summary (Last 24 hours) at 09/24/2020 1442 Last data filed at 09/24/2020 0900 Gross per 24 hour Intake 760 ml Output Net 760 ml Daily Weight: Wt Readings from Last 3 Encounters: 09/24/20 116 kg (255 lb 11.2 oz) 09/17/20 108.9 kg (240 lb) 09/13/20 111.1 kg (245 lb) CURRENT MEDICATIONS: Current Facility-Administered Medications Medication Dose Route Frequency Provider Last Rate Last Admin acetaminophen (TYLENOL) tablet 650 mg 650 mg Oral Q4H PRN Román June DO 650 mg at 09/23/202046 albuterol (VENTOLIN HFA) inhaler 1 puff 1 puff Inhalation Q6H PRN Pricilla K Sgambellone, [employer] SUPERINTENDENT-MAIL DISTRIBUTION SCHEME EXAMINER atenolol (TENORMIN) tablet 50 mg 50 mg Oral Q12H Pricilla K Sgambellone, [employer] SUPERINTENDENT-MAIL DISTRIBUTION SCHEME EXAMINER 50 mg at 09/24/20 0826 budesonide (PULMICORT) nebulizer suspension 0.5 mg 0.5 mg Inhalation Q12H Pricilla K Sgambellone, [employer] SUPERINTENDENT-MAIL DISTRIBUTION SCHEME EXAMINER 0.5 mg at 09/24/20 0739 cyclobenzaprine (FLEXERIL) tablet 10 mg 10 mg Oral BID PRN Pricilla K Sgambellone, [employer] SUPERINTENDENT-MAIL DISTRIBUTION SCHEME EXAMINER 10 mg at 09/24/20 0826 insulin regular (HumuLIN R;NovoLIN R) injection Subcutaneous 4x daily w/meals, HS Abigail Anguiano CNP 8 Units at 09/24/20 1230 And GLUCOSE (TRUEPLUS) chewable tablet 4-8 tablet 4-8 tablet Oral See admin instructions Abigail Anguiano CNP And dextrose 50% injection 25 g 25 g Intravenous See admin instructions Abigail Anguiano CNP enOXAParin (LOVENOX) injection 40 mg 40 mg Subcutaneous QHS Pricilla K Sgambellone, [employer] SUPERINTENDENT-MAIL DISTRIBUTION SCHEME EXAMINER 40 mg at 09/23/202045 gabapentin (NEURONTIN) capsule 300 mg 300 mg Oral QAM Pricilla K Sgambellone, [employer] SUPERINTENDENT- MAIL DISTRIBUTION SCHEME EXAMINER 300 mg at 09/24/20825 gabapentin (NEURONTIN) capsule 600 mg 600 mg Oral QHS Pricilla K Sgambellone, [employer] SUPERINTENDENT- MAIL DISTRIBUTION SCHEME EXAMINER 600 mg at 09/23/202046 hydrALAZINE (APRESOLINE) injection 10 mg 10 mg Intravenous Q6H PRN Abigail Anguiano CNP 10 mg at 09/24/20 0158 labetalol (NORMODYNE) injection 20 mg 20 mg Intravenous Q6H PRN Pricilla K Sgambellone, [employer] SUPERINTENDENT-MAIL DISTRIBUTION SCHEME EXAMINER levalbuterol (XOPENEX) inhalation solution 1.25 mg 1.25 mg Inhalation TID Pricilla K Sgambellone, [employer] SUPERINTENDENT-MAIL DISTRIBUTION SCHEME EXAMINER 1.25 mg at 09/24/20 1344 levoFLOXacin (LEVAQUIN) 750 mg in dextrose 5% premix IVPB 750 mg Intravenous Q24H Abigail Anguiano CNP 100 mL/hr at 09/24/20 1423 750 mg at 09/24/20 1423 magnesium sulfate 2 g/50 mL in sterile water premix IVPB 2 g 50 mL (total volume) 2 g Intravenous Daily Pricilla K Sgambellone, DISTRICT PLANT SUPERINTENDENT-YUMIKO methylPREDNISolone sodium succinate (SOLU-MEDROL) injection 40 mg 40 mg Intravenous Q8H Abigail Anguiano CNP montelukast (SINGULAIR) tablet 10 mg 10 mg Oral Daily Pricilla K Sgambellone, [employer] SUPERINTENDENT- MAIL DISTRIBUTION SCHEME EXAMINER 10 mg at 09/23/202046 ondansetron 4mg/2ml (ZOFRAN) injection 4 mg 4 mg Intravenous Q4H PRN Román June DO pantoprazole (PROTONIX) tablet DR 40 mg 40 mg Oral Daily Pricilla K Sgambellone, [employer] SUPERINTENDENT-MAIL DISTRIBUTION SCHEME EXAMINER 40 mg at 09/24/20 0826 potassium chloride (K-DUR) tablet ER 40 mEq 40 mEq Oral Daily Pricilla K Sgambellone, [employer] SUPERINTENDENT-MAIL DISTRIBUTION SCHEME EXAMINER Or potassium chloride 40 mEq in 0.9% sodium chloride 500 ml IVPB 40 mEq Intravenous Daily Pricilla K Sgambellone, [employer] SUPERINTENDENT-MAIL DISTRIBUTION SCHEME EXAMINER simethicone (MYLICON) chewable tablet 80 mg 80 mg Oral Q4H PRN Abigail Anguiano CNP sodium chloride (PF) 0.9 % injection 5 mL 5 mL Intravenous As directed PRN Pricilla K Sgambellone, [employer] SUPERINTENDENT-MAIL DISTRIBUTION SCHEME EXAMINER sodium chloride 0.9% IV solution Intravenous Continuous Román June DO 100 mL/hr at 452 Rate Verify at 09/24/20 0452 vancomycin (VANCOCIN) 1,750 mg in sodium chloride 0.9%, with overfill 567.5 mL (total volume) IVPB 1,750 mg Intravenous Q8HNS Madhu Gray DO 1,750 mg at 09/24/20 1220 [facility]: CBC Lab Results Component Value Date/Time WBC 9.0 09/24/2020 04:07 AM WBC 9.9 09/23/2020 05:31 AM WBC 9.2 09/22/2020 05:29 AM HGB 10.5 (L) 09/24/2020 04:07 AM HGB 10.3 (L) 09/23/2020 05:31 AM HGB 11.0 (L) 09/22/2020 05:29 AM HCT 31.5 (L) 09/24/2020 04:07 AM HCT 30.7 (L) 09/23/2020 05:31 AM HCT 33.0 (L) 09/22/2020 05:29 AM PLATELET 252 09/24/2020 04:07 AM PLATELET 237 09/23/2020 05:31 AM PLATELET 229 09/22/2020 05:29 AM Chemistry Lab Results Component Value Date/Time GLUCOSE 333 (H) 09/24/2020 12:21 PM GLUCOSE 345 (H) 09/24/2020 08:02 AM GLUCOSE 371 (H) 09/24/2020 04:07 AM GLUCOSE 279 (H) 09/23/2020 07:00 PM BUN 21 (H) 09/24/2020 04:07 AM BUN 21 (H) 09/23/2020 05:31 AM BUN 17 09/22/2020 05:29 AM CREATSERUM 0.57 09/24/2020 04:07 AM CREATSERUM 0.48 (L) 09/23/2020 05:31 AM CREATSERUM 0.59 09/22/2020 05:29 AM SODIUM 136 09/24/2020 04:07 AM SODIUM 136 09/23/2020 05:31 AM SODIUM 136 09/22/2020 05:29 AM POTASSIUM 4.2 09/24/2020 04:07 AM POTASSIUM 4.4 09/23/2020 05:31 AM POTASSIUM 4.0 09/22/2020 05:29 AM CHLORIDE 103 09/24/2020 04:07 AM CHLORIDE 104 09/23/2020 05:31 AM CHLORIDE 100 09/22/2020 05:29 AM CO2 24 09/24/2020 04:07 AM CO2 23 09/23/2020 05:31 AM CO2 23 09/22/2020 05:29 AM ALBUMIN 2.9 (L) 09/24/2020 04:07 AM ALBUMIN 2.9 (L) 09/23/2020 05:31 AM ALBUMIN 3.0 (L) 09/22/2020 05:29 AM CALCIUM 9.0 09/24/2020 04:07 AM CALCIUM 9.0 09/23/2020 05:31 AM CALCIUM 9.0 09/22/2020 05:29 AM PHOSPHORUS 2.9 09/24/2020 04:07 AM PHOSPHORUS 3.3 09/23/2020 05:31 AM PHOSPHORUS 3.9 09/22/2020 05:29 AM PHOSPHORUS 3.8 01/08/2004 10:35 PM MAGNESIUM 2.2 09/24/2020 04:07 AM MAGNESIUM 2.1 09/23/2020 05:31 AM MAGNESIUM 2.0 09/22/2020 05:29 AM COAG Lab Results Component Value Date/Time PT 16.9 (H) 09/23/2020 05:31 AM PT 16.7 (H) 09/22/2020 05:29 AM PT Quantity not sufficient 01/09/2004 11:51 AM INR 1.40 (H) 09/23/2020 05:31 AM INR 1.37 (H) 09/22/2020 05:29 AM INR Quantity not sufficient 01/09/2004 11:51 AM PTT Quantity not sufficient 01/09/2004 11:51 AM PTT 24 01/07/2004 09:40 PM PTT Specimen not received in laboratory. 01/07/2004 08:00 PM ABG Lab Results Component Value Date/Time HCO3 24.0 01/09/2004 08:08 PM HCO3 26.0 01/09/2004 08:08 PM PCO2 38.0 01/09/2004 08:08 PM PCO2 48.0 01/09/2004 08:08 PM PO2 27.00 01/09/2004 08:08 PM PO2 23.00 01/09/2004 08:08 PM ASSESSMENT & PLAN: Principal Problem: Pneumonia- X-ray showed pulmonary vascular congestion mild right lower lobe atelectasis and airspace disease questionable right lower lobe nodular density- CT of the chest mild consolidative RML- atelectasis - duo nebs-Levaquin/Solu-Medrol/supplement oxygen to maintain saturations greater than 90%-currently on room air- remains sob with exertion - Active Problems: Diabetes (A1C > or equal to 6.5%)- Sliding scale insulin body mass index of 40.0-49.9 Sepsis without acute organ dysfunction- Secondary pneumonia- Lactate of 2.1-CRP of 81-tachycardia, fever, tachypnea Diarrhea- stool culture and cdiff pending Insomnia - ambien as needed Bradycardia - ecg and telemetry - troponin x 3 - no chest pain/palpitations- DVT/GI prophylaxis-PPI and Lovenox Full Code Please note Portions of this note utilized TeamDynamixation software, please excuse any typographical or grammatical errors. Associated attestation - Madhu Gray, - 09/24/2020 3:10 PM EDT Patient seen and examined independently. Meds, labs, and radiographs reviewed. Lungs diminsihed R>L and heart tones regular on exam. CRP 30.3 ESR 80 +7% Bands. Discussed Bronch. Vanco/Levaquin. I agree with assessments and plan of care. * Rica Charles, [facility],PharmD - 09/24/2020 10:19 AM EDT Pharmacy to Dose - Vancomycin Note PATIENT: Sharon Bella Room/Bed: [facility] Indication:PNA Current Regimen: Vancomycin Dose/Frequency: 1500 mg IV Q8 H Desired Therapeutic Trough Concentration: 15-20 g/mL Last Doses Administered: Drug/Dose: Date: Time: 1500mg 09/24/20 0202 Last Labs: WBC (WHITE BLOOD COUNT) Date Value Ref Range Status 09/24/2020 9.0 3.6 - 11.0 10*3/uL Final BUN Date Value Ref Range Status 09/24/2020 21 (H) 7.0 - 20.0 MG/DL Final CREATININE SERUM Date Value Ref Range Status 09/24/2020 0.57 0.5 - 1.0 MG/DL Final I/O last 3 completed shifts: In: 1360 [P.O.:1360] Out: - Patient's CrCl is estimated to be 157 mL/min Levels: 10.0 g/mL drawn at 0932. Assessment and Plan: Based upon review of laboratory results, intake/output, culture results, and drug level assessment and interpretation, I have changed the Vancomycin dose and/or dosing interval to 1750mg mg IV every 8 hr to start at 1100 on 09/24/20. A Pharmacist will continue to follow and order drug levels and adjust dosing as clinically appropriate. If necessary, I have modified the orders in IS to reflect the above plan. Please feel free to contact me with any further questions. Rica Charles RPh,PharmJohnny, [facility] Phone: [phone] Date/Time: 09/24/2020 10:19 AM * Ivette Peralta RPh,PharmD - 09/23/2020 10:17 AM EDT Pharmacy to Dose - Vancomycin Note PATIENT: Sharon Bella Room/Bed: [facility] Indication:PNA Current Regimen: Vancomycin Dose/Frequency: 1500 mg IV Q8 H Desired Therapeutic Trough Concentration: 15-20 g/mL Last Doses Administered: Drug/Dose: Date: Time: 1500mg 09/23/20 0302 Last Labs: WBC (WHITE BLOOD COUNT) Date Value Ref Range Status 09/23/2020 9.9 3.6 - 11.0 10*3/uL Final BUN Date Value Ref Range Status 09/23/2020 21 (H) 7.0 - 20.0 MG/DL Final CREATININE SERUM Date Value Ref Range Status 09/23/2020 0.48 (L) 0.5 - 1.0 MG/DL Final I/O last 3 completed shifts: In: 360 [P.O.:360] Out: - Estimated Creatinine Clearance: 185 mL/min (A) (by C-G formula based on SCr of 0.48 mg/dL (L)). Levels: 12.3 g/mL drawn at 0904 09/23/20. Assessment and Plan: Based upon review of laboratory results, intake/output, culture results, and drug level assessment and interpretation, no changes to Vancomycin dose or dosing interval are indicated at this time. [id number] dose from 09/22/20 was NOT given, therefore, there is not enough pertinent information in thislevel to make changes. The trough has been rescheduled @ 0900 09/24/20. A Pharmacist will continue to follow and order drug levels and adjust dosing as clinically appropriate. If necessary, I have modified the orders in IS to reflect the above plan. Please feel free to contact me with any further questions. Ivette Peralta RPh,PharmJohnny, [facility] Phone: [phone] Date/Time: 09/23/2020 10:17 AM * Abigail Anguiano, MAIL DISTRIBUTION SCHEME EXAMINER - 09/23/2020 9:29 AM EDT [facility] LOS: 2 days SUBJECTIVE: Patient resting in bed. Denies fever, chills, chest pain or sob. Is eating and drinking well. PHYSICAL EXAMINATION: Blood pressure 166/89, pulse 69, temperature 97.7 F (36.5 C), temperature source Oral, resp. rate 16, height 1.626 m (5' 4.02 ), weight 114.3 kg (251 lb 14.4 oz), SpO2 93 %, not currently . Gen: Comfortable in bed, no signs of distress HEENT: Normocephalic, atraumatic, Moist oral mucous membranes Neck: supple, Lungs: Clear to auscultation BL, anterior and posterior, without rales, rhonchi or wheezing- diminished Heart: Regular in rate and rhythm. Without murmur, rub or gallop Abd: Soft and non-distended. Non tender BSPx 4 Skin: No obvious rashes or cyanosis. Neuro: Grossly non-focal examination. Intake and Output: Intake/Output Summary (Last 24 hours) at 09/23/2020 0929 Last data filed at 09/23/2020 0907 Gross per 24 hour Intake 610 ml Output Net 610 ml Daily Weight: Wt Readings from Last 3 Encounters: 09/23/20 114.3 kg (251 lb 14.4 oz) 09/17/20 108.9 kg (240 lb) 09/13/20 111.1 kg (245 lb) CURRENT MEDICATIONS: Current Facility-Administered Medications Medication Dose Route Frequency Provider Last Rate Last Admin acetaminophen (TYLENOL) tablet 650 mg 650 mg Oral Q4H PRN Román June DO 650 mg at 09/22/20 1854 albuterol (VENTOLIN HFA) inhaler 1 puff 1 puff Inhalation Q6H PRN Pricilla K Sgambellone, DISTRICT PLANT SUPERINTENDENT-MAIL DISTRIBUTION SCHEME EXAMINER atenolol (TENORMIN) tablet 50 mg 50 mg Oral Q12H Pricilla K Sgambellone, DISTRICT PLANT SUPERINTENDENT-MAIL DISTRIBUTION SCHEME EXAMINER 50 mg at 09/23/20 0853 budesonide (PULMICORT) nebulizer suspension 0.5 mg 0.5 mg Inhalation Q12H Pricilla K Sgambellone, DISTRICT PLANT SUPERINTENDENT-MAIL DISTRIBUTION SCHEME EXAMINER 0.5 mg at 09/23/20 0737 cyclobenzaprine (FLEXERIL) tablet 10 mg 10 mg Oral BID PRN Pricilla K Sgambellone, [employer] PLANT SUPERINTENDENT-MAIL DISTRIBUTION SCHEME EXAMINER 10 mg at 09/23/20 0853 insulin regular (HumuLIN R;NovoLIN R) injection Subcutaneous 4x daily w/meals, HS Abigail Anguiano CNP 8 Units at 09/23/20 0853 And GLUCOSE (TRUEPLUS) chewable tablet 4-8 tablet 4-8 tablet Oral See admin instructions Abigail Anguiano CNP And dextrose 50% injection 25 g 25 g Intravenous See admin instructions Abigail Anguiano CNP enOXAParin (LOVENOX) injection 40 mg 40 mg Subcutaneous QHS Pricilla K Sgambellone, DISTRICT PLANT SUPERINTENDENT-MAIL DISTRIBUTION SCHEME EXAMINER 40 mg at 09/22/202103 gabapentin (NEURONTIN) capsule 300 mg 300 mg Oral QAM Pricilla K Sgambellone, DISTRICT PLANT SUPERINTENDENT- MAIL DISTRIBUTION SCHEME EXAMINER 300 mg at 09/23/20 0853 gabapentin (NEURONTIN) capsule 600 mg 600 mg Oral QHS Pricilla K Sgambellone, DISTRICT PLANT SUPERINTENDENT- MAIL DISTRIBUTION SCHEME EXAMINER 600 mg at 09/22/202102 labetalol (NORMODYNE) injection 20 mg 20 mg Intravenous Q6H PRN Pricilla K Sgambellone, DISTRICT PLANT SUPERINTENDENT-MAIL DISTRIBUTION SCHEME EXAMINER levalbuterol (XOPENEX) inhalation solution 1.25 mg 1.25 mg Inhalation TID Pricilla K Sgambellone, DISTRICT PLANT SUPERINTENDENT-MAIL DISTRIBUTION SCHEME EXAMINER 1.25 mg at 09/23/20 0736 levoFLOXacin (LEVAQUIN) 750 mg in dextrose 5% premix IVPB 750 mg Intravenous Q24H Abigail Anguiano CNP Stopped at 09/22/20 1600 magnesium sulfate 2 g/50 mL in sterile water premix IVPB 2 g 50 mL (total volume) 2 g Intravenous Daily Pricilla K Sgambellone, DISTRICT PLANT SUPERINTENDENT-MAIL DISTRIBUTION SCHEME EXAMINER methylPREDNISolone sodium succinate (SOLU-MEDROL) injection 60 mg 60 mg Intravenous Q6H Román June, DO 60 mg at 09/23/20 0616 montelukast (SINGULAIR) tablet 10 mg 10 mg Oral Daily Pricilla K Sgambellone, DISTRICT PLANT SUPERINTENDENT- MAIL DISTRIBUTION SCHEME EXAMINER 10 mg at 09/22/20 2104 ondansetron 4mg/2ml (ZOFRAN) injection 4 mg 4 mg Intravenous Q4H PRN Román June, pantoprazole (PROTONIX) tablet DR 40 mg 40 mg Oral Daily Pricilla K Sgambellone, DISTRICT PLANT SUPERINTENDENT-MAIL DISTRIBUTION SCHEME EXAMINER 40 mg at 09/23/20 0853 potassium chloride (K-DUR) tablet ER 40 mEq 40 mEq Oral Daily Pricilla K Sgambellone, DISTRICT PLANT SUPERINTENDENT-MAIL DISTRIBUTION SCHEME EXAMINER Or potassium chloride 40 mEq in 0.9% sodium chloride 500 ml IVPB 40 mEq Intravenous Daily Pricilla K Sgambellone, DISTRICT PLANT SUPERINTENDENT-MAIL DISTRIBUTION SCHEME EXAMINER sodium chloride (PF) 0.9 % injection 5 mL 5 mL Intravenous As directed PRN Pricilla K Sgambellone, DISTRICT PLANT SUPERINTENDENT-MAIL DISTRIBUTION SCHEME EXAMINER sodium chloride 0.9% IV solution Intravenous Continuous Román June DO 100 mL/hr at 6 Rate Verify at 09/23/20 0726 vancomycin (VANCOCIN) 1,500 mg in sodium chloride 0.9%, with overfill 565 mL (total volume) IVPB 20mg/kg (Adjusted) Intravenous Q8HNS Pricilla K Sgambellone, DISTRICT PLANT SUPERINTENDENT-MAIL DISTRIBUTION SCHEME EXAMINER Stopped at 09/23/20 0727 [facility]: CBC Lab Results Component Value Date/Time WBC 9.9 09/23/2020 05:31 AM WBC 9.2 09/22/2020 05:29 AM WBC 9.1 09/21/2020 05:50 PM HGB 10.3 (L) 09/23/2020 05:31 AM HGB 11.0 (L) 09/22/2020 05:29 AM HGB 11.7 (L) 09/21/2020 05:50 PM HCT 30.7 (L) 09/23/2020 05:31 AM HCT 33.0 (L) 09/22/2020 05:29 AM HCT 35.2 (L) 09/21/2020 05:50 PM PLATELET 237 09/23/2020 05:31 AM PLATELET 229 09/22/2020 05:29 AM PLATELET 243 09/21/2020 05:50 PM Chemistry Lab Results Component Value Date/Time GLUCOSE 308 (H) 09/23/2020 07:12 AM GLUCOSE 338 (H) 09/23/2020 05:31 AM GLUCOSE 293 (H) 09/22/2020 10:40 PM GLUCOSE 314 (H) 09/22/2020 06:59 PM BUN 21 (H) 09/23/2020 05:31 AM BUN 17 09/22/2020 05:29 AM BUN 17 09/21/2020 05:50 PM CREATSERUM 0.48 (L) 09/23/2020 05:31 AM CREATSERUM 0.59 09/22/2020 05:29 AM CREATSERUM 0.61 09/21/2020 05:50 PM SODIUM 136 09/23/2020 05:31 AM SODIUM 136 09/22/2020 05:29 AM SODIUM 132 (L) 09/21/2020 05:50 PM POTASSIUM 4.4 09/23/2020 05:31 AM POTASSIUM 4.0 09/22/2020 05:29 AM POTASSIUM 3.9 09/21/2020 05:50 PM CHLORIDE 104 09/23/2020 05:31 AM CHLORIDE 100 09/22/2020 05:29 AM CHLORIDE 95 (L) 09/21/2020 05:50 PM CO2 23 09/23/2020 05:31 AM CO2 23 09/22/2020 05:29 AM CO2 27 09/21/2020 05:50 PM ALBUMIN 2.9 (L) 09/23/2020 05:31 AM ALBUMIN 3.0 (L) 09/22/2020 05:29 AM ALBUMIN 3.3 (L) 09/21/2020 05:50 PM CALCIUM 9.0 09/23/2020 05:31 AM CALCIUM 9.0 09/22/2020 05:29 AM CALCIUM 8.9 04/21/2020 07:51 AM PHOSPHORUS 3.3 09/23/2020 05:31 AM PHOSPHORUS 3.9 09/22/2020 05:29 AM PHOSPHORUS 3.8 01/08/2004 10:35 PM MAGNESIUM 2.1 09/23/2020 05:31 AM MAGNESIUM 2.0 09/22/2020 05:29 AM MAGNESIUM 5.0 (HH) 01/08/2004 10:35 PM COAG Lab Results Component Value Date/Time PT 16.9 (H) 09/23/2020 05:31 AM PT 16.7 (H) 09/22/2020 05:29 AM PT Quantity not sufficient 01/09/2004 11:51 AM INR 1.40 (H) 09/23/2020 05:31 AM INR 1.37 (H) 09/22/2020 05:29 AM INR Quantity not sufficient 01/09/2004 11:51 AM PTT Quantity not sufficient 01/09/2004 11:51 AM PTT 24 01/07/2004 09:40 PM PTT Specimen not received in laboratory. 01/07/2004 08:00 PM ABG Lab Results Component Value Date/Time HCO3 24.0 01/09/2004 08:08 PM HCO3 26.0 01/09/2004 08:08 PM PCO2 38.0 01/09/2004 08:08 PM PCO2 48.0 01/09/2004 08:08 PM PO2 27.00 01/09/2004 08:08 PM PO2 23.00 01/09/2004 08:08 PM ASSESSMENT & PLAN: Principal Problem: Pneumonia- X-ray showed pulmonary vascular congestion mild right lower lobe atelectasis and airspace disease questionable right lower lobe nodular density- CT of the chest mild consolidative RML- atelectasis - duo nebs-Levaquin/Solu-Medrol/supplement oxygen to maintain saturations greater than 90%-currently on room air- remains sob with exertion - will monitor another 24 hours Active Problems: Diabetes (A1C > or equal to 6.5%)- Sliding scale insulin body mass index of 40.0-49.9 Sepsis without acute organ dysfunction- Secondary pneumonia- Lactate of 2.1-CRP of 81-tachycardia, fever, tachypnea DVT/GI prophylaxis-PPI and Lovenox Full Code Please note Portions of this note utilized TeamDynamixation software, please excuse any typographical or grammatical errors. Associated attestation - Madhu Gray DO - 09/23/2020 5:49 PM EDT Patient seen and examined independently. Meds, labs, and radiographs reviewed. Lungs diminshed and heart tones regular on exam. CX NEG TD. I agree with assessments and plan of care. * Hardik Agarwal RPh,PharmD - 09/22/2020 6:00 PM EDT Pharmacy to Dose - Vancomycin Note PATIENT: Sharon Bella Room/Bed: [facility] Indication:MRSA PNA Current Regimen: Vancomycin Dose/Frequency: 1500 mg IV Q8 H Desired Therapeutic Trough Concentration: 15-20 g/mL Last Doses Administered: Drug/Dose: Date: Time: 1500mg 1000 Last Labs: WBC (WHITE BLOOD COUNT) Date Value Ref Range Status 09/22/2020 9.2 3.6 - 11.0 10*3/uL Final BUN Date Value Ref Range Status 09/22/2020 17 7.0 - 20.0 MG/DL Final CREATININE SERUM Date Value Ref Range Status 09/22/2020 0.59 0.5 - 1.0 MG/DL Final I/O last 3 completed shifts: In: 1000 [I.V.:1000] Out: 550 [Urine:550] Estimated Creatinine Clearance: 150 mL/min (by C-G formula based on SCr of 0.59 mg/dL). Levels: 10.9 g/mL drawn at 1758 today. Assessment and Plan: Based upon review of laboratory results, intake/output, culture results, and drug level assessment and interpretation, no changes to Vancomycin dose or dosing interval are indicated at this time. A Pharmacist will continue to follow and order drug levels and adjust dosing as clinically appropriate.If necessary, I have modified the orders in IHIS to reflect the above plan. Please feel free to contact me with any further questions. Hardik Agarwal RPh,PharmD, [facility] Phone: [phone] Date/Time: 09/22/2020 10:30 PM * Jovita Hernandez LSW - 09/22/2020 9:20 AM EDT 09/22/20 0918 Information Source Information Source patient Information Source Name Sharon Bella Information Source Number [phone] Contact Information Social Work Contact Name Jovita Mary Apartment House Manager's Food Insecurity In the past 12 months, were you worried about food running out before you are able to get more? No In the past 12 months, has food run out, and you didn't have money to get more? No Living Environment Lives With child(antonio), dependent Living Arrangements house Provides Primary Care For child(antonio) Primary Care Provided By self Support System Immediate family Able to Return to Prior Arrangements yes Employment/Financial Employed? Yes Employment/Financial Concerns no Source Of Income salary/wages Financial Concerns none Cognitive/Perceptual/Developmental Current Mental Status/Cognitive Functioning no deficits noted Recent Changes in Mental Status/Cognitive Functioning no changes Developmental Stage Stage 7 (35-65 years/Middle Adulthood) Generativity vs. Stagnation Emotional/Psychological Affect no deficits noted Mood congruent to situation Verbal Skills no deficits noted Current Interpersonal Conduct/Behavior appropriate to situation Thought Process Alterations no deficits noted Referral Information Referral Source admission list Spoke with patient. She states she is feeling okay. She lives at home with her son and plans to return home at discharge. She states she is still independent and working. Does not use any DME. She does not have home health services and is denying the need for them at this time. She states she will let her family know of discharge plans. No other questions or concerns. Case management to follow. documented in this encounter* Daisha Martin RN - 04/17/2019 2:30 PM EDT PAT- ADDITIONAL QUESTIONS VISION (glasses, contacts, or other impairments) no HEARING AIDS OR ANY TROUBLE HEARING no DIFFICULTY SWALLOWING no DENTAL APPLIANCES OR PROBLEMS (dentures, partials, loose teeth, missing teeth, broken teeth, caps or crowns) no BETA TITI USE yes STEROIDS IN THE PAST 2 YEARS yes HISTORY OF BLOOD TRANSFUSION/REACTION no CULTURAL OR METHODIST BELIEFS THAT WILL AFFECT CARE no MEDICAL CLEARANCE, CARDIOLOGY CLEARANCE no CONCERNS FOR PERSONAL SAFETY no HISTORY OF ANTIBIOTIC RESISTANT BACTERIAL INFECTION (MRSA, C-DIFF) no ACTIVITY TOLERANCE (MET LEVEL) >4 HISTORY OF ANESTHESIA COMPLICATION no CHEST PAIN (SEE ADDITIONAL CHEST PAIN QUESTIONNAIRE IF APPLICABLE) no ADVANCE DIRECTIVES Yes - family has access DIETARY RESTRICTIONS no HISTORY OF BLOOD CLOTS no IF PATIENT HAS NOT BEEN DIAGNOSED WITH SLEEP APNEA PLEASE COMPLETE STOP-BANG STOP Do you SNORE loudly (louder than talking or loud enough to be heard through closed doors)? no Has anyone OBSERVED you stop breathing during your sleep? no Do you often feel TIRED, fatigued, or sleepy during daytime? no Do you have or are you being treated for high blood PRESSURE? yes BMI more than 35kg/m2? yes AGE over 50 years old? no NECK circumference > 16 inches (40 cm)? no GENDER: Male? no TOTAL SCORE 2 PT ACCEPTED REFERRAL NA High risk of CATHIE: Yes 5-8 Intermediate risk of CATHIE: Yes 3-4 Low risk of CATHIE: Yes 0-2 * See DEPARTMENT OF SURGERY AND ANESTHESIA REFERRAL FOR SLEEP STUDY AND/OR PULMONARY CONSULT paper form signed by patient in chart. Verified procedure and surgery date with patient. Reviewed pt history and medications with patient.Pt was given instructions for upcoming surgery and given opportunity to ask questions. Pt verbalized understanding of instructions. documented in this encounter* Rhett Brito MD - 09/30/2020 11:00 AM EDT Date of Admission: 09/21/20 Date of Discharge: 09/25/20 Hospital: [facility] Primary DX: Pneumonia How have you been feeling since you got home: good Do you have new medications? yes Are you taking all your medications? yes How are you: Eating:good Sleeping: good Getting Around: fair Going to the Bathroom: good Other: Do you have visiting nurse/home health? no Did you have surgery? no If so, How is your wound: n/a Comments: n/a If you have Congestive Heart Failure are you weighing yourself? no Weight: n/a Any other issues or concerns? Discuss new BP meds. Switched to lisinopril in hospital. BP's much better. Has been on atenolol since before I started taking care of her. BS's running better since hospital. No lows. Minimal cough, no sputum. No fever, chills. No CP, hemoptysis, SOB. General: No fever, chills, weight loss. HEENT: No sinus pain, ear pain, sore throat. Neck: No LAD. Lungs: No sputum, pleuritic pain, hemoptysis. CV: No chest pain, palpitation, orthopnea, PND, edema. GI: No abd pain, nausea, vomiting, diarrhea, constipation, melena, hematochezia. : No dysuria, frequency, hematuria. Skin: No rash or lesion. Neuro: No mental status changes, headache, focal neurologic complaints. Objective: Blood pressure 120/81, pulse 95, resp. rate 16, weight 111.8 kg (246 lb 6.4 oz), SpO2 93 %, not currently . Results for orders placed or performed during the hospital encounter of 09/21/20 BLOOD CULTURE Specimen: BLOOD, PERIPH Result Value Ref Range SPECIMEN DESCRIPTION BLOOD COMMENT RT AC RESULT-CULT NO GROWTH 5 DAYS REPORT STATUS 09/26/2020 BLOOD CULTURE Specimen: BLOOD, PERIPH Result Value Ref Range SPECIMEN DESCRIPTION PERIPHERAL BLOOD DRAW COMMENT lt. ac RESULT-CULT NO GROWTH 5 DAYS REPORT STATUS 09/26/2020 [facility] 1 - NASOPHARYNGEAL Specimen: NASOPHARYNGEAL; Fluid/Swab Result Value Ref Range SARS COV 2 RNA, QL REAL TIME RT PCR NOT DETECTED NOT DETECTED NARRATIVE -1 This test was performed using isothermal LYLY and has been approved as Emergency Use Authorization (EUA) for the qualitative detection [id number] nucleic acid. SCREEN: MRSA ONLY, NARES (ISOLATION SCREEN) Specimen: NARES; E-Swab Result Value Ref Range SCREEN: MRSA NEGATIVE NEGATIVE STAPHYOCOCCUS AUREUS BY PCR NEGATIVE NEGATIVE TROPONIN I, HIGH SENSITIVITY Result Value Ref Range TROPONIN I, HIGH SENSITIVITY 8 0 - 12 pg/mL CHEM 7 (LYTES,BUN,CREA,GLUC) Result Value Ref Range GLUCOSE 197 (H) 70 - 100 MG/DL BUN 17 7.0 - 20.0 MG/DL CREATININE SERUM 0.61 0.5 - 1.0 MG/DL SODIUM 132 (L) 136 - 145 MMOL/L POTASSIUM 3.9 3.5 - 5.1 MMOL/L CHLORIDE 95 (L) 98 - 107 MMOL/L CARBON DIOXIDE (CO2) 27 22 - 30 MMOL/L ESTIMATED GFR, NON AMER >60 ml/min/1.73sq.m ESTIMATED GFR, >60 ml/min/1.73sq.m GFR COMMENT Average GFR for 40-49 years old = 99. HEPATIC FUNCTION PANEL Result Value Ref Range ALBUMIN 3.3 (L) 3.5 - 5.0 G/DL BILIRUBIN, TOTAL 0.4 0.2 - 1.2 MG/DL ALKALINE PHOSPHATASE 86 38 - 126 IU/L AST 56 (H) 15 - 41 IU/L BILIRUBIN, DIRECT 0.1 0.0 - 0.2 MG/DL PROTEIN, TOTAL 7.5 6.3 - 8.2 GM/DL ALT 85 (H) 14 - 54 IU/L CBC, EDIF, PLATELET Result Value Ref Range WBC (WHITE BLOOD COUNT) 9.1 3.6 - 11.0 10*3/uL RBC 3.99 (L) 4.0 - 5.4 10*6/uL HEMOGLOBIN (HGB) 11.7 (L) 12.0 - 16.0 G/DL HEMATOCRIT (HCT) 35.2 (L) 36.0 - 48.0 % MEAN CELL VOLUME 88.2 80.0 - 100.0 FL Mean Cell HGB 29.3 26.0 - 35.0 PG MEAN CELL HGB CONCENTRATION 33.2 27.0 - 37.0 G/DL RBC DISTRIBUTION 13.9 11.5 - 14.5 % PLATELET COUNT 243 130 - 400 10*3/uL MEAN PLATELET VOLUME 8.8 7.4 - 11.0 FL DIFFERENTIAL TYPE AUTO DIFF % NEUTROPHILS 82.2 (H) 37.0 - 75.0 % LYMPHOCYTE 12.1 (L) 20.0 - 55.0 % MONOCYTE % 3.1 0.0 - 10.0 % EOSINOPHIL % 2.4 0.0 - 11.0 % BASOPHIL % 0.2 0.0 - 2.0 % Absolute Neutrophil Count 7.5 (H) 1 - 6 10*3/uL LYMPHOCYTES, ABSOLUTE 1.10 (L) 1.2 - 3.4 10*3/uL MONOCYTES, ABSOLUTE 0.3 0.0 - 0.7 10*3/uL ABSOLUTE EOSINOPHIL COUNT 0.20 0 - 0 10*3/uL ABSOLUTE BASOPHIL COUNT 0.0 0 - 0 10*3/uL LACTATE, BLOOD Result Value Ref Range LACTATE, PLASMA 2.1 (HH) 0.5 - 2.0 MMOL/L SEDIMENTATION RATE, AUTOMATED Result Value Ref Range SEDIMENTATION RATE AUTOMATED 84 (H) 0 - 15 MM/HR C REACTIVE PROTEIN Result Value Ref Range C-REACTIVE PROTEIN 81.9 (H) 0 - 10.0 MG/L LACTATE, BLOOD Result Value Ref Range LACTATE, PLASMA 0.9 0.5 - 2.0 MMOL/L SEDIMENTATION RATE, AUTOMATED Result Value Ref Range SEDIMENTATION RATE AUTOMATED 74 (H) 0 - 15 MM/HR C REACTIVE PROTEIN Result Value Ref Range C-REACTIVE PROTEIN 77.4 (H) 0 - 10.0 MG/L LACTATE, BLOOD Result Value Ref Range LACTATE, PLASMA 1.1 0.5 - 2.0 MMOL/L TSH W/FT4 REFLEX Result Value Ref Range TSH, Reflex FT4 1.054 0.45 - 5.33 uIU/ML HEMOGLOBIN A1C Result Value Ref Range HEMOGLOBIN A1C 9.1 (H) <6 % Estimated Average Glucose 214 mg/dL CBC, EDIF, PLATELET Result Value Ref Range WBC (WHITE BLOOD COUNT) 9.2 3.6 - 11.0 10*3/uL RBC 3.76 (L) 4.0 - 5.4 10*6/uL HEMOGLOBIN (HGB) 11.0 (L) 12.0 - 16.0 G/DL HEMATOCRIT (HCT) 33.0 (L) 36.0 - 48.0 % MEAN CELL VOLUME 87.8 80.0 - 100.0 FL Mean Cell HGB 29.1 26.0 - 35.0 PG MEAN CELL HGB CONCENTRATION 33.2 27.0 - 37.0 G/DL RBC DISTRIBUTION 13.8 11.5 - 14.5 % PLATELET COUNT 229 130 - 400 10*3/uL MEAN PLATELET VOLUME 9.2 7.4 - 11.0 FL DIFFERENTIAL TYPE AUTO DIFF % NEUTROPHILS 91.3 (H) 37.0 - 75.0 % LYMPHOCYTE 6.8 (L) 20.0 - 55.0 % MONOCYTE % 1.6 0.0 - 10.0 % EOSINOPHIL % 0.1 0.0 - 11.0 % BASOPHIL % 0.2 0.0 - 2.0 % Absolute Neutrophil Count 8.4 (H) 1 - 6 10*3/uL LYMPHOCYTES, ABSOLUTE 0.60 (L) 1.2 - 3.4 10*3/uL MONOCYTES, ABSOLUTE 0.1 0.0 - 0.7 10*3/uL ABSOLUTE EOSINOPHIL COUNT 0.00 0 - 0 10*3/uL ABSOLUTE BASOPHIL COUNT 0.0 0 - 0 10*3/uL PROTIME-INR Result Value Ref Range PT 16.7 (H) 11.8 - 14.4 SEC INR 1.37 (H) 0.88 - 1.12 MAGNESIUM Result Value Ref Range MAGNESIUM 2.0 1.6 - 2.3 MG/DL RENAL FUNCTION PANEL Result Value Ref Range GLUCOSE 298 (H) 70 - 100 MG/DL BUN 17 7.0 - 20.0 MG/DL CREATININE SERUM 0.59 0.5 - 1.0 MG/DL SODIUM 136 136 - 145 MMOL/L POTASSIUM 4.0 3.5 - 5.1 MMOL/L CHLORIDE 100 98 - 107 MMOL/L CARBON DIOXIDE (CO2) 23 22 - 30 MMOL/L ALBUMIN 3.0 (L) 3.5 - 5.0 G/dl CALCIUM 9.0 8.4 - 10.2 MG/DL PHOSPHORUS 3.9 2.5 - 4.5 MG/DL ESTIMATED GFR, NON AMER >60 ml/min/1.73sq.m ESTIMATED GFR, >60 ml/min/1.73sq.m GFR COMMENT Average GFR for 40-49 years old = 99. VANCOMYCIN LEVEL, TROUGH (PRE DRUG LEVEL) Result Value Ref Range VANCOMYCIN, TROUGH 10.6 (L) 15 - 20 UG/ML CBC, EDIF, PLATELET Result Value Ref Range WBC (WHITE BLOOD COUNT) 9.9 3.6 - 11.0 10*3/uL RBC 3.47 (L) 4.0 - 5.4 10*6/uL HEMOGLOBIN (HGB) 10.3 (L) 12.0 - 16.0 G/DL HEMATOCRIT (HCT) 30.7 (L) 36.0 - 48.0 % MEAN CELL VOLUME 88.5 80.0 - 100.0 FL Mean Cell HGB 29.6 26.0 - 35.0 PG MEAN CELL HGB CONCENTRATION 33.4 27.0 - 37.0 G/DL RBC DISTRIBUTION 14.1 11.5 - 14.5 % PLATELET COUNT 237 130 - 400 10*3/uL MEAN PLATELET VOLUME 9.4 7.4 - 11.0 FL DIFFERENTIAL TYPE AUTO DIFF % NEUTROPHILS 87.4 (H) 37.0 - 75.0 % LYMPHOCYTE 8.8 (L) 20.0 - 55.0 % MONOCYTE % 3.6 0.0 - 10.0 % EOSINOPHIL % 0.1 0.0 - 11.0 % BASOPHIL % 0.1 0.0 - 2.0 % Absolute Neutrophil Count 8.6 (H) 1 - 6 10*3/uL LYMPHOCYTES, ABSOLUTE 0.90 (L) 1.2 - 3.4 10*3/uL MONOCYTES, ABSOLUTE 0.4 0.0 - 0.7 10*3/uL ABSOLUTE EOSINOPHIL COUNT 0.00 0 - 0 10*3/uL ABSOLUTE BASOPHIL COUNT 0.0 0 - 0 10*3/uL MAGNESIUM Result Value Ref Range MAGNESIUM 2.1 1.6 - 2.3 MG/DL RENAL FUNCTION PANEL Result Value Ref Range GLUCOSE 338 (H) 70 - 100 MG/DL BUN 21 (H) 7.0 - 20.0 MG/DL CREATININE SERUM 0.48 (L) 0.5 - 1.0 MG/DL SODIUM 136 136 - 145 MMOL/L POTASSIUM 4.4 3.5 - 5.1 MMOL/L CHLORIDE 104 98 - 107 MMOL/L CARBON DIOXIDE (CO2) 23 22 - 30 MMOL/L ALBUMIN 2.9 (L) 3.5 - 5.0 G/dl CALCIUM 9.0 8.4 - 10.2 MG/DL PHOSPHORUS 3.3 2.5 - 4.5 MG/DL ESTIMATED GFR, NON AMER >60 ml/min/1.73sq.m ESTIMATED GFR, >60 ml/min/1.73sq.m GFR COMMENT Average GFR for 40-49 years old = 99. B-TYPE NATRIURETIC PEPTIDE (BRAIN) Result Value Ref Range BRAIN NATRIURETIC PEPTIDE 128 (H) 0 - 100 pg/mL PROTIME-INR Result Value Ref Range PT 16.9 (H) 11.8 - 14.4 SEC INR 1.40 (H) 0.88 - 1.12 VANCOMYCIN LEVEL, TROUGH (PRE DRUG LEVEL) Result Value Ref Range VANCOMYCIN, TROUGH 12.3 (L) 15 - 20 UG/ML CBC, EDIF, PLATELET Result Value Ref Range WBC (WHITE BLOOD COUNT) 9.0 3.6 - 11.0 10*3/uL RBC 3.57 (L) 4.0 - 5.4 10*6/uL HEMOGLOBIN (HGB) 10.5 (L) 12.0 - 16.0 G/DL HEMATOCRIT (HCT) 31.5 (L) 36.0 - 48.0 % MEAN CELL VOLUME 88.1 80.0 - 100.0 FL Mean Cell HGB 29.4 26.0 - 35.0 PG MEAN CELL HGB CONCENTRATION 33.3 27.0 - 37.0 G/DL RBC DISTRIBUTION 13.7 11.5 - 14.5 % PLATELET COUNT 252 130 - 400 10*3/uL MEAN PLATELET VOLUME 9.3 7.4 - 11.0 FL NEUTROPHILS 82 (H) 37.0 - 75.0 % BAND NEUTROPHIL % 7 (H) 0.0 - 2.0 % LYMPHOCYTE 7 (L) 20.0 - 55.0 % MONOCYTE % 2 0.0 - 10.0 % MYELOCYTE % 2 % RBC COMMENTS NORMAL DIFFERENTIAL TYPE MANUAL DIFF % PLATELET COMMENT ADEQUATE MAGNESIUM Result Value Ref Range MAGNESIUM 2.2 1.6 - 2.3 MG/DL RENAL FUNCTION PANEL Result Value Ref Range GLUCOSE 371 (H) 70 - 100 MG/DL BUN 21 (H) 7.0 - 20.0 MG/DL CREATININE SERUM 0.57 0.5 - 1.0 MG/DL SODIUM 136 136 - 145 MMOL/L POTASSIUM 4.2 3.5 - 5.1 MMOL/L CHLORIDE 103 98 - 107 MMOL/L CARBON DIOXIDE (CO2) 24 22 - 30 MMOL/L ALBUMIN 2.9 (L) 3.5 - 5.0 G/dl CALCIUM 9.0 8.4 - 10.2 MG/DL PHOSPHORUS 2.9 2.5 - 4.5 MG/DL ESTIMATED GFR, NON AMER >60 ml/min/1.73sq.m ESTIMATED GFR, >60 ml/min/1.73sq.m GFR COMMENT Average GFR for 40-49 years old = 99. C REACTIVE PROTEIN Result Value Ref Range C-REACTIVE PROTEIN 30.3 (H) 0 - 10.0 MG/L SEDIMENTATION RATE, AUTOMATED Result Value Ref Range SEDIMENTATION RATE AUTOMATED 80 (H) 0 - 15 MM/HR VANCOMYCIN LEVEL, TROUGH (PRE DRUG LEVEL) Result Value Ref Range VANCOMYCIN, TROUGH 10.0 (L) 15 - 20 UG/ML TROPONIN I, HIGH SENSITIVITY Result Value Ref Range TROPONIN I, HIGH SENSITIVITY 4 0 - 12 pg/mL TROPONIN I, HIGH SENSITIVITY Result Value Ref Range TROPONIN I, HIGH SENSITIVITY 3 0 - 12 pg/mL CBC, EDIF, PLATELET Result Value Ref Range WBC (WHITE BLOOD COUNT) 7.8 3.6 - 11.0 10*3/uL RBC 3.59 (L) 4.0 - 5.4 10*6/uL HEMOGLOBIN (HGB) 10.4 (L) 12.0 - 16.0 G/DL HEMATOCRIT (HCT) 31.4 (L) 36.0 - 48.0 % MEAN CELL VOLUME 87.6 80.0 - 100.0 FL Mean Cell HGB 29.1 26.0 - 35.0 PG MEAN CELL HGB CONCENTRATION 33.2 27.0 - 37.0 G/DL RBC DISTRIBUTION 13.5 11.5 - 14.5 % PLATELET COUNT 265 130 - 400 10*3/uL MEAN PLATELET VOLUME 9.3 7.4 - 11.0 FL NEUTROPHILS 80 (H) 37.0 - 75.0 % BAND NEUTROPHIL % 5 (H) 0.0 - 2.0 % LYMPHOCYTE 11 (L) 20.0 - 55.0 % MONOCYTE % 2 0.0 - 10.0 % METAMYELOCYTE % 2 (H) 0 - 1 % RBC COMMENTS NORMAL DIFFERENTIAL TYPE MANUAL DIFF % PLATELET COMMENT ADEQUATE MAGNESIUM Result Value Ref Range MAGNESIUM 2.3 1.6 - 2.3 MG/DL RENAL FUNCTION PANEL Result Value Ref Range GLUCOSE 370 (H) 70 - 100 MG/DL BUN 23 (H) 7.0 - 20.0 MG/DL CREATININE SERUM 0.54 0.5 - 1.0 MG/DL SODIUM 133 (L) 136 - 145 MMOL/L POTASSIUM 4.1 3.5 - 5.1 MMOL/L CHLORIDE 99 98 - 107 MMOL/L CARBON DIOXIDE (CO2) 25 22 - 30 MMOL/L ALBUMIN 2.9 (L) 3.5 - 5.0 G/dl CALCIUM 8.8 8.4 - 10.2 MG/DL PHOSPHORUS 3.3 2.5 - 4.5 MG/DL ESTIMATED GFR, NON AMER >60 ml/min/1.73sq.m ESTIMATED GFR, >60 ml/min/1.73sq.m GFR COMMENT Average GFR for 40-49 years old = 99. *Note: Due to a large number of results and/or encounters for the requested time period, some results have not been displayed. A complete set of results can be found in Results Review. HEENT: NC/AT, PERRLA, EOMI, fundi benign, external ears normal, OP normal. Neck: No LAD/thyromegaly. No JVD/bruit. Lungs: Clear to auscultation bilaterally. No wheezes, rales, ronchi. Heart: RRR. No S3/S4. Abdomen: Soft, NT/ND, normal bowel sounds, no HSM, no bruits. Extremities: No clubbing, cyanosis, edema. Normal pulses. Neurologic: CN II-XII intact. Strength/DTR's/sensation symmetric. Cerebellar function normal. Skin: No rash or suspicious lesions. Musculoskeletal: No edema, redness, warmth, deformities. Psychiatric: Alert and oriented. Affect and mood normal. Assessment and Plan: 1. Bronchopneumonia If symptoms worsen then call for refill ATB. 2. Abnormal chest CT Has follow up scheduled. 3. Type 2 diabetes mellitus without complication, without long-term current use of insulin 4. Essential hypertension Amb BP's. Rhett Brito MD 09/30/2020 * Liv Vinson - 09/30/2020 11:00 AM EDT Date of Admission: 09/21/20 Date of Discharge: 09/25/20 Hospital: [facility] Primary DX: Pneumonia How have you been feeling since you got home: good Do you have new medications? yes Are you taking all your medications? yes How are you: Eating:good Sleeping: good Getting Around: fair Going to the Bathroom: good Other: Do you have visiting nurse/home health? no Did you have surgery? no If so, How is your wound: n/a Comments: n/a If you have Congestive Heart Failure are you weighing yourself? no Weight: n/a Any other issues or concerns? Discuss new BP meds. documented in this encounter* Demarco Lopez MD - 01/26/2019 2:40 PM EDT CC: Headaches History of Present Illness Ms. Bella returns to the office for mgmt of headaches. She has a new issue of acutely worsened, bilateral CTS. The patient reports that she is still on the same plan with Flexeril and Gabapentin as reviewed in the chart below. When asked if we could wean down either medication, she became concerned about worsened headaches. For example, she is now down to just 2 bad days per month as opposed to several per week. The patient tells me that she had an EMG study in the fall of 2016 in [place] and was told that she only had mild CTS. 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 Her hands and wrists are really in pain right now; she is requesting Prednisone. She has tried wearing splints the last 2 nights. Previous Medication Trials 1. Lamictal 2. Zanaflex 3. Zonegran 4. Topamax 5. Lyrica 6. Gabapentin 7. Atenolol 8. Flexeril OARRS--reviewed Labs/Studies No new pertinent results Past Medical, Surgical, Social, Family History Updates 1. Medical--none 2. Surgical--none 3. Social--none 4. Family--none Current Outpatient Medications Medication Sig Last Dose Start Date End Date Authorizing Provider atenolol 50 MG Tab tablet 50 mg, Oral, 2 TIMES DAILY Taking 10/23/18 Rhett Brito MD cyclobenzaprine 5 MG Tab tablet Take 1 tab PO each morning and 2 tabs PO each bedtime Taking 08/18/18 Demarco Lopez MD gabapentin (NEURONTIN) 300 MG Cap capsule Take 1 cap PO each morning and 2 caps PO QHS Taking 07/22/18 01/19/19 Demarco Lopez MD gliMEPIride 2 MG Tab 3 mg, Oral, 2 TIMES DAILY Taking 10/27/18 Rhett Brito MD GLUCOSE MONITOR LANCETS PRESCRIPTION daily Taking 10/23/17 Rhett Brito MD GLUCOSE MONITOR PRESCRIPTION daily Taking 10/23/17 Rhett Brito MD GLUCOSE TEST STRIPS PRESCRIPTION daily Taking 10/23/17 Rhett Brito MD Magnesium 500 MG Tab 500 mg, Oral, DAILY AT BEDTIME Taking Historical Provider meloxicam 15 MG Tab tablet 15 mg, Oral, DAILY 04/30/18 05/30/18 Rhett Brito MD Multiple Vitamin (VIT E-VIT C-BETA CAROTENE) [phone] Tab 250 mg, Oral, DAILY Taking HistoricalProvider omeprazole [address] 20 mg, Oral, DAILY AT BEDTIME Taking Historical Provider phentermine 37.5 MG Tab 37.5 mg, Oral, DAILY BEFORE BREAKFAST 12/18/18 12/18/19 Rhett Brito MD Probiotic Product (PROBIOTIC-10 PO) Oral, DAILY AT BEDTIME Taking Historical Provider No Known Allergies Review of Systems Constitutional: Negative for chills, fatigue, fever and unexpected weight change. HENT: Negative for congestion, hearing loss, rhinorrhea, tinnitus, trouble swallowing and voice change. Eyes: Negative for photophobia and visual disturbance. Respiratory: Negative for cough, choking and shortness of breath. Cardiovascular: Negative for chest pain, palpitations and leg swelling. Gastrointestinal: Negative for abdominal pain, blood in stool, constipation, diarrhea, nausea and vomiting. Endocrine: Negative for cold intolerance and heat intolerance. Genitourinary: Negative for difficulty urinating, frequency and urgency. Musculoskeletal: Negative for arthralgias, back pain, gait problem, myalgias, neck pain and neck stiffness. Skin: Negative for color change, rash and wound. Allergic/Immunologic: Negative for food allergies and immunocompromised state. Neurological: Positive for headaches. Negative for dizziness, tremors, seizures, syncope, facial asymmetry, speech difficulty, weakness, light-headedness and numbness. Hematological: Negative for adenopathy. Does not bruise/bleed easily. Psychiatric/Behavioral: Negative for agitation, behavioral problems, confusion, decreased concentration, dysphoric mood, hallucinations, self-injury, sleep disturbance and suicidal ideas. The patientis not nervous/anxious and is not hyperactive. Vitals: Blood pressure 140/80, pulse 66, resp. rate 18, height 1.638 m (5' 4.5 ), weight 104.3 kg (230 lb), not currently . Physical Exam Constitutional: She is oriented to person, place, and time. Vital signs are normal. HENT: Head: Normocephalic and atraumatic. Right Ear: Hearing and external ear normal. Left Ear: Hearing and external ear normal. Mouth/Throat: Oropharynx is clear and moist and mucous membranes are normal. Eyes: Conjunctivae, EOM and lids are normal. Neck: Normal range of motion. Cardiovascular: Normal rate and regular rhythm. Pulmonary/Chest: Effort normal. Abdominal: Soft. Normal appearance. There is no tenderness. Neurological: She is alert and oriented to person, place, and time. She has normal strength. Skin: Skin is warm, dry and intact. Psychiatric: She has a normal mood and affect. Her speech is normal and behavior is normal. Judgment and thought content normal. Cognition and memory are normal. She does not express impulsivity. Neurologic Exam Mental Status Oriented to person, place, and time. Speech: speech is normal Cranial Nerves CN III, IV, Extraocular motions are normal. Motor Exam Strength Strength 5/5 throughout. Assessment and Plan 1. Cervicogenic Headache A. Patient will continue on the same plan with the Flexeril and Gabapentin, which were both refilled. I did ask her about reducing the meds to see how she might do, and she was not in favor of this. B. The patient has worsened CTS pain in the hands after doing some excessive work the last few days. I will give her a short, gently Prednisone burst. I warned her of the typical side effects, including elevated blood sugars. I explained that she may need to a have a repeat EMG with me, if not better. C. Follow up in 6 months 2. Bilateral CTS -- new issue Please note this visit consumed 20-25 minutes, of which half or more was dedicated to [id number] counseling of the problems/issues and coordination of all care. documented in this encounter Reason for Referral Status Reason Specialty Diagnoses / Procedures Referre d By Contact Referred To Contact Closed Rhett Brito MD [address] [place] [address] Status Reason Specialty Diagnoses / Procedures Referred By Contact Referred To Contact Auth Not Needed Diagnoses Carpal tunnel syndrome, unspecified laterality Procedures EMG & NERVE CONDUCTION Demarco Lopez MD [address] [place] [id number] Status Reason Specialty Diagnoses / Procedures Referre d By Contact Referred To Contact Closed Diagnoses Carpal tunnel syndrome, unspecified laterality Procedures EMG & NERVE CONDUCTION Demarco Lopez MD [address] [place] [phone] Status Reason Specialty Diagnoses / Procedures Referre d By Contact Referred To Contact Closed Procedures ECG Sukh Pradhan MD [address] [place] [address] Status Reason Specialty Diagnoses / Procedures Referre d By Contact Referred To Contact Closed Radiology Diagnoses Visit for screening mammogram Procedures Mammography Screening Bilateral Suzi Chatman MD [address] [place] [address] Status Reason Specialty Diagnoses / Procedures Referred By Contact Referred To Contact Pending Review Radiology Diagnoses Abnormal mammogram Procedures Mammography Diagnostic Right Suzi Chatman MD 24 [facility] [address] [place] [address] Status Reason Specialty Diagnoses / Procedures Referred By Contact Referred To Contact New Request Family Medicine Diagnoses Pneumonia of right lower lobe due to infectious organism Bronchospasm Dehydration, mild Tony, Audra Billy, PAKacyC [address] [place] [address] Rhett Brito MD [address] [place] [phone] Status Reason Specialty Diagnoses / Procedures Referred By Contact Referred To Contact New Request Diagnoses Pneumonia of left lower lobe due to infectious organism Procedures CT CHEST WITHOUT CONTRAST CHG DIAGNOSTIC COMPUTED TOMOGRAPHY THORAX W/O CNTRST Abigail Anguiano, MAIL DISTRIBUTION SCHEME EXAMINER [address] [place] [address] Status Reason Specialty Diagnoses / Procedures Referred By Contact Referred To Contact New Request Procedures ECG Abigail Anguiano, MAIL DISTRIBUTION SCHEME EXAMINER [address] [place] [phone] Status Reason Specialty Diagnoses / Procedures Referred By Contact Referred To Contact Pending Review Procedures INPATIENT ADMISSION NOTIFICATION Madhu Gray, DO [address] [place] [phone] Status Reason Specialty Diagnoses / Procedures Referred By Contact Referred To Contact Pending Review Procedures ECG Román June, [address] [place] [address] Status Reason Specialty Diagnoses / Procedures Referred By Contact Referred To Contact New Request Diagnoses Pre-op testing Procedures ECG Sukh Pradhan MD [address] [place] [address] Status Reason Specialty Diagnoses / Procedures Referred By Contact Referred To Contact New Request Orthopaedics Diagnoses Carpal tunnel syndrome, unspecified laterality Demarco Lopez MD [address] [place] [address] Sukh Pradhan MD [address] [place] [address] Status Reason Specialty Diagnoses / Procedures Referred By Contact Referred To Contact Closed Computerized Tomography Scan Diagnoses Pneumonia of left lower lobe due to infectious organism Procedures CT CHEST WITHOUT CONTRAST CHG DIAGNOSTIC COMPUTED TOMOGRAPHY THORAX W/O CNTRST Abigail Anguiano, MAIL DISTRIBUTION SCHEME EXAMINER [address] [place] [address] [facility] [address] [place] [phone] Status Reason Specialty Diagnoses / Procedures Referred By Contact Referred To Contact Auth Not Needed Physical Medicine & Rehabilitation Diagnoses Paresthesia and pain of left extremity Procedures EMG & NERVE CONDUCTION Juani Hoffman MD [address] [address] Myron Boogie MD [address] [place] [phone] Status Reason Specialty Diagnoses / Procedures Referred By Contact Referred To Contact Closed Mammography Diagnoses Screening mammogram for high-risk patient Procedures MAMMO SCREENING WITH Suzi Evans MD [address] [address] [facility] [address] [place] [phone] Specialty Diagnoses / Procedures Referred By Ro t Referred To Contact Nuclear Medicine Diagnoses Chest pain, unspecified type Procedures NUC MYOCARD PERF STRESS MIBI EXERCISE TN CHG MYOCARDIAL SPECT MULTIPLE STUDIES TN CARDIAC STRESS TST,TRACING ONLY Rhett Brito MD [address] [place] [phone] [facility] Nuclear Medicine [address] [place] [phone] Referral ID Status Reason Start Date Expiration Date V isits Requested Visits Authorized [id number] Auth Not Needed 02/14/2021 03/11/2022 1 1 Referral ID Status Reason Start Date Expiration Date Visits Re quested Visits Authorized [id number] Closed 02/14/2021 03/11/2022 1 1 Specialty Diagnoses / Procedures Referred By Ro mayo Referred To Contact Physical Therapy Diagnoses Rotator cuff tendinitis, unspecified laterality Rhett Brito MD [address] [place] [phone] Referral ID Status Reason Start Date Expiration Date V isits Requested Visits Authorized [id number] Patient to Arrange 10/26/2021 11/20/2022 1 1 Scheduling Instructions . Specialty Diagnoses / Procedures Referred By Ro mayo Referred To Contact Diagnoses Encounter for screening mammogram for breast cancer Procedures MAMMO SCREENING WITH DOMINIQUERxoie Bains MD [address] [place] [phone] Referral ID Status Reason Start Date Expiration Date V isits Requested Visits Authorized [id number] Auth Not Needed 11/20/2021 12/15/2022 1 1 Specialty Diagnoses / Procedures Referred By Ro mayo Referred To Contact Mammography Diagnoses Encounter for screening mammogram for breast cancer Procedures MAMMO SCREENING WITH Roxie Randolph MD [address] [place] [phone] [facility] [address] [place] [phone] Referral ID Status Reason Start Date Expiration Date Visits Re quested Visits Authorized [id number] Closed 11/20/2021 12/15/2022 1 1 Specialty Diagnoses / Procedures Referred By Contac t Referred To Contact Diagnoses Chest pain, unspecified type Procedures NUC MYOCARD PERF STRESS MIBI EXERCISE TN CHG MYOCARDIAL SPECT MULTIPLE STUDIES TN CARDIAC STRESS TST,TRACING ONLY Rhett Brito MD [address] [place] [phone] Referral ID Status Reason Start Date Expiration Date V isits Requested Visits Authorized [id number] New Request 04/17/2022 05/12/2023 1 1 Specialty Diagnoses / Procedures Referred By Contac t Referred To Contact Diagnoses Type 2 diabetes mellitus without complication, without long-term current use of insulin Rhett Brito MD [address] [place] [phone] Referral ID Status Reason Start Date Expiration Date V isits Requested Visits Authorized [id number] Pending Review 1 1 Referral ID Status Reason Start Date Expiration Date Visits Re quested Visits Authorized [id number] Closed 04/17/2022 05/12/2023 1 1 Specialty Diagnoses / Procedures Referred By Contac t Referred To Contact Procedures ECG Madhu Kramer MD [address] [place] [phone] Referral ID Status Reason Start Date Expiration Date V isits Requested Visits Authorized [id number] New Request 04/27/2022 05/22/2023 1 1 Specialty Diagnoses / Procedures Referred By Contact Referred To Contact Cardiac Rehabilitation Diagnoses Abnormal stress test Madhu Kramer MD [address] [place] [phone] [facility] [address] [place] [phone] Referral ID Status Reason Start Date Expiration Date V isits Requested Visits Authorized [id number] New Request 04/28/2022 05/23/2023 1 1 Referral ID Status Reason Start Date Expiration Date V isits Requested Visits Authorized [id number] New Request 04/27/2022 05/22/2023 1 1 Discharge Instructions * Instructions* Erin Pan RN - 04/30/[address] Pradhan's discharge instructions in green folder. Take pain medications as prescribed. Do not drink alcohol or drive while taking pain medications. Do not drive, drink alcohol or make legal decisions for 24 hours after anesthesia. documented in this encounter* Instructions* Erin Pan RN - 06/11/[address] Pradhan's discharge instructions in green folder. Ok for splint to be removed on 06-24-19 by sister. Take pain medications as prescribed. Do not drink alcohol or drive while taking pain medications. Do not drive, drink alcohol or make legal decisions for 24 hours after anesthesia. documented in this encounter* Instructions* Audra Tony PA-C - 09/17/2020 Begin taking the amoxicillin in addition to your doxycycline. Begin the prednisone again tomorrow. Continue to use albuterol and the prescribed cough medication. Treat your fever with Tylenol and Motrin. Increase hydration while ill. Follow-up with your primary care provider. * Attachments The following attachments cannot be sent through Care Everywhere. * Wheezing or Bronchoconstriction (Czech) * Pneumonia (Czech) documented in this encounter* Discharge Instr - Activity* Amanda Carl RN - 09/25/2020 3:37 PM EDT Resume home activity as tolerated. * Discharge Instr - Diet* Amanda Carl RN - 09/25/2020 3:37 PM EDT Resume home diet as tolerated. * Discharge Instr - Notify* Amanda Carl RN - 09/25/2020 3:51 PM EDT Return or worsening of symptoms. In the event of an emergency, call 911 or go to the nearest ER. * Attachments The following attachments cannot be sent through Care Everywhere. * Antibiotics: General Info (Czech) * lisinopril (Czech) * Pneumonia (Czech) documented in this encounter Hospital Course * Abigail Anguiano, MAIL DISTRIBUTION SCHEME EXAMINER - 09/25/2020 9:33 AM EDT Discharge Summary Name: Sharon Bella Age: 45 y.o. Birthday: 1975 Admit Date: 09/21/2020 5:38 PM Discharge Date: 09/25/20 Brief Summary of Hospital Course: Pneumonia- X-ray showed pulmonary vascular congestion mild right lower lobe atelectasis and airspace disease questionable right lower lobe nodular density- CT of the chest mild consolidative RML- atelectasis - duo nebs-Levaquin/Solu-Medrol/supplement oxygen to maintain saturations greater than 90%-currently on room air- will need repeat CT of chest in 1 month - if no improvement will need bronch -fu with pulmonology in [address] chest Diabetes (A1C > or equal to 6.5%)- Sliding scale insulin body mass index of 40.0-49.9 Sepsis without acute organ dysfunction- Secondary pneumonia- Lactate of 2.1-CRP of 81-tachycardia, fever, tachypnea Diarrhea- stool culture and cdiff pending - improved Insomnia - ambien as needed HTN- added lisinopril hold BB 2/2 bradycardia Bradycardia - ecg showed bradycardia and telemetry - troponin x 3 - no chest pain/palpitations- hold bb at dc DVT/GI prophylaxis-PPI and Lovenox Discharge Diagnosis Principal Problem: Pneumonia Active Problems: Diabetes (A1C > or equal to 6.5%) body mass index of 40.0-49.9 Sepsis without acute organ dysfunction Bradycardia Discharge Vital Signs: Blood pressure 166/84, pulse 76, temperature 97.9 F (36.6 C), temperature source Oral, resp. rate 14, height 1.626 m (5' 4.02 ), weight 115.3 kg (254 lb 3.1 oz), SpO2 94 %, notcurrently . PHYSICAL EXAM: General: Patient resting comfortably. Awake. No acute distress. Cardiovascular: Regular rate and rhythm, without murmurs, rubs, or gallops. Respiratory: Bilateral Upper and Lower Lobes without wheezes, rales, or rhonchi Abdomen: Soft, rounded, non-tender. Bowel sounds present x4 quadrants. No rebound. No organomegaly or masses noted upon deep palpation. Extremities: No edema, clubbing or cyanosis, pulses palpable 2+ distally. Skin: Warm, Dry, Intact. Discharge Labs: Lab Results Component Value Date WBC 7.8 09/25/2020 HGB 10.4 (L) 09/25/2020 HCT 31.4 (L) 09/25/2020 PLATELET 265 09/25/2020 MCV 87.6 09/25/2020 Lab Results Component Value Date SODIUM 133 (L) 09/25/2020 POTASSIUM 4.1 09/25/2020 CHLORIDE 99 09/25/2020 CO2 25 09/25/2020 BUN 23 (H) 09/25/2020 CREATSERUM 0.54 09/25/2020 GLUCOSE 318 (H) 09/25/2020 Lab Results Component Value Date ALT 85 (H) 09/21/2020 AST 56 (H) 09/21/2020 GGT 10 01/10/2004 ALKPHOS 86 09/21/2020 BILITOTAL 0.4 09/21/2020 BILIDIRECT 0.1 09/21/2020 Discharge Medications: Medication List for when you go home START taking these medications clindamycin 300 MG CAPS Take 2 capsules by mouth 3 times daily for 5 days. Commonly known as: CLEOCIN levoFLOXacin 750 MG TABS Take 1 tablet by mouth daily for 5 days. Commonly known as: LEVAQUIN CONTINUE taking these medications albuterol 108 (90 Base) MCG/ACT AERS inhaler Inhale 1 puff every 6 hours as needed for Wheezing. Commonly known as: VENTOLIN HFA For diagnoses: COVID-19 benzonatate 200 MG CAPS Take 1 capsule by mouth 3 times daily as needed for Cough. Commonly known as: TESSALON cyclobenzaprine 10 MG TABS Take 1 tablet by mouth 2 times daily. Doctor's comments: Please disregard previous rx for once daily Commonly known as: FLEXERIL For diagnoses: Bilateral carpal tunnel syndrome, Chronic tension-type headache, intractable, Cervicogenic headache, Cervicalgia gabapentin 300 MG CAPS Take 1 cap PO each morning and 2 caps PO QHS Commonly known as: Neurontin For diagnoses: Chronic tension-type headache, intractable, Cervicogenic headache, Cervicalgia, Bilateral carpal tunnel syndrome gliMEPIride 4 MG TABS Take 1 tablet by mouth 2 times daily. Commonly known as: AMARYL For diagnoses: Type 2 diabetes mellitus without complication, without long-term current use of insulin GLUCOSE MONITOR LANCETS PRESCRIPTION daily For diagnoses: Type 2 diabetes mellitus without complication, without long-term current use of insulin GLUCOSE MONITOR PRESCRIPTION daily For diagnoses: Type 2 diabetes mellitus without complication, without long-term current use of insulin GLUCOSE TEST STRIPS PRESCRIPTION daily For diagnoses: Type 2 diabetes mellitus without complication, without long-term current use of insulin Magnesium 500 MG TABS Take 500 mg by mouth at bedtime. montelukast 10 MG TABS Take 1 tablet by mouth daily. Commonly known as: SINGULAIR For diagnoses: Allergic rhinitis, unspecified seasonality, unspecified trigger omeprazole [address] capsule Take 20 mg by mouth at bedtime. Commonly known as: PRILOSEC pioglitazone 45 MG TABS Take 1 tablet by mouth daily. Commonly known as: Actos PROBIOTIC-10 PO Take by mouth daily every morning. Vit E-Vit C-Beta Carotene [phone] TABS Take 250 mg by mouth daily. ZYRTEC PO Take 1 tablet by mouth at bedtime. STOP taking these medications amoxicillin 875 MG TABS Commonly known as: AMOXIL atenolol 50 MG TABS Commonly known as: TENORMIN doxycycline hyclate 100 MG CAPS Commonly known as: VIBRAMYCIN phentermine 37.5 MG TABS Commonly known as: ADIPEX-P predniSONE 20 MG TABS Commonly known as: DELTASONE Discharge Activity: Resume pre-hospital activities as tolerated. Discharge Diet: Resume pre-hospital diet as tolerated. Discharge Follow-up: Rhett Brito MD [address] [facility] [id number] In 1 week Rudy Brown MD [address] [facility] [address] [address] of chest Discharge Disposition: Patient will be discharged in stable condition. Discharge Time: Including assessment, planning, and medication reconciliation was greater than 35 min. Abigail Anguiano DNP completing Discharge Summary for Dr. Gray Please note Portions of this note utilized [employer] dictation software, please excuse any typographical or grammatical errors. Associated attestation - Madhu Gray DO - 09/25/2020 2:06 PM EDT Patient seen and examined independently. Meds, labs, and radiographs reviewed. Lungs diminshed and heart tones regular on exam. Complete Levaquin/Clinda course. Repeat CT Chest 1month and Pulm OP F/U arranged. I agree with assessments and plan of care. documented in this encounter Instructions * Patient Instructions* Daisha Martin, RN - 04/17/2019 2:30 PM EDT Thank you for choosing [facility]. Your surgery date is 04/30/19 Please call [phone] For your convenience, please call (between 9AM and 2PM) one business day (Saturday through Saturday, excluding holidays) before your surgery to verify your arrival time. *Example: if your surgery is on Saturday, please call on Saturday. If a holiday falls on Saturday and your surgery is , please call on Saturday to verify your arrival time. If you do not call you will receive a call with your arrival time after 2pm. *Surgery times have a tendency to change due to emergencies or cancellations. You will be notified if your arrival time changes. At [facility] Surgery Department, we strive to make your surgery experience as accommodating and relaxed as possible. Occasionally, however, the surgery scheduled prior to yours may take longer than anticipated. As a result, your procedure may be delayed. We will do your best to keep you informed of delays. Feel free to ask your nurse or aide for updates. Patient Surgery Information If you have any questions concerning your surgery/procedure, please call the P.A.T. Coordinator, Saturday through Saturday, 8:00 am to 4:30 pm at [phone]. For surgical questions during evenings or weekends, please call [phone] and ask the smelter operator to page the Nursing Hydraulic Repairer. Discontinue any blood thinners such as Aspirin, Plavix, Coumadin, Eliquis as instructed by your physician. Stop any NSAIDs (Ibuprofen, Motrin, Aleve, Advil, etc.), fish oil, and other supplements 7 days before your surgery or as instructed by your physician. Tylenol or acetaminophen is ok to take within this time frame. Please refer to your medication list and follow any special instructions noted for those medicines. Check your blood sugar the morning of surgery (if you normally check your blood sugar). THINGS TO BRING WITH YOU THE MORNING OF SURGERY, if Applicable Crutches CPAP. Please bring machine, tubing and mask. Rescue Inhaler Careful attention to the following instructions will help ensure your comfort and reduce the possibility of complications. Instructions in preparation for the day of your surgery/procedure: 1. Do not eat or drink anything after midnight (this includes gum, mints, lozenges, and sips of water) before your surgery/procedure. Doing so may cause nausea or vomiting during the procedure, whichmay cause serious or fatal complications. 2. You may brush your teeth before coming to the hospital. Try not to swallow any water when brushing your teeth. 3. Bathe or shower the evening before or the day of your surgery/procedure UNLESS otherwise instructed by your physician. 4. Avoid using make-up (cosmetics), aerosol sprays, perfumes, skin creams or lotions. Any make-up, nail macedonian and lipstick will need to be removed before surgery. Hospital staff needs to see your natural coloring to assess and monitor any changes. Do not shave body hair 48-hours prior to your procedure. Men may shave facial hair as usual. 5. Wear clothing that is comfortable and easy to put on after surgery. 6. Bring a responsible adult with you. YOU ARE NOT PERMITTED TO DRIVE HOME FOLLOWING YOUR SURGERY/PROCEDURE. 7. Leave all valuables and large amounts of money at home. Do not wear any jewelry including fingerrings, navel rings, earrings, toe rings, tongue rings or any type of body piercing jewelry. For your safety, you must remove all jewelry items prior to your procedure. 8. Dentures, hearing aids, contact lenses and glasses cannot be worn during your procedure. If you use any of these items, please bring their cases with you for proper storage. [facility] will not be responsible for lost articles. 9. You will consult with anesthesia personnel the day of surgery. Anesthesia personnel will ask youimportant questions and explain the type of anesthesia you will be receiving, how it is administered, and the risks. You will have an opportunity to have all of your questions answered. 10. Two visitors may stay with you before and after surgery. For patient confidentiality and comfort, please limit your visitors to two (2) adults. We welcome and encourage parents of pediatric patients to remain here throughout the procedure. No small children will be permitted in the pre-operative or recovery area. 11. If you develop a cold, persistent cough, sore throat, fever or any other illness within two days of surgery, please notify your physician or tell the nurse as soon as you arrive at the hospital. If you experience any other health changes between your most recent visit to your surgeon and the day of the surgery, notify your physician. If you suspect you are , please notify your physician. Anesthesia and medications may be harmful to the developing fetus. 12. No alcohol 48-hours or illicit [id number] prior to your surgery. 13. Do not smoke after midnight the night before your procedure. If you are a smoker, our Surgery Department requests you quit or cut down at least 24 to 48 hours prior to your surgery/procedure. Youwill not be permitted to smoke at the hospital. You need to be aware that if you have risk factors for Obstructive Sleep Apnea, or have a sleep apnea diagnosis, and do not use your CPAP, you can be held as long as 4 hours after your procedure to ensure that your respiratory function is back to baseline. 14. Any legal documents should not be signed until 24 hours after sedation. 15. You will receive discharge instructions before leaving the hospital and copies of the information will be placed in a folder for you to take home. It is important for you, and anyone assisting with your care, to understand these instructions. 16. We will call you after your procedure to see how you are doing. Please call your doctor with any questions or concerns. DIRECTIONS: Park in the front [facility] facing [address]. Enter through the front entrance and sign in at the Registration Desk at the [facility]. Thank you for allowing us the privilege to care for you! Preventing Surgical Site Infections One risk of having surgery is an infection at the surgical site. The surgical site is any cut the surgeon makes in the skin to do the operation. Surgical site infections can range from minor to severe or even fatal. This sheet tells you more about surgical site infections, what hospitals are doing to prevent them, and how they are treated if they do occur. It also tells you what you can do to prevent these infections. What causes surgical site infections? Germs are everywhere. They re on your skin, in the air, and on things you touch. Many germs are good. Some are harmful. Surgical site infections occur when harmful germs enter your body through the incision in your skin. Some infections are caused by germs that are in the air or on objects. But most are caused by germs found on and in your own body. Who is at risk for surgical site infections? Anyone can have a surgical site infection. Your risk is greater if you: Are an older adult Have a weak immune system or other health conditions or illnesses such as diabetes Take certain medicines such as steroids Are a smoker Have certain types of operations, such as abdominal surgery Have poor nutrition Are very overweight If the operation lasts longer than 2 hours What are the symptoms of a surgical site infection? The infection usually starts with increased skin redness, pain, and swelling around the incision. Later you may notice a cloudy or greenish-yellow discharge from the incision and it may develop a foul odor. The incision may separate or open up. You are also likely to have a fever and may feel very ill. Symptoms can appear any time from hours to weeks after surgery. Implants such as an artificial kneeor hip can become infected at any time after the operation. How are surgical site infections treated? Surgical site infections are treated with antibiotics. The type of medicine you get will depend on the germ thought to be causing the infection. Most serious wound infections need local wound care, and in some cases, further surgery. An infected skin wound may be reopened and cleaned. Sometimes, deep wounds need to be packed with gauze that is changed often until the wound starts to heal from the inside out. Your healthcare provider will figure out the best care needed to treat your surgical site infection. If an infection occurs where an implant is placed, the implant may be removed. If you have an infection deeper in your body, you may need another operation to treat it. What hospitals do to prevent surgical site infections Many hospitals take these steps to help prevent surgical site infections: Handwashing. Before the operation, your surgeon and all operating room staff scrub their hands and arms with an antiseptic soap. Clean skin. The site where your incision is made is carefully cleaned with an antiseptic solution. Sterile clothing and drapes. Members of your surgical team wear medical uniforms (scrub suits), long-sleeved surgical gowns, masks, caps, shoe covers, and sterile gloves. Your body is fully covered with a large sterile sheet (sterile drape) except for the spot where the incision is made. Clean air. Operating rooms have special air filters and positive pressure airflow to prevent unfiltered air from entering the room. Careful use of antibiotics. Antibiotics are given no more than 60 minutes before the incision is made and stopped within 24 hours after surgery. This helps kill germs but avoids problems that can occur when antibiotics are taken longer. Controlled blood sugar levels. Your blood sugar level may rise because of the stress of the surgery. Your blood sugar level is watched closely to make sure it stays within a normal range. High blood sugar delays wound healing and increases the chances for infection. Controlled body temperature. A [id number] temperature during or after surgery prevents oxygen from reaching the wound and makes it harder for your body to fight infection. Hospitals may warm IV fluids, increase the temperature in the operating room, and provide warm-air blankets. Proper hair removal. Any hair that must be removed is clipped right before the incision, not shavedwith a razor. This prevents tiny nicks and cuts through which germs can enter. Wound care. After surgery, a closed wound is covered with a sterile dressing for a day or two. Openwounds are packed with sterile gauze and covered with a sterile dressing. What you can do to prevent surgical site infections Ask questions. Learn what your hospital is doing to prevent infection. If your doctor tells you to, shower or bathe with plain soap the night before and the day of your operation. Follow the instructions you are given. You may be asked to use a special cleanser that youdon t rinse off. If you smoke, stop for the longest duration possible before and after the operation. Ask your doctor about ways to quit. Take antibiotics only when your healthcare provider tells you to. Using antibiotics when they re not needed can create germs that are harder to kill. Also, finish all your antibiotics, even if you feel better. Be sure healthcare workers clean their hands with plain soap and water or with an alcohol-based hand glass cleaner before and after caring for you. Don t be afraid to remind them. After surgery, eat healthy foods. Care for your incision as directed by your doctor or nurse. When to seek medical care Call your healthcare provider if you have any of the following: Increased soreness, pain, or tenderness at the surgical site A red streak, increased redness, or puffiness near the incision Yellowish, cloudy, or bad-smelling discharge from the incision Stitches that dissolve before the wound heals Fever of 100.4 F (38 C) or higher, or as directed by your healthcare provider A tired feeling that doesn t go away [phone] [employer]. [address] [place] [address], [place] [address]. All rights reserved. This information is not intended as a substitute for professional medical care. Always follow yourhealthcare professional's instructions. Please record date and time of your medications on this sheet and bring this with you on the day ofsurgery. Yellow - take the day of surgery [place] - hold according to the doctor's instructions or pre-admission testing instructions Current Outpatient Medications Medication Sig atenolol 50 MG Tab tablet Take 1 tablet by mouth 2 times daily. CONTINUE AND TAKE THE MORNING OF SURGERY WITH SIP OF WATER LAST DOSE: DATE TIME cyclobenzaprine 5 MG Tab tablet Take 1 tab PO each morning and 2 tabs PO each bedtime CONTINUE but DO NOT take the morning of surgery LAST DOSE: DATE TIME gabapentin (NEURONTIN) 300 MG Cap capsule Take 1 cap PO each morning and 2 caps PO at bedtime CONTINUE but DO NOT take the morning of surgery LAST DOSE: DATE TIME gliMEPIride 2 MG Tab Take 1.5 tablets by mouth 2 times daily. CONTINUE but DO NOT take the morning of surgery LAST DOSE: DATE TIME Magnesium 500 MG Tab Take 500 mg by mouth at bedtime. STOP 7 DAYS BEFORE YOUR SURGERY LAST DOSE: DATE TIME Multiple Vitamin (VIT E-VIT C-BETA CAROTENE) [phone] Tab Take 250 mg by mouth daily. STOP 7 DAYS BEFORE YOUR SURGERY LAST DOSE: DATE TIME omeprazole [address] Take 20 mg by mouth at bedtime. CONTINUE but DO NOT take the morning of surgery LAST DOSE: DATE TIME Probiotic Product (PROBIOTIC-10 PO) Take by mouth at bedtime. CONTINUE but DO NOT take the morning of surgery LAST DOSE: DATE TIME Vit B 12!!!!!!! Stop 7 days prior to surgery!!!!!!!!!! documented in this encounter Additional Source Comments INFORMATION SOURCE (unrecogn ized section and content) DATE CREATED AUTHOR AUTHOR'S ORGANIZ ATION 12/24/2017 [facility] DATE CREATED AUTHOR AUTHOR'S ORGANIZ ATION 12/24/2017 [facility] DATE CREATED AUTHOR AUTHOR'S ORGANIZ ATION 08/14/2018 [facility] DATE CREATED AUTHOR AUTHOR'S ORGANIZ ATION 08/07/2020 [facility] DATE CREATED AUTHOR AUTHOR'S ORGANIZ ATION 11/25/2020 [facility] DATE CREATED AUTHOR AUTHOR'S ORGANIZ ATION 11/25/2020 [facility] DATE CREATED AUTHOR AUTHOR'S ORGANIZ ATION 10/23/2021 [facility] DATE CREATED AUTHOR AUTHOR'S ORGANIZ ATION 12/30/2021 [facility] DATE CREATED AUTHOR AUTHOR'S ORGANIZ ATION 07/10/2023 [facility] Reason for Visit (unrecogniz ed section and content) Reason Comments PT Treatment Difficulty Walking Muscle Weakness Ankle Pain Reason Comments Medication Management Reason Comments Medication Refill Reason Comments Follow-up Headache Reason Comments Results Abnormal X-ray Reason Comments Immunization/Injection Reason Comments Results Reason Comments Medication Refill Weight Management Session Reason Comments Other Reason Comments Other Status Reason Specialty Diagnoses / Procedures Referre d By Contact Referred To Contact Closed Diagnoses Carpal tunnel syndrome, unspecified laterality Procedures EMG & NERVE CONDUCTION Demarco Lopez MD [address] [place] [address] Reason Comments Hand Pain Right Hand. EMG comp leted 03/05/2019. The hand has been bothering her for about 17 years, states 3 months ago she was moving and her carpal tunnel flared up and has not relaxed since. States she has pain, numbness and tingling in her hand. Status Reason Specialty Diagnoses / Procedures Referred By Contact Referred To Contact New Request Orthopaedics Diagnoses Carpal tunnel syndrome, unspecified laterality Demarco Lopez MD [address] [place] [address] Sukh Pradhan MD [address] [place] [address] Status Reason Specialty Diagnoses / Procedures Referre d By Contact Referred To Contact Diagnoses Bilateral carpal tunnel syndrome Cubital tunnel syndrome, bilateral Bilateral carpal tunnel syndrome [G56.03] Cubital tunnel syndrome, bilateral [G56.23] Procedures TN REVISE ULNAR NERVE AT ELBOW TN REVISE MEDIAN N/CARPAL TUNNEL SURG DECOMPRESSION TRANSPOSITION MEDIAN NERVE DECOMPRESSION TRANSPOSITION ULNAR NERVE ELBOW Sukh Pradhan MD [address] [place] [address] Reason Comments Post Op Visit 13 days s/p right CT R with ulnar nerve release. States she has no numbness or tingling at this time. Splint and suture removed by nursing. Hand Pain Patient presents for left carpal/cubital tunnel. States she is haveing numbness and tingling in her hand. Reason Comments Post Op Visit 6 weeks s/p left CTR and unlnar nerve of left elbow. States the burning and tingling is gone but she continue to have a little muscle pain and numbness in the elbow. Post Op Visit 12 weeks s/p right C TR with ulnar nerve release. States she does have pain in the hand, states the tingling and numbness is gone, continues to have pain in the muscles and the elbow is numb at times. Reason Comments Physical Status Reason Specialty Diagnoses / Procedures Referre d By Contact Referred To Contact Closed Radiology Diagnoses Visit for screening mammogram Procedures Mammography Screening Bilateral Suzi Chatman MD [address] [address] Reason Comments Weight Gain Cough Status Reason Specialty Diagnoses / Procedures Referred By Contact Referred To Contact Pending Review Radiology Diagnoses Screening breast examination Procedures Mammography Screening Bilateral Suzi Chatman MD [address] [address] Status Reason Specialty Diagnoses / Procedures Referred By Contact Referred To Contact Pending Review Radiology Diagnoses Abnormal mammogram Procedures Mammography Diagnostic Right Suzi Chatman MD [address] [address] Reason Comments Surgical Follow-up Reason Comments Post Op Visit 18 days s/p left CTR and unlnar nerve of left elbow. No numbness or tingling in the hands. States she removed the splint on the 24 of June. Reason Comments Cough Cough, fever, SOB. S tarted on doxycycline and prednisone yesterday by PCP. Pt had COVID-19 six weeks ago Reason Comments Shortness of Breath Patient tested posit jimy for covid 7 weeks ago. Patient states was diagnosed with pneumonia on Saturday. Patient states had productive cough but no longer able to cough anything up and has increased chest tightness today with increased SOB. Status Reason Specialty Diagnoses / Procedures Referre d By Contact Referred To Contact Reason Comments Preoperative Assessment 04/30 Reason Comments Transfer Of Care Reason Comments Referral Reason Comments Hypertension Diabetes Headache Status Reason Specialty Diagnoses / Procedures Referred By Contact Referred To Contact Closed Computerized Tomography Scan Diagnoses Pneumonia of left lower lobe due to infectious organism Procedures CT CHEST WITHOUT CONTRAST CHG DIAGNOSTIC COMPUTED TOMOGRAPHY THORAX W/O CNTRST Abigail Anguiano, MAIL DISTRIBUTION SCHEME EXAMINER [address] [place] [address] Scan [address] [place] [phone] Reason Comments Arm Pain left arm hurts/numb Reason Comments Arm Pain Status Reason Specialty Diagnoses / Procedures Referred By Contact Referred To Contact Closed Mammography Diagnoses Screening mammogram for high-risk patient Procedures MAMMO SCREENING WITH DOMINIQUE BILATERAL Suzi Chatman MD 24 [facility] [address] [place] [address] [facility] [address] [place] [phone] Reason Comments Arm Pain left Specialty Diagnoses / Procedures Referred By Contac t Referred To Contact Nuclear Medicine Diagnoses Chest pain, unspecified type Procedures NUC MYOCARD PERF STRESS MIBI EXERCISE TN CHG MYOCARDIAL SPECT MULTIPLE STUDIES TN CARDIAC STRESS TST,TRACING ONLY Rhett Brito MD [address] [place] [phone] [facility] [address] [place] [phone] Referral ID Status Reason Start Date Expiration Date Visits Re quested Visits Authorized [id number] Closed 02/14/2021 03/11/2022 1 1 Reason Comments Annual Exam Patient her for marianna al without pap. Last pap 11/17/20. Patient has IUD that was placed 12/12/20. Specialty Diagnoses / Procedures Referred By Contac t Referred To Contact Mammography Diagnoses Encounter for screening mammogram for breast cancer Procedures MAMMO SCREENING WITH Roxie Randolph MD [address] [place] [phone] [facility] [address] [place] [phone] Referral ID Status Reason Start Date Expiration Date Visits Re quested Visits Authorized [id number] Closed 11/20/2021 12/15/2022 1 1 Reason Comments Medication Refill Referral ID Status Reason Start Date Expiration Date Visits Re quested Visits Authorized [id number] Closed 04/17/2022 05/12/2023 1 1 Specialty Diagnoses / Procedures Referred By Contac t Referred To Contact Diagnoses Chest pain, unspecified type Left arm pain Procedures ECG, TREADMILL STRESS (NON-IMAGING) TN CV STRS TST XERS&/OR RX CONT ECG W/SI&R Madhu Kramer MD [address] [place] [phone] Referral ID Status Reason Start Date Expiration Date Visits Re quested Visits Authorized [id number] Closed 05/21/2022 06/15/2023 1 1 Reason Comments Medication Refill Shoulder Pain Reason Comments Ear Pain Madhu Contreras RN - 09/17/2020 9:55 PM Hazel Ashley PCA - 09/21/2020 7:16 PM Kumar Hayes PCA - 09/21/2020 7:11 PM Hazel Ashley PCA - 09/21/2020 6:28 PM EDT ED Notes (unrecognized secti on and content) Audra BARLOW bed side documented in this encounter Patient received room # 3751 at this time This TASSEL MAKING MACHINE OPERATOR went into pt's room to obtain vital signs. wire chief flashed V- tach for a moment. I realized pt was sweating profusely. I stated I would help the patient clean off the sweat and put new associate property manager stickers on. Pt's visitor starts wiping pt down stating I will do it, she is very modest. This TASSEL MAKING MACHINE OPERATOR attempted to check for the rest of the associate property manager stickers. Pt's visitor again states She's so modest I can do everything and I can put her back on the monitor because I know how to do it This TASSEL MAKING MACHINE OPERATOR states ok and exits room. Dr. Gray returned page, Speaking with Dr. June at this time Paged Dr. Gray at this time Dr. Gray returned page, Speaking with Dr. June at this time Paged Dr. Gray at this time Lab cartside drawing cultures Emergency Department Report [facility] Service Date:.09/21/20 PCP: Rhett Brito Chief Complaint: Chief Complaint Patient presents with Shortness of Breath Patient tested positive for covid 7 weeks ago. Patient states was diagnosed with pneumonia on Saturday. Patient states had productive cough but no longer able to cough anything up and has increased chest tightness today with increased SOB. HPI Sharon Bella is a 45 y.o. female presents to the ED today due to The patient appears to be failed outpatient treatment for pneumonia. She has cough and fever and shortness of breath. We did ask she seen in the emergency room on 09/17/2020 and she was diagnosed at that time with pneumonia. Despite medications at home, she has continued to feel worse. Coronavirus is unlikely. She already had the singer virus infection 7 weeks ago and she seemed to have gotten over that adequately. In the last day or so, she is having increasing coughing, increasing shortness of breath, and worsening of symptomatology. There is history of some reactive airway disease and they have had her on prednisone. This was prescribed by her primary care physician. At this time, based upon vital signs and oxygenation, admission is going to be certainly required. Review of Systems: Stuffiness present. Scratchy throat present. Persistence of coughing present. Shortness of breath present. Poor appetite due to nausea. No vomiting or diarrhea. Intermittent headaches worse with coughing. Malaise, fatigue, and generally having muscle aches and body aches. No increasing leg or ankle edema. No significant pleuritic or cardiac type chest pain. No urinary frequency/urgency/hesitancy/pain/burning. No focal most weakness or focal paresthesias. No unusual rashes. 10 systems were reviewed. Review of Systems Past Medical History: Past Medical History: Diagnosis Date Diabetes mellitus Essential hypertension, benign Exercise tolerance finding METS > 4 stairs daily GERD (gastroesophageal reflux disease) History of corticosteroid therapy < 2yrs Migraine Pain Rt elbow, headaches, cervical spine issues Varicose vein of leg Past Surgical History: Past Surgical History: Procedure Laterality Date DECOMPRESSION TRANSPOSITION MEDIAN NERVE Left 06/11/2019 Laterality: Left; Surgeon: Sukh Pradhan MD; Location: [facility] DECOMPRESSION TRANSPOSITION ULNAR NERVE ELBOW Left 06/11/2019 Laterality: Left; Surgeon: Sukh Pradhan MD; Location: [facility] DECOMPRESSION TRANSPOSITION MEDIAN NERVE Right 04/30/2019 Laterality: Right; Surgeon: Sukh Pradhan MD; Location: [facility] DECOMPRESSION TRANSPOSITION ULNAR NERVE ELBOW Right 04/30/2019 Laterality: Right; Surgeon: Sukh Pradhan MD; Location: [facility] RELEASE TENDON ELBOW OPEN W/ TENDON REPAIR OR REATTACHMENT Right 06/18/2017 Laterality: Right; Surgeon: Sukh Pradhan MD; Location: [facility] ELBOW SURGERY Left 11/01/2016 Lt lateral epicondyle debrideent & repair Dr Sukh Pradhan @ [facility] REFRACTIVE SURGERY Bilateral 2003 lasik TONSILLECTOMY 1985 Allergies: Allergies Allergen Reactions Tramadol Nausea and Vomiting Medications: Patient's Medications New Prescriptions No medications on file Previous Medications ALBUTEROL 108 (90 BASE) MCG/ACT AERO SOLN INHALER Inhale 1 puff every 6 hours as needed for Wheezing. AMOXICILLIN 875 MG TABLET Take 1 tablet by mouth every 12 hours for 10 days. ATENOLOL 50 MG TABLET Take 1 tablet by mouth 2 times daily. BENZONATATE 200 MG CAPSULE Take 1 capsule by mouth 3 times daily as needed for Cough. CETIRIZINE HCL (ZYRTEC PO) Take 1 tablet by mouth at bedtime. CYCLOBENZAPRINE 10 MG TABLET Take 1 tablet by mouth 2 times daily. DOXYCYCLINE HYCLATE 100 MG CAPSULE Take 1 capsule by mouth 2 times daily for 10 days. GABAPENTIN (NEURONTIN) 300 MG CAPSULE Take 1 cap PO each morning and 2 caps PO QHS GLIMEPIRIDE 4 MG TABLET Take 1 tablet by mouth 2 times daily. GLUCOSE MONITOR LANCETS PRESCRIPTION daily GLUCOSE MONITOR PRESCRIPTION daily GLUCOSE TEST STRIPS PRESCRIPTION daily MAGNESIUM 500 MG TAB Take 500 mg by mouth at bedtime. MONTELUKAST 10 MG TABLET Take 1 tablet by mouth daily. MULTIPLE VITAMIN (VIT E-VIT C-BETA CAROTENE) [phone] TAB Take 250 mg by mouth daily. OMEPRAZOLE [address] Take 20 mg by mouth at bedtime. PHENTERMINE 37.5 MG TABLET Take 1 tablet by mouth every morning before breakfast. PIOGLITAZONE (ACTOS) 45 MG TABLET Take 1 tablet by mouth daily. PREDNISONE 20 MG TABLET Take 1 tablet by mouth daily for 7 days. PROBIOTIC PRODUCT (PROBIOTIC-10 PO) Take by mouth daily every morning. Modified Medications No medications on file Discontinued Medications No medications on file Family History: Family History Problem Relation Age of Onset Other - Specify Mother Headaches Diabetes Mother Breast Cancer Mother Arthritis - Rheumatoid Mother Allergy - Severe Mother Hypertension Mother Prostate Cancer Father Arthritis - Rheumatoid Father Myocardial Infarction Father Colon Cancer Father Lung Cancer Father Heart Disease - Other Father Hypertension Father Thyroid Disease Father Social History: Social History Socioeconomic History Marital status: Single Spouse name: Not on file Number of children: Not on file Years of education: Not on file Highest education level: Not on file Occupational History Not on file Tobacco Use Smoking status: Never Smoker Smokeless tobacco: Never Used Substance and Sexual Activity Alcohol use: Yes Comment: Rarely Drug use: No Sexual activity: Yes Partners: Male control/protection: I.U.D. Comment: IUD Other Topics Concern Occupational Exposure No Hobby Hazards No Social History Narrative Not on file Social Determinants of Health Financial Resource Strain: Difficulty of Paying Living Expenses: Not on file Food Insecurity: Worried About Running Out of Food in the Last Year: Not on file Ran Out of Food in the Last Year: Not on file Transportation Needs: Lack of Transportation (Medical): Not on file Lack of Transportation (Non-Medical): Not on file Physical Activity: Days of Exercise per Week: Not on file Minutes of Exercise per Session: Not on file Stress: Feeling of Stress : Not on file Social Connections: Frequency of Communication with Friends and Family: Not on file Frequency of Social Gatherings with Friends and Family: Not on file Attends Christian Services: Not on file Active Member of Clubs or Organizations: Not on file Attends Club or Organization Meetings: Not on file Marital Status: Not on file Intimate Partner Violence: Fear of Current or Ex-Partner: Not on file Emotionally Abused: Not on file Physically Abused: Not on file Sexually Abused: Not on file Physical Exam: @PHYSICALEXAM@ The patient is awake alert and active. Vital signs were reviewed. Mental status is good. She is coughing and appears to be dyspneic and short of breath. Temperature is 101.1 with pulse oximetries between 90% and 93%. Hypoxia noted. Oral mucosa is still moist. Skin turgor is still good. Ears, nose, throat unremarkable. Cough is persistent and bothersome. Heart regular rate and rhythm. Tachycardia noted. Lungs with diffuse inspiratory rhonchi and expiratory wheezing mildly at the end of expiration. Slight elevated respiratory rate area and only mild utilization of accessory respiratory muscle. Abdomen is obese and soft. Skin turgor is good. No calf or thigh pain. Vital Signs During ED Visit Patient Vitals for the past 24 hrs: BP Temp Temp src Pulse Resp SpO2 Height Weight 09/21/20 1754 1.626 m (5' 4 ) 108.9 kg (240 lb) 09/21/20 1752 168/82 101.1 F (38.4 C) Oral 105 20 93 % Differential Diagnosis: Pneumonia failed outpatient treatment Orders/Results: Orders Placed This Encounter BLOOD CULTURE, PERIPHERAL 1ST SITE BLOOD CULTURE, PERIPHERAL 2ND SITE Troponin I, High sensitivity CHEM 7 (LYTES,BUN,CREA,GLUC) HEPATIC FUNCTION PANEL CBC, EDIF, PLATELET LACTATE, BLOOD SEDIMENTATION RATE, AUTOMATED C REACTIVE PROTEIN sodium chloride 0.9% IV solution 500 mL sodium chloride 0.9% IV solution levoFLOXacin (LEVAQUIN) 750 mg in dextrose 5% premix IVPB acetaminophen (TYLENOL) tablet 1,000 mg Results for orders placed or performed during the hospital encounter of 09/21/20 CBC, EDIF, PLATELET Result Value Ref Range WBC (WHITE BLOOD COUNT) 9.1 3.6 - 11.0 10*3/uL RBC 3.99 (L) 4.0 - 5.4 10*6/uL HEMOGLOBIN (HGB) 11.7 (L) 12.0 - 16.0 G/DL HEMATOCRIT (HCT) 35.2 (L) 36.0 - 48.0 % MEAN CELL VOLUME 88.2 80.0 - 100.0 FL Mean Cell HGB 29.3 26.0 - 35.0 PG MEAN CELL HGB CONCENTRATION 33.2 27.0 - 37.0 G/DL RBC DISTRIBUTION 13.9 11.5 - 14.5 % PLATELET COUNT 243 130 - 400 10*3/uL MEAN PLATELET VOLUME 8.8 7.4 - 11.0 FL DIFFERENTIAL TYPE AUTO DIFF % NEUTROPHILS 82.2 (H) 37.0 - 75.0 % LYMPHOCYTE 12.1 (L) 20.0 - 55.0 % MONOCYTE % 3.1 0.0 - 10.0 % EOSINOPHIL % 2.4 0.0 - 11.0 % BASOPHIL % 0.2 0.0 - 2.0 % Absolute Neutrophil Count 7.5 (H) 1 - 6 10*3/uL LYMPHOCYTES, ABSOLUTE 1.10 (L) 1.2 - 3.4 10*3/uL MONOCYTES, ABSOLUTE 0.3 0.0 - 0.7 10*3/uL ABSOLUTE EOSINOPHIL COUNT 0.20 0 - 0 10*3/uL ABSOLUTE BASOPHIL COUNT 0.0 0 - 0 10*3/uL Radiographic Imaging No orders to display Lab/Imaging Results Summary: A right-sided infiltrate. Possibly left lower lobe Lactic acid 2.1. The chemistry profile shows a sodium of 132 and chloride of 95 which would be compatible with her pneumonia. Otherwise unremarkable. Glucose 197. Hemoglobin 11.7 hematocrit 35.2. White blood count 9.1. The sedimentation rate 84. C-reactive protein 81.9. EKG sinus rhythm. 108 bpm. TN interval of 174 ms. QS duration 76 5 seconds. Normal axis configuration. Nonspecific changes. No evidence of acute ischemic event. Moderate Sedation: Procedures: Procedures Progress Notes/Re-evaluation: Admission ED Summary: The patient has been on antibiotics and prednisone at home for pneumonia. She was actually seen in emergency room on 09/17/2020. She is not improved. She appears to be ill. She is hypoxic. Appropriate blood work was ordered. Intravenous antibiotics were ordered. Intravenous site medical was ordered. Patient placed on oxygen. DuoNeb ordered. Case discussed with PCC/flatbed company driver. Case discussed with hospitalist. With the elevated lactic acid, additional fluids were ordered. Sepsis protocol was followed. Patient received both intravenous Levaquin and intravenous vancomycin. Bridge orders written. Clinical Impression: Acute pneumonia hypoxia failed outpatient treatment No diagnosis found. No follow-ups on file. New Prescriptions No medications on file Discontinued Medications No medications on file An After Visit Summary was printed and given to the patient with above information. . Román June DO 09/21/20 1845 Román June DO 09/21/[address] June aware of sepsis alert and orders received. documented in this encounter Abigail Anguiano CNP - 09/22/2020 12:48 PM EDT H&P Notes (unrecognized sect ion and content) Chief Complaint: 09/21/2020 5:38 PM Chief Complaint Patient presents with Shortness of Breath Patient tested positive for covid 7 weeks ago. Patient states was diagnosed with pneumonia on Saturday. Patient states had productive cough but no longer able to cough anything up and has increased chest tightness today with increased SOB. History of Present Illness: Patient is a 45 y.o. female presents to the hospital for evaluation of Cough and shortness of breath. Patient states end of last week she started not feel well. She was started on antibiotics and steroids by her PCP on Saturday/saturday. She reports progressive worsening. She does complain of increased dyspnea with exertion and a loose cough. She does report having a fever at home as high as 103. She was seen in the emergency room as well over the weekend and did have an additional antibiotic added. She hasn't taken the medications as prescribed and continues to feel ill. She denies chest pain, palpitations, lightheadedness, nausea, vomiting or abdominal pain. She denies urinary symptoms. She does report testing positive about 2 months ago with cold and 19. Emergency room evaluation found the patient to be febrile, hypertensive and tachycardic in the emergency room.She did have a normal WBC and hemoglobin was 11.7.She did have an elevated lactate at 2.1 and a sodium of 132 otherwise chemistries were unremarkable. She did have elevated sedimentation rate and CRP. EKG showed sinus tachycardia with no acute findings. Chest x-ray showed No infiltrate or effusions. She was started on intravenous antibiotics and steroids. She was admitted to medical floor for further evaluation. Past Medical History: Diagnosis Date Diabetes mellitus Essential hypertension, benign Exercise tolerance finding METS > 4 stairs daily GERD (gastroesophageal reflux disease) History of corticosteroid therapy < 2yrs Migraine Pain Rt elbow, headaches, cervical spine issues Varicose vein of leg Past Surgical History: Procedure Laterality Date DECOMPRESSION TRANSPOSITION MEDIAN NERVE Left 06/11/2019 Laterality: Left; Surgeon: Sukh Pradhan MD; Location: [facility] DECOMPRESSION TRANSPOSITION ULNAR NERVE ELBOW Left 06/11/2019 Laterality: Left; Surgeon: Sukh Pradhan MD; Location: [facility] DECOMPRESSION TRANSPOSITION MEDIAN NERVE Right 04/30/2019 Laterality: Right; Surgeon: Sukh Pradhan MD; Location: [facility] DECOMPRESSION TRANSPOSITION ULNAR NERVE ELBOW Right 04/30/2019 Laterality: Right; Surgeon: Sukh Pradhan MD; Location: [facility] RELEASE TENDON ELBOW OPEN W/ TENDON REPAIR OR REATTACHMENT Right 06/18/2017 Laterality: Right; Surgeon: Sukh Pradhan MD; Location: [facility] ELBOW SURGERY Left 11/01/2016 Lt lateral epicondyle debrideent & repair Dr Sukh Pradhan @ [facility] RE[facility]RA[facility]IVE SURGERY Bilateral 2002 lasik TONSILLECTOMY 1985 Social History Tobacco Use Smoking status: Never Smoker Smokeless tobacco: Never Used Substance Use Topics Alcohol use: Yes Comment: Rarely Family History Problem Relation Age of Onset Other - Specify Mother Headaches Diabetes Mother Breast Cancer Mother Arthritis - Rheumatoid Mother Allergy - Severe Mother Hypertension Mother Prostate Cancer Father Arthritis - Rheumatoid Father Myocardial Infarction Father Colon Cancer Father Lung Cancer Father Heart Disease - Other Father Hypertension Father Thyroid Disease Father Medications Prior to Admission Medication Sig Dispense Refill Last Dose albuterol 108 (90 Base) MCG/ACT Aero Soln inhaler Inhale 1 puff every 6 hours as needed for Wheezing. 1 Inhaler 0 Past Week amoxicillin 875 MG tablet Take 1 tablet by mouth every 12 hours for 10 days. 20 tablet 0 09/21/2020 atenolol 50 MG tablet Take 1 tablet by mouth 2 times daily. 180 tablet 1 09/21/2020 benzonatate 200 MG capsule Take 1 capsule by mouth 3 times daily as needed for Cough. 21 capsule 0 Past Week Cetirizine HCl (ZYRTEC PO) Take 1 tablet by mouth at bedtime. 09/20/2020 cyclobenzaprine 10 MG tablet Take 1 tablet by mouth 2 times daily. 60 tablet 5 09/21/2020 doxycycline hyclate 100 MG capsule Take 1 capsule by mouth 2 times daily for 10 days. 20 capsule 0 09/21/2020 gabapentin (Neurontin) 300 MG capsule Take 1 cap PO each morning and 2 caps PO QHS 270 capsule 0 09/21/2020 gliMEPIride 4 MG tablet Take 1 tablet by mouth 2 times daily. 180 tablet 1 09/21/2020 Magnesium 500 MG Tab Take 500 mg by mouth at bedtime. 09/20/2020 montelukast 10 MG tablet Take 1 tablet by mouth daily. 90 tablet 1 09/20/2020 Multiple Vitamin (VIT E-VIT C-BETA CAROTENE) [phone] Tab Take 250 mg by mouth daily. 09/21/[address] omepraz[address] Take 20 mg by mouth at bedtime. 09/20/2020 phentermine 37.5 MG tablet Take 1 tablet by mouth every morning before breakfast. 30 tablet 0 09/21/2020 pioglitazone (Actos) 45 MG tablet Take 1 tablet by mouth daily. 90 tablet 0 09/20/2020 predniSONE 20 MG tablet Take 1 tablet by mouth daily for 7 days. 7 tablet 0 09/20/2020 Probiotic Product (PROBIOTIC-10 PO) Take by mouth daily every morning. 09/21/2020 GLUCOSE MONITOR LANCETS PRESCRIPTION daily 100 Each 3 GLUCOSE MONITOR PRESCRIPTION daily 1 Device 0 GLUCOSE TEST STRIPS PRESCRIPTION daily 100 strip 3 Allergies Allergen Reactions Tramadol Nausea and Vomiting Review of Systems: Ten systems reviewed and found to be negative unless otherwise stated in the history and present illness. PHYSICAL EXAM: Patient Vitals for the past 8 hrs: BP Temp Temp src Pulse Resp SpO2 Height Weight 09/22/20 0734 95 % 09/22/20 0701 145/80 98.5 F (36.9 C) Oral 94 16 94 % 09/22/20 0503 140/83 98.5 F (36.9 C) Oral 80 16 94 % 1.626 m (5' 4.02 ) 113 kg (249 lb 1.9 oz) General: Patient resting comfortably. No acute distress. HEENT: Normalcephalic, atraumatic. ALL. EOMI. Anicteric. Nose Normal. Ears Normal. OP Clear. No thrush.l Neck: Supple, no JVD, no thyromegaly, no anterior or posterior lymphadenopathy. Cardiovascular: Regular rate and rhythm, without murmurs, rubs, or gallops. Respiratory: clear to ausculation bilaterally, scattered rhonchi diminished GI; Soft, rounded, non-tender. Bowel sounds present x4 quadrants. No rebound. No organomegaly or masses noted upon deep palpation. Extremities: No edema, clubbing or cyanosis, pulses palpable 2+ distally. Musculoskeletal: no obvious deformity, inflammation or tenderness Psych: Patient awake, alert, oriented x 3. Skin: Warm, Dry, Intact. No obvious rashes or lesions noted. Neuro: Cranial nerves 2-12 grossly intact upon seated examination. No focal defiects noted. Speech clear with conversation Diagnostics: Admission on 09/21/2020 Component Date Value TROPONIN I, HIGH SENSITI* 09/21/2020 8 GLUCOSE 09/21/2020 197* BUN 09/21/2020 17 CREATININE SERUM 09/21/2020 0.61 SODIUM 09/21/2020 132* POTASSIUM 09/21/2020 3.9 CHLORIDE 09/21/2020 95* CARBON DIOXIDE (CO2) 09/21/2020 27 ESTIMATED GFR, NON AFRIC* 09/21/2020 >60 ESTIMATED GFR, A* 09/21/2020 >60 GFR COMMENT 09/21/2020 Average GFR for 40-49 years old = 99. ALBUMIN 09/21/2020 3.3* BILIRUBIN, TOTAL 09/21/2020 0.4 ALKALINE PHOSPHATASE 09/21/2020 86 AST 09/21/2020 56* BILIRUBIN, DIRECT 09/21/2020 0.1 PROTEIN, TOTAL 09/21/2020 7.5 ALT 09/21/2020 85* WBC (WHITE BLOOD COUNT) 09/21/2020 9.1 RBC 09/21/2020 3.99* HEMOGLOBIN (HGB) 09/21/2020 11.7* HEMATOCRIT (HCT) 09/21/2020 35.2* MEAN CELL VOLUME 09/21/2020 88.2 Mean Cell HGB 09/21/2020 29.3 MEAN CELL HGB CONCENTRAT* 09/21/2020 33.2 RBC DISTRIBUTION 09/21/2020 13.9 PLATELET COUNT 09/21/2020 243 MEAN PLATELET VOLUME 09/21/2020 8.8 DIFFERENTIAL TYPE 09/21/2020 AUTO DIFF NEUTROPHILS 09/21/2020 82.2* LYMPHOCYTE 09/21/2020 12.1* MONOCYTE % 09/21/2020 3.1 EOSINOPHIL % 09/21/2020 2.4 BASOPHIL % 09/21/2020 0.2 Absolute Neutrophil Count 09/21/2020 7.5* LYMPHOCYTES, ABSOLUTE 09/21/2020 1.10* MONOCYTES, ABSOLUTE 09/21/2020 0.3 ABSOLUTE EOSINOPHIL COUNT 09/21/2020 0.20 ABSOLUTE BASOPHIL COUNT 09/21/2020 0.0 LACTATE, PLASMA 09/21/2020 2.1* SEDIMENTATION RATE AUTOM* 09/21/2020 84* C-REACTIVE PROTEIN 09/21/2020 81.9* SARS COV 2 RNA, QL REAL * 09/21/2020 NOT DETECTED NARRATIVE -1 09/21/2020 This test was performed using isothermal LYLY and has been approved as Emergency Use Authorization (EUA) for the qualitative detection [id number] nucleic acid. LACTATE, PLASMA 09/21/2020 0.9 SEDIMENTATION RATE AUTOM* 09/21/2020 74* C-REACTIVE PROTEIN 09/21/2020 77.4* Legionella Urinary Antig* 09/21/2020 NEGATIVE STREP PNEUMONIAE ANTIGEN* 09/21/2020 NEGATIVE LACTATE, PLASMA 09/22/2020 1.1 TSH, Reflex FT4 09/21/2020 1.054 HEMOGLOBIN A1C 09/21/2020 9.1* Estimated Average Glucose 09/21/2020 214 SCREEN: MRSA 09/21/2020 NEGATIVE STAPHYOCOCCUS AUREUS BY * 09/21/2020 NEGATIVE WBC (WHITE BLOOD COUNT) 09/22/2020 9.2 RBC 09/22/2020 3.76* HEMOGLOBIN (HGB) 09/22/2020 11.0* HEMATOCRIT (HCT) 09/22/2020 33.0* MEAN CELL VOLUME 09/22/2020 87.8 Mean Cell HGB 09/22/2020 29.1 MEAN CELL HGB CONCENTRAT* 09/22/2020 33.2 RBC DISTRIBUTION 09/22/2020 13.8 PLATELET COUNT 09/22/2020 229 MEAN PLATELET VOLUME 09/22/2020 9.2 DIFFERENTIAL TYPE 09/22/2020 AUTO DIFF NEUTROPHILS 09/22/2020 91.3* LYMPHOCYTE 09/22/2020 6.8* MONOCYTE % 09/22/2020 1.6 EOSINOPHIL % 09/22/2020 0.1 BASOPHIL % 09/22/2020 0.2 Absolute Neutrophil Count 09/22/2020 8.4* LYMPHOCYTES, ABSOLUTE 09/22/2020 0.60* MONOCYTES, ABSOLUTE 09/22/2020 0.1 ABSOLUTE EOSINOPHIL COUNT 09/22/2020 0.00 ABSOLUTE BASOPHIL COUNT 09/22/2020 0.0 PT 09/22/2020 16.7* INR 09/22/2020 1.37* MAGNESIUM 09/22/2020 2.0 GLUCOSE 09/22/2020 298* BUN 09/22/2020 17 CREATININE SERUM 09/22/2020 0.59 SODIUM 09/22/2020 136 POTASSIUM 09/22/2020 4.0 CHLORIDE 09/22/2020 100 CARBON DIOXIDE (CO2) 09/22/2020 23 ALBUMIN 09/22/2020 3.0* CALCIUM 09/22/2020 9.0 PHOSPHORUS 09/22/2020 3.9 ESTIMATED GFR, NON AFRIC* 09/22/2020 >60 ESTIMATED GFR, A* 09/22/2020 >60 GFR COMMENT 09/22/2020 Average GFR for 40-49 years old = 99. ASSESSMENT & PLAN: Principal Problem: Pneumonia- X-ray showed pulmonary vascular congestion mild right lower lobe atelectasis and airspace disease questionable right lower lobe nodular density- CT of the chest is pending-duo nebs-Levaquin/Solu-Medrol/supplement oxygen to maintain saturations greater than 90%-currently on room air Active Problems: Diabetes (A1C > or equal to 6.5%)- Sliding scale insulin body mass index of 40.0-49.9 Sepsis without acute organ dysfunction- Secondary pneumonia- Lactate of 2.1-CRP of 81-tachycardia, fever, tachypnea DVT/GI prophylaxis-PPI and Lovenox Full Code Please note Portions of this note utilized TeamDynam[employer]ation software, please excuse any typographical or grammatical errors. Associated attestation - Madhu Gray DO - 09/22/2020 7:38 PM EDT Patient seen and examined independently. Meds, labs, and radiographs reviewed. Lungs coarse and heart tones regular on exam. Failed 2 courses of OP Atbx. CT Chest reviewed - IMPRESSION: Mild consolidative opacity involving the posterior aspect of the right middle lobe suspicious for pneumonia or aspiration. Recommend radiographic followup to ensure resolution. Mild to moderate subsegmental areas of right lower lobe atelectasis with associated mild elevation of the right hemidiaphragm. No bulky lymphadenopathy. Scattered subcentimeter prominent lymph nodes are noted in the mediastinum, likely reactive. Mild to moderate enlargement of the heart. Lactate 2.1 CRP 81.9 ESR 84 +Tachycardia and Tachypnea. Empiric Levaquin and Vanco. Await Cx data. Sepsis w/o organ dysfunction 2/2 RML PNA. I agree with assessments and plan of care. documented in this encounter Nursing Notes - Amanda Carl RN - 09/25/2020 4:06 PM EDTNursing Notes - Amanda Carl RN - 09/25/2020 3:30 PM EDTNursing Notes - Amanda Carl RN - 09/25/2020 12:40 PM EDT Miscellaneous Notes (unrecog nized section and content) Reviewed discharge instructions, medications and follow up appointment with patient. IV and tele removed, patient tolerated. Patient denies any other needs or questions. Patient denies any CP or SOB. Patient assessment unchanged from previous. Patient denies any needs at this time. Call light in reach. Patient assessment unchanged from previous. Patient denies any needs at this time. Call light in reach. Patient having frequent nonsymptomatic bradycardia in the 40s but NSR other lyons. Abigail FLAHERTY DC atenolol and adding lisinopril. Will continue to monitor. Patient assessment unchanged from previous. Patient denies any needs at this time. Call light in reach. Pt having trouble sleeping. Wanted a snack of andres crackers and peanut butter. Gave fresh ice water. Gave solumedrol and rechecked blood pressure and heart rate. Pt still sinus adrian and blood pressure still on the high side, but did go down since last taken. Took BP manually. Pt denies other needs at this time. Call light within reach. Pt awake in bed. Claims she is having a hard time staying asleep because she is worried about her condition and not being ready to discharge. She is anxious because she does not want to be discharged and have to come right back to the hospital again like she did recently from no improvement. I told the pt she should communicate this to the doctor during rounds too if she still feels this way. Call light within reach. Pt resting in bed. Vital signs indicated high blood pressure reading, but bradycardia. Will call [employer] for orders. Pt asymptomatic. Given fresh ice water. Call light within reach. Problem: Patient Care Overview Goal: Plan of Care Review Outcome: Ongoing Goal: Individualization & Mutuality Outcome: Ongoing Goal: Discharge Needs Assessment Outcome: Ongoing Goal: Interdisciplinary Rounds/Family Conf Outcome: Ongoing Problem: Skin Integrity Impairment, Risk/Actual (Adult) Goal: Identify Related Risk Factors and Signs and Symptoms Description: Related risk factors and signs and symptoms are identified upon initiation of Human Response Clinical Practice Guideline (CPG) Outcome: Ongoing Goal: Skin Integrity/Wound Healing Description: Patient will demonstrate the desired outcomes by discharge/transition of care. Outcome: Ongoing Problem: Pneumonia (Adult) Goal: Signs and Symptoms of Listed Potential Problems Will be Absent, Minimized or Managed (Pneumonia) Description: Signs and symptoms of listed potential problems will be absent, minimized or managed by discharge/transition of care (reference Pneumonia (Adult) CPG). Outcome: Ongoing Problem: Infection, Risk/Actual (Adult) Goal: Identify Related Risk Factors and Signs and Symptoms Description: Related risk factors and signs and symptoms are identified upon initiation of Human Response Clinical Practice Guideline (CPG) Outcome: Ongoing Goal: Infection Prevention/Resolution Description: Patient will demonstrate the desired outcomes by discharge/transition of care. Outcome: Ongoing Received report from MONISHA Navarro. Pt complains of 5/10 headache pain. Claims she has chronic headaches, but just vary in severity. Given Tylenol along with scheduled medications. Pt lungs diminished and has an intermittent cough. Denies shortness of breath, but says, Feels like it's full inside my lungs like pressure. Denies other needs at this time. Call light within reach. No change in pt condition since the last nursing assessment. No change in pt condition since the last nursing assessment. This RN assisted pt in elevating legs while in chair in order to prevent swelling BLE. Pt c/o heaviness in chest and needing to cough . This RN explained that IV solumedrol will help decrease swelling in lungs and encouraged pt to continue IS use and drink plenty of fluids. Fresh glass of iced water given to pt. Pt used IS with encouragement. Bedside table and call light within reach. This RN provided IS to pt and provided IS education. Pt verbally states she understands the purpose for IS and how to use the device. Verbally states she is aware that the IS may induce coughing and to use the IS qh while awake. Pt demonstrated correct use to this RN and is able to reach 1500 units. This RN assisted pt in repositioning in chair and brought the pt fresh iced water. Call light and bedside table within reach. This RN provided pt clean gown for her morning shower. Denied further needs. This RN assisted pt in repositioning in bed and repositioning bedside table and gave pt a fresh glass of iced water. Bedside table and call light within reach. Denies further needs at this time. Pt requested PRN flexoril /c scheduled morning gabapentin. States she had 6(10) headache pain, and that she takes these two medications together at home to relieve the headaches per orders of her PCP. Received report from MONISHA Landa. Patient asleep, arouses easily to verbal stimuli. Denies any pain or discomfort. IVF infusing adequately. Fresh ice water provided. Call light and bedside table in reach. Patient assessment remains unchanged from previous assessment. Patient asleep, arouses easily to verbal stimuli.No s/s of distress. Call light and bedside table within reach. Patient of feeling shaky . [id number]. IVF infusing adequately. Call light and bedside table within reach. Pt. Laying in bed watching tv alone after visitors have left. Left AC IV is intact and without signs of inflammation. Pt received meds/insulin (see MAR) and denies pain or needs at this time. Call light and belongings in reach. Bed locked and lowered. Bedside report received from Aiden BEARDEN. at bedside. Denies any unmet needs at present. Call light and bedside table within reach. Pt. is sitting up in bed eating dinner. She has a left AC IV infusing 100mL/hr of normal saline. When asked about pain patient reports a 6/10 pain r/t headache only. Explains of chronic headaches and that the coughing r/t does make it worse.Offered pt medication for headache. RN updated. Patient denies other discomforts and denies any needs at this time. Call light and belongings in reach. Bed locked and lowered. No change in previous assessment. Pt out of shower, tele re applied, no change in previous assessment. Pt denies needs, states she is going to do some work from her computer Pt up and showered per self. Patient assessment is unchanged, call light in reach. Patient arrived to the unit. Ambulates to the restroom and to bed. Reviewed POC and medications. She denies any pain except when coughing. Call light within reach. documented in this encounter Care Teams (unrecognized sec tion and content) Director Facilities Maintenance Relationship Specialty Start Date End Date Rehtt Brito MD PCP - General Family Medicine 10/09/16 Director Facilities Maintenance Relationship Specialty Start Date End Date Rhett Brito MD PCP - General Family Medicine 10/09/16 Director Facilities Maintenance Relationship Specialty Start Date End Date Rhett Brito MD PCP - General Family Medicine 10/09/16 Director Facilities Maintenance Relationship Specialty Start Date End Date Rhett Brito MD PCP - General Family Medicine 10/09/16 Director Facilities Maintenance Relationship Specialty Start Date End Date Rhett Brito MD PCP - General Family Medicine 10/09/16 Director Facilities Maintenance Relationship Specialty Start Date End Date Rhett Brito MD PCP - General Family Medicine 10/09/16 Director Facilities Maintenance Relationship Specialty Start Date End Date Rhett Brito MD PCP - General Family Medicine 10/09/16 Director Facilities Maintenance Relationship Specialty Start Date End Date Rhett Brito MD PCP - General Family Medicine 10/09/16 Director Facilities Maintenance Relationship Specialty Start Date End Date Rhett Brito MD PCP - General Family Medicine 10/09/16 Director Facilities Maintenance Relationship Specialty Start Date End Date Rhett Brito MD PCP - General Family Medicine 10/09/16 Director Facilities Maintenance Relationship Specialty Start Date End Date Rhett Brito MD PCP - General Family Medicine 10/09/16 Director Facilities Maintenance Relationship Specialty Start Date End Date Rhett Brito MD PCP - General Family Medicine 10/09/16 Director Facilities Maintenance Relationship Specialty Start Date End Date Rhett Brito MD PCP - General Family Medicine 10/09/16 Director Facilities Maintenance Relationship Specialty Start Date End Date Rhett Brito MD PCP - General Family Medicine 10/09/16 Scheduled Active and Recently Administ ered Medications (unrecognized section and content) Continuous Medication Order 02/16/2021 02/17/2021 02/18/2021 sodium chloride 0.9% IV solution () Intravenous, at 100 mL/hr, CONTINUOUS, Starting on Sat02/17/21 at 1345, Until Sat02/17/21 at 2344, Post-op/Post-Proc 1351 ($$New Bag$$ - Provider : Shelly Wilson RN)2103 ($$New Bag$$ - Provider: Sara Bar, MONISHA) PRN Medication Order 02/16/2021 02/17/2021 02/18/2021 acetaminophen (TYLENOL) tablet 500-1,000 mg 500-1,000 mg, Oral, EVERY 6 HOURS NEEDED, Starting on Sat02/17/21 at 1515, Until 02/18/21 at 1330, Moderate Pain, Oral temp > 100.4 F, Maximum dose of acetaminophen is 4000 mg from all sources in 24 hours. 1851 (Given - Provider: Shelly Wilson RN) 0054 (Given - Provider: Sara Bar, MONISHA)0854 (Given - Provider: Casie Villatoro, MONISHA) aspirin chewable tablet (CANCELED) NEEDED, Starting on Sat02/17/21 at 1131, Until Sat02/17/21 at 1305, Intra-op/Intra-Proc 1131 (Given - Provider: Hazel Souza RN) cyclobenzaprine (FLEXERIL) tablet 10 mg 10 mg, Oral, 3 TIMES DAILY NEEDED, Starting on Sat02/17/21 at 1520, Until 02/18/21 at 1330, Muscle spasms 2107 (Given - Provider: Sara Bar, MONISHA) fentaNYL (SUBLIMAZE) injection (CANCELED) Administer over 2 Minutes, NEEDED, Starting on Sat02/17/21 at 1130, Until Sat02/17/21 at 1305, Intra-op/Intra-Proc 1130 (Given - Provider: Hazel Souza RN)1201 (Given - Provider: Hazel Souza RN)1223 (Given - Provider: Hazel Souza RN)1241 (Given - Provider: Hazel Souza RN) heparin injection (CANCELED) NEEDED, Starting on Sat02/17/21 at 1212, Until Sat02/17/21 at 1305, Intra-op/Intra-Proc 1212 (Given - Provider: Hazel Souza RN)1222 (Given - Provider: Hazel Souza RN)1230 (Given - Provider: Hazel Souza RN) hydroCODone-acetaminophen (NORCO) 5-325 MG per tablet 1 tablet 1 tablet, Oral, EVERY 6 HOURS NEEDED, Starting on Sat02/17/21 at 1514, Until 02/18/21 at 1330, Severe Pain 1554 (Given - Provider: Shelly Wilson RN) iodixanol (VISIPAQUE) 320 MG/ML injection (CANCELED) NEEDED, Starting on Sat02/17/21 at 1246, Until Sat02/17/21 at 1305, Intra-op/Intra-Proc 1246 (Given - Provider: Madhu Kramer MD - Comment: given throughout procedure) ipratropium-albuterol (DUONEB) 0.5-2.5 (3) MG/3ML nebulizer solution 3 mL 3 mL, Nebulization, EVERY 4 HOURS NEEDED, Starting on Sat02/17/21 at 1515, Until 02/18/21 at 1330, Shortness of Breath labetalol (NORMODYNE) injection 20 mg 20 mg, Intravenous, EVERY 4 HOURS NEEDED, Starting on Sat02/17/21 at 1515, Until 02/18/21 at 1330, systolic blood pressure greater than 160, Administration duration: up to 20 mg over 2 minutes. lactulose (CHRONULAC) oral solution 20 g 20 g, Oral, EVERY 4 HOURS NEEDED, Starting on Sat02/17/21 at 1515, Until 02/18/21 at 1330, Constipation 1st Line lidocaine (XYLOCAINE) 10 mg/mL injection (CANCELED) NEEDED, Starting on Sat02/17/21 at 1132, Until Sat02/17/21 at 1305, Intra-op/Intra-Proc 1132 (Given - Provider: Madhu Kramer MD - Comment: right wrist)1139 (Given - Provider: Madhu Kramer MD - Comment: radial)1148 (Given - Provider: Madhu Kramer MD) Midazolam HCl (PF) (VERSED) injection (CANCELED) NEEDED, Starting on Sat02/17/21 at 1130, Until Sat02/17/21 at 1305, Intra-op/Intra-Proc 1130 (Given - Provider: Hazel Souza RN)1141 (Given - Provider: Hazel Souza RN)1201 (Given - Provider: Hazel Souza, RN)1223 (Given - Provider: Hazel Souza, RN)1241 (Given - Provider: Hazel Souza, RN) ondansetron 4mg/2ml (ZOFRAN) injection 4 mg 4 mg, Intravenous, EVERY 4 HOURS NEEDED, Starting on Sat02/17/21 at 1515, Until 02/18/21 at 1330, Nausea / Vomiting potassium phosphates 30 mmol in sodium chloride 0.9%, with overfill 535 mL (total volume) IVPB 30 mmol, Intravenous, Administer over 6 Hours, NEEDED, Starting on Sat02/17/21 at 1515, Until 02/18/21 at 1330, Other, If phospate <2.5, give 30mmol, Extravasation Risk ticagrelor (BRILINTA) tablet (CANCELED) NEEDED, Starting on Sat02/17/21 at 1248, Until Sat02/17/21 at 1305, Intra-op/Intra-Proc 1248 (Given - Provider: Hazel Souza, MONISHA) Linked Groups Order Group 1: potassium chloride (K-DUR) tablet ER 40 mEqJump to med 40 mEq, Oral, DAILY, First dose on 02/18/21 at 0600, Until Discontinued
Give if potassium is 3.1 to 3.4 on morning labs and patient is able to tolerate oral medications Swallow tablets whole; do not crush, chew, or suck on tablet. Tablet may also be broken in half and each half swallowed separately.
Or potassium chloride 40 mEq in 0.9% sodium chloride 500 ml IVPBJump to med 40 mEq, Intravenous, at 125 mL/hr, Administer over 4 Hours, DAILY, First dose on 02/18/21 at 0600, Until Discontinued
Give if potassium is less than 3.1 on morning labs OR if potassium is 3.1 to 3.4 on morning labs and patient is UNABLE to tolerate oral medications
Scheduled Medication Order 04/26/2022 04/27/2022 04/28/2022 aspirin chewable tablet 162 mg 162 mg, Oral, DAILY EVERY MORNING, First dose on Sat04/28/22 at 0900, Until Discontinued, Post-op/Post-Proc 08 (Given - Provid er: Carlee Goldberg RN) atorvastatin (LIPITOR) tablet 20 mg 20 mg, Oral, DAILY AT BEDTIME, First dose on Sat04/27/22 at 2100, Until Discontinued 2027 (Given - Provider: Melanie Dias RN) clopidogrel (PLAVIX) tablet 75 mg 75 mg, Oral, DAILY, First dose on Sat04/28/22 at 0900, Until Discontinued, Verify Date / Time of First Dose., Post-op/Post-Proc 0834 (Given - Provid er: Carlee Goldberg RN) diazepam (VALIUM) tablet 5 mg (COMPLETED) 5 mg, Oral, ONCE, 1 dose, On Sat04/27/22 at 1200 1208 (Given - Provider: Magda Morgan RN) gliMEPIride (AMARYL) tablet 4 mg 4 mg, Oral, 2 TIMES DAILY, First dose on Sat04/27/22 at 1700, Until Discontinued 1715 (Given - Provider: Deanne aMrrufo, MONISHA) 0834 (Given - Provider: Carlee Goldberg RN) lisinopril (PRINIVIL) tablet 10 mg 10 mg, Oral, DAILY, First dose on Sat04/27/22 at 1500, Until Discontinued 1715 (Given - Provider: Deanne Marrufo RN) 0833 (Not Given - Provider: Carlee Goldberg RN - Reason: Patient/family refused - Comment: pt states takes at night) metoprolol succinate (TOPROL-XL) tablet XL 100 mg 100 mg, Oral, DAILY AT BEDTIME, First dose on Sat04/27/22 at 2100, Until Discontinued, Slow release product. Do not crush. Extended release can be cut in half. 2027 (Given - Provider: Melanie Dias RN) metoprolol succinate (TOPROL-XL) tablet XL 50 mg 50 mg, Oral, DAILY, First dose on Sat04/28/22 at 0900, Until Discontinued, Slow release product. Do not crush. Extended release can be cut in half. 832 (Given - Provid er: Carlee Goldberg RN) montelukast (SINGULAIR) tablet 10 mg 10 mg, Oral, DAILY, First dose on Sat04/27/22 at 1500, Until Discontinued 1715 (Given - Provider: Deanne Marrufo RN) 0834 (Given - Provider: Carlee Goldberg RN) pantoprazole (PROTONIX) tablet DR 40 mg 40 mg, Oral, DAILY, First dose on Sat04/27/22 at 1500, Until Discontinued, Indications: Continuation of Home Therapy 1715 (Given - Provider: Deanne Marrufo RN) 0834 (Given - Provider: Carlee Goldberg RN) pioglitazone (ACTOS) tablet 45 mg 45 mg, Oral, DAILY, First dose on Sat04/27/22 at 1500, Until Discontinued 1715 (Given - Provider: Deanne Marrufo RN) 0832 (Not Given - Provider: Carlee Goldberg RN - Reason: Patient/family refused - Comment: pt states she takes at night) Continuous Medication Order 04/26/2022 04/27/2022 04/28/2022 sodium chloride 0.9% IV solution Intravenous, at 50 mL/hr, CONTINUOUS, Starting on Sat04/27/22 at 1100, Until 04/28/22 at 1543, Pre-op/Pre-Proc 1134 ($$New Bag$$ - Provider: Magda Morgan RN)1718 ($$New Bag$$ - Provider: Deanne Marrufo RN)1719 (Stopped - Provider: Deanne Marrufo RN) 1342 (Stopped - Provider: Carlee Goldberg RN) sodium chloride 0.9% IV solution Intravenous, at 50 mL/hr, CONTINUOUS, Starting on Sat04/27/22 at 1700, Until 04/28/22 at 0259, Post-op/Post-Proc 1719 ($$New Bag$$ - Provider: Deanne Marrufo RN) 1342 (Stopped - Provider: Carlee Goldberg, RN) PRN Medication Order 04/26/2022 04/27/2022 04/28/2022 acetaminophen (TYLENOL) tablet 325-650 mg 325-650 mg, Oral, EVERY 6 HOURS NEEDED, Starting on Sat04/27/22 at 1647, Until 04/28/22 at 1543, Mild Pain, Maximum dose of acetaminophen is 4000 mg from all sources in 24 hours. May give 325 mg (1 tab) to 650 mg (2 tabs) as needed for mild pain., Post-op/Post-Proc 1728 (Given - Provider: Deanne Marrufo RN) 0831 (Given - Provider: Carlee Goldberg, RN) aspirin chewable tablet (CANCELED) NEEDED, Starting on Sat04/27/22 at 1306, Until Sat04/27/22 at 1420, Intra-op/Intra-Proc 1306 (Given - Provider: Cathryn Monroe RN) clopidogrel (PLAVIX) tablet (CANCELED) NEEDED, Starting on Sat04/27/22 at 1306, Until Sat04/27/22 at 1420, Intra-op/Intra-Proc 1306 (Given - Provider: Cathryn Monroe RN) diphenhydrAMINE (BENADRYL) injection (CANCELED) NEEDED, Starting on Sat04/27/22 at 1311, Until Sat04/27/22 at 1420, Intra-op/Intra-Proc 1311 (Given - Provider: Cathryn Monroe RN)1325 (Given - Provider: Cathryn Monroe, MONISHA) fentaNYL (SUBLIMAZE) injection (CANCELED) Intravenous, Administer over 2 Minutes, NEEDED, Starting on Sat04/27/22 at 1248, Until Sat04/27/22 at 1420, Intra-op/Intra-Proc 1248 (Given - Provider: Cathryn Monroe RN)1309 (Given - Provider: Cathryn Monroe RN)1311 (Given - Provider: Cathryn Monroe RN)1316 (Given - Provider: Cathryn Monroe RN)1404 (Given - Provider: Cathryn Monroe RN) heparin injection (CANCELED) NEEDED, Starting on Sat04/27/22 at 1235, Until Sat04/27/22 at 1420, Intra-op/Intra-Proc 1252 (Given - Provider: Madhu Kramer MD - Comment: sheath injection)1305 (Given - Provider: Cathryn Monroe, RN)1348 (Given - Provider: Cathryn Monroe RN) iodixanol (VISIPAQUE) injection 320 mg/mL for [facility] IR (CANCELED) Intra-arterial, NEEDED, Starting on Sat04/27/22 at 1410, Until Sat04/27/22 at 1420, Intra-op/Intra-Proc 1410 (Given - Provider: Madhu Kramer MD - Comment: R arm and R groin- given throughout entire procedure) lidocaine (XYLOCAINE) 10 mg/mL injection (CANCELED) Subcutaneous, NEEDED, Starting on Sat04/27/22 at 1249, Until Sat04/27/22 at 1420, Intra-op/Intra-Proc 1249 (Given - Provider: Madhu Kramer MD)1329 (Given - Provider: Madhu Kramer MD) Midazolam HCl (PF) (VERSED) injection (CANCELED) Intravenous, NEEDED, Starting on Sat04/27/22 at 1248, Until Sat04/27/22 at 1420, Intra-op/Intra-Proc 1248 (Given - Provider: Cathryn Monroe RN)1252 (Given - Provider: Cathryn Monroe RN)1309 (Given - Provider: Cathryn Monroe RN)1317 (Given - Provider: Cathryn Monroe RN)1319 (Canceled Entry - Provider: Cathryn Monroe RN) nitroGLYCERIN in D5W 0.1 MG/ML syringe SOLN (CANCELED) Intra-arterial, NEEDED, Starting on Sat04/27/22 at 1235, Until Sat04/27/22 at 1420, Intra-op/Intra-Proc 1252 (Given - Provider: Madhu Kramer MD - Comment: sheath injection)1308 (Given - Provider: Madhu Kramer MD) verapamil (ISOPTIN) injection (CANCELED) NEEDED, Starting on Sat04/27/22 at 1235, Until 04/27/22 at 1420, Intra-op/Intra-Proc 1252 (Given - Provider: Madhu Kramer MD - Comment: sheath injection)1308 (Given - Provider: Madhu Kramer MD)1325 (Given - Provider: Madhu Kramer MD) FOR RECORDS PERTAINING TO PATIENTS WHO ARE OR HAVE BEEN ENROLLED IN A CHEMICAL DEPENDENCY/SUBSTANCEABUSE PROGRAM, SOME INFORMATION MAY BE OMITTED. This clinical summary was aggregated from multiple sources. Caution should be exercised in using it in the provision of clinical care. This summary normalizes information from multiple sources, and as a consequence, information in this document may materially change the coding, format and clinical context of patient data. In addition, data may be omitted in some cases. CLINICAL DECISIONS SHOULD BE BASED ON THE PRIMARY CLINICAL RECORDS. [facility]. provides no warranty or guarantee of the accuracy or completeness of information in this document.
[2023-08-05] MEDS: Lactated Ringers 1,000 ML 15 ML IV (08:56)
--- NOTE | 2023-08-05 08:57 | PCM.HP.BLA ---
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 Is patient in pain?: No Allergies tramadol Adverse Reaction (Verified 02/22/23 14:33) Nausea Medications Lactobacillus acidophilus 10 billion cell capsule (Probiotic) 10,000 mmu cells PO DAILY 05/15/22 [History Confirmed 01/11/23] atorvastatin 20 mg tablet 20 mg PO QHS 05/15/22 [History Confirmed 01/11/23] cetirizine 10 mg tablet (Zyrtec) 10 mg PO DAILY 05/15/22 [History Confirmed 01/11/23] cholecalciferol (vitamin D3) 25 mcg (1,000 unit) capsule (Vitamin D3) 25 mcg PO DAILY 05/15/22 [History Confirmed 01/11/23] clopidogrel 75 mg tablet 75 mg PO DAILY 05/15/22 [History Confirmed 01/11/23] cyclobenzaprine 10 mg tablet 10 mg PO DAILY 05/15/22 [History Confirmed 01/11/23] gabapentin 300 mg capsule 300 mg PO BID 05/15/22 [History Confirmed 01/11/23] glimepiride 4 mg tablet 4 mg PO DAILY 05/15/22 [History Confirmed 01/11/23] levonorgestrel 21 mcg/24 hours (8 yrs) 52 mg intrauterine device (Mirena) 52 mcg intrauterine 05/15/22 [History Confirmed 01/11/23] lisinopril 10 mg tablet 10 mg PO DAILY 05/15/22 [History Confirmed 01/11/23] magnesium 500 mg tablet 15 mg PO DAILY 05/15/22 [History Confirmed 01/11/23] montelukast 10 mg tablet 10 mg PO DAILY 05/15/22 [History Confirmed 01/11/23] omeprazole 20 mg capsule,delayed release 20 mg PO DAILY 05/15/22 [History Confirmed 01/11/23] pioglitazone 45 mg tablet (Actos) 45 mg PO DAILY 05/15/22 [History Confirmed 01/11/23] metoprolol succinate 50 mg tablet,extended release 24 hr (Toprol XL) 100 mg PO DAILY 06/05/22 [History Confirmed 01/11/23] aspirin 81 mg tablet 81 mg PO DAILY 08/21/22 [History Confirmed 02/22/23] tirzepatide 10 mg/0.5 mL subcutaneous pen injector (Marbin) 10 mg subcut QWEEK 12/10/22 [History Confirmed 01/11/23] ranolazine 1,000 mg tablet,extended release,12 hr 1,000 mg PO BID #30 tabs 12/17/22 [Rx Confirmed 01/11/23] cefdinir 300 mg capsule mg PO 02/22/23 [History Confirmed 02/22/23] PFSH Medical History Atherosclerotic heart disease of [place] coronary artery without angina pectoris Carpal tunnel syndrome Carpal tunnel syndrome, bilateral Diabetes Hypertension Rotator cuff dysfunction Surgical History History of elbow surgery History of refractive surgery Hx of tonsillectomy Presence of coronary angioplasty implant and graft S/P coronary artery stent placement Status post tendon repair Family History (Updated 02/22/23 @ 14:32 by Bouchra Ruiz) Mother Breast cancer Diabetes CAD (coronary artery disease) Kidney diseaseFather Cancer Heart disease HypertensionSister Diabetes CAD (coronary artery disease) ArthritisGrandfather CVA (cerebral vascular accident)Grandmother Diabetes Heart disease Social History (Updated 01/11/23 @ 09:32 by Nina Carr) household members: spouse housing: house number of children: 1 current occupational status: employed sexually active: Yes Smoking Status: Never smoker well-balanced diet: daily or most days eating out: 1-3 times/week what type of physical activity do you participate in: walking and other frequency: 1-2 times per week additional social history: - Yamil HPI HPI HPI: 47-year-old female presents to discuss screening colonoscopy. She is noted to have atherosclerotic coronary vascular disease and diabetes and hypertension. January 2021 she had proximal LAD stented and then repeat treatment of the same vessel in March 2022. Among her other medications she is on low-dose aspirin and clopidogrel and gabapentin and omeprazole. Cardiac stents were placed 1 year ago She has had chronic gastroesophageal reflux disease for over a decade. She is on chronic omeprazole therapy 40 mg daily. She has not had any previous upper endoscopy. She does not note any family history of colon polyps or colon cancer. She has never had a previous colonoscopy. Currently she is suffering with an ear infection and is being treated with antibiotics. ROS General General: No weight change, appetite, fatigue, colon cancer, breast cancer or weakness HEENT HEENT: No difficulty swallowing, eye injury, eye surgery, swollen glands or hoarseness Endo Endocrine: Yes diabetes mellitus; No thyroid disease, thyroid cancer, Hair loss, heat intolerance or cold intolerance Skin Skin: No rash or changing moles Breast Breast: No left breast lump, right breast lump, nipple discharge, breast pain, abnormal mammogram, abnormal US or breast enlargement [facility] [place] Musculoskeletal: No back problems, arthritis, rheumatoid arthritis, gout or joint pain Cardio Cardiovascular: Yes heart disease, high blood pressure and heart stent; No murmur, pacemaker, atrial fibrillation, heart attack, palpitations, shortness of breat with exertion or chest pain Psych Psychiatric: No depression, anxiety or hearing voices Resp Respiratory: No shortness of breath, No sleep apnea, No cough, No COPD, No asthma, No emphysema and No wheezing Gastro Gastrointestinal: No abdominal pain, No nausea or vomiting, No diarrhea, No constipation, No blood in stool, Yes acid reflux, No hemorrhoids, No ulcers, No gallbladder problem and No black,tarry stools Doug Hematologic: Yes blood thinners, No blood disorders, No bleeding, No anemia and No blood clots Neuro Neurologic: No system reviewed and no additional complaints, except as documented, No as per HPI, No abnormal gait, No abnormal hearing, No abnormal movements, No abnormal speech, No behavioral changes, No burning sensations, No confusion, No convulsions, No disequilibrium, No dizziness, No localized weakness, No frequent falls, No headache(s), No lack of coordination, No loss of vision, No memory loss, No numbness, No other visual disturbances, No radicular pain, No restless legs, No sensory deficit, No syncope, No tingling, No tremor(s), No weakness and No other Exam Const General: cooperative, comfortable and no acute distress [facility] Head: normal to inspection Eyes General: appearance normal, both eyes and all related structures Resp Effort & Inspection: normal respiratory effort Auscultation: clear to auscultation bilaterally Cardio Rate: regular rate Rhythm: regular rhythm GI Palpation: soft and no hepatosplenomegaly Other: No focal mass. [facility] [place] Cervical Spine: normal cervical lordosis Skin General: no rashes or lesions noted Neuro General: patient alert, patient awake and patient oriented x3 Extrem General: no calf tenderness Psych Appearance: grossly normal Assessment and Plan Assessment and Plan (1) Colon cancer screening: Status: Acute Plan: Copy:MD Demarco Sargent M.D., F.A.C.S. (2) GERD (gastroesophageal reflux disease): Status: Acute Qualifiers: Esophagitis presence: esophagitis presence not specified Qualified Code(s): K21.9 - Gastro-esophageal reflux disease without esophagitis Plan: 47-year-old female. Long-term history of gastroesophageal reflux disease. I recommend an esophagogastroduodenoscopy with possible biopsy or polypectomy as indicated. Careful inspection for possible Dacosta's esophagus will be pursued with this long of the history. Patient now on different diabetic medications with decreased function of her bowel. Sometimes chronic constipation. She has never had a previous screening colonoscopy. I recommend to her screening colonoscopy with possible biopsy or polypectomy as indicated. She has concerns about the bowel prep. We therefore will use a modified 2-day prep. With her cardiac disease we will have her hold her Plavix just 1 day preprocedure. She will remain on her low-dose aspirin therapy. She is aware of the technique, benefit, risk, alternatives. We will utilize monitored anesthesia care. I appreciate the opportunity of assisting with the surgical care and we will schedule procedure at her discretion. I have examined the patient and the H&P has been reviewed. There are no clinical changes since date of exam. Demarco Amador M.D., F.A.C.S.
[2023-08-05 09:14] LABS: Internal QC Validated? YES +Cl - CLEAR BKGD
--- NOTE | 2023-08-05 09:15 | EGD_PTH ---
PATHOLOGY RESULTS PATIENT: PHAN DAVIS LOC: EN U#:[id number] AGE/SX: 48/F ROOM: RE08/05/[address]: Dr. Demarco Amador MD : 1975 BED: DIS: 08/05/2023 SPEC #: [id number] RECD: 08/05/23 11:00 STATUS: MATTHIAS POOLE #: [id number] EDYTA: 08/05/23 09:[address]: Demarco Amador DEPT: SURGICAL PATHOLOGY RECD BY: Dia Kirk ENTERED: 08/05/23 11:01 SP TYPE: EGD BIOPSY OT DR: Dr. Rhett Brito MD Tissues: Gastric mucous membrane Gastric mucous membrane Esophageal mucous membrane Esophageal mucous membrane Procedures: Special Stain Group II Surgery Specimen Level IV Alcian Blue/PAS (control) HEADER OPERATION: Colonoscopy, EGD PRE-OP DIAGNOSIS: Colon cancer screening, GERD TISSUE SUBMITTED: A - Antrum biopsy for H. pylori and path, B - Lesser curvature polyp biopsy, C - Distal esophagus biopsy, D - Mid esophagus biopsy MICROSCOPIC DIAGNOSIS A. Antrum, biopsy: Mild gastritis. See microscopic description and comment. B. Lesser curvature polyp, biopsy: Fundic gland polyp. C. Distal esophagus, biopsy: A fragment of gastroesophageal mucosa with minimal chronic inflammation. Intestinal metaplasia (goblet cell metaplasia) not identified. See comment. D. Mid esophagus, biopsy: Fragments of gastroesophageal mucosa with chronic inflammation. Intestinal metaplasia (goblet cell metaplasia) not identified. See comment. SJ:claudette 08/06/2023 COMMENT A. The results of immunohistochemistry for Helicobacter pylori will be reported separately ([id number]). C & D. Alcian blue/PAS stain with matched control is used in the evaluation of the specimen. The specimen predominantly consists of squamous mucosa. MICROSCOPIC DESCRIPTION Slides are reviewed. A. The specimen shows fragments of gastric mucosa with chronic inflammatory cell infiltrates in the lamina propria consisting of lymphocytes and plasma cells, consistent with mild chronic gastritis. GROSS DESCRIPTION A - Received in fixative is one container labeled with the patient's name and designated antrum biopsy. The specimen consists of one irregular fragment of light galo soft tissue that measures 0.3 x 0.3 x 0.1 cm. The specimen is totally submitted in one cassette. B - Received in fixative is one container labeled with the patient's name and designated lesser curvature polyp biopsy. The specimen consists of one irregular fragment of light galo soft tissue that measures 0.3 x 0.3 x 0.1 cm. The specimen is totally submitted in one cassette. C - Received in fixative is one container labeled with the patient's name and designated distal esophagus biopsy. The specimen consists of one irregular fragment of light galo soft tissue that measures 0.4 x 0.4 x 0.1 cm. The specimen is totally submitted in one cassette. D - Received in fixative is one container labeled with the patient's name and designated mid esophagus biopsy. The specimen consists of multiple irregular fragments of light galo soft tissue that in aggregate measure 0.6 x 0.3 x 0.1 cm. The specimen is totally submitted in one cassette. / SJ:rg 08/05/2023 TC:3 CPT: 09773 x4, 17953 x2
--- NOTE | 2023-08-05 09:15 | IMM_PTH ---
PATHOLOGY RESULTS PATIENT: PHAN DAVIS LOC: EN U#:[id number] AGE/SX: 48/F ROOM: RE08/05/[address]: Dr. Demarco Amador MD : 1975 BED: DIS: 08/05/2023 SPEC #: [id number] RECD: 08/05/23 13:45 STATUS: MATTHIAS RECourtney #: [id number] EDYTA: 08/05/23 09:[address]: Demarco Amador DEPT: IMMUNOHISTOCHEMISTRY RECD BY: Chrissy Chavez ENTERED: 08/05/23 13:46 SP TYPE: IMMUNO OTHR DR: Dr. Rhett Brito MD Tissues: Stomach, NOS Procedures: H Pylori (initial) PHYSICIAN & INSTITUTION [place] [address] SPECIMEN INFORMATION: Tissue Source: A - Antrum Clinical Info: Colon cancer screening, GERD Specimen Number: [id number] CPT code: 55960 METHODOLOGY: Deparaffinized sections of prefer/formalin-fixed tissue or PAP/DQ stained slides are incubated with monoclonal/polyclonal antibodies/oligonucleotide probes. Localization is made via biotin free immunoperoxidase method. Appropriate controls are performed and reacted as expected. Results on target cell population are indicated in the following table: RESULTS: ANTIBODY / CLONE RESULT Block A H Pylori (polyclonal) negative These tests were developed and their performance characteristics determined by [facility]. They may not have been cleared or approved by the U.S. Food and Drug Administration. The FDA has determined that such clearance or approval is not necessary. The above immunohistochemical/dualISH markers are ordered and reviewed by the Pathologist. INTERPRETATION: A. Antrum, biopsy: Negative for Helicobacter pylori organisms. SJ:claudette 08/06/2023
[2023-08-05 09:19] LABS: Pregnancy, Serum, hCG Quali. NEGATIVE Negative
[2023-08-05 09:19] LABS: Bedside Glucose 74 mg/dL (74-106)
[2023-08-05 09:42] VITALS: BP 116/69; BP 80/69; PULSE 85; RESP 16; TEMP 36.6; O2SAT 91
--- NOTE | 2023-08-05 09:43 | OP.EGD_ITS ---
Patient Name: Sharon Bass Procedure Date: 08/05/2023 8:05 AM Date of : 1975 Age: 48 Procedure: Upper GI endoscopy Indications: Suspected gastro-esophageal reflux disease Providers: Demarco Amador MD Medicines: See the Anesthesia note for documentation of the administered medications Complications: No immediate complications. Procedure: Pre-Anesthesia Assessment: - Prior to the procedure, a History and Physical was performed, and patient medications and allergies were reviewed. The patient's tolerance of previous anesthesia was also reviewed. The risks and benefits of the procedure and the sedation options and risks were discussed with the patient. All questions were answered, and informed consent was obtained. Prior Anticoagulants: The patient has taken Plavix (clopidogrel), last dose was 1 day prior to procedure. ASA Grade Assessment: II - A patient with mild systemic disease. After reviewing the risks and benefits, the patient was deemed in satisfactory condition to undergo the procedure. After obtaining informed consent, the endoscope was passed under direct vision. Throughout the procedure, the patient's blood pressure, pulse, and oxygen saturations were monitored continuously. The Endoscope was introduced through the mouth, and advanced to the second part of duodenum. The upper GI endoscopy was accomplished without difficulty. The patient tolerated the procedure well. Scope In: 8:13:43 AM Scope Out: 9:18:54 AM Total Procedure Duration Time 1 hour 5 minutes 11 seconds Findings: The Z-line was regular and was found 38 cm from the incisors. Biopsies were taken with a cold forceps for histology. The middle third of the esophagus was normal. Biopsies were taken with a cold forceps for histology. A 1 cm hiatal hernia was present. Multiple pedunculated and sessile polyps with no bleeding and no stigmata of recent bleeding were found in the gastric body. The polyp was removed with a cold biopsy forceps. Resection and retrieval were complete. Diffuse mildly erythematous mucosa without bleeding was found in the gastric antrum. Biopsies were taken with a cold forceps for histology. The examined duodenum was normal. Impression: - Z-line regular, 38 cm from the incisors. Biopsied. - Normal middle third of esophagus. Biopsied. - 1 cm hiatal hernia. - Multiple gastric polyps. Resected and retrieved. - Erythematous mucosa in the antrum. Biopsied. - Normal examined duodenum. Recommendation: - Discharge patient to home. - Resume previous diet. - Continue present medications. - Telephone my office for pathology results in 1 week. Procedure Code(s): --- Professional --- 43909, Esophagogastroduodenoscopy, flexible, transoral; with biopsy, single or multiple Diagnosis Code(s): --- Professional --- K44.9, Diaphragmatic hernia without obstruction or gangrene K31.7, Polyp of stomach and duodenum K31.89, Other diseases of stomach and duodenum CPT copyright 2021 [employer]. All rights reserved. The codes documented in this report are preliminary and upon director consumer affairs review may be revised to meet current compliance requirements. Demarco Amador MD 08/05/2023 9:42:58 AM This report has been signed electronically. Number of Addenda: 0 Note Initiated On: 08/05/2023 8:05 AM
--- NOTE | 2023-08-05 09:43 | OP.CCLET_ITS ---
08/05/2023 Rhett Brito Md Re : Upper GI endoscopy procedure for Sharon Bass Dear Alisha This procedure was performed on Saturday, August 05, 2023. My impressions and recommendations are as follows: Impressions : - Z-line regular, 38 cm from the incisors. Biopsied. - Normal middle third of esophagus. Biopsied. - 1 cm hiatal hernia. - Multiple gastric polyps. Resected and retrieved. - Erythematous mucosa in the antrum. Biopsied. - Normal examined duodenum. Recommendations : - Discharge patient to home. - Resume previous diet. - Continue present medications. - Telephone my office for pathology results in 1 week. My findings are described in the full procedure note, which is enclosed. If I can be of further assistance, please feel free to contact me at Doctor phone number(s): Work: . Sincerely, Demarco Amador MD 08/05/2023 9:42:58 AM This report has been signed electronically.
[2023-08-05 09:45] VITALS: BP 116/69; BP 96/54; PULSE 86; RESP 16; O2SAT 91
--- NOTE | 2023-08-05 09:45 | OP.CCLET_ITS ---
08/05/2023 Rhett Brito Md Re : Colonoscopy procedure for Sharon Bass Dear Alisha This procedure was performed on Saturday, August 05, 2023. My impressions and recommendations are as follows: Impressions : - Hemorrhoids found on perianal exam. - The entire examined colon is normal. - No specimens collected. Recommendations : - Discharge patient to home. - Resume previous diet. - Continue present medications. - Repeat colonoscopy in 10 years for screening purposes. My findings are described in the full procedure note, which is enclosed. If I can be of further assistance, please feel free to contact me at Doctor phone number(s): Work: . Sincerely, Demarco Amador MD 08/05/2023 9:44:59 AM This report has been signed electronically.
--- NOTE | 2023-08-05 09:45 | OP.COLON_ITS ---
Patient Name: Sharon Bass Procedure Date: 08/05/2023 9:19 AM Date of : 1975 Age: 48 Procedure: Colonoscopy Indications: Screening for colorectal malignant neoplasm Providers: Demarco Amador MD Medicines: See the Anesthesia note for documentation of the administered medications Patient Profile: Last Colonoscopy: none. The patient's first colonoscopy is today. Complications: No immediate complications. Procedure: Pre-Anesthesia Assessment: - Prior to the procedure, a History and Physical was performed, and patient medications and allergies were reviewed. The patient's tolerance of previous anesthesia was also reviewed. The risks and benefits of the procedure and the sedation options and risks were discussed with the patient. All questions were answered, and informed consent was obtained. Prior Anticoagulants: The patient has taken Plavix (clopidogrel), last dose was 1 day prior to procedure. ASA Grade Assessment: II - A patient with mild systemic disease. After reviewing the risks and benefits, the patient was deemed in satisfactory condition to undergo the procedure. After I obtained informed consent, the scope was passed under direct vision. Throughout the procedure, the patient's blood pressure, pulse, and oxygen saturations were monitored continuously. The adult colonoscope was introduced through the anus and advanced to the cecum, identified by appendiceal orifice and ileocecal valve. The colonoscopy was performed without difficulty. The patient tolerated the procedure well. The quality of the bowel preparation was adequate to identify polyps. The ileocecal valve and the appendiceal orifice were photographed. Scope In: 9:22:09 AM Scope Withdrawal Time 0 hours 7 minutes 19 seconds Scope Out: 9:37:04 AM Total Procedure Duration Time 0 hours 14 minutes 55 seconds Findings: Hemorrhoids were found on perianal exam. The colon (entire examined portion) appeared normal. Impression: - Hemorrhoids found on perianal exam. - The entire examined colon is normal. - No specimens collected. Recommendation: - Discharge patient to home. - Resume previous diet. - Continue present medications. - Repeat colonoscopy in 10 years for screening purposes. Procedure Code(s): --- Professional --- 84153, Colonoscopy, flexible; diagnostic, including collection of specimen(s) by brushing or washing, when performed (separate procedure) Diagnosis Code(s): --- Professional --- Z12.11, Encounter for screening for malignant neoplasm of colon K64.9, Unspecified hemorrhoids CPT copyright 2021 [employer]. All rights reserved. The codes documented in this report are preliminary and upon maintenance mechanic review may be revised to meet current compliance requirements. Demarco Amador MD 08/05/2023 9:44:59 AM This report has been signed electronically. Number of Addenda: 0 Note Initiated On: 08/05/2023 9:19 AM
[2023-08-05 09:50] VITALS: BP 116/69; BP 97/63; PULSE 79; RESP 16; O2SAT 98
[2023-08-05 09:55] VITALS: BP 100/60; BP 116/69; PULSE 78; RESP 16; TEMP 36.2; O2SAT 99
[2023-08-05 10:17] VITALS: BP 116/69
== END 2023-08-05 10:36 | disposition home or self-care (01) ==
LOC: EN 08:20 → AC 08:21
PROVIDERS: Anesthesiology; PCP Family Medicine; Referring Provider Family Medicine; Visit Provider Surgery
PROC: 0DJD8ZZ Inspection of Lower Intestinal Tract, Via Natural or Artificial Opening Endoscopic (ICD-10-PCS; CPT 45378; principal; 2023-08-05 09:10)
DX: Z12.11 Encounter for screening for malignant neoplasm of colon (principal); E11.9 Type 2 diabetes mellitus without complications; K44.9 Diaphragmatic hernia without obstruction or gangrene; I25.10 Atherosclerotic heart disease of native coronary artery without angina pectoris; K21.9 Gastro-esophageal reflux disease without esophagitis; K64.9 Unspecified hemorrhoids; K31.7 Polyp of stomach and duodenum; I10 Essential (primary) hypertension; K29.70 Gastritis, unspecified, without bleeding; E78.2 Mixed hyperlipidemia; Z79.84 Long term (current) use of oral hypoglycemic drugs; Z79.82 Long term (current) use of aspirin; Z79.899 Other long term (current) drug therapy; Z95.5 Presence of coronary angioplasty implant and graft
CPT/HCPCS: 45378; 43239; 82962; 84703; 88305; 88313; 88342; J7120; J2405

== ENCOUNTER 2023-08-30 08:04 | Day surgery (SDC) | payer OTHER, SELFPAY ==
[2022-06-13 09:21] VITALS: BMI 43.6
--- OUTSIDE RECORDS SUMMARY | 2023-08-30 08:40 | XMS RPT_ITS | CCD ---
Author Name Unknown Address [email or web address] [place] [address] Organization [facility] Care Team Providers Care Devops Engineer Name Role Phone Rhett Brito Unavailable Unavailable [...] BRITO Referring Unavailable RHETT BRITO Attending Unavailable RHETT BRITO Referring Unavailable Rhett Brito Primary Care Provider Rhett Brito Primary Care Provider Rhett Brito Primary Care Provider Rhett Brito MD Primary Care Provider RHETT BRITO Primary Care Unavailable COMPA, SUZI F. S. Attending Unavailabl e COMPA, SUZI F. S. Attending Unavailabl e COMPA, SUZI F. S. Referring UnavailRHETT Fernandes Primary Care Unavailable Rhett Brito MD Primary Care Provider LIVIA MONSON Attending Unavailable RHETT BRITO Primary Care Unavailable Rhett Brito MD Primary Care Provider [phone] Rhett Brito MD Primary Care Provider Rhett [...] RHETT BRITO Attending Unavailable JOHNNA, RHETT Joyce Referring Unavailable JOHNNA, RHETT Joyce Primary Care Unavailable JOHNNA, RHETT Joyce Primary Care Unavailable SELF, SELF Referring Unavailable JOHNNA, RHETT Joyce Primary Care Unavailable JOHNNA, RHETT Joyce Attending Unavailable Allergies Allergy Classification Reported Allergen(s) Allergy Type Date of Onset Reaction(s) Facility [facility] (5 sources) [facility] Drug Allergy 9 Nausea and Vomiting [facility] (11 sources) OTHER; Translations: [OTHER] Propensity to adverse reactions 6 Other (See Comments) [employer] Work Phone: (20 sources) tra[facility]ol Drug Allergy 9 Nausea and Vomiting [facility] Medications Current Medications Medication Drug Class(es) Dates [...] Coronary atherosclerosis; Translations: [Atherosclerotic heart disease of [place] coronary artery without angina pectoris] Onset: 03-08-2021 [...] 162.6 cm Rhett Brito MD Work Phone: [facility] 04-18-2023 08:21-0400 Body mass index (BMI) [Ratio] 42.5 kg/m2 Rhett Brito MD Work Phone: [facility] 04-18-2023 08:21-0400 Body weight 112.31 kg Rhett Brito MD Work Phone: [facility] 04-18-2023 08:21-0400 Diastolic blood pressure 71 mm[Hg] Rhett Brito MD Work Phone: [facility] 04-18-2023 08:21-0400 Heart rate 78 /min Rhett Brito MD Work Phone: [facility] 04-18-2023 08:21-0400 SaO2% (BldA) [Mass fraction] 100 % Rhett Brito MD Work Phone: [facility] 04-18-2023 08:21-0400 Systolic blood pressure 110 mm[Hg] Rhett Brito MD Work Phone: [facility] 10-17-2022 13:57-0400 Body height 162.6 cm Rhett Brito MD Work Phone: [facility] 10-17-2022 13:57-0400 Body mass index (BMI) [Ratio] 44.53 kg/m2 Rhett Brito MD Work Phone: [facility] 10-17-2022 13:57-0400 Body temperature 98.01 [degF] Rhett Brito MD Work Phone: [facility] 10-17-2022 13:57-0400 Body weight 117.66 kg Rhett Brito MD Work Phone: [facility] 10-17-2022 13:57-0400 Diastolic blood pressure 74 mm[Hg] Rhett Brito MD Work Phone: [facility] 10-17-2022 13:57-0400 Heart rate 68 /min Rhett Brito MD Work Phone: [facility] 10-17-2022 13:57-0400 Respiratory rate 18 /min Rhett Brito MD Work Phone: [facility] 10-17-2022 13:57-0400 SaO2% (BldA) [Mass fraction] 99 % Rhett Brito MD Work Phone: [facility] 10-17-2022 13:57-0400 Systolic blood pressure 122 mm[Hg] Rhett Brito MD Work Phone: [facility] 04-28-2022 08:25-0400 Body temperature 97.9 [degF] Madhu Kramer MD Work Phone: [facility] 04-28-2022 08:25-0400 Diastolic blood pressure 75 mm[Hg] Madhu Kramer MD Work Phone: [facility] 04-28-2022 08:25-0400 Heart rate 81 /min Madhu Kramer MD Work Phone: [facility] [employer] [facility] 04-28-2022 08:25-0400 SaO2% (BldA) [Mass fraction] 97 % Madhu Kramer MD Work Phone: [facility] 04-28-2022 08:25-0400 Systolic blood pressure 126 mm[Hg] Madhu Kramer MD Work Phone: [facility] 04-28-2022 08:18-0400 Respiratory rate 16 /min Madhu Kramer MD Work Phone: [facility] 04-28-2022 04:00-0400 Body mass index (BMI) [Ratio] 46.17 kg/m2 Madhu Kramer MD Work Phone: [facility] 04-28-2022 04:00-0400 Body weight 122 kg Madhu Kramer MD Work Phone: [facility] 04-17-2022 13:18-0400 Body mass index (BMI) [Ratio] 44.46 kg/m2 Rhett Brito MD Work Phone: [facility] 04-17-2022 13:18-0400 Body weight 117.48 kg Rhett Brito MD Work Phone: [facility] 04-17-2022 13:18-0400 Diastolic blood pressure 84 mm[Hg] Rhett Brito MD Work Phone: [facility] 04-17-2022 13:18-0400 Heart rate 71 /min Rhett Brito MD Work Phone: [facility] 04-17-2022 13:18-0400 Respiratory rate 16 /min Rhett Brito MD Work Phone: [facility] 04-17-2022 13:18-0400 SaO2% (BldA) [Mass fraction] 97 % Rhett Brito MD Work Phone: [facility] 04-17-2022 13:18-0400 Systolic blood pressure 138 mm[Hg] Rhett Brito MD Work Phone: [facility] 11-20-2021 08:31-0400 Body height 162.6 cm Roxie Lazo MD Work Phone: [facility] 11-20-2021 08:31-0400 Body mass index (BMI) [Ratio] 43.94 kg/m2 Roxie Lazo MD Work Phone: [facility] 11-20-2021 08:31-0400 Body weight 116.12 kg Roxie Lazo MD Work Phone: [facility] 11-20-2021 08:31-0400 Diastolic blood pressure 82 mm[Hg] Roxie Lazo MD Work Phone: [facility] 11-20-2021 08:31-0400 Heart rate 68 /min Roxie Lazo MD Work Phone: [facility] 11-20-2021 08:31-0400 Systolic blood pressure 122 mm[Hg] Roxie Lazo MD Work Phone: [facility] 10-26-2021 08:19-0400 Body mass index (BMI) [Ratio] 43.74 kg/m2 Rhett Brito MD Work Phone: [facility] 10-26-2021 08:19-0400 Body weight 115.58 kg Rhett Brito MD Work Phone: [facility] [employer] [facility] 10-26-2021 08:19-0400 Diastolic blood pressure 81 mm[Hg] Rhett Brito MD Work Phone: [facility] 10-26-2021 08:19-0400 Heart rate 70 /min Rhett Brito MD Work Phone: 6(404)099-804966 [place] [address] 10-26-2021 08:19-0400 Respiratory rate 16 /min Rhett Brito MD Work Phone: 7(128)068-098266 [place] [address] 10-26-2021 08:19-0400 Systolic blood pressure 139 mm[Hg] Rhett Brito MD Work Phone: 4(546)875-168445 [place] [address] 02-23-2021 11:15-0400 Body mass index (BMI) [Ratio] 44.73 kg/m2 Rhett Brito MD Work Phone: 1(816)856-897745 [place] [address] 02-23-2021 11:15-0400 Body weight 118.21 kg Rhett Brito MD Work Phone: 0(136)458-724745 [place] [address] 02-23-2021 11:15-0400 Diastolic blood pressure 81 mm[Hg] Rhett Brito MD Work Phone: 7(264)018-208645 [place] [address] 02-23-2021 11:15-0400 Heart rate 84 /min Rhett Brtio MD Work Phone: 0(892)196-085145 [place] [address] 02-23-2021 11:15-0400 Respiratory rate 16 /min Rhett Brito MD Work Phone: 5(620)280-984766 [place] [address] 02-23-2021 11:15-0400 SaO2% (BldA) [Mass fraction] 98 % Rhett Brito MD Work Phone: 6(103)829-520166 [place] [address] 02-23-2021 11:15-0400 Systolic blood pressure 132 mm[Hg] Rhett Brito MD Work Phone: 5(748)475-867266 [place] [address] 02-18-2021 11:20-0400 Body temperature 98.01 [degF] Madhu Kramer MD Work Phone: [employer] 02-18-2021 11:20-0400 Diastolic blood pressure 94 mm[Hg] Madhu Kramer MD Work Phone: [facility] 02-18-2021 11:20-0400 Heart rate 86 /min Madhu Kramer MD Work Phone: [facility] 02-18-2021 11:20-0400 Respiratory rate 16 /min Madhu rKamer MD Work Phone: [facility] 02-18-2021 11:20-0400 SaO2% (BldA) [Mass fraction] 98 % Madhu Kramer MD Work Phone: [employer] 02-18-2021 11:20-0400 Systolic blood pressure 154 mm[Hg] Madhu Kramer MD Work Phone: [facility] 02-17-2021 10:25-0400 Body height 162.6 cm Madhu Kramer MD Work Phone: [facility] 02-17-2021 10:25-0400 Body mass index (BMI) [Ratio] 46.28 kg/m2 Madhu Kramer MD Work Phone: [facility] 02-17-2021 10:25-0400 Body weight 122.3 kg Madhu Kramer MD Work Phone: [employer] [facility] 02-14-2021 08:48-0400 Body mass index (BMI) [Ratio] 45.32 kg/m2 [facility] 02-14-2021 08:48-0400 Body weight 119.75 kg Rhett Brito MD Work Phone: [facility] 02-14-2021 08:48-0400 Diastolic blood pressure 78 mm[Hg] Rhett Brito MD Work Phone: [facility] 02-14-2021 08:48-0400 Heart rate 66 /min Rhett Brito MD Work Phone: [facility] 02-14-2021 08:48-0400 SaO2% (BldA) [Mass fraction] 96 % Rhett Brito MD Work Phone: [facility] [employer] [facility] 02-14-2021 08:48-0400 Systolic blood pressure 139 mm[Hg] Rhett Brito MD Work Phone: [facility] 12-05-2020 18:53-0400 Body height 162.6 cm Dario Fischer MAT MAKING MACHINE TENDER Work Phone: [facility] 12-05-2020 18:53-0400 Body mass index (BMI) [Ratio] 44.05 kg/m2 Dario Fischer MAT MAKING MACHINE TENDER Work Phone: [facility] 12-05-2020 18:53-0400 Body temperature 98.91 [degF] Dario Fischer MAT MAKING MACHINE TENDER Work Phone: [facility] 12-05-2020 18:53-0400 Body weight 116.39 kg Dario Fischer MAT MAKING MACHINE TENDER Work Phone: [facility] 12-05-2020 18:53-0400 Diastolic blood pressure 99 mm[Hg] Dario Fischer MAT MAKING MACHINE TENDER Work Phone: [facility] [employer] [facility] 12-05-2020 18:53-0400 Heart rate 84 /min Dario Fischer MAT MAKING MACHINE TENDER Work Phone: [facility] 12-05-2020 18:53-0400 Respiratory rate 16 /min Dario Fischer MAT MAKING MACHINE TENDER Work Phone: [facility] 12-05-2020 18:53-0400 SaO2% (BldA) [Mass fraction] 98 % Dario Fischer MAT MAKING MACHINE TENDER Work Phone: [facility] 12-05-2020 18:53-0400 Systolic blood pressure 153 mm[Hg] Dario Amado MAT MAKING MACHINE TENDER Work Phone: [facility] 10-28-2020 08:25-0400 Body mass index (BMI) [Ratio] 44.23 kg/m2 Hazel Brown APRN-MAT MAKING MACHINE TENDER Work Phone: [facility] 10-28-2020 08:25-0400 Body weight 116.94 kg Hazel TELLES Work Phone: [facility] 10-28-2020 08:25-0400 Diastolic blood pressure 86 mm[Hg] Hazel TELLES Work Phone: [facility] 10-28-2020 08:25-0400 Heart rate 88 /min Hazel TELLES Work Phone: [facility] 10-28-2020 08:25-0400 Respiratory rate 16 /min Hazel TELLES Work Phone: [facility] 10-28-2020 08:25-0400 SaO2% (BldA) [Mass fraction] 98 % Hazel TELLES Work Phone: [facility] 10-28-2020 08:25-0400 Systolic blood pressure 132 mm[Hg] Hazel TELLES Work Phone: [facility] 09-30-2020 11:21-0400 BMI (Body Mass Index) 42.27 kg/m2 [facility] 09-30-2020 11:21-0400 Body weight 111.77 kg [facility] 09-30-2020 11:21-0400 BP Diastolic 81 mm[Hg] [facility] 09-30-2020 11:21-0400 BP Systolic 120 mm[Hg] [facility] 09-30-2020 11:21-0400 Pulse (Heart Rate) 95 /min [facility] 09-30-2020 11:21-0400 Pulse Oximetry 93 % [facility] 09-30-2020 11:21-0400 Respiratory Rate 16 /min [facility] 09-25-2020 12:09-0400 Body Temperature 97.9 [degF] [facility] 09-25-2020 12:09-0400 BP Diastolic 84 mm[Hg] [facility] 09-25-2020 12:09-0400 BP Systolic 166 mm[Hg] [facility] 09-25-2020 12:09-0400 Pulse (Heart Rate) 76 /min [facility] 09-25-2020 12:09-0400 Pulse Oximetry 94 % [facility] 09-25-2020 12:09-0400 Respiratory Rate 14 /min [facility] 09-25-2020 04:45-0400 BMI (Body Mass Index) 43.61 kg/m2 [facility] 09-25-2020 04:45-0400 Body weight 115.3 kg [facility] 09-22-2020 05:03-0400 Height 162.6 cm [facility] 09-17-2020 22:09-0400 Body Temperature 100.2 [degF] [facility] 09-17-2020 22:09-0400 BP Diastolic 69 mm[Hg] [facility] 09-17-2020 22:09-0400 BP Systolic 137 mm[Hg] [facility] 09-17-2020 22:09-0400 Pulse (Heart Rate) 112 /min [facility] 09-17-2020 22:09-0400 Pulse Oximetry 97 % [facility] 09-17-2020 22:09-0400 Respiratory Rate 16 /min [facility] 09-17-2020 20:53-0400 BMI (Body Mass Index) 41.2 kg/m2 [facility] 09-17-2020 20:53-0400 Body weight 108.86 kg [facility] 09-17-2020 20:53-0400 Height 162.6 cm [facility] 07-06-2020 08:13-0500 BMI (Body Mass Index) 45.53 kg/m2 [facility] 07-06-2020 08:13-0500 Body weight 116.57 kg [facility] 07-06-2020 08:13-0500 BP Diastolic 83 mm[Hg] [facility] 07-06-2020 08:13-0500 BP Systolic 142 mm[Hg] [facility] 07-06-2020 08:13-0500 Pulse (Heart Rate) 68 /min [facility] 07-06-2020 08:13-0500 Pulse Oximetry 91 % [facility] 07-06-2020 08:13-0500 Respiratory Rate 16 /min [facility] 04-21-2020 08:07-0400 BMI (Body Mass Index) 43.05 kg/m2 [facility] 04-21-2020 08:07-0400 Body weight 110.22 kg [facility] 04-21-2020 08:07-0400 BP Diastolic 87 mm[Hg] [facility] 04-21-2020 08:07-0400 BP Systolic 144 mm[Hg] [facility] 04-21-2020 08:07-0400 Height 160 cm [facility] 04-21-2020 08:07-0400 Pulse (Heart Rate) 70 /min [facility] 04-21-2020 08:07-0400 Respiratory Rate 18 /min [facility] 12-14-2019 14:47-0400 BMI (Body Mass Index) 42.51 kg/m2 [facility] 12-14-2019 14:47-0400 Body weight 108.86 kg [facility] 12-14-2019 14:47-0400 BP Diastolic 84 mm[Hg] [facility] 12-14-2019 14:47-0400 BP Systolic 131 mm[Hg] [facility] 12-14-2019 14:47-0400 Height 160 cm [facility] 12-14-2019 14:47-0400 Pulse (Heart Rate) 69 /min [facility] 08-26-2019 07:59-0500 BMI (Body Mass Index) 41.71 kg/m2 [facility] 08-26-2019 07:59-0500 Body weight 110.22 kg [facility] 08-26-2019 07:59-0500 BP Diastolic 84 mm[Hg] [facility] 08-26-2019 07:59-0500 BP Systolic 138 mm[Hg] [facility] 08-26-2019 07:59-0500 Height 162.6 cm [facility] 08-26-2019 07:59-0500 Pulse (Heart Rate) 88 /min [facility] 08-26-2019 07:59-0500 Respiratory Rate 16 /min [facility] 07-27-2019 14:54-0500 BMI (Body Mass Index) 41.6 kg/m2 [facility] 07-27-2019 14:54-0500 Body Temperature 97.7 [degF] [facility] 07-27-2019 14:54-0500 Body weight 109.94 kg [facility] 07-27-2019 14:54-0500 Height 162.6 cm [facility] 06-29-2019 10:42-0500 BMI (Body Mass Index) 40.34 kg/m2 [facility] 06-29-2019 10:42-0500 Body Temperature 97.7 [degF] [facility] 06-29-2019 10:42-0500 Body weight 106.59 kg [facility] 06-29-2019 10:42-0500 Height 162.6 cm [facility] 06-11-2019 10:10-0500 BP Diastolic 75 mm[Hg] [facility] 06-11-2019 10:10-0500 BP Systolic 123 mm[Hg] [facility] 06-11-2019 10:10-0500 Pulse (Heart Rate) 75 /min [facility] 06-11-2019 10:10-0500 Pulse Oximetry 98 % [facility] 06-11-2019 10:10-0500 Respiratory Rate 17 /min [facility] 06-11-2019 09:25-0500 Body Temperature 98.2 [degF] [facility] 06-11-2019 06:40-0500 BMI (Body Mass Index) 40.34 kg/m2 [facility] 06-11-2019 06:40-0500 Body weight 106.59 kg [facility] 06-11-2019 06:40-0500 Height 162.6 cm [facility] 05-13-2019 13:49-0500 BMI (Body Mass Index) 39.48 kg/m2 [facility] 05-13-2019 13:49-0500 Body Temperature 98.01 [degF] [facility] 05-13-2019 13:49-0500 Body weight 104.33 kg [facility] 05-13-2019 13:49-0500 Height 162.6 cm [facility] 05-04-2019 08:26-0500 BP Diastolic 93 mm[Hg] [facility] 05-04-2019 08:26-0500 BP Systolic 160 mm[Hg] [facility] 05-04-2019 08:26-0500 Pulse (Heart Rate) 61 /min [facility] 04-30-2019 10:35-0400 BP Diastolic 73 mm[Hg] [facility] 04-30-2019 10:35-0400 BP Systolic 135 mm[Hg] [facility] 04-30-2019 10:35-0400 Pulse (Heart Rate) 72 /min [facility] 04-30-2019 10:35-0400 Pulse Oximetry 98 % [facility] 04-30-2019 10:35-0400 Respiratory Rate 16 /min [facility] 04-30-2019 09:28-0400 Body Temperature 97.9 [degF] [facility] 04-30-2019 06:32-0400 BMI (Body Mass Index) 39.48 kg/m2 [facility] 04-30-2019 06:32-0400 Body weight 104.33 kg [facility] 04-30-2019 06:32-0400 Height 162.6 cm [facility] 04-17-2019 14:25-0400 BMI (Body Mass Index) 39.48 kg/m2 [facility] 04-17-2019 14:25-0400 Body Temperature 97.5 [degF] [facility] 04-17-2019 14:25-0400 Body weight 104.33 kg [facility]on [facility] 04-17-2019 14:25-0400 BP Diastolic 75 mm[Hg] [facility] 04-17-2019 14:25-0400 BP Systolic 137 mm[Hg] [facility] 04-17-2019 14:25-0400 Height 162.6 cm [facility] 04-17-2019 14:25-0400 Pulse (Heart Rate) 72 /min [facility] Encounters Encounter Date Encounter Type Care Provider Facility Start: 10-18-2023 ambulatory RHETT BRITO [facility] Start: 04-18-2023 ambulatory SELF SELF [facility] Start: 04-18-2023 End: 04-18-2023 Office outpatient visit 40 minutes Rhett Brito MD Work Phone: [facility] Procedures Date Procedure Procedure Detail Performing Clinician [...] with white cell differential, automated Xavier Villa CONTACT CENTER MANAGER-MAT MAKING MACHINE TENDER Work Phone: Start: 02-18-2021 Comprehensive metabolic panel Xavier Villa CONTACT CENTER MANAGER-MAT MAKING MACHINE TENDER Work Phone: Start: 02-18-2021 Lipid panel Madhu [...] Phone: Start: 09-24-2020 Drug screen quantitative vancomycin Aibgail Julian Silvio Work Phone: Start: 09-24-2020 Gluc [...] cleared fda spec home use Madhu Turner Fanijvaier Work Phone: Start: 09-22-2020 Assay of magnesium [...] Start: 09-21-2020 Assay of lactate Román Catracho [place] Work Phone: Start: 09-21-2020 Cultyp nuc acid [...] Detail Author Start: 04-06-2024 Lipid panel LIPIDS [facility] Start: 04-06-2024 Potassium [Moles/volume] in Serum or Plasma POTASSIUM [facility] Start: 03-02-2024 Screening for malign ant neoplasm of breast MAMMOGRAM SCREENING DISCUSSION [facility] Start: 10-31-2023 Screening for malign ant neoplasm of cervix Pap Smear [facility] Start: 10-18-2023 End: 04-18-2024 Basic metabolic 2000 panel - Serum or Plasma BASIC METABOLIC PANEL Lab Routine Type 2 diabetes mellitus without complication, without long-term current use of insulin Expected: 10/18/2023 (Approximate), Expires: 04/18/2024 [facility] Immunizations Immunization Date Immunization Notes Care Provider Yulissa wang 04-18-2023 influenza, injectabl e, quadrivalent, preservative free Rhett Brito MD Work Phone: [facility] 06-21-2021 COVID-19 vaccine, mR STEWART, Modernedinson, booster 0.25 ML Rhett Brito MD Work Phone: [facility] 05-18-2021 influenza, injectabl e, quadrivalent, preservative free Rhett Brito MD Work Phone: [facility] 05-18-2021 influenza virus vaccine, unspecified formulation Roxie Lazo MD Work Phone: [facility] 12-09-2020 COVID-19 vaccine, NA, Moderna 0.5 ML Rhett Brito MD Work Phone: [facility] 11-13-2020 COVID-19 vaccine, NA, Moderna 0.5 ML Rhett Brito MD Work Phone: [facility] 04-21-2020 influenza, injectabl e, quadrivalent, preservative free Rhett Brito [facility] 04-21-2020 influenza virus vaccine, unspecified formulation Suzi Chatman MD Work Phone: [facility] 03-19-2017 influenza virus vaccine, whole virus Rhett Brito [facility] 03-19-2017 influenza virus vaccine, unspecified formulation Rhett Brito [facility] Work Phone: Payers Date Payer Category Payer Unknown [facility] NET[employer] ACCESS [id number] 2019-Present [id number] 2019 Unknown [id number] 2019 [facility] x[facility]x 2019-Present xxxxxxxxxx [id number] 2019 Unknown [employer] PPO ACCESS/TPA xxxxxxxxxxxx 2019-Present xxxxxxxxxxxx [id number] 2019 Unknown [employer] NETWORK ACCESS [id number] 2019-Present [id number] 2019 Unknown [id number] 2019 Unknown [id number] 2019 Unknown [id number] .[id number] 2018 Unknown xxxxxxxxx [id number] .[id number] 1975 Unknown [id number] 2.16.840.1.984593.3.579.2.900 1975 Unknown [id number] 2.16.840.1.592988.3.579.2.903 1975 Unknown [id number] 2.16.840.1.440811.3.579.2.903 1975 Unknown [id number] 2.16.840.1.684211.3.579.2.983 1975 Unknown [id number] 2.16.840.1.941208.3.579.2.983 1975 Unknown [id number] 2.16.840.1.836782.3.579.2.983 1976 Unknown [id number] 2.16.840.1.613415.3.579.2.983 1975 Unknown [id number] 2.16.840.1.096499.3.579.2.983 1975 Unknown [id number] 2.16.840.1.929931.3.579.2.983 1976 Unknown [id number] 2.16.840.1.035020.3.579.2.983 1975 Unknown [id number] 2.16.840.1.641575.3.579.2.983 1975 Unknown [id number] 2.16.840.1.454243.3.579.2.983 1975 Unknown [id number] 2.16.840.1.079700.3.579.2.983 1975 Unknown [id number] 2.16.840.1.342204.3.579.2.983 Social History Date Type Detail Facility Start: 09-20-2015 End: 04-23-2022 Tobacco smoking status [facility] Never smoker [facility] Start: 1975 Sex Assigned At Not on file [employer] Work Phone: Start: 10-23-2017 Alcohol Comment rarely [facility] Start: 01-26-2019 End: 04-18-2023 Alcohol intake Yes [facility] [employer] Start: 05-04-2019 End: 04-18-2023 Alcohol intake Current drinker of alcohol (finding) [facility] Start: 12-14-2019 End: 04-23-2022 Tobacco use and exposure Never used [facility] Start: 04-16-2022 End: 04-26-2022 Exposure to SARS-CoV-2 (event) Not sure [facility] [employer] Start: 10-23-2017 Alcohol Comment Rarely [facility] Start: 04-26-2022 Alcohol Comment Rarely (1x/year) [facility] [employer] [facility] Start: 02-20-2023 End: 04-18-2023 History of Social function [facility] Gender identity Identifies as fe male gender (finding) [facility] Medical Equipment Procedure Code Equipment Code Equipment Origin al Text Equipment Identifier Dates [facility] [place] Start: 06-18-2017 [facility] [place] Start: 06-18-2017 [facility] [place] Start: 06-18-2017 daily [id number] Start: 10-23-2017 daily [id number] Start: 10-23-2017 [facility] [place] Start: 06-18-2017 [facility] [place] Start: 06-18-2017 [facility] [place] Start: 06-18-2017 [facility] [place] Start: 06-18-2017 [facility] [place] Start: 06-18-2017 [facility] [place] Start: 06-18-2017 [facility] [place] Start: 06-18-2017 [facility] [place] Start: 06-18-2017 [facility] [place] Start: 06-18-2017 [facility] [place] Start: 06-18-2017 [facility] [place] Start: 06-18-2017 [facility] [place] Start: 06-18-2017 [facility] [place] Start: 06-18-2017 [facility] [place] Start: 06-18-2017 [facility] [place] Start: 06-18-2017 [facility] [place] Start: 06-18-2017 [facility] [place] Start: 06-18-2017 [facility] [place] Start: 06-18-2017 [facility] [place] Start: 06-18-2017 [facility] [place] Start: 06-18-2017 [facility] [place] Start: 06-18-2017 [facility] [place] Start: 06-18-2017 [facility] [place] Start: 06-18-2017 [facility] [place] Start: 06-18-2017 [facility] [place] Start: 06-18-2017 [facility] [place] Start: 06-18-2017 [facility] [place] Start: 06-18-2017 [facility] [place] Start: 06-18-2017 [facility] [place] Start: 06-18-2017 [facility] [place] Start: 06-18-2017 [facility] [place] Start: 06-18-2017 [facility] [place] Start: 06-18-2017 [facility] [place] Start: 06-18-2017 [facility] [place] Start: 06-18-2017 [facility] [place] Start: 06-18-2017 [facility] [place] Start: 06-18-2017 [facility] [place] Start: 06-18-2017 [facility] [place] Start: 06-18-2017 [facility] [place] Start: 06-18-2017 [facility] [place] Start: 06-18-2017 [facility] [place] Start: 06-18-2017 [facility] [place] Start: 06-18-2017 [facility] [place] Start: 06-18-2017 [facility] [place] Start: 06-18-2017 [facility] [place] Start: 06-18-2017 [facility] [place] Start: 06-18-2017 [facility] [place] Start: 06-18-2017 [facility] [place] Start: 06-18-2017 [facility] [place] Start: 06-18-2017 [facility] [place] Start: 06-18-2017 [facility] [place] Start: 06-18-2017 [facility] [place] Start: 06-18-2017 [facility] [place] Start: 06-18-2017 [facility] [place] Start: 06-18-2017 [facility] [place] Start: 06-18-2017 [facility] [place] Start: 06-18-2017 [facility] [place] Start: 06-18-2017 [facility] [place] [id number] Start: 06-18-2017 [facility] [place] [id number] Start: 06-18-2017 [facility] [place] [id number] Start: 06-18-2017 [facility] [place] Start: 06-18-2017 [facility] [place] Start: 06-18-2017 [facility] [place] Start: 06-18-2017 [facility] [place] Start: 06-18-2017 [facility] [place] Start: 06-18-2017 [facility] [place] Start: 06-18-2017 [facility] [place] Start: 06-18-2017 [facility] [place] Start: 06-18-2017 [facility] [place] Start: 06-18-2017 [facility] [place] Start: 06-18-2017 [facility] [place] Start: 06-18-2017 [facility] [place] Start: 06-18-2017 [place] Stent 3.0 X 30 - [id number] ()[id number] FDA Start: 02-17-2021 Angio-Seal 6f Vi p - [id number] FDA Start: 02-17-2021 Use to inj Victo za subcutaneous daily [id number] Start: 02-22-2021 Use to inj Victo za subcutaneous daily [id number] Start: 04-27-2021 End: 10-26-2021 Angio-Seal 6f Vi p - [id number] ()[id number] FDA Start: 04-27-2022 Clinical Notes 10-28-2020 [...] 90 tablet; Refill: 1 2. Atherosclerosis of [place] coronary artery of [place] heart with angina pectoris - Atorvastatin 20 [...] Refill: 1 11. Coronary artery disease involving [place] coronary artery of [place] heart without angina pectoris 12. Essential hypertension, [...] Brito MD 04/18/2023 documented in this encounter [facility] 02-20-2023 History of Presen t illness Narrative [...] Brito MD 02/20/2023 documented in this encounter [facility] 11-29-2022 History of Presen t illness Narrative [...] Brito MD 11/29/2022 documented in this encounter [facility] 11-02-2022 History of Presen t illness Narrative [...] Brito MD 11/02/2022 documented in this encounter [facility] 10-17-2022 History of Presen t illness Narrative [...] get her through until she sees new roof truss detailer in November (Dr. Doll) HEADACHE/MIGRAINE F/U Sharon [...] get her through until she sees new roof truss detailer in November (Dr. Doll) HEADACHE/MIGRAINE F/U Sharon [...] 90 tablet; Refill: 0 2. Atherosclerosis of [place] coronary artery of [place] heart with angina pectoris - Atorvastatin 20 [...] laterality Inject. 10. Coronary artery disease involving [place] coronary artery of [place] heart without angina pectoris 11. Gastroesophageal reflux disease without esophagitis - omeprazole [address] capsule; Take 1 capsule by mouth daily. Dispense: 90 capsule; Refill: 1 12. Hypercholesterolemia 13. Essential hypertension, benign Rhett Brito MD 10/17/2022 documented in this encounter [facility] 04-28-2022 Note Formatting of this n ote [...] discharge/transition of care. Outcome: Adequate for Discharge [facility] 04-28-2022 Miscellaneous Notes Problem: Patient Care Overview [...] of patient. Patient was transported from Cardiac Radiology Resident back to Med Surg Room #0434 by this RN and MONISHA Alcocer. Patient was attached to [facility], room air, 99%. Patient's VSS and was [...] MONISHA jason, after pateint was reconnected to [employer] Maker Patient remains on room air at 98%. Patient's wrist and groin dressings and access sites were assessed by both MONISHA Alcocer and park interpretive ranger, Casie, together and confirmed this site was intact and free of Active Bleeding, Hematoma, and/or Ecchymosis. Patient stable, A&Ox4. Informed Med/Surg Staff of Procedure Findings, Interventions, and Post Procedure Care. Advised Staff to Refer to Physician's Orders or Contact Physician, for further orders needed for patient care. Patient's continued care taken over by Chon Jason Surg, RN. Pt to room 3754. Report [...] time. Patient arrived to Cath/Vascular Lab to [place] #3, with - ([place]). Escorted by MONISHA Kumari. Patient was ambulatory and has no complaints of pain, chest pain, or SOB. Will assess and monitor this patient very closely. Pre Cath phone call complete. 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 Patient is scheduled for a LHC with Dr Kramer in [place] Arrive: 9 am (8AM if getting labs in morning) Doc: 10 am Patient states she did receive instructions from the office on procedure. Patient denies needs or questions at this time. Spoke with Soledad from [facility]. Scheduled patient for a LHC with Dr. Kramer for this 04/26/22 at 1000 with patient arrival at 0900. documented in this encounter [facility] 04-28-2022 Note Formatting of this n ote might be different from the original. Went over AVS with pt and answered all questions. Pt states understanding. IV removed without problems. R groin and R wrist site dressings still intact with no drainage or abnormalities. Pt states she has got all her belongings and ambulates off unit with her . [facility] 04-28-2022 Hospital course Narrative Images from the [...] known as: LIPITOR For diagnoses: Atherosclerosis of [place] coronary artery of [place] heart with angina pectoris, Bradycardia, Abnormal stress [...] known as: PRINIVIL For diagnoses: Atherosclerosis of [place] coronary artery of [place] heart with angina pectoris Magnesium 500 MG [...] daily every morning. Vit E-Vit C-Beta Carotene [phone] TABS Take 250 mg by mouth daily. Vitamin D-3 25 MCG (1000 UT) CAPS Take 5,000 Units by mouth daily. ZYRTEC PO Take 1 tablet by mouth at bedtime. Follow-up: No follow-up provider specified. Upcoming Appointments (up to five)-Some appointments for Medical Center outpatient clinics or diagnostic testing locations are not displayed below Provider Department Dept Phone 05/02/2022 2:15 PM Madhu Kramer [facility] Cardiology [phone] 10/17/2022 1:40 PM Rhett Brito [facility] Medicine [phone] documented in this encounter [facility] 04-28-2022 Note Formatting of this n ote might be different from the original. No change in pt condition since the last nursing assessment unless noted in the flowsheets. Patient denies needs. Call light and bedside table within reach. [facility] 04-28-2022 Note Formatting of this n ote might be different from the original. No change in patient condition since the last nursing assessment, unless noted in the attached flowsheet. Patient appears asleep at this time and appears to be comfortable with no apparent needs. Call light and bedside table within reach of patient. T [facility] 04-27-2022 Note Formatting of this n ote might be different from the original. Patient was transported from Cardiac Radiology Resident back to Med Surg Room #4644 by this RN and MONISHA Alcocer. Patient was attached to [employer], room air, 99%. Patient's VSS and was [...] MONISHA jason, after pateint was reconnected to [employer] Maker Patient remains on room air at 98%. Patient's wrist and groin dressings and access sites were assessed by both MONISHA Alcocer and park interpretive ranger, Casie, together and confirmed this site was intact and free of Active Bleeding, Hematoma, and/or Ecchymosis. Patient stable, A&Ox4. Informed Med/Surg Staff of Procedure Findings, Interventions, and Post Procedure Care. Advised Staff to Refer to Physician's Orders or Contact Physician, for further orders needed for patient care. Patient's continued care taken over by Chon Jason RN. [facility] 04-27-2022 Note Formatting of this n ote [...] belongings in reach. 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 Coronary Findings Diagnostic Dominance: [...] Failure: No Cardiovascular instability: Persistent ischemic symptoms [facility] 04-27-2022 Hospital Discharg e instructions Magda Morgan RN - 04/27/2022 3:19 PM EDT The following attachments cannot be sent through Care Everywhere.CARE AFTER CARDIAC CATHETERIZATION: WRIST INSTRUCTIONS ([facility] ONLY)LEFT HEART CATHETERIZATION - GROIN ACCESS INSTRUCTIONS ([facility] ONLY)documented in this encounter [facility] 04-27-2022 Note Formatting of this n ote might be different from the original. Cardiology in room for EKG [facility] 04-27-2022 Note Formatting of this n ote might be different from the original. Stent Card and AngioSeal card given to per MONISHA Alcocer [facility] 04-27-2022 Note Formatting of this n ote might be different from the original. Dr Kramer in room speaking with patient and family. [facility] 04-27-2022 History and physical note I have seen, examined and reviewed all pertinent data and clinical information. I reviewed the H&P done on 04/23/22 and there are no additional changes. Risks/benefits have been discussed and reviewed. Appropriate consents have been signed and patient voiced understanding of risks/benefits and all details of the procedure. Madhu Kramer MD [facility] 04-27-2022 History and physical note I have seen, examined and reviewed all pertinent data and clinical information. I reviewed the H&P done on 04/23/22 and there are no additional changes. Risks/benefits have been discussed and reviewed. Appropriate consents have been signed and patient voiced understanding of risks/benefits and all details of the procedure. Madhu Kramer MD documented in this encounter [facility] 04-27-2022 Note Formatting of this n ote might be different from the original. Dr Kramer in with patient and family [facility] 04-27-2022 Note Formatting of this n ote might be different from the original. Sister, Joanie, at bedside. Spouse remains at bedside. [facility] 04-27-2022 Note Formatting of this n ote might be different from the original. Patient ready for procedure, labs pending. Spouse at bedside. Patient denies needs at this time. T [facility] 04-27-2022 Note Formatting of this n ote might be different from the original. Patient arrived to Cath/Vascular Lab to [place] #3, with - ([place]). Escorted by MONISHA Kumari. Patient was ambulatory and has no complaints of pain, chest pain, or SOB. Will assess and monitor this patient very closely. T [facility] 04-26-2022 Note Formatting of this n ote might be different from the original. Pre Cath phone call complete. 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 Patient is scheduled for a LHC with Dr Kramer in [place] Arrive: 9 am (8AM if getting labs in morning) Doc: 10 am Patient states she did receive instructions from the office on procedure. Patient denies needs or questions at this time. T [facility] 04-24-2022 Note Formatting of this n ote might be different from the original. Spoke with Soledad from [facility] [employer]. Scheduled patient for a LHC with Dr. Kramer for this 04/26/22 at 1000 with patient arrival at 0900. [facility] 04-17-2022 History of Presen t illness Narrative [...] A1C; Future 6. Coronary artery disease involving [place] coronary artery of [place] heart without angina pectoris Stress test with [...] Brito MD 04/17/2022 documented in this encounter [facility] 03-02-2022 Note PROCEDURE: MAMMO SCR EENING WITH [...] Medical History: Diagnosis Date Atherosclerotic heart disease [place] coronary artery w/angina pectoris 03/08/2021 Cardiac angina [...] debrideent & repair Dr Sukh Pradhan @ [facility] Bilateral 2002 lasik TONSILLECTOMY 1985 [...] 1 Multiple Vitamin (VIT E-VIT C-BETA CAROTENE) [phone] Tab, Take 250 mg by mouth daily., [...] nursing note reviewed. Exam conducted with a sales warehouse driver present. Constitutional: General: She is not in [...] exam with routine gynecological exam Encouraged annual Take Off Worker Exams Encounter for screening mammogram for breast [...] Lazo MD 11/20/2021 documented in this encounter [facility] 10-26-2021 History of Presen t illness Narrative [...] LDL; Future 8. Coronary artery disease involving [place] coronary artery of [place] heart without angina pectoris - HEPATIC FUNCTION PANEL; Future - LIPID PANEL W CALCULATED LDL; Future 9. Rotator cuff tendinitis, unspecified laterality Ice. If not better then inject. - celecoxib 200 MG capsule; Take 1 capsule by mouth 2 times daily. Dispense: 60 capsule; Refill: 0 - AMB REFERRAL TO PHYSICAL THERAPY Rhett Brito MD 10/26/2021 documented in this encounter [facility] 02-23-2021 History of Presen t illness Narrative [...] and Plan: 1. Coronary artery disease involving [place] coronary artery of [place] heart without angina pectoris - BASIC METABOLIC [...] Dr Kramer 03/07/2021. documented in this encounter [facility] 02-18-2021 Miscellaneous Notes Discharge instructions explained to patient and , pt denies questions, verbalizes understanding. Vitals obtained, stable. Pt wheeled off floor in wheelchair by typewriter tester at this time. Assessment completed. No changes [...] after discharge. Patient was transported from Cardiac Radiology Resident to ICU Room #85 by this RN [...] were assessed by both this RN and MAIL PROCESSING EQUIPMENT MECHANIC, Krysten, together and confirmed this site was intact and free of Active Bleeding, Hematoma, and/or Ecchymosis. This RN also assessed and confirmed R groin site was intact and free of Active Bleeding, Hematoma, and/or Ecchymosis with MAIL PROCESSING EQUIPMENT MECHANICFaye. This RN assessed, with both MONISHA Bashir [...] oriented without complaint. documented in this encounter [facility] 02-18-2021 History of Presen t illness Narrative [...] LAD 95% stenosis reduced to 0% with [place] KARIME 3.0x30 mm post-dilated to 3.5 proximal half of stent. 3. Low normal LVEF with mild anterior hypokinesis. Plan 1. ASA 162 mg x 30 days then 81 mg indef 2. Plavix 75 mg daily minimum of one year 3. Statin with goal LDL <70. 4. Home in AM HPI Shaorn Bella is a 45 y.o. female seen [...] OR REATTACHMENT Right 06/18/2017 Laterality: Right; Surgeon: Suhk Pradhan MD; Location: [facility] SURGERY Left 11/01/2016 Lt lateral epicondyle debrideent & repair Dr Sukh Pradhan @ [facility] Bilateral 2002 lasik TONSILLECTOMY 1986 [...] 02/16/2021 Multiple Vitamin (VIT E-VIT C-BETA CAROTENE) [phone] Tab Take 250 mg by mouth daily. [...] 500-1,000 mg Oral Q6H PRN Xavier Villa APRN-MAT MAKING MACHINE TENDER 1,000 mg at 02/18/21 0854 aspirin chewable [...] mg 40 mg Subcutaneous Daily Xavier Villa APRN-MAT MAKING MACHINE TENDER 40 mg at 02/18/21 08 gabapentin (NEURONTIN) capsule 600 mg 600 mg Oral QHS Xavier Villa APRN-MAT MAKING MACHINE TENDER 600 mg at 02/17/212102 gliMEPIride (AMARYL) tablet 4 mg 4 mg Oral BID Xavier Villa APRN-MAT MAKING MACHINE TENDER 4 mg at 02/18/21 0854 hydroCODone-acetaminophen (NORCO) 5-325 MG per tablet 1 tablet 1 tablet Oral Q6H PRN Xavier Villa APRN-MAT MAKING MACHINE TENDER 1 tablet at 02/17/21 1554 ipratropium-albuterol (DUONEB) [...] volume) 2 g Intravenous Daily Xavier Villa APRN-MAT MAKING MACHINE TENDER 2 g at 02/18/21 0854 montelukast (SINGULAIR) tablet 10 mg 10 mg Oral Daily Xavier Villa APRN-MAT MAKING MACHINE TENDER 10 mg at 02/18/21 0855 ondansetron 4mg/2ml (ZOFRAN) injection 4 mg 4 mg Intravenous Q4H PRN ELFEGO Starks pantoprazole (PROTONIX) tablet DR 40 mg 40 mg Oral Daily Xavier Villa APRN-MAT MAKING MACHINE TENDER 40 mg at 02/18/21 0854 pioglitazone (ACTOS) tablet 45 mg 45 mg Oral Daily Xavier Villa APRN-MAT MAKING MACHINE TENDER 45 mg at 02/17/21 1734 potassium chloride [...] Social Gatherings with Friends and Family: Attends L[employer] Services: Active Member of Clubs or Organizations: [...] 02/18/2021 10:45 AM documented in this encounter [facility] 02-17-2021 Consult note Associated Order(s): IP CONSULT [...] 02/16/2021 Added automatically from request for surgery [id number] Dyspnea on exertion 02/16/2021 Poorly controlled type [...] debrideent & repair Dr Sukh Pradhan @ [facility] Bilateral 2002 lasik TONSILLECTOMY 1985 [...] 02/16/2021 Multiple Vitamin (VIT E-VIT C-BETA CAROTENE) [phone] Tab Take 250 mg by mouth daily. [...] Please note Portions of this note utilized Improveit! 360 dictation software, please excuse any typographical or [...] of patient care time.documented in this encounter [facility] 02-17-2021 History and physical note I have seen, examined and reviewed all pertinent data and clinical information. I reviewed the H&P done on 02/16/21 and there are no additional changes. Risks/benefits have been discussed and reviewed. Appropriate consents have been signed and patient voiced understanding of risks/benefits and all details of the procedure. Madhu Kramer MD documented in this encounter [facility] 02-17-2021 Hospital Discharg e instructions Hazel Souza [...] Cath Care after - Leg Site ([facility]) ([place])Cardiac Cath Care After - Wrist Site ([facility]) ([place])documented in this encounter [facility] 02-14-2021 History of Presen t illness Narrative ARM PAIN- Onset- November 29 Location - left Edema: no Associated sx - numbness and tingling Recent injury - No Discoloration of skin (blue or red) - No Treatments tried and response - Nothing has been effective. 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 Pain is [...] been effective. 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 documented in this encounter [facility] 12-26-2020 History of Presen t illness Narrative [...] 1 Multiple Vitamin (VIT E-VIT C-BETA CAROTENE) [phone] Tab Take 250 mg by mouth daily. [...] debrideent & repair Dr Sukh Pradhan @ [facility] Bilateral 2002 lasik TONSILLECTOMY 1985 [...] Social Gatherings with Friends and Family: Attends [employer] Services: Active Member of Clubs or Organizations: [...] to her house. documented in this encounter [facility] 12-05-2020 History of Presen t illness Narrative HPI Sharon Bella female 1975 presents to the [facility] with Chief Complaint Patient presents [...] her symptoms. She has been taking some cdoj-geh-wwyucua Tylenol without relief of her symptoms. History [...] daily. Multiple Vitamin (VIT E-VIT C-BETA CAROTENE) [phone] Tab Take 250 mg by mouth daily. [...] Lt lateral epicondyle debrideent & repair Dr Suhk Pradhan @ [facility] Bilateral 2002 lasik TONSILLECTOMY 1985 [...] Social Gatherings with Friends and Family: Attends [employer] Services: Active Member of Clubs or Organizations: [...] Fischer CNP 12/05/2020 documented in this encounter [facility] 12-05-2020 Instructions Dario Fischer CNP - 12/05/2020 [...] your doctor if you can take an [id number] medicine. Try ice or heat to help [...] of: May 16, 2020 Content Version: 12.9 [employer]. Care instructions adapted under license by your healthcare professional. If you have questions about a medical condition or this instruction, always ask your healthcare professional. [employer] disclaims any warranty or liability for your use of this information. documented in this encounter [facility] 10-28-2020 History of Presen t illness Narrative Patient: Sharon Bella Patient : 1975 Patient Age: 45 y.o. [...] debrideent & repair Dr Sukh Pradhan @ [facility] Bilateral 2002 lasik TONSILLECTOMY 1985 [...] Rfl: Multiple Vitamin (VIT E-VIT C-BETA CAROTENE) [phone] Tab, Take 250 mg by mouth daily., [...] chronic MAHAJAN medication. documented in this encounter [facility] documented in this encounter [facility] [employer] SystemEvaluation note* Diagnosis Pneumonia of left lower lobe due to infectious organism documented in this encounter [facility] System[facility]* Diagnosis Compression of nerve- Primary Injury to nerves, unspecified site documented in this encounter [facility]* Diagnosis Paresthesia and pain of left extremity- Primary Pain in limb documented in this encounter [facility]* Diagnosis Screening mammogram for high-risk patient documented in this encounter [facility] SystemEvaluation note* Diagnosis Chest pain, unspecified type- Primary Pain of left upper extremity Type 2 diabetes mellitus without complication, without long-term current use of insulin documented in this encounter [facility] SystemEvaluation note* Diagnosis Chest pain, unspecified type documented in this encounter [facility] SystemEvaluation note* Diagnosis Status post [...] system function study documented in this encounter [facility] SystemEvaluation note* Diagnosis Coronary artery disease involving [place] coronary artery of [place] heart without angina pectoris- Primary Type 2 diabetes mellitus without complication, without long-term current use of insulin Mixed hyperlipidemia documented in this encounter [facility] note* Diagnosis Mixed hyperlipidemia- Primary Allergic rhinitis, unspecified seasonality, unspecified trigger Chronic tension-type headache, intractable Chronic tension type headache Cervicogenic headache Headache Cervicalgia Bilateral carpal tunnel syndrome Carpal tunnel syndrome Type 2 diabetes mellitus without complication, without long-term current use of insulin Coronary artery disease involving [place] coronary artery of [place] heart without angina pectoris Rotator cuff tendinitis, unspecified laterality documented in this encounter [facility] SystemEvaluation note* Diagnosis Well woman exam with routine gynecological exam- Primary Routine gynecological examination Encounter for screening mammogram for breast cancer Cervical cancer screening Screening for malignant neoplasm of the cervix Encounter for routine checking of intrauterine contraceptive device (IUD) IUD (intrauterine device) in place Presence of intrauterine contraceptive device documented in this encounter [facility] SystemEvaluation note* Diagnosis Encounter for screening mammogram for breast cancer documented in this encounter [facility] SystemEvaluation note* Diagnosis Coronary artery disease involving [place] coronary artery of [place] heart without angina pectoris- Primary Allergic rhinitis, unspecified seasonality, unspecified trigger Chronic tension-type headache, intractable Chronic tension type headache Cervicogenic headache Headache Cervicalgia Type 2 diabetes mellitus without complication, without long-term current use of insulin Mixed hyperlipidemia Chest pain, unspecified type Rotator cuff tendinitis, unspecified laterality documented in this encounter [facility] System[facility] note* Diagnosis Chest pain, unspecified type documented in this encounter [facility] SystemEvaluation note* Diagnosis Abnormal stress test Other nonspecific abnormal cardiovascular system function study Pre-operative cardiovascular examination Coronary artery disease Coronary atherosclerosis of unspecified type of vessel, [place] or graft Abnormal stress test Other nonspecific abnormal cardiovascular system function study documented in this encounter [facility] note* Diagnosis Rotator cuff tendinitis, unspecified laterality- Primary Bradycardia Other specified cardiac dysrhythmias Atherosclerosis of [place] coronary artery of [place] heart with angina pectoris Abnormal stress test Other nonspecific abnormal cardiovascular system function study Allergic rhinitis, unspecified seasonality, unspecified trigger Chronic tension-type headache, intractable Chronic tension type headache Cervicogenic headache Headache Cervicalgia Type 2 diabetes mellitus without complication, without long-term current use of insulin Coronary artery disease involving [place] coronary artery of [place] heart without angina pectoris Gastroesophageal reflux disease without esophagitis Esophageal reflux Hypercholesterolemia Pure hypercholesterolemia Essential hypertension, benign documented in this encounter [facility] note* Diagnosis Rotator cuff tendinitis, unspecified laterality- Primary documented in this encounter [facility] note* Diagnosis Acute otitis media, unspecified otitis media type- Primary Type 2 diabetes mellitus without complication, without long-term current use of insulin Obesity due to excess calories without serious comorbidity, unspecified classification documented in this [facility] Diagnosis Flu vaccine need- Primary Need for prophylactic vaccination and inoculation against influenza Bradycardia Other specified cardiac dysrhythmias Atherosclerosis of [place] coronary artery of [place] heart with angina pectoris Allergic rhinitis, unspecified seasonality, unspecified trigger Chronic tension-type headache, intractable Chronic tension type headache Cervicogenic headache Headache Cervicalgia Gastroesophageal reflux disease without esophagitis Esophageal reflux Type 2 diabetes mellitus without complication, without long-term current use of insulin Hair loss Alopecia, unspecified Coronary artery disease involving [place] coronary artery of [place] heart without angina pectoris Essential hypertension, benign Hypercholesterolemia Pure hypercholesterolemia Androgen excess Other ovarian hyperfunction documented in this encounter [facility] Inc[facility] for referral (narrative)* Consultation (Urgent) - New Request Specialty Diagnoses / Procedures Referred By Contac t Referred To Contact Cardiovascular Medicine Diagnoses Status post insertion of drug-eluting stent into left anterior descending (LAD) artery Xavier Villa APRN-YUMIKO [address] [place] [address] Madhu Kramer MD [address] [place] [phone] Referral ID Status Reason Start Date Expiration Date V isits Requested Visits Authorized [id number] New Request 02/18/2021 03/15/2022 1 1 Scheduling Instructions . * Consultation (Urgent) - New Request Specialty Diagnoses / Procedures Referred By Contac t Referred To Contact Family Medicine Diagnoses Type 2 diabetes mellitus without complication, without long-term current use of insulin Status post insertion of drug-eluting stent into left anterior descending (LAD) artery Xavier Villa APRN-YUMIKO [address] [place] [address] Rhett Brito MD [address] [place] [phone] Referral ID Status Reason Start Date Expiration Date V isits Requested Visits Authorized [id number] New Request 02/18/2021 03/15/2022 1 1 * Radiology (Emergency) - New Request Specialty Diagnoses / Procedures Referred By Contac t Referred To Contact Procedures ECG Madhu Kramer MD [address] [place] [phone] Referral ID Status Reason Start Date Expiration Date V isits Requested Visits Authorized [id number] New Request 02/17/2021 03/14/2022 1 1 * Consultation (Routine) - New Request Specialty Diagnoses / Procedures Referred By Contac t Referred To Contact Cardiovascular Medicine Diagnoses Abnormal nuclear stress test Madhu Kramer MD [address] [place] [phone] Referral ID Status Reason Start Date Expiration Date V isits Requested Visits Authorized [id number] New Request 02/18/2021 03/15/2022 1 1 Scheduling Instructions . * (Routine) Specialty Diagnoses / Procedures Referred By Contac t Referred To Contact Madhu Kramer MD [address] [place] [phone] Referral ID Status Reason Start Date Expiration Date Visits Re quested Visits Authorized * Radiology (Emergency) - New Request Specialty Diagnoses / Procedures Referred By Contac t Referred To Contact Procedures ECG Madhu Kramer MD [address] [place] [phone] Referral ID Status Reason Start Date Expiration Date V isits Requested Visits Authorized [id number] New Request 02/17/2021 03/14/2022 1 1 [facility] for visit Narrative* Auth/Cert Specialty Diagnoses / Procedures Referred By Contac t Referred To Contact Diagnoses Abnormal nuclear stress test Abnormal nuclear stress test [R94.39] Procedures LEFT HEART CATHETERIZATION CORONARY ANGIOGRAM Madhu Kramer MD [address] [place] [address] Referral ID Status Reason Start Date Expiration Date Visits Re quested Visits Authorized [id number] 02/16/2021 1 1 [facility] Narrative* Auth/Cert Specialty Diagnoses / Procedures Referred By Contac t Referred To Contact Diagnoses Abnormal stress test Abnormal stress test [R94.39] Procedures TX L HRT CATH W/NJX L VENTRICULOGRAPHY IMG S&I TX CATH PLACEMENT & NJX CORONARY ART ANGIO IMG S&I TX US GUIDE, VASCULAR ACCESS LEFT HEART CATHETERIZATION CORONARY ANGIOGRAM ULTRASOUND GUIDED ACCESS Madhu Kramer MD [address] [place] [address] Referral ID Status Reason Start Date Expiration Date Visits Re quested Visits Authorized [id number] 04/23/2022 1 1 [facility] Summary Purpose Family History No Family History Records FoundNo Family History Records FoundNo Family History Records FoundNo Family History Records FoundNo Family History Records FoundNo Family History Records FoundNo Family History Records FoundNo Family History Records FoundNo Family History Records FoundNo Family History Records Found Advance Directives No Advanced Directives Records FoundDocuments on File Type Date Recorded 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 Advance Directives and Livin g Will 01/04/2020 9:47 AM Documents on File Type Date Recorded 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 Advance Directives and Livin g Will 01/04/2020 9:47 AM Documents on File Type Date Recorded 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 Advance Directives and Livin g Will 01/02/2019 12:11 PM Documents on File Type Date Recorded 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 Advance Directives and Livin g [...] MD Multiple Vitamin (VIT E-VIT C-BETA CAROTENE) [phone] Tab 250 mg, Oral, DAILY Taking HistoricalProvider [...] which half or more was dedicated to [id number]-hkhz counseling of the problems/issues and coordination of [...] (GAINING/LOSSING)- gained Exercise regimen: Pt goes to [facility] 3 times a week Dietary [...] (GAINING/LOSSING)- gained Exercise regimen: Pt goes to [facility] 3 times a week Dietary [...] doing vaishali 3 times a week Dietary changes:[employer] program/khang use: no Additional Comments: Needs [...] doing vaishali 3 times a week Dietary changes:[employer] program/khang use: no Additional Comments: Needs [...] debrideent & repair Dr Sukh Pradhan @ [facility] Bilateral 2002 lasik TONSILLECTOMY 1985 [...] file Gets together: Not on file Attends anabaptism service: Not on file Active member of [...] care. Sukh Pradhan MD * Demarco Mora, [facility] - 04/14/2019 8:00 AM EDT Chief [...] debrideent & repair Dr Sukh Pradhan @ [facility] Bilateral 2003 lasik TONSILLECTOMY 1986 [...] file Gets together: Not on file Attends anabaptism service: Not on file Active member of [...] debrideent & repair Dr Sukh Pradhan @ [facility] Bilateral 2002 lasik TONSILLECTOMY 1985 [...] file Gets together: Not on file Attends anabaptism service: Not on file Active member of [...] care. Sukh Pradhan MD * Demarco Mora, [facility] - 05/13/2019 1:40 PM EST Chief [...] debrideent & repair Dr Sukh Pradhan @ [facility] Bilateral 2002 lasik TONSILLECTOMY 1985 [...] file Gets together: Not on file Attends anabaptism service: Not on file Active member of [...] needed documented in this encounter* Jewels Kang, MARYSOL-MAT MAKING MACHINE TENDER - 07/27/2019 3:00 PM EST Chief Complaint [...] 3. Social--patient moved an hour away to [facility] 4. Family--none Current Outpatient Medications Medication [...] Provider Multiple Vitamin (VIT E-VIT C-BETA CAROTENE) [phone] Tab 250 mg, Oral, DAILY Taking HistoricalProvider [...] Oral Taking Historical Provider Vitamin E Skin 52927 units Oil Apply externally Taking Historical Provider [...] which half or more was dedicated to cpmi-te-qhey counseling of the problems/issues and coordination of [...] debrideent & repair Dr Sukh Pradhan @ [facility] Bilateral 2002 lasik TONSILLECTOMY 1985 [...] file Gets together: Not on file Attends anabaptism service: Not on file Active member of [...] debrideent & repair Dr Sukh Pradhan @ [facility] Bilateral 2003 lasik TONSILLECTOMY 1986 [...] file Gets together: Not on file Attends anabaptism service: Not on file Active member of [...] prednisone documented in this encounter* Jewels Kang APRN-MAT MAKING MACHINE TENDER - 06/29/2019 10:40 AM EST Chief Complaint [...] - Vancomycin Note PATIENT: Sharon Bella Room/Bed: [facility] Indication:PNA Current Regimen: Vancomycin Dose/Frequency: 1750 mg [...] with any further questions. Rica Charles RPh,PharmD, [facility] Phone: [phone] Date/Time: 09/25/2020 11:27 AM * Rica Charles RPh,PharmD - 09/25/2020 10:49 AM EDT Pharmacy - IV to PO Conversion Documentation NAME: Sharon Bella Room/Bed: [facility] Previous Medication Order: levofloxacin 750mg IV every 24 hours New Medication Order: levofloxacin 750mg PO every 24 hours The above medication was converted from intravenous to oral administration in accordance with the [facility] IV to PO Conversion Policy. Orders have been updated in [facility]. The patient was eligible for conversion based [...] continue to follow. Signed: Rica Charles RPh,[place], [facility] Phone: [phone] Date/Time: 09/25/2020 10:49 AM * Nia Sauceda RRT - 09/24/2020 3:20 PM EDT EKG performed for bradycardia * Abigail Anguiano CNP - 09/24/2020 2:42 PM EDT [facility] LOS: 3 days SUBJECTIVE: Patient resting in [...] puff Inhalation Q6H PRN Pricilla K Sgambellone, CONTACT CENTER MANAGER-MAT MAKING MACHINE TENDER atenolol (TENORMIN) tablet 50 mg 50 mg Oral Q12H Pricilla K Sgambellone, CONTACT CENTER MANAGER-MAT MAKING MACHINE TENDER 50 mg at 09/24/20 0826 budesonide (PULMICORT) nebulizer suspension 0.5 mg 0.5 mg Inhalation Q12H Pricilla K Sgambellone, CONTACT CENTER MANAGER-MAT MAKING MACHINE TENDER 0.5 mg at 09/24/20 0739 cyclobenzaprine (FLEXERIL) tablet 10 mg 10 mg Oral BID PRN Pricilla K Sgambellone, CONTACT CENTER MANAGER-MAT MAKING MACHINE TENDER 10 mg at 09/24/20 0826 insulin regular [...] 40 mg Subcutaneous QHS Pricilla K Sgambellone, CONTACT CENTER MANAGER-MAT MAKING MACHINE TENDER 40 mg at 09/23/202045 gabapentin (NEURONTIN) capsule 300 mg 300 mg Oral QAM Pricilla K Sgambellone, CONTACT CENTER MANAGER- MAT MAKING MACHINE TENDER 300 mg at 09/24/20825 gabapentin (NEURONTIN) capsule 600 mg 600 mg Oral QHS Pricilla K Sgambellone, CONTACT CENTER MANAGER- MAT MAKING MACHINE TENDER 600 mg at 09/23/202046 hydrALAZINE (APRESOLINE) injection 10 mg 10 mg Intravenous Q6H PRN Abigail Anguiano CNP 10 mg at 09/24/20 0158 labetalol (NORMODYNE) injection 20 mg 20 mg Intravenous Q6H PRN Pricilla K Sgambellone, CONTACT CENTER MANAGER-MAT MAKING MACHINE TENDER levalbuterol (XOPENEX) inhalation solution 1.25 mg 1.25 mg Inhalation TID Pricilla K Sgambellone, CONTACT CENTER MANAGER-MAT MAKING MACHINE TENDER 1.25 mg at 09/24/20 1344 levoFLOXacin (LEVAQUIN) 750 mg in dextrose 5% premix IVPB 750 mg Intravenous Q24H Abigail Anguiano CNP 100 mL/hr at 09/24/20 1423 750 mg at 09/24/20 1423 magnesium sulfate 2 g/50 mL in sterile water premix IVPB 2 g 50 mL (total volume) 2 g Intravenous Daily Pricilla K Sgambellone, CONTACT CENTER MANAGER-YUMIKO methylPREDNISolone sodium succinate (SOLU-MEDROL) injection 40 mg 40 mg Intravenous Q8H Abigail Anguiano CNP montelukast (SINGULAIR) tablet 10 mg 10 mg Oral Daily Pricilla K Sgambellone, CONTACT CENTER MANAGER- MAT MAKING MACHINE TENDER 10 mg at 09/23/202046 ondansetron 4mg/2ml (ZOFRAN) injection 4 mg 4 mg Intravenous Q4H PRN Román June DO pantoprazole (PROTONIX) tablet DR 40 mg 40 mg Oral Daily Pricilla K Sgambellone, CONTACT CENTER MANAGER-MAT MAKING MACHINE TENDER 40 mg at 09/24/20 0826 potassium chloride (K-DUR) tablet ER 40 mEq 40 mEq Oral Daily Pricilla K Sgambellone, CONTACT CENTER MANAGER-MAT MAKING MACHINE TENDER Or potassium chloride 40 mEq in 0.9% sodium chloride 500 ml IVPB 40 mEq Intravenous Daily Pricilla K Sgambellone, CONTACT CENTER MANAGER-MAT MAKING MACHINE TENDER simethicone (MYLICON) chewable tablet 80 mg 80 mg Oral Q4H PRN Abigail Anguiano CNP sodium chloride (PF) 0.9 % injection 5 mL 5 mL Intravenous As directed PRN Pricilla K Sgambellone, CONTACT CENTER MANAGER-MAT MAKING MACHINE TENDER sodium chloride 0.9% IV solution Intravenous Continuous [...] Please note Portions of this note utilized [employer] software, please excuse any typographical or grammatical errors. Associated attestation - Madhu Gray, - 09/24/2020 3:10 PM EDT Patient seen and examined independently. Meds, labs, and radiographs reviewed. Lungs diminsihed R>L and heart tones regular on exam. CRP 30.3 ESR 80 +7% Bands. Discussed Bronch. Vanco/Levaquin. I agree with assessments and plan of care. * Rica Charles, [facility],PharmD - 09/24/2020 10:19 AM EDT Pharmacy to Dose - Vancomycin Note PATIENT: Sharon Bella Room/Bed: [facility] Indication:PNA Current Regimen: Vancomycin Dose/Frequency: 1500 mg [...] with any further questions. Rica Charles RPh,PharmJohnny, [facility] Phone: [phone] Date/Time: 09/24/2020 10:19 AM * Ivette Peralta RPh,PharmD - 09/23/2020 10:17 AM EDT Pharmacy to Dose - Vancomycin Note PATIENT: Sharon Bella Room/Bed: [facility] Indication:PNA Current Regimen: Vancomycin Dose/Frequency: 1500 mg [...] dosing interval are indicated at this time. [id number] dose from 09/22/20 was NOT given, therefore, [...] with any further questions. Ivette Peralta RPh,PharmJohnny, [facility] Phone: [phone] Date/Time: 09/23/2020 10:17 AM * Abigail Anguiano, MAT MAKING MACHINE TENDER - 09/23/2020 9:29 AM EDT [facility] LOS: 2 days SUBJECTIVE: Patient resting in [...] puff Inhalation Q6H PRN Pricilla K Sgambellone, CONTACT CENTER MANAGER-MAT MAKING MACHINE TENDER atenolol (TENORMIN) tablet 50 mg 50 mg Oral Q12H Pricilla K Sgambellone, CONTACT CENTER MANAGER-MAT MAKING MACHINE TENDER 50 mg at 09/23/20 0853 budesonide (PULMICORT) nebulizer suspension 0.5 mg 0.5 mg Inhalation Q12H Pricilla K Sgambellone, CONTACT CENTER MANAGER-MAT MAKING MACHINE TENDER 0.5 mg at 09/23/20 0737 cyclobenzaprine (FLEXERIL) tablet 10 mg 10 mg Oral BID PRN Pricilla K Sgambellone, CONTACT CENTER MANAGER-MAT MAKING MACHINE TENDER 10 mg at 09/23/20 0853 insulin regular [...] 40 mg Subcutaneous QHS Pricilla K Sgambellone, CONTACT CENTER MANAGER-MAT MAKING MACHINE TENDER 40 mg at 09/22/202103 gabapentin (NEURONTIN) capsule 300 mg 300 mg Oral QAM Pricilla K Sgambellone, CONTACT CENTER MANAGER- MAT MAKING MACHINE TENDER 300 mg at 09/23/20 0853 gabapentin (NEURONTIN) capsule 600 mg 600 mg Oral QHS Pricilla K Sgambellone, CONTACT CENTER MANAGER- MAT MAKING MACHINE TENDER 600 mg at 09/22/202102 labetalol (NORMODYNE) injection 20 mg 20 mg Intravenous Q6H PRN Pricilla K Sgambellone, CONTACT CENTER MANAGER-MAT MAKING MACHINE TENDER levalbuterol (XOPENEX) inhalation solution 1.25 mg 1.25 mg Inhalation TID Pricilla K Sgambellone, CONTACT CENTER MANAGER-MAT MAKING MACHINE TENDER 1.25 mg at 09/23/20 0736 levoFLOXacin (LEVAQUIN) 750 mg in dextrose 5% premix IVPB 750 mg Intravenous Q24H Abigail Anguiano CNP Stopped at 09/22/20 1600 magnesium sulfate 2 g/50 mL in sterile water premix IVPB 2 g 50 mL (total volume) 2 g Intravenous Daily Pricilla K Sgambellone, CONTACT CENTER MANAGER-MAT MAKING MACHINE TENDER methylPREDNISolone sodium succinate (SOLU-MEDROL) injection 60 mg 60 mg Intravenous Q6H Román June, DO 60 mg at 09/23/20 0616 montelukast (SINGULAIR) tablet 10 mg 10 mg Oral Daily Pricilla K Sgambellone, CONTACT CENTER MANAGER- MAT MAKING MACHINE TENDER 10 mg at 09/22/20 2104 ondansetron 4mg/2ml (ZOFRAN) injection 4 mg 4 mg Intravenous Q4H PRN Román June, pantoprazole (PROTONIX) tablet DR 40 mg 40 mg Oral Daily Pricilla K Sgambellone, CONTACT CENTER MANAGER-MAT MAKING MACHINE TENDER 40 mg at 09/23/20 0853 potassium chloride (K-DUR) tablet ER 40 mEq 40 mEq Oral Daily Pricilla K Sgambellone, CONTACT CENTER MANAGER-MAT MAKING MACHINE TENDER Or potassium chloride 40 mEq in 0.9% sodium chloride 500 ml IVPB 40 mEq Intravenous Daily Pricilla K Sgambellone, CONTACT CENTER MANAGER-MAT MAKING MACHINE TENDER sodium chloride (PF) 0.9 % injection 5 mL 5 mL Intravenous As directed PRN Pricilla K Sgambellone, CONTACT CENTER MANAGER-MAT MAKING MACHINE TENDER sodium chloride 0.9% IV solution Intravenous Continuous Román June DO 100 mL/hr at 6 Rate Verify at 09/23/20 0726 vancomycin (VANCOCIN) 1,500 mg in sodium chloride 0.9%, with overfill 565 mL (total volume) IVPB 20mg/kg (Adjusted) Intravenous Q8HNS Pricilla K Sgambellone, CONTACT CENTER MANAGER-MAT MAKING MACHINE TENDER Stopped at 09/23/20 0727 [facility]: CBC [...] Please note Portions of this note utilized [employer] software, please excuse any typographical or grammatical [...] - Vancomycin Note PATIENT: Sharon Bella Room/Bed: [facility] Indication:MRSA PNA Current Regimen: Vancomycin Dose/Frequency: 1500 [...] with any further questions. Hardik Agarwal RPh,PharmD, [facility] Phone: [phone] Date/Time: 09/22/2020 10:30 PM * Jovita Hernandez LSW - 09/22/2020 9:20 AM EDT 09/22/20 0918 Information Source Information Source patient Information Source Name Sharon Bella Information Source Number [phone] Contact Information Social Work Contact Name Jovita Mary Audit Officer's Food Insecurity In the past 12 months, [...] HISTORY OF BLOOD TRANSFUSION/REACTION no CULTURAL OR RELIGION BELIEFS THAT WILL AFFECT CARE no MEDICAL [...] Admission: 09/21/20 Date of Discharge: 09/25/20 Hospital: [facility] Primary DX: Pneumonia How have you been [...] Use Authorization (EUA) for the qualitative detection [id number] nucleic acid. SCREEN: MRSA ONLY, NARES (ISOLATION [...] Admission: 09/21/20 Date of Discharge: 09/25/20 Hospital: [facility] Primary DX: Pneumonia How have you been [...] study in the fall of 2016 in [place] and was told that she only had [...] MD Multiple Vitamin (VIT E-VIT C-BETA CAROTENE) [phone] Tab 250 mg, Oral, DAILY Taking HistoricalProvider [...] which half or more was dedicated to jujb-ir-ohaf counseling of the problems/issues and coordination of all care. documented in this encounter Reason for Referral Status Reason Specialty Diagnoses / Procedures Referre d By Contact Referred To Contact Closed Rhett Brito MD [address] [place] [address] Status Reason Specialty Diagnoses / Procedures Referred By Contact Referred To Contact Auth Not Needed Diagnoses Carpal tunnel syndrome, unspecified laterality Procedures EMG & NERVE CONDUCTION Demarco Lopez MD [address] [place] [address] Status Reason Specialty Diagnoses / Procedures Referre d By Contact Referred To Contact Closed Diagnoses Carpal tunnel syndrome, unspecified laterality Procedures EMG & NERVE CONDUCTION Demarco Lopez MD [address] [place] [address] Status Reason Specialty Diagnoses / Procedures Referre d By Contact Referred To Contact Closed Procedures ECG Sukh Pradhan MD [address] [place] [address] Status Reason Specialty Diagnoses / Procedures Referre d By Contact Referred To Contact Closed Radiology Diagnoses Visit for screening mammogram Procedures Mammography Screening Bilateral Suzi Chatman MD [address] [place] [address] Status Reason Specialty Diagnoses / Procedures Referred By Contact Referred To Contact Pending Review Radiology Diagnoses Abnormal mammogram Procedures Mammography Diagnostic Right Suzi Chatman MD 24 [facility] 3 [place] [address] Status Reason Specialty Diagnoses / Procedures Referred By Contact Referred To Contact New Request Family Medicine Diagnoses Pneumonia of right lower lobe due to infectious organism Bronchospasm Dehydration, mild Tony, Audra Billy, PAKacyC [address] [place] [address] Rhett Brito MD [address] [place] [phone] Status Reason Specialty Diagnoses / Procedures Referred By Contact Referred To Contact New Request Diagnoses Pneumonia of left lower lobe due to infectious organism Procedures CT CHEST WITHOUT CONTRAST CHG DIAGNOSTIC COMPUTED TOMOGRAPHY THORAX W/O CNTRST Abigail Anguiano, MAT MAKING MACHINE TENDER [address] [place] [address] Status Reason Specialty Diagnoses / Procedures Referred By Contact Referred To Contact New Request Procedures ECG Abigail Anguiano, MAT MAKING MACHINE TENDER [address] [place] [phone] Status Reason Specialty Diagnoses / Procedures Referred By Contact Referred To Contact Pending Review Procedures INPATIENT ADMISSION NOTIFICATION Madhu Gray, DO [address] [place] [phone] Status Reason Specialty Diagnoses / Procedures Referred By Contact Referred To Contact Pending Review Procedures ECG Román June, [address] [place] [address] Status Reason Specialty Diagnoses / Procedures Referred By Contact Referred To Contact New Request Diagnoses Pre-op testing Procedures ECG Sukh Pradhan MD [address] [place] [address] Status Reason Specialty Diagnoses / Procedures Referred By Contact Referred To Contact New Request Orthopaedics Diagnoses Carpal tunnel syndrome, unspecified laterality Demarco Lopez MD [address] [place] [address] Sukh Pradhan MD [address] [place] [address] Status Reason Specialty Diagnoses / Procedures Referred By Contact Referred To Contact Closed Computerized Tomography Scan Diagnoses Pneumonia of left lower lobe due to infectious organism Procedures CT CHEST WITHOUT CONTRAST CHG DIAGNOSTIC COMPUTED TOMOGRAPHY THORAX W/O CNTRST Abigail Anguiano, MAT MAKING MACHINE TENDER [address] [place] [address] [place] [phone] Status Reason Specialty Diagnoses / Procedures Referred By Contact Referred To Contact Auth Not Needed Physical Medicine & Rehabilitation Diagnoses Paresthesia and pain of left extremity Procedures EMG & NERVE CONDUCTION Juani Hoffman MD [address] [address] Myron Boogie MD [address] [place] [address] Status Reason Specialty Diagnoses / Procedures Referred By Contact Referred To Contact Closed Mammography Diagnoses Screening mammogram for high-risk patient Procedures MAMMO SCREENING WITH Suzi Evans MD [address] [address] [facility] [address] [place] [phone] Specialty Diagnoses / Procedures Referred By Ro t Referred To Contact Nuclear Medicine Diagnoses Chest pain, unspecified type Procedures NUC MYOCARD PERF STRESS MIBI EXERCISE TX CHG MYOCARDIAL SPECT MULTIPLE STUDIES TX CARDIAC STRESS TST,TRACING ONLY Rhett Brito MD [address] [place] [phone] [facility] Nuclear Medicine [address] [place] [phone] Referral ID Status Reason Start Date Expiration Date V isits Requested Visits Authorized [id number] Auth Not Needed 02/14/2021 03/11/2022 1 1 Referral ID Status Reason Start Date Expiration Date Visits Re quested Visits Authorized [id number] Closed 02/14/2021 03/11/2022 1 1 Specialty Diagnoses / Procedures Referred By Ro mayo Referred To Contact Physical Therapy Diagnoses Rotator cuff tendinitis, unspecified laterality Rhett Brito MD [address] [place] [phone] Referral ID Status Reason Start Date Expiration Date V isits Requested Visits Authorized [id number] Patient to Arrange 10/26/2021 11/20/2022 1 1 Scheduling Instructions . Specialty Diagnoses / Procedures Referred By Ro mayo Referred To Contact Diagnoses Encounter for screening mammogram for breast cancer Procedures MAMMO SCREENING WITH DOMINIQUERoxie Bains MD [address] [place] [phone] Referral ID Status Reason Start Date Expiration Date V isits Requested Visits Authorized [id number] Auth Not Needed 11/20/2021 12/15/2022 1 1 Specialty Diagnoses / Procedures Referred By Ro mayo Referred To Contact Mammography Diagnoses Encounter for screening mammogram for breast cancer Procedures MAMMO SCREENING WITH Roxie Randolph MD [address] [place] [phone] [facility] [address] [place] [phone] Referral ID Status Reason Start Date Expiration Date Visits Re quested Visits Authorized [id number] Closed 11/20/2021 12/15/2022 1 1 Specialty Diagnoses / Procedures Referred By Contac t Referred To Contact Diagnoses Chest pain, unspecified type Procedures NUC MYOCARD PERF STRESS MIBI EXERCISE TX CHG MYOCARDIAL SPECT MULTIPLE STUDIES TX CARDIAC STRESS TST,TRACING ONLY Rhett Brito MD [address] [place] [phone] Referral ID Status Reason Start Date Expiration Date V isits Requested Visits Authorized [id number] New Request 04/17/2022 05/12/2023 1 1 Specialty Diagnoses / Procedures Referred By Contac t Referred To Contact Diagnoses Type 2 diabetes mellitus without complication, without long-term current use of insulin Rhett Brito MD [address] [place] [phone] Referral ID Status Reason Start Date Expiration Date V isits Requested Visits Authorized [id number] Pending Review 1 1 Referral ID Status Reason Start Date Expiration Date Visits Re quested Visits Authorized [id number] Closed 04/17/2022 05/12/2023 1 1 Specialty Diagnoses / Procedures Referred By Contac t Referred To Contact Procedures ECG Madhu Kramer MD [address] [place] [phone] Referral ID Status Reason Start Date Expiration Date V isits Requested Visits Authorized [id number] New Request 04/27/2022 05/22/2023 1 1 Specialty Diagnoses / Procedures Referred By Contact Referred To Contact Cardiac Rehabilitation Diagnoses Abnormal stress test Madhu Kramer MD [address] [place] [phone] [facility] [address] [place] [phone] Referral ID Status Reason Start Date Expiration Date V isits Requested Visits Authorized [id number] New Request 04/28/2022 05/23/2023 1 1 Referral ID Status Reason Start Date Expiration Date V isits Requested Visits Authorized [id number] New Request 04/27/2022 05/22/2023 1 1 Discharge [...] through Care Everywhere. * Wheezing or Bronchoconstriction ([place]ican) * Pneumonia ([place]) documented in this encounter* Discharge Instr - [...] through Care Everywhere. * Antibiotics: General Info ([place]) * lisinopril ([place]) * Pneumonia ([place]) documented in this encounter Hospital Course * Abigail Anguiano, MAT MAKING MACHINE TENDER - 09/25/2020 9:33 AM EDT Discharge Summary [...] daily every morning. Vit E-Vit C-Beta Carotene [phone] TABS Take 250 mg by mouth daily. [...] tolerated. Discharge Follow-up: Rhett Brito MD 7[address] [facility] [phone] In 1 week Rudy Brown MD 269 [facility] [address] [address] of chest Discharge Disposition: Patient will be discharged in stable condition. Discharge Time: Including assessment, planning, and medication reconciliation was greater than 35 min. Abigail Anguiano DNP completing Discharge Summary for Dr. Gray Please note Portions of this note utilized Improveit! 360 dictation software, please excuse any typographical or [...] 2:30 PM EDT Thank you for choosing [facility]. Your surgery date is 04/30/19 Please call [phone] For your convenience, please call (between 9AM [...] notified if your arrival time changes. At [facility]'s Surgery Department, we strive to make your [...] Saturday, 8:00 am to 4:30 pm at [phone]. For surgical questions during evenings or weekends, please call [phone] and ask the mingler operator to page the Nursing Hat Body Inspector. Discontinue any blood thinners such as Aspirin, [...] skin creams or lotions. Any make-up, nail tristanian and lipstick will need to be removed [...] their cases with you for proper storage. [facility] will not be responsible for lost articles. [...] fetus. 12. No alcohol 48-hours or illicit nivdi-12-eeaoy prior to your surgery. 13. Do not [...] or concerns. DIRECTIONS: Park in the front [facility] facing [address]. Enter through the front entrance and sign in at the Registration Desk at the [facility]. Thank you for allowing us the privilege [...] chances for infection. Controlled body temperature. A yayrd-hkfm-gngnpu temperature during or after surgery prevents oxygen [...] and water or with an alcohol-based hand cotton cleaner before and after caring for you. [...] tired feeling that doesn t go away [phone] [employer]. [address] [place] [address], [place] [address]. All rights reserved. This information is not intended as a substitute for professional medical care. Always follow yourhealthcare professional's instructions. Please record date and time of your medications on this sheet and bring this with you on the day ofsurgery. Yellow - take the day of surgery Marmaduke - hold according to the doctor's instructions [...] TIME Multiple Vitamin (VIT E-VIT C-BETA CAROTENE) [phone] Tab Take 250 mg by mouth daily. [...] DATE CREATED AUTHOR AUTHOR'S ORGANIZ ATION 12/24/[address] [facility] DATE CREATED AUTHOR AUTHOR'S ORGANIZ ATION 12/24/2017 [facility] DATE CREATED AUTHOR AUTHOR'S ORGANIZ ATION 08/14/2018 [facility] DATE CREATED AUTHOR AUTHOR'S ORGANIZ ATION 08/07/2020 [facility] DATE CREATED AUTHOR AUTHOR'S ORGANIZ ATION 11/25/2020 [facility] DATE CREATED AUTHOR AUTHOR'S ORGANIZ ATION 11/25/2020 [facility] DATE CREATED AUTHOR AUTHOR'S ORGANIZ ATION 10/23/2021 [facility] DATE CREATED AUTHOR AUTHOR'S ORGANIZ ATION 12/30/2021 [facility] DATE CREATED AUTHOR AUTHOR'S ORGANIZ ATION 07/10/2023 [facility] Reason for Visit (unrecogniz ed [...] & NERVE CONDUCTION Demarco Lopez MD [address] [place] [address] Reason Comments Hand Pain Right Hand. EMG [...] syndrome, unspecified laterality Demarco Lopez MD [address] [place] [address] Sukh Pradhan MD [address] [place] [address] Status Reason Specialty Diagnoses / Procedures Referre d By Contact Referred To Contact Diagnoses Bilateral carpal tunnel syndrome Cubital tunnel syndrome, bilateral Bilateral carpal tunnel syndrome [G56.03] Cubital tunnel syndrome, bilateral [G56.23] Procedures TX REVISE ULNAR NERVE AT ELBOW TX REVISE MEDIAN N/CARPAL TUNNEL SURG DECOMPRESSION TRANSPOSITION MEDIAN NERVE DECOMPRESSION TRANSPOSITION ULNAR NERVE ELBOW Sukh Pradhan MD [address] [place] [address] Reason Comments Post Op Visit 13 days [...] Mammography Screening Bilateral Suzi Chatman MD [address] [address] Reason Comments Weight Gain Cough Status Reason Specialty Diagnoses / Procedures Referred By Contact Referred To Contact Pending Review Radiology Diagnoses Screening breast examination Procedures Mammography Screening Bilateral Suzi Chatman MD [address] [address] Status Reason Specialty Diagnoses / Procedures Referred By Contact Referred To Contact Pending Review Radiology Diagnoses Abnormal mammogram Procedures Mammography Diagnostic Right Suzi Chatman MD [address] [address] Reason Comments Surgical Follow-up Reason Comments Post [...] COMPUTED TOMOGRAPHY THORAX W/O CNTRST Abigail Anguiano, MAT MAKING MACHINE TENDER [address] [place] [address] [facility] [address] [place] [phone] Reason Comments Arm Pain left arm hurts/numb Reason Comments Arm Pain Status Reason Specialty Diagnoses / Procedures Referred By Contact Referred To Contact Closed Mammography Diagnoses Screening mammogram for high-risk patient Procedures MAMMO SCREENING WITH DOMINIQUE BILATERAL Suzi Chatman MD 24 [facility] 3 [place] [address] [facility] [address] [place] [phone] Reason Comments Arm Pain left Specialty Diagnoses / Procedures Referred By Contac t Referred To Contact Nuclear Medicine Diagnoses Chest pain, unspecified type Procedures NUC MYOCARD PERF STRESS MIBI EXERCISE TX CHG MYOCARDIAL SPECT MULTIPLE STUDIES TX CARDIAC STRESS TST,TRACING ONLY Rhett Brito MD [address] [place] [phone] [facility] [address] [place] [phone] Referral ID Status Reason Start Date Expiration Date Visits Re quested Visits Authorized [id number] Closed 02/14/2021 03/11/2022 1 1 Reason Comments Annual Exam Patient her for marianna al without pap. Last pap 11/17/20. Patient has IUD that was placed 12/12/20. Specialty Diagnoses / Procedures Referred By Contac t Referred To Contact Mammography Diagnoses Encounter for screening mammogram for breast cancer Procedures MAMMO SCREENING WITH Roxie Randolph MD [address] [place] [phone] [facility] [address] [place] [phone] Referral ID Status Reason Start Date Expiration Date Visits Re quested Visits Authorized [id number] Closed 11/20/2021 12/15/2022 1 1 Reason Comments Medication Refill Referral ID Status Reason Start Date Expiration Date Visits Re quested Visits Authorized [id number] Closed 04/17/2022 05/12/2023 1 1 Specialty Diagnoses / Procedures Referred By Contac t Referred To Contact Diagnoses Chest pain, unspecified type Left arm pain Procedures ECG, TREADMILL STRESS (NON-IMAGING) TX CV STRS TST XERS&/OR RX CONT ECG W/SI&R Madhu Kramer MD [address] [place] [address] Referral ID Status Reason Start Date Expiration Date Visits Re quested Visits Authorized [id number] Closed 05/21/2022 06/15/2023 1 1 Reason Comments [...] room # 3751 at this time This DIRECTOR [employer]AUT[employer] COMMISS[employer] went into pt's room to obtain vital signs. manager monitoring flashed V- tach for a moment. I realized pt was sweating profusely. I stated I would help the patient clean off the sweat and put new director of cardiac rehabilitation stickers on. Pt's visitor starts wiping pt down stating I will do it, she is very modest. This DIRECTOR [employer] attempted to check for the rest of the director of cardiac rehabilitation stickers. Pt's visitor again states She's so modest I can do everything and I can put her back on the monitor because I know how to do it This DIRECTOR [employer] states ok and exits room. Dr. Gray returned page, Speaking with Dr. June at this time Paged Dr. Gray at this time Dr. Gray returned page, Speaking with Dr. June at this time Paged Dr. Gray at this time Lab cartside drawing cultures Emergency Department Report [facility] Service Date:.09/21/20 PCP: Rhett Brito [...] debrideent & repair Dr Sukh Pradhan @ [facility] Bilateral 2003 lasik TONSILLECTOMY 1985 [...] daily. MULTIPLE VITAMIN (VIT E-VIT C-BETA CAROTENE) [phone] TAB Take 250 mg by mouth daily. [...] Friends and Family: Not on file Attends [employer]: Not on file Active Member of [...] protein 81.9. EKG sinus rhythm. 108 bpm. TX interval of 174 ms. QS duration 76 [...] on oxygen. DuoNeb ordered. Case discussed with PCC/billet bed operator. Case discussed with hospitalist. With the elevated [...] debrideent & repair Dr Sukh Pradhan @ [facility] Bilateral 2002 lasik TONSILLECTOMY 1985 [...] 09/20/2020 Multiple Vitamin (VIT E-VIT C-BETA CAROTENE) [phone] Tab Take 250 mg by mouth daily. [...] Use Authorization (EUA) for the qualitative detection adDBGY-BmY-0 nucleic acid. LACTATE, PLASMA 09/21/2020 0.9 SEDIMENTATION [...] Please note Portions of this note utilized [employer] software, please excuse any typographical or grammatical [...] blood pressure reading, but bradycardia. Will call MAT MAKING MACHINE TENDER for orders. Pt asymptomatic. Given fresh ice [...] within reach. Patient of feeling shaky . TI=822. IVF infusing adequately. Call light and bedside [...] Care Teams (unrecognized sec tion and content) Devops Engineer Relationship Specialty Start Date End Date Rhett Brito MD PCP - General Family Medicine 10/09/16 Devops Engineer Relationship Specialty Start Date End Date Rhett Brito MD PCP - General Family Medicine 10/09/16 Devops Engineer Relationship Specialty Start Date End Date Rhett Brito MD PCP - General Family Medicine 10/09/16 Devops Engineer Relationship Specialty Start Date End Date Rhett Brito MD PCP - General Family Medicine 10/09/16 Devops Engineer Relationship Specialty Start Date End Date Rhett Brito MD PCP - General Family Medicine 10/09/16 Devops Engineer Relationship Specialty Start Date End Date Rhett Brito MD PCP - General Family Medicine 10/09/16 Devops Engineer Relationship Specialty Start Date End Date Rhett Brito MD PCP - General Family Medicine 10/09/16 Devops Engineer Relationship Specialty Start Date End Date Rhett Brito MD PCP - General Family Medicine 10/09/16 Devops Engineer Relationship Specialty Start Date End Date Rhett Brito MD PCP - General Family Medicine 10/09/16 Devops Engineer Relationship Specialty Start Date End Date Rhett Brito MD PCP - General Family Medicine 10/09/16 Devops Engineer Relationship Specialty Start Date End Date Rhett Brito MD PCP - General Family Medicine 10/09/16 Devops Engineer Relationship Specialty Start Date End Date Rhett Brito MD PCP - General Family Medicine 10/09/16 Devops Engineer Relationship Specialty Start Date End Date Rhett Brito MD PCP - General Family Medicine 10/09/16 Devops Engineer Relationship Specialty Start Date End Date Rhett [...] Provider: Hazel Souza RN)1201 (Given - Provider: Hzael Souza RN)1223 (Given - Provider: Hazel Souza [...] Until Discontinued 1715 (Given - Provider: Deanne Marrufo, MONISHA) 0834 (Given - Provider: Carlee Goldberg [...] Deanne Marrufo RN) 1342 (Stopped - Provider: Calree Goldberg, RN) PRN Medication Order 04/26/2022 04/27/2022 [...] - Comment: sheath injection)1308 (Given - Provider: Mdahu Kramer MD)1325 (Given - Provider: Madhu Kramer [...] BE BASED ON THE PRIMARY CLINICAL RECORDS. [email or web address] [facility]. provides no warranty or guarantee of the accuracy or completeness of information in this document.
[2023-08-30 14:28] VITALS: PULSE 80; RESP 16; TEMP 36.2; O2SAT 100
[2023-08-30 14:30] VITALS: BP 112/71
[2023-08-30] MEDS: Lidocaine Jelly 2% 20 ML Syringe (URO-JET) 1 APPLIC (14:42)
== END 2023-08-30 14:53 | disposition home or self-care (01) ==
PROVIDERS: PCP Family Medicine; Referring Provider Family Medicine; Visit Provider Surgery
PROC: F00ZJWZ Instrumental Swallowing and Oral Function Assessment using Swallowing Equipment (ICD-10-PCS; CPT 43235; principal; 2023-08-30 13:55)
DX: K21.9 Gastro-esophageal reflux disease without esophagitis (principal)
CPT/HCPCS: 91010

== ENCOUNTER 2023-10-30 05:37 | Day surgery (SDC) | payer OTHER, SELFPAY ==
[2022-06-13 09:21] VITALS: BMI 43.6
--- NOTE | 2023-10-28 08:52 | EKG12_ITS ---
Test Reason : PRE-OP Blood Pressure : / mmHG Vent. Rate : 075 BPM Atrial Rate : 075 BPM P-R Int : 194 ms QRS Dur : 076 ms QT Int : 390 ms P-R-T Axes : 041 -07 042 degrees QTc Int : 435 ms Normal sinus rhythm Low voltage QRS Borderline ECG Confirmed by BENNY COULTER, TERESITA ([id number]), news video editor CLARE HOBBS ([id number]) on 10/28/2023 1:43:06 PM Referred By: Demarco Amador Confirmed By:GAL ZAPATA MD
[2023-10-28 09:43] LABS: Hematocrit 38.1 % (37-47); Hemoglobin 12.3 g/dL (12.0-15.0); Mean Corp Hgb Conc 32.3 g/dL (32-36); Mean Corpuscular Hgb 31.1 pg (27.0-32.0); Mean Corpuscular Volume 96.5 fL (81-99); Mean Platelet Vol. 9.5 fl (6.2-12.0); Platelet Count 333 K/mm3 (150-450); RBC Distribution Width CV 13.6 % (11.6-14.6); Red Blood Count 3.95 M/mm3 (4.2-5.4)
[2023-10-30] VITALS (11 sets, daily range): BP systolic 104–116; BP diastolic 64–75; PULSE 69–82; RESP 12–18; TEMP 36.3–37; O2SAT 91–100; BMI 40.8
--- NOTE | 2023-10-30 | HERN_PTH ---
PATIENT: PHAN DAVIS LOC: [facility] U#:[id number] AGE/SX: 48/F ROOM: RE10/30/[address]: Dr. Demarco Amador MD : 1975 BED: DIS: 10/30/2023 SPEC #: [id number] RECD: 10/30/23 14:59 STATUS: MATTHIAS VIRGILIO #: [id number] EDYTA: 10/30/23 00:[address]: Demarco Amador DEPT: SURGICAL PATHOLOGY RECD BY: Kierra Reynolds ENTERED: 10/31/23 09:10 SP TYPE: Hernia OTHR DR: Dr. Rhett Brito MD Tissues: HERNIA Procedures: Surgery Specimen Level II HEADER OPERATION: Laparoscopic repair of hiatal hernia with Nicanor Fundoplicat PRE-OP DIAGNOSIS: GERD TISSUE SUBMITTED: Hernia sac MICROSCOPIC DIAGNOSIS Hernia sac, heriorrhophy: Mesothelial line fibrofatty tissue consistent with hernia sac. AM/mr 11/01/2023 MICROSCOPIC DESCRIPTION Slides are reviewed. GROSS DESCRIPTION Received in fixative is one container labeled with the patient's name and designated Hernia sac. The specimen consists of an elongated fragment of galo yellow soft tissue measuring 6.0 x 2.5 x 1.5cm. Seral sections do not reveal mass lesions. Entry Level sections are submitted in one cassette. AM/mr 10/31/23 TC:5 CPT: 75455
[2023-10-30 05:58] LABS: Internal QC Validated? YES +Cl - CLEAR BKGD; Pregnancy, Urine Negative Negative
--- NOTE | 2023-10-30 06:09 | HP.PCM_ITS ---
History and Physical Date of Admission: 10/30/23 Allergies tramadol Adverse Reaction (Verified 09/18/23 07:35) Nausea Medications Lactobacillus acidophilus 10 billion cell capsule (Probiotic) 10,000 mmu cells PO DAILY 05/15/22 [History Confirmed 09/18/23] atorvastatin 20 mg tablet 20 mg PO QHS 05/15/22 [History Confirmed 09/18/23] cetirizine 10 mg tablet (Zyrtec) 10 mg PO DAILY 05/15/22 [History Confirmed 09/18/23] clopidogrel 75 mg tablet 75 mg PO DAILY 05/15/22 [History Confirmed 09/18/23] gabapentin 300 mg capsule 300 mg PO BID 05/15/22 [History Confirmed 09/18/23] levonorgestrel 21 mcg/24 hours (8 yrs) 52 mg intrauterine device (Mirena) 52 mcg intrauterine X1 05/15/22 [History Confirmed 09/18/23] lisinopril 10 mg tablet 10 mg PO DAILY 05/15/22 [History Confirmed 09/18/23] montelukast 10 mg tablet 10 mg PO DAILY 05/15/22 [History Confirmed 09/18/23] pioglitazone 45 mg tablet (Actos) 45 mg PO DAILY 05/15/22 [History Confirmed 09/18/23] ascorbic acid (vitamin C) 500 mg tablet 500 mg PO DAILY 06/06/23 [History Confirmed 09/18/23] aspirin 81 mg tablet 81 mg PO DAILY 06/06/23 [History Confirmed 09/18/23] biotin 10,000 mcg chewable tablet (Hair, Skin and Nails (biotin)) 10,000 mcg PO DAILY 06/06/23 [History Confirmed 09/18/23] cholecalciferol (vitamin D3) 25 mcg (1,000 unit) capsule (Vitamin D3) 5,000 unit PO DAILY 06/06/23 [History Confirmed 09/18/23] cyanocobalamin (vitamin B-12) 5,000 mcg capsule 5,000 mcg PO DAILY 06/06/23 [History Confirmed 09/18/23] cyclobenzaprine 10 mg tablet 10 mg PO BID 06/06/23 [History Confirmed 09/18/23] glimepiride 4 mg tablet 2 mg PO BID 06/06/23 [History Confirmed 09/18/23] magnesium 500 mg tablet 500 mg PO DAILY 06/06/23 [History Confirmed 09/18/23] metoprolol succinate 100 mg tablet,extended release 24 hr 100 mg PO DAILY 06/06/23 [History Confirmed 09/18/23] omeprazole 40 mg capsule,delayed release 40 mg PO DAILY 06/06/23 [History Con firmed 09/18/23] spironolactone 25 mg tablet 25 mg PO DAILY 06/06/23 [History Confirmed 09/18/23] tirzepatide 15 mg/0.5 mL subcutaneous pen injector (Mounjaro) 15 mg subcut QWEEK 06/06/23 [History Confirmed 09/18/23] ranolazine 1,000 mg tablet,extended release,12 hr 1,000 mg PO BID #180 tabs 07/05/23 [Rx Confirmed 09/18/23] PFSH Medical History Atherosclerotic heart disease of [place] coronary artery without angina pectoris Cardiology follow-up encounter Carpal tunnel syndrome Carpal tunnel syndrome, bilateral Diabetes GERD (gastroesophageal reflux disease) History of edema History of pain when walking History of stress test Hypertension Leg cramps Migraine headache Rotator cuff dysfunction Surgical History History of elbow surgery History of refractive surgery Hx of tonsillectomy Presence of coronary angioplasty implant and graft S/P coronary artery stent placement Status post tendon repair Family History Mother Breast cancer Diabetes CAD (coronary artery disease) Kidney diseaseFather Cancer Heart disease HypertensionSister Diabetes CAD (coronary artery disease) ArthritisGrandfather CVA (cerebral vascular accident)Grandmother Diabetes Heart disease Social History household members: spouse housing: house number of children: 1 current occupational status: employed sexually active: Yes Smoking Status: Never smoker well-balanced diet: daily or most days eating out: 1-3 times/week what type of physical activity do you participate in: walking and other frequency: 1-2 times per week additional social history: - Yamil HPI HPI HPI: 48-year-old female returns to discuss her esophageal manometry results. The procedure was performed on August 30, 2023. Interpretations suggest that 10 swallows were analyzed and this was a normal study with good LES relaxation pressure normal bolus clearance and normal swallowing pressures. On upper endoscopy she has a small hiatal hernia. She has reflux esophagitis. Long-term dependence on proton pump inhibitor therapy. She does take low-dose aspirin and Plavix therapy due to coronary stents. The patient typically has reflux at night. It awakens her from sleep. She is hopeful to get this remedied. The patient returns to discuss findings of a esophagogastroduodenoscopy and colonoscopy that I assisted her with on August 04, 2023. She has had long-term reflux symptoms and needed a screening colonoscopy. Findings detected mild gastritis H. pylori was negative she had mild distal esophagitis but esophagitis was also noted on the mid esophageal biopsy. There were no findings of eosinophilic esophagitis. She has been on chronic long-term omeprazole proton pump inhibitor therapy. Her colonoscopy was not remarkable. She has no new or particular complaints today. She is very much interested though in having a surgical reflux procedure. Her Mounjaro is causing her increased troubles with symptomatic heartburn despite her ongoing PPI medication of omeprazole. I will remind myself that she is in addition on low-dose aspirin and clopidogrel therapy. 47-year-old female presents to discuss screening colonoscopy. She is noted to have atherosclerotic coronary vascular disease and diabetes and hypertension. January 2021 she had proximal LAD stented and then repeat treatment of the same vessel in March 2022. Among her other medications she is on low-dose aspirin and clopidogrel and gabapentin and omeprazole. Cardiac stents were placed 1 year ago She has had chronic gastroesophageal reflux disease for over a decade. She is on chronic omeprazole therapy 40 mg daily. She has not had any previous upper endoscopy. She does not note any family history of colon polyps or colon cancer. She has never had a previous colonoscopy. ROS General General: No weight change, appetite, fatigue, colon cancer, breast cancer or weakness HEENT HEENT: No difficulty swallowing, eye injury, eye surgery, swollen glands or hoarseness Endo Endocrine: Yes diabetes mellitus; No thyroid disease, thyroid cancer, Hair loss, heat intolerance or cold intolerance Skin Skin: No rash or changing moles Breast Breast: No left breast lump, right breast lump, nipple discharge, breast pain, abnormal mammogram, abnormal US or breast enlargement Musc Musculoskeletal: No back problems, arthritis, rheumatoid arthritis, gout or joint pain Cardio Cardiovascular: Yes heart disease, high blood pressure and heart stent; No murmur, pacemaker, atrial fibrillation, heart attack, palpitations, shortness of breat with exertion or chest pain Psych Psychiatric: No depression, anxiety or hearing voices Resp Respiratory: No shortness of breath, No sleep apnea, No cough, No COPD, No asthma, No emphysema and No wheezing Gastro Gastrointestinal: No abdominal pain, No nausea or vomiting, No diarrhea, No constipation, No blood in stool, Yes acid reflux, No hemorrhoids, No ulcers, No gallbladder problem and No black,tarry stools Doug Hematologic: Yes blood thinners, No blood disorders, No bleeding, No anemia and No blood clots Neuro Neurologic: No system reviewed and no additional complaints, except as documented, No as per HPI, No abnormal gait, No abnormal hearing, No abnormal movements, No abnormal speech, No behavioral changes, No burning sensations, No confusion, No convulsions, No disequilibrium, No dizziness, No localized weakness, No frequent falls, No headache(s), No lack of coordination, No loss of vision, No memory loss, No numbness, No other visual disturbances, No radicular pain, No restless legs, No sensory deficit, No syncope, No tingling, No tremor(s), No weakness and No other Exam Const General: cooperative, comfortable and no acute distress [facility] Head: normal to inspection Eyes General: appearance normal, both eyes and all related structures Resp Effort & Inspection: normal respiratory effort Auscultation: clear to auscultation bilaterally Cardio Rate: regular rate Rhythm: regular rhythm GI Palpation: soft and no hepatosplenomegaly Other: No focal mass. Musc Cervical Spine: normal cervical lordosis Skin General: no rashes or lesions noted Neuro General: patient alert, patient awake and patient oriented x3 Extrem General: no calf tenderness Psych Appearance: grossly normal Assessment and Plan Assessment and Plan (1) GERD (gastroesophageal reflux disease): Status: Acute Qualifiers: Esophagitis presence: esophagitis presence not specified Qualified Code(s): K21.9 - Gastro-esophageal reflux disease without esophagitis Plan: 48-year-old female. She has good esophageal motility on manometry. I recommend to her laparoscopic Nicanor fundoplication for durability. She does complain of some gas issues but she states she passes that per rectum and does not have frequent nausea or burps or belches. She is aware that any type of surgical reflux procedure will diminish that ability to burp belch or vomit. She is aware that the Nicanor fundoplication does seem to have better durability than the partial wrap laparoscopic toupet. She is on aspirin and Plavix therapy which we will have her hold for 5 days preoperatively. She is aware of potential bleeding risk particularly with the spleen. She has a small hiatal hernia and aggressive reflux pathology was noted noted on upper endoscopy so hopefully she does not have significant mount a reactive change at the diaphragm. She is aware that she will need at least 2 to 3 weeks off of work and will have a weight lifting restriction. She has been provided both dietary instruction written information sheets and activity written information sheets. The ultimate goal is to surgically stop or improve her reflux and be able to at least get her off her proton pump inhibitor even if she might further need an H2 tu. She has had an opportunity to ask and have questions answered. She is very much interested in proceeding. We will schedule and proceed at her discretion. I appreciate the ongoing opportunity of assisting with her surgical care. Copy:MD Demarco Sargent M.D., F.A.C.S. I have examined the patient and the H&P has been reviewed. There are no clinical changes since date of exam. Demarco Amador M.D., F.A.C.S.
--- NOTE | 2023-10-30 06:16 | DCINST_ITS ---
Discharge Instructions Procedure General Surgery Diet Discharge Diet: - (Please follow the dietary instructions already provided) Activity Discharge Activity: May Not Drive (for 3-5 days or while taking narcotic pain medicine.) May shower in (days): 1 Lifting Restrictions: 10 pounds Additional Activity Instructions:: Please follow the activity limitation instruction sheet already provided Dressing / Incision Call your doctor if your incision/area has: Continuous Slow Oozing, Sudden Increased Bleeding, Increased Pain/ Swelling, Increased Redness and Foul Smelling Discharge Call your doctor if you observe: Fever of 101 or Higher Suture Line Care: Avoid Pulling/Pushing and Avoid Pinching/Bending Additional Dressing/Incision Instructions:: Change or remove dressing in 4 days. Leave steri-strips in place for 1 week. Follow Up Care Please Follow Up With: Demarco Amador MD When: Call [phone] to make an appointment to be seen in about 10 days. Test Results: Test results from this visit will be discussed in further detail at your follow- up appointment, if applicable. Discharge Plan Admission Attending Provider: Demarco Amador Primary Care Provider: Rhett Brito Discharge Orders/Prescriptions Prescriptions: No Action metoprolol succinate 100 mg tablet extended release 24 hr 100 mg PO QHS spironolactone 25 mg tablet 25 mg PO DAILY Patient Comments: TAKE 1 TABLET BY MOUTH DAILY Mounjaro 15 mg/0.5 mL pen injector 15 mg subcut QWEEK Hold Instructions: ON BACKORDER, PT ON TRULICITY UNTIL BACK IN STOCK Patient Comments: INJECT 15 MG SUBCUTANEOUSLY ONCE A WEEK omeprazole 40 mg capsule,delayed release(DR/EC) 40 mg PO QHS ascorbic acid (vitamin C) 500 mg tablet 500 mg PO DAILY cyanocobalamin (vitamin B-12) 5,000 mcg capsule 5,000 mcg PO DAILY Hair, Skin and Nails (biotin) 10,000 mcg tablet,chewable 10,000 mcg PO DAILY aspirin 81 mg tablet 81 mg PO DAILY Mirena 20 mcg/24 hours (8 yrs) 52 mg Intrauterine Device 52 mcg INTRAUTERINE X1 atorvastatin 20 mg Tablet 20 mg PO QHS cetirizine [Zyrtec] 10 mg Tablet 10 mg PO DAILY pioglitazone [Actos] 45 mg Tablet 45 mg PO DAILY clopidogrel 75 mg Tablet 75 mg PO DAILY lisinopril 10 mg Tablet 10 mg PO QHS gabapentin 300 mg Capsule 300 mg PO BID Rx Instructions: 300mg in the morning and 600mg at HS montelukast 10 mg Tablet 10 mg PO DAILY Probiotic 10 billion cell Capsule 10,000 mmu cells PO DAILY cyclobenzaprine 10 mg tablet 10 mg PO BID glimepiride 4 mg tablet 2 mg PO BID cholecalciferol (vitamin D3) [Vitamin D3] 25 mcg (1,000 unit) capsule 5,000 unit PO DAILY magnesium 500 mg tablet 500 mg PO DAILY ranolazine 1,000 mg tablet extended release 12 hr 1,000 mg PO BID Qty: 180 3RF Other Ambulatory Orders: 12 Lead EKG (Routine) Timeframe: 20231028 Location: None Selected Ordered By: Dr. Demarco Amador Referrals / Follow Up: Rhett Brito MD [Primary Care Provider] - Disposition Disposition (needs filled in before D/C Order can be placed): Home, Self Care
[2023-10-30] MEDS: Lactated Ringers 1,000 ML 15 ML IV ×3 (06:21→13:36)
[2023-10-30 06:42] LABS: Bedside Glucose 125 mg/dL (74-106)
[2023-10-30] MEDS: Cefazolin 2 GM in 0.9% Normal Saline (100mL Bag) 100 ML IV (07:25)
--- NOTE | 2023-10-30 10:23 | OP.PCM_ITS ---
Report of Operation Date of Procedure: 10/30/23 Pre-Operative Diagnosis: Hiatal hernia and intractable gastroesophageal reflux disease Post-Operative Diagnosis: Same Surgery/Procedure Performed:: Laparoscopic repair of hiatal hernia with laparoscopic Nicanor fundoplication Description of Surgical Findings:: Timeout informed consent was obtained. 48-year-old female was taken to the operating placed upon the table underwent general endotracheal intubation esthesia Ancef 2 g were given intravenously. She was on a beanbag. She was placed in a low lithotomy position. Rolled blankets were used with a footboard to help support her bottom. The right arm was Protected on an armboard. The abdomen sterilely prepped and draped. [place] draping was used. 0.5% Marcaine was used as a local anesthetic. Throughout the procedure a total of 30 cc was used. Skin sites were preanesthetized. In the right upper medial abdomen superior to the umbilicus using a 5 mm Visiport technology to gain direct access to the abdomen. Under direct there was no trocar at injuries. The abdomen was insufflated with CO2 to a pressure of 10 mmHg pressure. 10 mm trocar was placed in the left medial upper abdomen and 2 more 5 mm trocars placed in the left subcostal area 5 trocar was placed in the epigastric area to allow for a medium Dre retractor to be inserted the left lobe of the liver was elevated. The stomach was inflated with air and OG tube had to be placed to decompress this. There is significant mount of fibrofatty tissue at the pars flaccida him and harmonic scalpel was used to carefully incise this area and dissect until clearly the right and left adithya were identified. I then rotated the table left up in order to get to the short gastrics in the very proximal short gastrics and carefully and tediously transected with the harmonic scalpel. Complete hemostasis was intact. This gave me better access then to the left crura which was covered with fibrofatty tissue and carefully dissected that free. Was then able to get behind the esophagus with careful dissection on both sides identifying the crura and then was able to place 1/2 inch Osmar drain and elevate the esophagus this allowed me to do further dissection of the distal mediastinum I clearly had plenty of esophageal length. Vagus nerve was protected with the esophagus. The posterior fat pad required extra mobilization was able to mobilize that further and then had excellent view of the crura. Using pledgeted 0 Nurolon sutures 3 sutures were placed to approximate the crura. A 46 [place] bougie was placed by anesthesia and I felt that I had good positioning. I did reinforce the anterior crura with a simple suture of 0 Nurolon and pledgeted sutures but not to further diminish the orifice of the hiatus. [place] that had good repair. Took the fundus of the stomach wrapped it posteriorly. I secured the posterior aspect of the wrap to the crura with a pledgeted 0 Nurolon. All of this stitching was done initially with extracorporeal knot tying but reinforced with intracorporeal knot tying as well. I then performed a loose floppy Nicanor. Took the fundus portion of the stomach and sutured that to the diaphragm down to the anterior wall of the stomach and then to the wrap portion of the stomach. I then used 2 more sutures of 2-0 Ethibond to suture the stomach to the anterior wall of the esophagus to the stomach. [place] that I had a nice wrap this was done with the bougie in place. The bougie was removed I then performed upper endoscopy dictated in the probation system. [place] that the scope easily went through the EG junction. The stomach was then noted to be half full of food in the lower portion. I was able to invert the scope and see the full wrap in place. Air was insufflated and there is absolutely no intra-abdominal air leak. Excess fluid nurse aspirated free. The scope was carefully with removed hemostasis intact. The abdomen was again insufflated inspected the left lobe of the liver was released excess fluid and air in the upper abdomen was aspirated free. 10 mm trocar was removed and using a grainy needle and a 0 Vicryl simple suture was used to secure that. I then did a left subcostal block with the remainder of the 0.5% Marcaine to act as a mini nerve block. The abdomen deflated the CO2. Skin edges approximated interrupted 4 Monocryl subdermal stitches. Steri-Strips Telfa OpSite dressings applied. Sponge and instrument and needle counts were reported to the surgeon to be correct. It is of note that once I had the stomach wrapped posteriorly I then inspected the anterior EG junction there was some fibrofatty tissue part of the hernia sac which I excised with harmonic scalpel collected that with a retrieval bag and that is submitted to specimen. Drains none. Specimens hernia sac. Blood loss minimal. The patient was taken the recovery room in satisfied condition without apparent complication Demarco Amador M.D., F.A.C.S. Surgeon: Demarco Amador Type of Anesthesia: General and Local Anesthesiologist: Ruth Pearson
[2023-10-30] MEDS: Bupivacaine Mpf 0.5% 30 ML VIAL (10:24)
[2023-10-30] MEDS: Erythromycin Base 1 OPTH.TUBE 1 APPLIC RIGHT EYE (13:35)
--- NOTE | 2023-10-30 15:25 | SUR.PHASEII ---
eye patch provided to patient per dr. keenan request. pt to follow up with their eye doctor tomorrow if symptoms do not resolve.
== END 2023-10-30 15:45 | disposition home or self-care (01) ==
LOC: SDC 05:41 → AC 05:48
PROVIDERS: Anesthesiology; PCP Family Medicine; Referring Provider Surgery; Visit Provider Surgery
PROC: (CPT 43325; principal; 2023-10-30 07:10)
DX: K21.00 Gastro-esophageal reflux disease with esophagitis, without bleeding (principal); E11.9 Type 2 diabetes mellitus without complications; K44.9 Diaphragmatic hernia without obstruction or gangrene; I25.10 Atherosclerotic heart disease of native coronary artery without angina pectoris; I10 Essential (primary) hypertension; E78.2 Mixed hyperlipidemia; Z95.5 Presence of coronary angioplasty implant and graft; Z79.02 Long term (current) use of antithrombotics/antiplatelets; Z79.82 Long term (current) use of aspirin; Z79.84 Long term (current) use of oral hypoglycemic drugs; Z79.899 Other long term (current) drug therapy
CPT/HCPCS: 43281; 00790; 36415; 81025; 82962; 85027; 88302; 93005; J7120; J2405

== ENCOUNTER → 2024-03-10 | Outpatient (CLI) | payer BC, SELFPAY ==
[2022-06-13 09:21] VITALS: BMI 43.6
--- NOTE | 2024-03-10 13:49 | BI_ITS ---
MAMMOGRAPHY - BILATERAL SCREENING REASON FOR EXAM: Female, 48 years old. Routine annual screening examination. PERTINENT HISTORY: Mother with breast cancer. Aunt with breast cancer. Prior right breast biopsy. TECHNIQUE: Digital bilateral breast dominique (3D mammographic acquisition) in the CC and MLO projections. 2-D mediolateral oblique (MLO) and craniocaudad (CC) views of both breasts were obtained. CAD: Full Field Digital Mammography with Computer Added Detection was performed. COMPARISON: Comparison is made with prior study March 05, 2023. FINDINGS: Breast Composition: There are scattered areas of fibroglandular density. There are no dominant masses or suspicious calcifications. A tissue clip marker is seen in the upper central portion of the left breast. No other significant abnormalities are identified. There has been no significant change since the prior study. BI/SCRN MAMM (CAD)W/DOMINIQUE BILAT IMPRESSION: Stable bilateral screening mammogram. Yearly follow-up mammogram recommended. (A) ASSESSMENT CATEGORY: BIRADS Category 2: Benign. A letter regarding these results will be sent to the patient by the facility within 30 days. Approximately 10% of breast cancers are not detected by mammography. A normal mammogram should not delay biopsy of a clinically suspicious abnormality. [id number] Electronically Signed: Wilder Stewart MD at 15:04 EDT ,
== END | disposition home or self-care (01) ==
LOC: OPBI 13:48
PROVIDERS: PCP Family Medicine; Referring Provider Advanced Practice Midwife; Visit Provider Advanced Practice Midwife
DX: Z12.31 Encounter for screening mammogram for malignant neoplasm of breast (principal)
CPT/HCPCS: 77063; 77067

== ENCOUNTER → 2025-01-05 | Outpatient (CLI) | payer OTHER, SELFPAY ==
[2025-01-05 11:34] VITALS: BMI 43.6
--- NOTE | 2025-01-05 13:21 | RAD_ITS ---
PROCEDURE: ANKLE MIN 3 VIEWS 01/05/2025 REASON FOR EXAM: Medial ankle pain following injury. TECHNIQUE: ANKLE MIN 3 VIEWS COMPARISON: None FINDINGS: Bones: Calcaneal spurs. No fracture seen. Joints: Normal alignment. Mortise appears intact. No effusion. Soft tissues: Soft tissue swelling. Other: RAD/Ankle min 3 Views IMPRESSION: Soft tissue swelling. No fracture is seen. Calcaneal spur. Reading Location: [facility]
[2025-01-05 15:54] LABS: Anion Gap 10 (5-15); BUN 19 mg/dL (4-19); BUN/Creat Ratio 22.2 RATIO (10-20); Calcium,Total 9.7 mg/dL (7.6-11.0); Carbon Dioxide 24.5 mmol/L (21.0-32.0); Chloride 104 mmol/L (98-108); Glucose 143 mg/dL (70-99); Potassium 4.7 mmol/L (3.3-5.1); Pro- Brain NATRIURETIC PEPTIDE 275 pg/mL (<=450)
== END | disposition home or self-care (01) ==
LOC: LAB 13:01
PROVIDERS: PCP Family Medicine; Referring Provider Nurse Practitioner Family; Visit Provider Nurse Practitioner Family
DX: R06.09 Other forms of dyspnea (principal); M25.571 Pain in right ankle and joints of right foot; Z95.5 Presence of coronary angioplasty implant and graft
CPT/HCPCS: 36415; 73610; 80048; 83695; 83880

== ENCOUNTER → 2025-03-12 | Outpatient (CLI) | payer OTHER, SELFPAY ==
[2022-06-13 09:21] VITALS: BMI 43.6
[2025-01-05 11:34] VITALS: BMI 43.6
--- NOTE | 2025-03-12 11:00 | BI_ITS ---
EXAM: SCRN MAMM (CAD)W/DOMINIQUE BILAT DATE: 03/12/2025 CLINICAL HISTORY: F, Age 49 y/o , SCREENING FOR BREAST CANCER TECHNIQUE: Procedure Code: [id number] Modality: MG Procedure: SCRN MAMM (CAD)W/DOMINIQUE BILAT COMPARISON: Prior exam(s) dated 03/10/2024, 03/05/2023. FINDINGS: TISSUE DENSITY: There are scattered areas of fibroglandular density. Bilateral Breast Mammographic Findings: No significant masses, calcifications or other abnormalities are identified. BI/SCRN MAMM (CAD)W/DOMINIQUE BILAT IMPRESSION: There is no mammographic evidence of malignancy. OVERALL FINAL ASSESSMENT BI-RADS 1: NEGATIVE. RECOMMENDATION: Routine annual follow-up in 1 Year A letter with findings and recommendations will be mailed to the patient. Reading Location: [id number]
== END | disposition home or self-care (01) ==
LOC: OPBI 11:04
PROVIDERS: PCP Family Medicine; Referring Provider Advanced Practice Midwife; Visit Provider Advanced Practice Midwife
DX: Z12.31 Encounter for screening mammogram for malignant neoplasm of breast (principal)
CPT/HCPCS: 77063; 77067